=== PATIENT | male | born 1965 ===

== ENCOUNTER 2023-05-15 10:37 | Outpatient (AMB) | payer OTHER, SELFPAY ==
--- NOTE | 2023-05-15 10:49 | MHC.OFFVIS ---
Intake Visit Reasons: Elevated PSA R97.20 Intake Note: New Patient presents today to establish treatment for elevated PSA Meds- None Allergies to Antibiotic- Penicillins Blood Thinner- None Cal[employer] Equipment Operator Required: No Accompanied by: Self / Same As Patient Allergies Penicillins Allergy (Unknown, Verified 05/15/23 11:13) Unknown HPI Comments Details: Rich is a 58 y/o male referred for evaluation elevated PSA - 4.87. He denies FH of prostate cancer. He complains of some hesitency, nocturia x 2, denies dysuria, gross hematuria. I have discussed that elevated PSA may indicate changes in the prostate including benign enlargement, cancer and an inflammatory condition. I have discussed doing a biopsy has risks and that management in early detection of prostate cancer may include active surveillance. Plan--repeat PSA, tamsulosin 0.4mg daily, renal/bladder US. [facility] Medical History (Updated 06/18/23 @ 22:44 by Vicki Gonzales MD) Family history of malignant neoplasm of other organs or systems Hyperlipidemia, unspecified Gastro-esophageal reflux disease without esophagitis Elevated prostate specific antigen [PSA] Calculus of kidney Unspecified malignant neoplasm of skin, unspecified Surgical History No pertinent past surgical history Family History Father No family history of cancer Mother No family history of cancer Social History Alcohol intake: current Alcohol intake frequency: does not drink Patient Tobacco Use Status: Never used Tobacco Review of Systems Const All systems reviewed & are unremarkable except as noted in HPI and below Reports no additional complaints Eyes Reports no additional complaints ENT Reports no additional complaints Card Reports no additional complaints Resp Reports no additional complaints GI Reports no additional complaints Reports as per HPI Musc Reports no additional complaints Skin/Breast Reports system reviewed and no additional complaints, except as documented Neuro Reports no additional complaints Psych Reports no additional complaints Endo Reports no additional complaints Filippo/Lymph Reports no additional complaints Aller/Immun Reports no additional complaints Physical Exam Const General: healthy appearing, no acute distress and well developed Orientation/consciousness: patient oriented x3 HEENT Head: Yes normocephalic and Yes atraumatic Eyes Conjunctivae: conjunctivae normal Neck Neck: Yes normal visual inspection Chest Chest palpation & inspection: normal inspection of the chest Resp Effort & Inspection: normal respiratory effort Cardio Rate: regular rate GI Inspection: Yes normal to inspection Palpation (GI): Soft to palpation Skin General skin exam: no rashes or lesions noted Neuro General: patient oriented x3 Extrem General: No pedal edema Psych Appearance: grossly normal Affect: normal affect Results AMB Urinalysis, Automated UA Leukoctes 0 Rodney/uL Last Edit by Ariadne Vences [facility] on 05/15/23 11:18 UA Nitrite Negative Last Edit by Ariadne Vences [facility] on 05/15/23 11:18 UA Urobilinogen 3.5 mg/dL Last Edit by Ariadne Vences [facility] on 05/15/23 11:18 UA Protein mg/dL Last Edit by Ariadne Vences [facility] on 05/15/23 11:18 0.15 g/L Ariadne Vencesjovanna Alamoa 05/15/23 11:18 UA pH 5.5 Last Edit by Ariadne Vences [facility] on 05/15/23 11:18 UA Blood 0 Saul/uL Last Edit by Ariadne Vences [facility] on 05/15/23 11:18 UA Specific [place] 1.025 Last Edit by Ariadne Vences [facility] on 05/15/23 11:18 UA Ketone Negative Last Edit by Ariadne Vences [facility] on 05/15/23 11:18 UA Bilirubin 0 mg/dL Last Edit by Ariadne Vencesjovanna Vences [facility] on 05/15/23 11:18 UA Glucose 0 mg/dL Last Edit by Ariadne Vencesjovanna Vences [facility] on 05/15/23 11:18 Results Reviewed Results Reviewed: Laboratory Last Values Urine pH (Auto) 5.5 05/15/23 11:17 Specific [place] (Auto) 1.025 05/15/23 11:17 Urine Protein (Auto) mg/dL 05/15/23 11:17 Glucose (UA)(Auto) 0 mg/dL 05/15/23 11:17 Urine Ketones (Auto) Negative 05/15/23 11:17 Urine Blood (Auto) 0 Saul/uL 05/15/23 11:17 Urine Nitrite (Auto) Negative 05/15/23 11:17 Urine Bilirubin (Auto) 0 mg/dL 05/15/23 11:17 Urine Urobilinogen (Auto) 3.5 mg/dL 05/15/23 11:17 Leukocyte Esterase (Auto) 0 Rodney/uL 05/15/23 11:17 Assessment & Plan Assessment & Plan (1) BPH loc w urin obs/LUTS: Code(s): N40.1 - Benign prostatic hyperplasia with lower urinary tract symptoms Category: Medical (2) Elevated prostate specific antigen [PSA]: Code(s): R97.20 - Elevated prostate specific antigen [PSA] Category: Medical Plan repeat PSA, tamsulosin 0.4mg daily, renal/bladder US. Orders: Orders AMB Urinalysis Automated 05/15/23 R33.9 - Retention of urine, unspecified PSA,Total (Free>4and<10) 1 Month R97.20 - Elevated prostate specific antigen [PSA] US retroperitoneal comp 1 Month R97.20 - Elevated prostate specific antigen [PSA] Medications: New tamsulosin 0.4 mg PO BEDTIME 90 caps 0RF BPH 90 days Patient Instructions: The patient had an opportunity to ask questions regarding treatment plan. The patient expressed understanding and agreement with the above treatment plan. The patient is aware they should contact our office by phone for worsening of their current condition or the appearance of new symptoms. Compliance is encouraged with any medications and followup testing that is ordered. It is a privilege to be allowed the opportunity to participate in the urologic care of your patient. If you have any questions or concerns regarding treatment for the above conditions please do not hesitate to contact me. The office telephone contact is [phone]. This note is constructed in part using voice recognition software. While every effort has been made to ensure accuracy almond huller errors may have been included. Yours sincerely, Vciki Gonzales MD Coding Level of Care Code New Pt Level 4 (27419) Diagnoses BPH loc w urin obs/LUTS N40.1 Elevated prostate specific antigen [PSA] R97.20
== END 2023-05-15 11:49 | disposition home or self-care (01) ==
PROVIDERS: Visit Provider Urology
DX: N40.1 Benign prostatic hyperplasia with lower urinary tract symptoms (principal); R97.20 Elevated prostate specific antigen [PSA]
CPT/HCPCS: 99204

== ENCOUNTER → 2023-05-15 10:37 | Outpatient (BNVA) | payer OTHER, SELFPAY | PROVIDERS: Visit Provider Urology | DX: R97.20 Elevated prostate specific antigen [PSA] (principal); N40.1 Benign prostatic hyperplasia with lower urinary tract symptoms | CPT/HCPCS: 81003; 99202 ==

== ENCOUNTER 2023-06-19 09:43 | Outpatient (REF) | payer OTHER, SELFPAY ==
--- NOTE | ~2023-06-19 | US_ITS ---
EXAMINATION: US RETROPERITONEAL COMPLETE (RENAL) CLINICAL INFORMATION: Elevated prostate-specific antigen (PSA). COMPARISON: None available. TECHNIQUE: Real-time imaging of the kidneys and bladder. FINDINGS: RIGHT KIDNEY: 12.8 x 6.3 x 6.4 cm (SAG x AP x TRV). The kidney is normal in size, contour, and echogenicity. Renal cortical thickness is normal. No focal parenchymal lesions or hydronephrosis. 8 mm nonobstructing calculus in the mid kidney. LEFT KIDNEY: 12.6 x 6.0 x 5.8 cm (SAG x AP x TRV). The kidney is normal in size, contour, and echogenicity. Renal cortical thickness is normal. No focal parenchymal lesions or hydronephrosis. 6 mm nonobstructing calculus in the mid kidney. BLADDER: Well distended and normal. Bilateral ureteral jets are demonstrated. Prevoid bladder volume is 690 mL. Postvoid bladder volume is 80 mL. The prostate volume is 32 mL. US/US retroperitoneal comp IMPRESSION: Enlarged prostate with distended urinary bladder measuring 690 mL prevoid and 80 mL postvoid. No hydronephrosis. Nonobstructing bilateral renal calculi.
== END 2023-06-19 09:44 | disposition home or self-care (01) ==
LOC: HO.US 09:43
PROVIDERS: PCP Physician Assistant; Visit Provider Urology
DX: R97.20 Elevated prostate specific antigen [PSA] (principal)
CPT/HCPCS: 76770

== ENCOUNTER 2023-06-27 13:14 | Outpatient (REF) | payer OTHER, SELFPAY ==
[2023-06-27 15:29] LABS: PSA,Total (Free>4and<10) 4.15 ng/mL (0.00-4.00)
[2023-06-29 13:33] LABS: Free Prostate Spec Ag 0.4 ng/mL; Percent Free Prostate Spec Ag 11 % (calc) (>25); Prostate Specific Ag Total 3.8 ng/mL (< OR = 4.0)
== END 2023-06-27 13:15 | disposition home or self-care (01) ==
LOC: HO.LAB 13:14
PROVIDERS: PCP Physician Assistant; Visit Provider Urology
DX: Z12.5 Encounter for screening for malignant neoplasm of prostate (principal); R97.20 Elevated prostate specific antigen [PSA]
CPT/HCPCS: 36415; 84153; 84154

== ENCOUNTER 2023-07-03 08:16 | Outpatient (AMB) | payer OTHER, SELFPAY ==
--- NOTE | 2023-07-03 08:24 | A.OFFVIS_ITS ---
Intake Visit Reasons: 2m/US/PSA Intake Note: Patient presents today for a follow-up on US & PSA Results: 4.15 ng/mL Meds- Tamsulosin Allergies to Antibiotic- Penicillins Blood Thinner- None Exercise Physiologist Certified Required: No Accompanied by: Self / Same As Patient Allergies Penicillins Allergy (Unknown, Verified 07/03/23 08:25) Unknown Medication List - Last Reconciled 07/03/23 by Vicki Gonzales MD cholecalciferol (vitamin D3) 50 mcg PO DAILY famotidine 20 mg PO DAILY multivitamin (Multiple Vitamins tablet) 1 tab PO DAILY omega 9-[id number]-fish oil 1,000 mg (120 mg-180 mg) (Fish Oil) 1 cap PO DAILY pyridoxine (vitamin B6) 90 mg (0.9 x 100 mg) PO DAILY tamsulosin 0.4 mg PO BEDTIME 90 days HPI Comments Details: 07/03/23--Rich is a 58-year-old male who was seen last on 05/15/2023 for elevated PSA. Denies family history of prostate cancer. He does admit to some obstructive bladder symptoms. He is on tamsulosin 0.4 mg daily. The patient states he is tolerating the tamsulosin and feels that he has a better flow and is getting up less at nighttime. He was sent for renal ultrasound and repeat PSA was discussed. PSA-06/27/2023 was 4.15. Renal ultrasound 06/19/2023-negative for lesions, viral kidney stones 8 mm in the right kidney 6 mm in the left kidney adequate emptying on postvoid check a bladder, estimated prostate volume 32 mL. The patient states that he does have a history of passing kidney stones he has not needed to have a procedure. The patient states that he eats a lot of nuts and berries in his diet. I have discussed diet modification to decrease risk of forming more kidney stones. I have discussed low oxalate diet and specific foods to avoid including certain green leafy vegetables, chocalate, nuts, tea, beets, rubarb; low sodium, decreased use of animal protein and the importance of hydration drinking up to 2-2.5 liters of fluids and use of adding lemon to water to increase citrate in the diet. A pamphlet is also provided today. Plan discussed 24 hour urine collection. Will monitor kidney stones. CT stone protocol in 6 months. Review of chart: 05/15/23--Rich is a 58 y/o male referred for evaluation elevated PSA - 4.87. He denies FH of prostate cancer. He complains of some hesitency, nocturia x 2, denies dysuria, gross hematuria. I have discussed that elevated PSA may indicate changes in the prostate i ncluding benign enlargement, cancer and an inflammatory condition. I have discussed doing a biopsy has risks and that management in early detection of prostate cancer may include active surveillance. Plan discussed repeat PSA, tamsulosin 0.4mg daily, renal/bladder US. 07/03/2023--Plan-continue tamsulosin. Monitor PSA. PSA in 6 months. diet modification discussed. [address] stone protocol in 6 months [facility] Medical History Family history of malignant neoplasm of other organs or systems Hyperlipidemia, unspecified Gastro-esophageal reflux disease without esophagitis Elevated prostate specific antigen [PSA] Calculus of kidney Unspecified malignant neoplasm of skin, unspecified Surgical History No pertinent past surgical history Family History Father No family history of cancer Mother No family history of cancer Social History Alcohol intake: current Alcohol intake frequency: does not drink Patient Tobacco Use Status: Never used Tobacco Review of Systems Const All systems reviewed & are unremarkable except as noted in HPI and below Reports no additional complaints Eyes Reports no additional complaints ENT Reports no additional complaints Card Reports no additional complaints Resp Reports no additional complaints GI Reports no additional complaints Reports as per HPI Musc Reports no additional complaints Skin/Breast Reports system reviewed and no additional complaints, except as documented Neuro Reports no additional complaints Psych Reports no additional complaints Endo Reports no additional complaints Filippo/Lymph Reports no additional complaints Aller/Immun Reports no additional complaints Results Reviewed Results Reviewed: Date of Service: 06/19/23 US RETROPERITONEAL COMPLETE (RENAL) CLINICAL INFORMATION: Elevated prostate-specific antigen (PSA). COMPARISON: None available. TECHNIQUE: Real-time imaging of the kidneys and bladder. FINDINGS: RIGHT KIDNEY: 12.8 x 6.3 x 6.4 cm (SAG x AP x TRV). The kidney is normal in size, contour, and echogenicity. Renal cortical thickness is normal. No focal parenchymal lesions or hydronephrosis. 8 mm nonobstructing calculus in the mid kidney. LEFT KIDNEY: 12.6 x 6.0 x 5.8 cm (SAG x AP x TRV). The kidney is normal in size, contour, and echogenicity. Renal cortical thickness is normal. No focal parenchymal lesions or hydronephrosis. 6 mm nonobstructing calculus in the mid kidney. BLADDER: Well distended and normal. Bilateral ureteral jets are demonstrated. Prevoid bladder volume is 690 mL. Postvoid bladder volume is 80 mL. The prostate volume is 32 mL. IMPRESSION: Enlarged prostate with distended urinary bladder measuring 690 mL prevoid and 80 mL postvoid. No hydronephrosis. Nonobstructing bilateral renal calculi. Assessment & Plan Assessment & Plan (1) BPH loc w urin obs/LUTS: Code(s): N40.1 - Benign prostatic hyperplasia with lower urinary tract symptoms Category: Medical (2) Elevated prostate specific antigen [PSA]: Code(s): R97.20 - Elevated prostate specific antigen [PSA] Category: Medical (3) Bilateral kidney stones: Code(s): N20.0 - Calculus of kidney Category: Medical Plan Elevated PSA. Stable 06/27/19 4-4.15 ng/mL. Repeat PSA in 6 months Bilateral kidney stones. Vitamin B6 100 mg daily. 24 hour urine. Follow-up in [address] stone protocol in 6 months. Orders: Orders CT abdomen pelvis wo IV con 6 Months N20.0 - Calculus of kidney PSA,Total (Free>4and<10) 6 Months R97.20 - Elevated prostate specific antigen [PSA] Medications: New pyridoxine (vitamin B6) 90 mg (0.9 x 100 mg) PO DAILY 90 tabs 3RF Patient Instructions: The patient had an opportunity to ask questions regarding treatment plan. The patient expressed understanding and agreement with the above treatment plan. The patient is aware they should contact our office by phone for worsening of their current condition or the appearance of new symptoms. Compliance is encouraged with any medications and followup testing that is ordered. It is a privilege to be allowed the opportunity to participate in the urologic care of your patient. If you have any questions or concerns regarding treatment for the above conditions please do not hesitate to contact me. The office telephone contact is [phone]. This note is constructed in part using voice recognition software. While every effort has been made to ensure accuracy pastry decorator errors may have been included. Yours sincerely, Vicki Gonzales MD Coding Level of Care Code Est Pt Level 4 (96584) Complex EM visit Add On G2211 Diagnoses BPH loc w urin obs/LUTS N40.1 Elevated prostate specific antigen [PSA] R97.20 Bilateral kidney stones N20.0
== END 2023-07-03 09:10 | disposition home or self-care (01) ==
PROVIDERS: Referring Provider Urology; Visit Provider Urology
DX: N40.1 Benign prostatic hyperplasia with lower urinary tract symptoms (principal); R97.20 Elevated prostate specific antigen [PSA]; N20.0 Calculus of kidney; Z13.9 Encounter for screening, unspecified
CPT/HCPCS: 99214; G2211

== ENCOUNTER → 2023-07-03 08:16 | Outpatient (BNVA) | payer OTHER, SELFPAY | PROVIDERS: Visit Provider Urology | DX: N40.1 Benign prostatic hyperplasia with lower urinary tract symptoms (principal); N20.0 Calculus of kidney; R97.20 Elevated prostate specific antigen [PSA]; Z79.899 Other long term (current) drug therapy | CPT/HCPCS: 81003; 99212 ==

== ENCOUNTER 2023-09-25 08:20 | Outpatient (AMB) | payer OTHER, SELFPAY ==
--- NOTE | 2023-09-25 08:31 | A.OFFVIS_ITS ---
Intake Visit Reasons: 12w/[employer] Intake Note: Patient presents today for a 12w follow-up/[employer] Meds- Tamsulosin,pyridoxine Allergies to Antibiotic- Penicillins Blood Thinner- None Gift Consultant Required: No Accompanied by: Self / Same As Patient Allergies Penicillins Allergy (Unknown, Verified 09/25/23 08:32) Unknown HPI Comments Details: 09/25/2023-Rich is here in follow-up for kidney stones and BPH. He states that he has been taking the tamsulosin which was working well he has been getting up 1 time at night. I have reviewed 24 hour urine collection. Good urine volume over 3 L, elevated urine calcium greater than 500 mg, oxalate 43 mg. Will refer to nephrology. Continue to monitor PSA, and kidney stone. Continue tamsulosin and vitamin B6 100 mg daily. Review of chart: 07/03/23--Rich is a 58-year-old male who was seen last on 05/15/2023 for elevated PSA. Denies family history of prostate cancer. He does admit to some obstructive bladder symptoms. He is on tamsulosin 0.4 mg daily. The patient states he is tolerating the tamsulosin and feels that he has a better flow and is getting up less at nighttime. He was sent for renal ultrasound and repeat PSA was discussed. PSA-06/27/2023 was 4.15. Renal ultrasound 06/19/2023-negative for lesions, viral kidney stones 8 mm in the right kidney 6 mm in the left kidney adequate emptying on postvoid check a bladder, estimated prostate volume 32 mL. The patient states that he does have a history of passing kidney stones he has not needed to have a procedure. The patient states that he eats a lot of nuts and berries in his diet. I have discussed diet modification to decrease risk of forming more kidney stones. I have discussed low oxalate diet and specific foods to avoid including certain green leafy vegetables, chocalate, nuts, tea, beets, rubarb; low sodium, decreased use of animal protein and the importance of hydration drinking up to 2-2.5 liters of fluids and use of adding lemon to water to increase citrate in the diet. A pamphlet is also provided today. Plan discussed 24 hour urine collection. Will monitor kidney stones. CT stone protocol in 6 months. 05/15/23--Rich is a 58 y/o male referred for evaluation elevated PSA - 4.87. He denies FH of prostate cancer. He complains of some hesitency, nocturia x 2, denies dysuria, gross hematuria. I have discussed that elevated PSA may indicate changes in the prostate including benign enlargement, cancer and an inflammatory condition. I have discussed doing a biopsy has risks and that management in early detection of prostate cancer may include active surveillance. Plan discussed repeat PSA, tamsulosin 0.4mg daily, renal/bladder US. [facility] Medical History (Updated 09/25/23 @ 10:03 by Vicki Gonzales MD) Family history of malignant neoplasm of other organs or systems Hyperlipidemia, unspecified Gastro-esophageal reflux disease without esophagitis Elevated prostate specific antigen [PSA] Calculus of kidney Unspecified malignant neoplasm of skin, unspecified Surgical History No pertinent past surgical history Family History Father No family history of cancer Mother No family history of cancer Social History Alcohol intake: current Alcohol intake frequency: does not drink Patient Tobacco Use Status: Never used Tobacco Results AMB Urinalysis, Automated UA Leukoctes 0 Rodney/uL Last Edit by CHRISTOPHER Bello on 09/25/23 08:55 UA Nitrite Negative Last Edit by CHRISTOPHER Bello on 09/25/23 08:55 UA Urobilinogen 0.2 mg/dL Last Edit by CHRISTOPHER Bello on 09/25/23 08:5 5 UA Protein 0 mg/dL Last Edit by CHRISTOPHER Bello on 09/25/23 08:55 UA pH 6.0 Last Edit by CHRISTOPHER Bello on 09/25/23 08:55 UA Blood 0 Saul/uL Last Edit by CHRISTOPHER Bello on 09/25/23 08:55 UA Specific [place] 1.015 Last Edit by CHRISTOPHER Bello on 09/25/23 08: 55 UA Ketone Positive Last Edit by CHRISTOPHER Bello on 09/25/23 08:55 UA Bilirubin 0 mg/dL Last Edit by CHRISTOPHER Bello on 09/25/23 08:55 UA Glucose 0 mg/dL Last Edit by CHRISTOPHER Bello on 09/25/23 08:55 Results Reviewed Results Reviewed: Laboratory Last Values Urine pH (Auto) 6.0 09/25/23 08:54 Specific [place] (Auto) 1.015 09/25/23 08:54 Urine Protein (Auto) 0 mg/dL 09/25/23 08:54 Glucose (UA)(Auto) 0 mg/dL 09/25/23 08:54 Urine Ketones (Auto) Positive 09/25/23 08:54 Urine Blood (Auto) 0 Saul/uL 09/25/23 08:54 Urine Nitrite (Auto) Negative 09/25/23 08:54 Urine Bilirubin (Auto) 0 mg/dL 09/25/23 08:54 Urine Urobilinogen (Auto) 0.2 mg/dL 09/25/23 08:54 Leukocyte Esterase (Auto) 0 Rodney/uL 09/25/23 08:54 Date of Service: 06/19/23 US RETROPERITONEAL COMPLETE (RENAL) CLINICAL INFORMATION: Elevated prostate-specific antigen (PSA). COMPARISON: None available. TECHNIQUE: Real-time imaging of the kidneys and bladder. FINDINGS: RIGHT KIDNEY: 12.8 x 6.3 x 6.4 cm (SAG x AP x TRV). The kidney is normal in size, contour, and echogenicity. Renal cortical thickness is normal. No focal parenchymal lesions or hydronephrosis. 8 mm nonobstructing calculus in the mid kidney. LEFT KIDNEY: 12.6 x 6.0 x 5.8 cm (SAG x AP x TRV). The kidney is normal in size, contour, and echogenicity. Renal cortical thickness is normal. No focal parenchymal lesions or hydronephrosis. 6 mm nonobstructing calculus in the mid kidney. BLADDER: Well distended and normal. Bilateral ureteral jets are demonstrated. Prevoid bladder volume is 690 mL. Postvoid bladder volume is 80 mL. The prostate volume is 32 mL. IMPRESSION: Enlarged prostate with distended urinary bladder measuring 690 mL prevoid and 80 mL postvoid. No hydronephrosis. Nonobstructing bilateral renal calculi. 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 Category: Medical (2) Elevated prostate specific antigen [PSA]: Code(s): R97.20 - Elevated prostate specific antigen [PSA] Category: Medical (3) BPH loc w urin obs/LUTS: Code(s): N40.1 - Benign prostatic hyperplasia with lower urinary tract symptoms Category: Medical (4) Calculus of kidney: Code(s): N20.0 - Calculus of kidney Category: Medical Plan Referred to nephrology for hypercalciuria, monitor PSA and kidney stone Renal ultrasound in 1 year, follow-up post Orders: Orders AMB Urinalysis Automated Today Z13.9 - Encounter for screening, unspecified Referrals Nephrology Referral R82.994 - Hypercalciuria Medications: New tamsulosin (Flomax) 0.4 mg PO BEDTIME 90 caps 3RF tamsulosin (Flomax) . 0.4 mg PO BEDTIME 90 caps 3RF Patient Instructions: The patient had an opportunity to ask questions regarding treatment plan. The patient expressed understanding and agreement with the above treatment plan. The patient is aware they should contact our office by phone for worsening of their current condition or the appearance of new symptoms. Compliance is encouraged with any medications and followup testing that is ordered. It is a privilege to be allowed the opportunity to participate in the urologic care of your patient. If you have any questions or concerns regarding treatment for the above conditions please do not hesitate to contact me. The office telephone contact is [phone]. This note is constructed in part using voice recognition software. While every effort has been made to ensure accuracy inside sales manager errors may have been included. Yours sincerely, Vicki Gonzales MD Coding Level of Care Code Est Pt Level 4 (72047) Diagnoses Hypercalciuria R82.994 Elevated prostate specific antigen [PSA] R97.20 BPH loc w urin obs/LUTS N40.1 Calculus of kidney N20.0
== END 2023-09-25 09:41 | disposition home or self-care (01) ==
PROVIDERS: PCP Physician Assistant; Visit Provider Urology
DX: R82.994 Hypercalciuria (principal); R97.20 Elevated prostate specific antigen [PSA]; N40.1 Benign prostatic hyperplasia with lower urinary tract symptoms; N20.0 Calculus of kidney; Z13.9 Encounter for screening, unspecified
CPT/HCPCS: 99214

== ENCOUNTER → 2023-09-25 08:20 | Outpatient (BNVA) | payer OTHER, SELFPAY | PROVIDERS: PCP Physician Assistant; Visit Provider Urology | DX: N20.0 Calculus of kidney (principal); N40.1 Benign prostatic hyperplasia with lower urinary tract symptoms; R82.994 Hypercalciuria; R97.20 Elevated prostate specific antigen [PSA]; Z79.899 Other long term (current) drug therapy | CPT/HCPCS: 81003; 99212 ==

== ENCOUNTER 2023-11-02 14:49 | Outpatient (AMB) | payer OTHER, SELFPAY ==
[2023-11-02 14:57] VITALS: BP 134/84; PULSE 63; O2SAT 96; BMI 27.9
--- NOTE | 2023-11-02 14:57 | HO.NEPHOV_ITS ---
Vital Signs 11/02/23 14:57 Height 6 ft 2 in Weight 217 lb BMI 27.9 BP 134/84 Blood Pressure Location Lt brachial Position Sitting Pulse 63 Pulse Source Pulse Oximeter Pulse Oximetry (%) 96 Oxygen Delivery Method Room Air Intake Visit Reasons: Hypercalciuria/ Conf Financial Services Manager Required: No Accompanied by: Self / Same As Patient Allergies Penicillins Allergy (Unknown, Verified 11/02/23 15:00) Unknown Medication List - Last Reconciled 11/02/23 by Dago Stein MD cholecalciferol (vitamin D3) 50 mcg PO DAILY famotidine 20 mg PO DAILY magnesium oxide 500 mg PO DAILY milk thistle 150 mg PO BEDTIME omega 1-yxq-nbq-fish oil 1,000 mg (120 mg-180 mg) (Fish Oil) 1 cap PO DAILY pyridoxine (vitamin B6) 90 mg (0.9 x 100 mg) PO DAILY tamsulosin (Flomax) 0.4 mg PO BEDTIME HPI Comments Details: Pleasant middle-aged man has 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 Rich has a history of renal stone which he passed in 2006. Recently he had renal ultrasonogram showed bilateral renal stones. Twenty-four urine collection done in August 2023 showed significant hypercalcemia along with hyperoxaluria hence this referral. He has no specific complaints today. About 2 weeks ago he has changed his diet and is eating mostly vegetables and fruits and trying to lose weight. [facility] Medical History (Updated 09/25/23 @ 10:03 by Vicki Gonzales MD) Family history of malignant neoplasm of other organs or systems Hyperlipidemia, unspecified Gastro-esophageal reflux disease without esophagitis Elevated prostate specific antigen [PSA] Calculus of kidney Unspecified malignant neoplasm of skin, unspecified Surgical History No pertinent past surgical history Family History Father No family history of cancer Mother No family history of cancer Social History Alcohol intake: current Alcohol intake frequency: does not drink Patient Tobacco Use Status: Never used Tobacco Review of Systems Const Denies fever(s) and Denies weight loss Card Denies chest pain Resp Denies cough and Denies hemoptysis GI Denies abdominal pain, Denies diarrhea and Denies nausea Musc Denies back pain Neuro Denies focal weakness Physical Exam Vital Signs: Last Vital Signs Pulse 63 11/02/23 14:57 BP 134/84 11/02/23 14:57 Pulse Ox 96 11/02/23 14:57 Oxygen Delivery Method Room Air 11/02/23 14:57 BMI result Body Mass Index 27.9 Const General: comfortable; No acute distress Orientation/consciousness: patient oriented x3 Eyes General: appearance normal, both eyes and all related structures Visual Knight: normal visual knight by confrontation Neck Neck: Yes supple and Yes no JVD Resp Effort & Inspection: normal respiratory effort and respiratory effort not decreased Auscultation: rhonchi Cardio Palpation: no palpable S3 and no palpable S4 Heart sounds: no rubs GI Inspection: Yes normal to inspection Palpation (GI): Soft to palpation Percussion: Yes normal to percussion Auscultation: normal bowel sounds General: Yes no CVA tenderness Back/Spine/Pelvis Back: no CVA tenderness Skin General skin exam: no petechiae and no purpura Neuro General: patient oriented x3 and no focal motor deficits Extrem General: No clubbing and No edema Results Reviewed Results Reviewed: Twenty-four urine collection results reviewed. Total volume 3.2 L Hypercalciuria hyperoxaluria. Hyperuricosuria. Hyperphosphatemia. Nephrology Results: No Data to Display Assessment & Plan Assessment & Plan (1) Calculus of kidney: Code(s): N20.0 - Calculus of kidney Category: Medical (2) Bilateral kidney stones: Code(s): N20.0 - Calculus of kidney Category: Medical Plan: Middle-aged man with bilateral renal stones and hypercalciuria. He also has hyperoxaluria hyperuricosuria and hyperphosphatemia. And elevated urine urea nitrogen. I suspect this is due to increased dietary intake especially red meat. Likely has changed his diet and for the past 2 weeks he has cut back on the mid intake and he is on more vegetables and fruit diet. He has lost few lb as well. I will recheck her 24 urine collection in the next 2 weeks to see if there is any impact. In the meantime encouraged him to continue with a low-sodium diet Avoid high oxalate diet including raspberries strawberries and spleen edge. Check intact PTH and serum calcium serum phosphorus. After basic workup was completed returned to office in next few weeks Plan . Orders: Orders Comprehensive Met. Panel 2 Weeks N20.0 - Calculus of kidney Magnesium 2 Weeks N20.0 - Calculus of kidney Lipid Panel 2 Weeks N20.0 - Calculus of kidney Uric Acid 2 Weeks N20.0 - Calculus of kidney Total Protein Urine Random 2 Weeks N20.0 - Calculus of kidney UA and rflx microscopic 2 Weeks N20.0 - Calculus of kidney Complete Blood Count Auto Diff 2 Weeks N20.0 - Calculus of kidney Sodium, 24Hr Urine Group Today N20.0 - Calculus of kidney Oxalate, 24 Hr Today N20.0 - Calculus of kidney Uric Acid, 24Hr Urine Group Today N20.0 - Calculus of kidney Parathyroid Hormone Intact 2 Weeks N20.0 - Calculus of kidney Sodium Urine Random 2 Weeks N20.0 - Calculus of kidney Creatinine Urine 2 Weeks N20.0 - Calculus of kidney Creatinine, 24 Hr Group Today N20.0 - Calculus of kidney Calcium, 24 Hr Ur Today N20.0 - Calculus of kidney Citric Acid 24hr Urine Today N20.0 - Calculus of kidney Coding Level of Care Code New Pt Level 4 (73491) Diagnoses Calculus of kidney N20.0 Bilateral kidney stones N20.0
== END 2023-11-02 15:20 | disposition home or self-care (01) ==
PROVIDERS: PCP Physician Assistant; Referring Provider Urology; Visit Provider Internal Medicine Hypertension Specialist
DX: N20.0 Calculus of kidney (principal)
CPT/HCPCS: 99204

== ENCOUNTER → 2023-11-02 14:49 | Outpatient (BNVA) | payer OTHER, SELFPAY | PROVIDERS: PCP Physician Assistant; Referring Provider Urology; Visit Provider Internal Medicine Hypertension Specialist | DX: N20.0 Calculus of kidney (principal) | CPT/HCPCS: 99202 ==

== ENCOUNTER 2023-11-17 06:27 | Outpatient (REF) | payer OTHER, SELFPAY ==
[2023-11-17 06:43] LABS: MANUAL DIFF FLAG NO
[2023-11-17 07:15] LABS: Basophils Absolute Auto 0.1 X10*3/uL (0.0-0.2); Basophils Percent Auto 1.3 % (0-2); Eosinophils Absolute Auto 0.1 X10*3/uL (0.0-0.4); Eosinophils Percent Auto 1.7 % (0-4); Hematocrit 45.3 % (42.0-52.0); Hemoglobin 15.6 g/dl (14.0-18.0); Imm Gran Abs Auto 0.01 X10*3/uL (0.00-0.03); Imm Gran Pct Auto 0.2 % (0.0-0.4); Lymphocytes Absolute Auto 1.8 X10*3/uL (1.2-4.9); Lymphocytes Percent Auto 38.9 % (20-40); Mean Corpuscular HGB Conc 34.4 g/dl (31.0-36.0); Mean Corpuscular Hemoglobin 31.8 pg (27.0-33.0); Mean Corpuscular Volume 92.3 fL (80.0-98.0); Mean Platelet Volume 11.8 fL (9.4-12.4); Monocytes Absolute Auto 0.5 X10*3/uL (0.1-1.2); Monocytes Percent Auto 9.7 % (2-11); Neutrophils Absolute Auto 2.2 x10*3/uL (2.0-8.3); Neutrophils Percent Auto 48.2 % (45-73); Platelet Count 235 X10*3/uL (160-400); Red Blood Count 4.91 X10*6/uL (4.60-5.80); Red Cell Distribution Width 12.7 % (11.0-16.0); White Blood Count 4.6 X10*3/uL (4.8-10.8)
[2023-11-17 07:22] LABS: Appearance Urine Clear; Color Urine Yellow; Glucose Urine UA Negative (Negative); Leukocyte Esterase Urine Negative (Negative); Nitrite Urine Negative (Negative); Urine Blood Negative (Negative); Urine Ketones Trace mg/dL (Negative); Urine Protein Negative (Neg-Trace)
[2023-11-17 08:04] LABS: Creatinine, mg/dL 75.22
[2023-11-17 08:04] LABS: Parathyroid Hormone Intact 51.2 pg/mL (8.7-77.1)
[2023-11-17 08:14] LABS: Alanine Aminotransferase 57 U/L (0-40); Albumin Level 4.4 g/dL (3.5-5.0); Alkaline Phosphatase 91 U/L (39-117); Anion Gap 13 (12-20); Aspartate Amino Transferase 32 U/L (5-37); Bilirubin Total 0.6 mg/dL (0.0-1.0); Blood Urea Nitrogen 16 mg/dL (9-16); Calcium 10.2 mg/dL (8.4-10.2); Carbon Dioxide 29 mmol/L (22-29); Chloride 104 mmol/L (96-108); Cholesterol 179 mg/dL (<200); Estimated Glomerular Filt Rate > 60; Glucose Random 107 mg/dL (60-115); HDL Cholesterol 39 mg/dL (>40); LDL Cholesterol Calculated 122 mg/dL (<100); Magnesium 2.4 mg/dL (1.6-2.6); Potassium 4.5 mmol/L (3.3-5.1); Sodium 141 mmol/L (135-145); Total Protein 7.4 g/dL (6.5-8.0); Triglycerides 92 mg/dL (<150); Uric Acid 8.6 mg/dL (3.4-7.0)
[2023-11-17 08:17] LABS: Sodium Urine Random < 20.0 mmol/L; Total Protein Urine Random 14 mg/dL (<12)
[2023-11-17 08:50] LABS: Creatinine, 24Hr Urine 1.9 G/Day (1.0-2.0); Sodium 24 Hr Urine 82.5 mmol/Day (40-220); Total Volume 24 Hour Urine 2500 mL
[2023-11-17 08:51] LABS: Creatinine, 24Hr Urine 1.9 G/Day (1.0-2.0); Total Volume 24 Hour Urine 2500 mL
[2023-11-18 17:23] LABS: Calcium, 24 Hr Urine 328 mg/24 h; Calcium/Creatinine Ratio 166 mg/g creat (30-210); Creatinine 24Hr Urine 1.98 g/24 h (0.50-2.15)
[2023-11-24 00:52] LABS: 24hr Urine Total Volume 2500 mL; Oxalic Acid 24 Urine 39.9 mg/24 h (3.6-38.0)
[2023-11-24 16:03] LABS: 24hr Urine Total Volume 2500 mL; Citric Acid, 24hr Urine 808 mg/24 h (100-1300); Citric Acid/Creat Ratio 24U 426 mg/g creat (60-660)
== END 2023-11-17 06:28 | disposition home or self-care (01) ==
LOC: HO.LAB 06:27
PROVIDERS: PCP Physician Assistant; Visit Provider Internal Medicine Hypertension Specialist
DX: N20.0 Calculus of kidney (principal)
CPT/HCPCS: 36415; 80053; 80061; 81003; 82340; 82507; 82570; 83735; 83945; 83970; 84156; 84300; 84550; 84560; 85025

== ENCOUNTER 2023-11-23 14:28 | Outpatient (AMB) | payer OTHER, SELFPAY ==
[2023-11-23 14:35] VITALS: BP 124/80; PULSE 64; O2SAT 96; BMI 27.1
--- NOTE | 2023-11-23 14:35 | HO.NEPHOV_ITS ---
Vital Signs 11/23/23 14:35 Height 6 ft 2 in Weight 211 lb BMI 27.1 BP 124/80 Blood Pressure Location Rt brachial Position Sitting Pulse 64 Pulse Source Pulse Oximeter Pulse Oximetry (%) 96 Oxygen Delivery Method Room Air Intake Visit Reasons: Bilateral kidney stones/ Conf Hospital Sales Representative Required: No Accompanied by: Self / Same As Patient Allergies Penicillins Allergy (Unknown, Verified 11/23/23 14:37) Unknown Medication List - Last Reconciled 11/23/23 by Dago Stein MD cholecalciferol (vitamin D3) 50 mcg PO DAILY famotidine 20 mg PO DAILY magnesium oxide 500 mg PO DAILY milk thistle 150 mg PO BEDTIME omega 2-fzb-eaa-fish oil 1,000 mg (120 mg-180 mg) (Fish Oil) 1 cap PO DAILY pyridoxine (vitamin B6) 90 mg (0.9 x 100 mg) PO DAILY tamsulosin (Flomax) 0.4 mg PO BEDTIME HPI Comments Details: Pleasant middle-aged man has 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 Rich has a history of renal stone which he passed in 2006. Recently he had renal ultrasonogram showed bilateral renal stones. Twenty-four urine collection done in August 2023 showed significant hypercalcemia along with hyperoxaluria hence this referral. He has no specific complaints today. About 2 weeks ago he has changed his diet and is eating mostly vegetables and fr uits and trying to lose weight. . [facility] Medical History (Updated 09/25/23 @ 10:03 by Vicki Gonzales MD) Family history of malignant neoplasm of other organs or systems Hyperlipidemia, unspecified Gastro-esophageal reflux disease without esophagitis Elevated prostate specific antigen [PSA] Calculus of kidney Unspecified malignant neoplasm of skin, unspecified Surgical History No pertinent past surgical history Family History Father No family history of cancer Mother No family history of cancer Social History Alcohol intake: current Alcohol intake frequency: does not drink Patient Tobacco Use Status: Never used Tobacco Physical Exam Vital Signs: Last Vital Signs Pulse 64 11/23/23 14:35 BP 124/80 11/23/23 14:35 Pulse Ox 96 11/23/23 14:35 Oxygen Delivery Method Room Air 11/23/23 14:35 BMI result Body Mass Index 27.1 Results Reviewed Nephrology Results: Hgb 15.6 g/dl (14.0-18.0) 11/17/23 WBC 4.6 X10*3/uL (4.8-10.8) L 11/17/23 Plt Count 235 X10*3/uL (160-400) 11/17/23 Sodium 141 mmol/L (135-145) 11/17/23 Potassium 4.5 mmol/L (3.3-5.1) 11/17/23 Chloride 104 mmol/L (96-108) 11/17/23 Carbon Dioxide 29 mmol/L (22-29) 11/17/23 BUN 16 mg/dL (9-16) 11/17/23 Creatinine 1.02 mg/dL (0.5-1.4) 11/17/23 Calcium 10.2 mg/dL (8.4-10.2) 11/17/23 PTH Intact 51.2 pg/mL (8.7-77.1) 11/17/23 Urine Protein Negative mg/dL (Neg-Trace) 11/17/23 Urine Creatinine 222.50 mg/dL 11/17/23 Assessment & Plan Assessment & Plan (1) Calculus of kidney: Code(s): N20.0 - Calculus of kidney Category: Medical (2) Bilateral kidney stones: Code(s): N20.0 - Calculus of kidney Category: Medical Plan: Middle-aged man with bilateral renal stones and hypercalciuria. He also has hyperoxaluria hyperuricosuria and hyperphosphatemia. And elevated urine urea nitrogen. I suspect this is due to increased dietary intake especially red meat. Likely has changed his diet and for the past 2 weeks he has cut back on the mid intake and he is on more vegetables and fruit diet. He has lost few lb as well. Twenty-four urine collection was reviewed with the patient. There has been a decrease in the oxalate and uric acid excretion after dietary changes. encouraged him to continue with a low-sodium diet Avoid high oxalate diet including raspberries strawberries and spinach Plan . Coding Level of Care Code Est Pt Level 4 (81444) Diagnoses Calculus of kidney N20.0 Bilateral kidney stones N20.0
== END 2023-11-23 14:49 | disposition home or self-care (01) ==
PROVIDERS: PCP Physician Assistant; Referring Provider Physician Assistant; Visit Provider Internal Medicine Hypertension Specialist
DX: N20.0 Calculus of kidney (principal)
CPT/HCPCS: 99213

== ENCOUNTER → 2023-11-23 14:28 | Outpatient (BNVA) | payer OTHER, SELFPAY | PROVIDERS: PCP Physician Assistant; Visit Provider Internal Medicine Hypertension Specialist | DX: N20.0 Calculus of kidney (principal); R82.994 Hypercalciuria | CPT/HCPCS: 99212 ==

== ENCOUNTER 2024-01-22 12:47 | Outpatient (REF) | payer OTHER, SELFPAY ==
[2024-01-22 14:58] LABS: PSA,Total (Free>4and<10) 2.99 ng/mL (0.00-4.00)
== END 2024-01-22 12:48 | disposition home or self-care (01) ==
LOC: HO.LAB 12:47
PROVIDERS: PCP Physician Assistant; Visit Provider Urology
DX: Z12.5 Encounter for screening for malignant neoplasm of prostate (principal); R97.20 Elevated prostate specific antigen [PSA]
CPT/HCPCS: 36415; 84153

== ENCOUNTER 2024-02-13 16:03 | Outpatient (REF) | payer OTHER, SELFPAY ==
--- OUTSIDE RECORDS SUMMARY | 2024-02-13 16:06 | XMS_ITS ---
Author Name [facility] [place] [facility] [place] [facility] [place] [facility] [place] Address [address] [place] [address] Care Team Providers Care Field Recruiter Name Role Phone ABDELRAHMAN SNYDER Primary Care Provider MIRIAM Machado Primary Care Provider Unavailabl e Insurance Providers: All historical and current Section Date Range: From patient's date of to the date document was created. This section includes the names of all active insurance providers for the patient. Insurance Provider Type of Coverage Plan Name Start of Policy Coverage End of Policy Coverage Group Number Member ID Insurance Provider's Telephone Number Policy Sapp's Name Patient's Relationship to Policy Sapp [facility] PREFERRED PROVIDER ORGANIZAT ION (PPO) MG WEEKL Y ACTIV E Feb 20, 2017 [id number] EFFIE FOOTE PATIENT [place] PRESCRIPT ION Feb 20, 2017 [id number] [phone] EFFIE FOOTE PATIENT [employer] [facility] RE DODA Mar 05, 2020 DODA [id number] [phone] EFFIE FOOTE PATIENT [facility] CE ORGANIZ HMO Jan 22, 2007 (WNR) [id number] EFFIE FOOTE PATIENT MEDIMPA[employer] RX PRESCRIPT ION [facility] July 11, 2008 [id number] [phone] EFFIE FOOTE PATIENT [facility] Oct 09, 2008 [id number] EFFIE FOOTE PATIENT [facility] SELEC T TAMP Mar 14, 2021 [id number] [phone] EFFIE FOOTE PATIENT [facility] PRIME -ACTI VE DUTY Mar 05, 2020 [id number] EFFIE FOOTE PATIENT [facility] Dec 18, 2018 SELECT [id number] [phone] EFFIE FOOTE PATIENT Selected Encounter This section includes the information on record at [place] for the Encounter. Date/Time Encounter Type Encounter Description Reason Provider Source Feb 28, 2023 09:30 AM OFFICE O/P EST LOW 20 MIN PRIMARY CARE/MEDICINE ICD-10-CM R97.20 Elevated prostate specific antigen [PSA] VANWAGNER,WILL CHOLO F E Encounter Template Text not used by [place] Assessments - Encounter Diagnoses This section includes the primary and secondary diagnoses documented for the Encounter. Date/Time Primary/Secondary Diagnosis Diagnosis Name Provider Source Feb 28, 2023 10:08 AM PRIMARY Elevated prostate specific antigen [PSA] VANWAGNER,WILL CHOLO F [facility] Feb 28, 2023 10:08 AM SECONDARY Basal cell carcinoma of skin, unspecified VANWAGNER,WILL [facility]OLO F [facility] Feb 28, 2023 10:08 AM SECONDARY Contact with and exposure to other hazardous substances VANWAGNER,WILL CHOLO F [facility] Feb 28, 2023 10:08 AM SECONDARY Family history of malignant neoplasm of organs or systems VANWAGNER,WILL CHOLO F [facility] Feb 28, 2023 10:08 AM SECONDARY Gastro-esophageal reflux disease without esophagitis VANWAGNER,WILL CHOLO F [facility] Plan of Treatment: Future Appointments (+ 6 months) and Future Tests (+/- 45 days) The Plan of Treatment section includes future care activities for the patient from all [place] treatmentfacilities. This section includes future appointments and future orders which are active, pending or scheduled. Future Appointments This section includes appointments that were scheduled to occur 6 months from the date of the Encounter, up to a maximum of 20 appointments. The data comes from all [facility]. Appointment Date/Time Appointment Type Appointme nt Facility Name May 15, 2023 11:00 AM [facility] May 16, 2023 02:00 PM [facility] NONE [facility] Aug 07, 2023 10:30 AM AMBULATORY - MEDICINE [facility] Aug 15, 2023 09:00 AM [facility] Aug 29, 2023 09:30 AM AMBULATORY - MEDICINE [facility] Active, Pending, and Scheduled Orders This section includes a listing of several types of active, pending, and scheduled orders, including clinic medications orders, diagnostic test orders, procedure orders and consult orders; where the start date of the order is 45 days before the date of the Encounter or 45 days after the date of theEncounter. The data comes from all [facility]. Test Date/Time Test Type Test Details Facility Name Feb 28, 2023 12:00 AM Laboratory - Chemi stry Order LIPID PANEL FASTING BLOOD (SST-SERUM) SP [facility] Lab Results: +/- 30 days of the encounter This section includes the Chemistry and Hematology Lab Results on record with [place] for the patient. Radiology Reports and Pathology Reports are provided separately, in subsequent sections. Lab Results This section contains the Chemistry/Hematology Results that were resulted 30 days before or 30 daysafter the date of the Encounter. Date/Time Source Result Type Result - Unit Interpretation Reference Range Comment Feb 21, 2023 07:48 AM [facility] PSA Specimen Type: SERUM No comment entered. Ordering Provider: SAM SNYDER Report Released Date/Time: Dec 27, 2021 11:44 AM Reporting Lab: [facility] [address] [facility] [address] Performing Lab: [address] [address] PSA 4.87 ng/mL H 0.00-4.00 Feb 21, 2023 07:48 AM [facility] LIPID PANEL FASTING Specimen Type: SERUM No comment entered. Ordering Provider: SAM SNYDER Report Released Date/Time: Dec 27, 2021 11:44 AM Reporting Lab: [facility] [address] [facility] [address] Performing Lab: [facility] [address] [facility] [address] CHOLESTEROL 246 mg/dL H TRIGLYCERIDE 186 mg/dL H 0-150 LDL calculated 163 mg/dL H 0-129 CHOL/HDL 5.3 HDL CHOLESTEROL 46 mg/dL 40-60 Feb 21, 2023 07:48 AM [facility] BASIC METABOLIC PANEL (fasting) Specimen Type: SERUM No comment entered. Ordering Provider: SAM SNYDER Report Released Date/Time: Dec 27, 2021 11:44 AM Reporting Lab: [address] [address] Performing Lab: [address] [address] UREA NITROGEN 17 mg/dL 7-25 GLUCOSE 95 mg/dL 65-100 SODIUM 142 mmol/L 135-145 POTASSIUM 4.3 mmol/L 3.5-5.0 CHLORIDE 103 mmol/L 100-110 CO2 28 meq/L 20-30 CREATININE, Serum 0.96 mg/dL 0.50-1.40 eGFR(CKD-EPI 2020) >90 mL/min >60 Feb 21, 2023 07:48 AM [facility] LIVER FUNCTION Specimen Type: SERUM No comment entered. Ordering Provider: SAM SNYDER Report Released Date/Time: Dec 27, 2021 11:44 AM Reporting Lab: [address] [address] Performing Lab: [address] [address] PROTEIN,TOTAL 7.1 g/dL 6.0-8.3 ALBUMIN 4.2 g/dL 3.5-5.0 ALKALINE PHOSPHATASE 91 U/L 40-150 AST 66 U/L H 5-34 ALT 173 U/L H BILIRUBIN, TOTAL 0.5 mg/dL 0.2-1.2 Feb 21, 2023 07:48 AM [facility] HEPATITIS C ANTIBODY (HCV)-ARC Specimen Type: SERUM Comment: Hep C Ab: No HCV antibody detected. If recent infection is suspected or other evidence suggests HCV infection, consider HCV nucleic acid testing Ordering Provider: SAM SNYDER Report Released Date/Time: Feb 21, 2023 12:57 PM Reporting Lab: [facility] [address] [facility] [address] Performing Lab: [address] [address] HEPATITIS C ANTIBODY NON-REACTIVE NON-REACTIV E Vital Signs: All taken on the encounter date This section contains inpatient and outpatient Vital Signs collected on the date of the Encounter. Date/Time Temperature Pulse Blood Pressure Respiratory Rate SP02 Pain Height Weight Body Mass Index Source Feb 28, 2023 09:19 AM 98.4 F 65 /min 140/86 mm[Hg] 16 /min 97 % 0 226 lb 29 [facility] Social History: Smoking Status (Most current) and Tobacco Use (All prior to encounter date) This section includes the most current, and the historical, smoking and tobacco- related health factors from the [place] facility where the Encounter took place. Current Smoking Status This section includes the most current smoking, or tobacco-related health factor, from the [place] facility where the Encounter took place. Date/Time Current Smoking Status Comment Facil ity Oct 13, 2022 11:45 AM VA-TOBACCO NEVER USED [facility] Tobacco Use History This section includes a history of the smoking, or tobacco-related health factors, that were collected on or before the date of the Encounter. The data comes from the [place] facility where the Encounter took place. Date/Time Smoking Status/Tobacco Use Comment F acsmith Sep 05, 2021 11:29 AM VA-TOBACCO NEVER USED [facility] May 28, 2007 09:10 AM LIFETIME NON-TOBACCO USER [facility] Advance Directives: All historical and current Section Date Range: From patient's date of to the date document was created. This section includes ALL of a patient's completed or amended [place] Advance and Rescinded Directives. The entries below indicate that a directive exists for the patient, but an actual copy is not included with this document. The data comes from all [place] facilities. Date Advance Directives Provider Source Aug 29, 2023 ADVANCE DIRECTIVE CLYDEKRUNAL Daniel [place] [facility] Encounter Notes: All associated encounter notes This section contains the clinical notes associated to the Encounter. Date/Time Encounter Note(s) Provider Source Feb 28, 2023 09:56 AM PHYSICIAN REGISTERED NURSE POST PARTUM NOTE: LOCAL TITLE: PA NOTE STANDARD TITLE: PHYSICIAN REGISTERED NURSE POST PARTUM NOTE DATE OF NOTE: FEB 28, 2023@09:56 ENTRY DATE: FEB 28, 2023@09:56:37 AUTHOR: ABDELRAHMAN SNYDER COSIGNER: URGENCY: STATUS: COMPLETED CC/HPI/A/P: 57 year old MALE here in follow-up for; 57 yo male with maternal history of melanoma and personal history of BCC and SCC would like routine f/u. He last saw Derm in [place], sent outside by the [facility], bx of scc, followed by excision. He reports clear. he will visit [facility] for help with records. 57 yo male with NO Fh of prostate cancer and NO surgical hx and some hx of psa elevation in the [employer] ( no biopsy) is found to have a psa of 4.87 on recent labs here. He is amenable to a consult for same. Review of systems: Patient reports no changes from [facility], in meds or any admissions. Active problems - Computerized Problem List is the source for the followin. Elevated PSA ([facility] [id number]) 2. Hyperlipidemia ([facility] [id number]) 3. Basal Cell Carcinoma of Skin ([facility] [id number]) 4. Family history of malignant melanoma Mom. 5. Gastroesophageal reflux disease 6. Kidney Stone SERVICE CONNECTED % - NONE [facility] and Non VA meds were reconciled with the patient who left with a corrected copy. See medication page for details. Active and Recently Outpatient Medications (excluding Supplies): Active Outpatient Medications Status 1) FAMOTIDINE 20MG TAB TAKE ONE TABLET BY MOUTH TWICE ACTIVE DAILY NEEDED FOR STOMACH ACID 98.4 F [36.9 C] (02/28/2023 09:19) 65 (02/28/2023 09:19) 16 (02/28/2023 09:19) 140/86 (02/28/2023 09:19) 0 (02/28/2023 09:19) 74 in [188.0 cm] (07/04/2008 11:24) 226 lb [102.51 kg] (02/28/2023:) BMI: 29.1 Neuro: Alert and oriented times three, grossly nonfocal, nasolabial folds intact. Thyroid nonpalpable. Cor: Regular rate and rhythm, normal s1 and 2 without Murmur, carotid bruits or pedal edema. Lungs; Clear to auscultation bilaterally. Recent labs reviewed with patient today:yes, lipids are a bit high. Lifestyle discussed, recheck six months. 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 /caregiver believes the [place] was exposed to the following while serving in the Armed Forces: Airborne Hazards and Open Burn Pit: /caregiver was made aware of educational resources that includes information on the Registry Program, presumptive conditions and how to file a claim. Printed information was offered and provided if desired. [place]/caregiver has no health or medical concerns related to their concern of environmental exposure. No questions at this time [place]/caregiver was informed of local points of contact. Contact information for local resources: Benefits/Claim for Disability Compensation Questions:National VBA [place] Healthcare Enrollment: [facility] Eligibility direct dialed at [phone] Registry: [facility] [place] Health Coordinator ext [phone] The following connections were provided to the /caregiver: No connections needed at this time Screen for Embedded Fragments: SCREEN FOR EMBEDDED FRAGMENTS The patient reports no embedded fragments. 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 The [place] has not already been diagnosed as having TBI during post 10/31 deployment. 1. The [place] experienced the following events during deployment: Patient denies experiencing any TBI related events during deployment. Negative Micah /kaleb/ Abdelrahman Snyder PA-C STAFF PHYSICIAN REGISTERED NURSE POST PARTUM Signed: 02/28/2023 10:08 ABDELRAHMAN SNYDER [facility] Feb 28, 2023 09:21 AM PREVENTIVE MEDICINE NURSING NOTE: LOCAL TITLE: CLINICAL REMINDERS/NURSING STANDARD TITLE: PREVENTIVE MEDICINE NURSING NOTE DATE OF NOTE: FEB 28, 2023@09:21 ENTRY DATE: FEB 28, 2023@09:21:54 AUTHOR: ZHANE SANCHEZIGNER: URGENCY: STATUS: COMPLETED MST Screening: Patient denies experiencing sexual trauma (MST). PTSD Screening: PC-PTSD-5 A PTSD screening test (PC-PTSD-5) was negative (score=3). IN THE PAST MONTH, have you ever had any experience that was so frightening, horrible or traumatic. For example: A serious accident or fire a physical or sexual assault or abuse An earthquake or flood A war Seeing someone be killed or seriously injured Having a loved one through homicide or suicide 1. Have you ever experienced this kind of event? YES 2. Had nightmares about the event(s) or thought about the event(s) when you did not want to? YES 3. Tried hard not to think about the event(s) or went out of your way to avoid situations that reminded you of the event(s)? YES 4. Been constantly on guard, watchful, or easily startled? YES 5. [place] numb or detached from people, activities, or your surroundings? NO 6. [place] guilty or unable to stop blaming yourself or others for the event(s) or any problems the event(s) may have caused? NO Licensed Independent Provider notified of positive screen and need for follow-up. Name of provider notified: rodríguez calvert/ ZHANE SANCHEZ LPN Signed: 02/28/2023 09:23 ZHANE SANCHEZ [facility]
--- OUTSIDE RECORDS SUMMARY | 2024-02-13 16:06 | XMS_ITS ---
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 Name Role Phone JANIE SNYDER Primary Care Provider MIRIAM Machado Primary [...] Patient's Relationship to Policy Sapp BCBS OF [facility] PREFERRED PROVIDER ORGANIZAT ION (PPO) MG WEEKL Y ACTIV E Feb 20, 2017 [id number] EFFIE FOOTE PATIENT [employer] PRESCRIPT ION Feb 20, 2017 [id number] EFFIE FOOTE PATIENT [facility] TRICA RE DODA Mar 05, 2020 DODA [id number] [phone] EFFIE FOOTE PATIENT [facility] CE ORGANIZ HMO Jan 22, 2007 (WNR) [id number] EFFIE FOOTE PATIENT MEDIMPA[employer] RX PRESCRIPT ION [address] PILGR IM July 11, 2008 [id number] EFFIE FOOTE PATIENT [facility] Oct 09, 2008 [id number] EFFIE FOOTE PATIENT [facility] SELEC T TAMP Mar 14, 2021 [facility] [place] [id number] EFFIE FOOTE PATIENT [facility] PRIME -ACTI VE DUTY Mar 05, 2020 [facility] [place] [id number] EFFIE FOOTE PATIENT [facility] Dec 18, 2018 [facility] [id number] [phone] EFFIE FOOTE PATIENT Selected Encounter This section includes the information on record at [place] for the Encounter. Date/Time Encounter Type Encounter Description Reason Provider Source Aug 07, 2023 10:30 AM Outpatient Encounter GENERAL INTERNAL MEDICINE ICD-10-CM Z77.118 Contact w and (suspected) exposure to oth environ pollution ODESSA PEREZ Andrew Encounter Template Text not used by [place] Assessments - Encounter Diagnoses This section includes the primary and secondary diagnoses documented for the Encounter. Date/Time Primary/Secondary Diagnosis Diagnosis Name Provider Source Aug 07, 2023 11:09 AM PRIMARY Contact w and (suspected) exposure to oth environ pollution ODESSA PEREZ [place] [facility] [place] [facility] Aug 07, 2023 11:09 AM SECONDARY Allergic rhinitis, unspecified ODESSA PEREZ [place] [facility] [place] [facility] Aug 07, 2023 11:09 AM SECONDARY Cntct w and expsr to environ tobacco smoke (acute) (chronic) ODESSA PEREZ [place] [facility] [place] [facility] Aug 07, 2023 11:09 AM SECONDARY Contact w and exposure to potentially hazardous body fluids ODSESA PEREZ [place] [facility] [place] [facility] Aug 07, 2023 11:09 AM SECONDARY Contact with and (suspected) exposure to air pollution ODESSA PEREZ [place] [facility] [place] [facility] Aug 07, 2023 11:09 AM SECONDARY Contact with and (suspected) exposure to noise ODESSA PEREZ [place] [facility] [place] [facility] Aug 07, 2023 11:09 AM SECONDARY Exposure to disaster, war and other hostilities ODESSA PEREZ [place] [facility] [place] [facility] Aug 07, 2023 11:09 AM SECONDARY Heartburn ODESSA PEREZ [place] [facility] [place] [facility] Aug 07, 2023 11:09 AM SECONDARY Postnasal drip [facility] Plan of Treatment: Future Appointments (+ 6 months) and Future Tests (+/- 45 days) The Plan of Treatment section includes future care activities for the patient from all [place] [facility]. This section includes future appointments and future orders which are active, pending or scheduled. Future Appointments This section includes appointments that were scheduled to occur 6 months from the date of the Encounter, up to a maximum of 20 appointments. The data comes from all [place] treatment [facility]. Appointment Date/Time Appointment Type Appointme nt Facility Name Aug 15, 2023 09:00 AM AM[place]ULATORY [place] [facility] [place] [facility] Aug 29, 2023 09:30 AM [place] [facility] [place] [facility] Sep 06, 2023 10:00 AM [facility] Sep 13, 2023 11:00 AM [place] [facility] [place] [facility] Sep 27, 2023 01:00 PM AM[place]UL[place]ORY [place] [facility] [place] [facility] Oct 09, 2023 09:30 AM [place] [facility] [place] [facility] Nov 02, 2023 03:15 PM [place] [facility] [place] [facility] Nov 21, 2023 01:30 PM [place] [facility] [place] [facility] Jan 03, 2024 09:30 AM [place] [facility] [place] [facility] Feb 01, 2024 08:30 AM [place] [facility] [place] [facility] Active, Pending, and Scheduled Orders This section includes a listing of several types of active, pending, and scheduled orders, including clinic medications orders, diagnostic test orders, procedure orders and consult orders; where the start date of the order is 45 days before the date of the Encounter or 45 days after the date of theEncounter. The data comes from all [facility]. Test Date/Time Test Type Test Details Facility Name Sep 13, 2023 12:00 AM Laboratory - Chemi stry Order SURGICAL PATH ORDER SURG PATH SPEC. UNKNOWN SP [facility] Lab Results: +/- 30 days of the encounter This section includes the Chemistry and Hematology Lab Results on record with [place] for the patient. Radiology Reports and Pathology Reports are provided separately, in subsequent sections. Lab Results This section contains the Chemistry/Hematology Results that were resulted 30 days before or 30 daysafter the date of the Encounter. Date/Time Source Result Type Result - Unit Interpretation Reference Range Comment Aug 22, 2023 09:38 AM [facility] BASIC METABOLIC PANEL (fasting) Specimen Type: SERUM No comment entered. Ordering Provider: SAM SNYDER Report Released Date/Time: Feb 28, 2023 10:07 AM Reporting Lab: [address] [id number] Performing Lab: [address] [id number] UREA NITROGEN 17 mg/dL 7-25 GLUCOSE 104 mg/dL H 65-100 SODIUM 140 mmol/L 135-145 POTASSIUM 4.1 mmol/L 3.5-5.0 CHLORIDE 105 mmol/L 100-110 CO2 27 meq/L 20-30 CREATININE, Serum 0.87 mg/dL 0.50-1.40 eGFR(CKD-EPI 2020) >90 mL/min >60 Aug 22, 2023 09:38 AM [facility] LIVER FUNCTION Specimen Type: SERUM No comment entered. Ordering Provider: SAM SNYDER Report Released Date/Time: Feb 28, 2023 10:07 AM Reporting Lab: [address] [address] Performing Lab: [address] [phone] PROTEIN,TOTAL 7.0 g/dL 6.0-8.3 ALBUMIN 4.1 g/dL 3.5-5.0 ALKALINE PHOSPHATASE 93 U/L 40-150 AST 36 U/L H 5-34 ALT 82 U/L H BILIRUBIN, TOTAL 0.6 mg/dL 0.2-1.2 Aug 22, 2023 09:38 AM [facility] LIPID PANEL FASTING Specimen Type: SERUM No comment entered. Ordering Provider: SAM SNYDER Report Released Date/Time: Feb 28, 2023 10:07 AM Reporting Lab: [facility] [address] [facility] [address] Performing Lab: [facility] [address] [facility] [facility] [address] CHOLESTEROL 247 mg/dL H TRIGLYCERIDE 161 mg/dL H 0-150 LDL calculated 168 mg/dL H 0-129 CHOL/HDL 5.3 HDL CHOLESTEROL 47 mg/dL 40-60 Social History: Smoking Status (Most current) and Tobacco Use (All prior to encounter date) This section includes the most current, and the historical, smoking and tobacco- related health factors from the [place] facility where the Encounter took place. Current Smoking Status This section includes the most current smoking, or tobacco-related health factor, from the [place] facility where the Encounter took place. Date/Time Current Smoking Status Comment Facil ity Oct 13, 2022 11:45 AM VA-TOBACCO NEVER USED [facility] Tobacco Use History This section includes a history of the smoking, or tobacco-related health factors, that were collected on or before the date of the Encounter. The data comes from the [place] facility where the Encounter took place. Date/Time Smoking Status/Tobacco Use Comment F acility Sep 05, 2021 11:29 AM VA-TOBACCO NEVER USED [facility] May 28, 2007 09:10 AM LIFETIME NON-TOBACCO USER [facility] Advance Directives: All historical and current Section Date Range: From patient's date of to the date document was created. This section includes ALL of a patient's completed or amended [place] Advance and Rescinded Directives. The entries below indicate that a directive exists for the patient, but an actual copy is not included with this document. The data comes from all [place] facilities. Date Advance Directives Provider Source Aug 29, 2023 ADVANCE DIRECTIVE KRUNAL TANG [facility] Encounter Notes: All associated encounter notes This section contains the clinical notes associated to the Encounter. Date/Time Encounter Note(s) Provider Source Aug 07, 2023 10:27 AM [facility] E [facility] M NOTE: LOCAL TITLE: [place] [facility]ZARD AND OPEN BURN PIT REGISTRY ASSESSME STANDARD TITLE: FRANCISCO THOMPSON REGISTRY E & M NOTE DATE OF NOTE: AUG 07, 2023@10:27 ENTRY DATE: AUG 07, 2023@10:27:08 AUTHOR: ODESSA PEREZ COSIGNER: URGENCY: STATUS: COMPLETED MODULE 1: INTRODUCTION AND TELEHEALTH Type of exam conducted today: Only the OBTX exam PRIVACY: Reviewed Privacy Act Statement and educated that no individual identifying information will be shared with any third parties outside the [facility] without the [place]'s consent. The was also advised that only non-identifiable data is used to assess conditions affecting deployed groups of Veterans. PURPOSE OF EXAM: The was advised that registry exams are limited to diagnostic and research purposes only. Treatment: Veterans with any treatment questions or concerns were encouraged to contact their primary care provider. Disability: Veterans with disability claims or questions were encouraged to contact the Veterans Benefits Administration at or online at www.va.gov/disability. PCP name and phone number: Hilario [facility] Appointment was a face to face visit. MODULE 2: DEPLOYMENT HISTORY AND EXPOSURES Deployment history reviewed and discussed with : 11/16/05-12/03/05 [facility] 12/04/05-12/13/05 [place] 05/02/06-10/31/06 [place] 11/01/06-11/12/06 [facility] environmental exposures Deployment-related exposures Airborne hazards and open burn pits Smoke and fumes from open burn pits. 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 This was in [facility]. It was if it was snowing at times. Sand, dust, and particulate matter. Details: [place] there were many sandstorms. Very wolfgang in [place], but [place] was worse. General air pollution. Details: Diesel fumes Fuel, aircraft exhaust, and other mechanical fumes. 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 Each tent had an hvac unit and it emitted fumes. Exposures associated with duties Per- and Polyfluoroalkyl Substances (PFAS). Details: Drank the bottled water that was stored in the sun. MODULE 3: COMBINED CHIEF COMPLAINT/HPI/ROS Chief complaint/[place] concern(s): Future health concerns. Many BCC, SCC removals. Reported Symptoms: Runny nose/postnasal drip for more than 3 weeks. Details: Takes Sudafed PRN. Happens in the spring. Hay fever or respiratory allergy. Details: Takes Sudafed PRN. Happens in the spring. Cough for more than 3 weeks. Details: From the post nasal drip. Decreased ability to exercise. Details: Heartburn or acid reflux. Details: Takes famotidine Urinary problem. Other Details: Kidney stones, enlarged prostate Skin problem. Details: SCC, BCC- sees dermatology q6 months Neurological problem. 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 Chronic sleep disturbances. Details: has trouble sleeping-insomnia MODULE 4: ALLERGIES/MEDICATIONS/PROBL EM LIST/PAST MEDICAL HISTORY Allergies reviewed in CPRS. Comment: PCN Medication list reviewed in CPRS. NOTE: This list does not reflect any updates made to the problem list during today's appointment. Please refer to the assessment section in module 7 for additional diagnoses. CPRS Problem List is the source for the following: Active Problem List: 7 Active Problems PROBLEM LAST MOD PROVIDER Exposure to potentially hazardous substance 04/17/2023 MICHAEL JIMENEZ Connect Snomed Code to ICD 10 Code refer to note dated 02/28/23 Elevated PSA 11/23/2021 ANSHUL SNYDER Hyperlipidemia 09/16/2021 ANSHUL SNYDER Basal cell carcinoma of skin 09/16/2021 ANSHUL SNYDER Family history of malignant melanoma 09/16/2021 ANSHUL SNYDER Mom. Gastroesophageal reflux disease, Onset 09/05/2021JuneTASIA Daniel Kidney Stone, Onset 05/28/2007 LIZY DYER MODULE 5: SOCIAL/EXERCISE/SUBSTANCES/ FAMILY HISTORY Social history: Details: Lives with parents and his brother, Taking care of his mother that had a stroke. 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 Functional assessment Can you run or jog one mile on a level surface without difficulty? No Can you walk on a level surface for one mile without difficulty? Yes Substances: Alcohol Details: 1 beer a week socially Family history Other: Details: Mother: Stroke@83, HTN, Father: 84 DM2, HTN Brother: HTN, Brother: DM2, HTN Sister: A+W MODULE 6: PHYSICAL EXAM A physical exam, including vital signs and examinations of the HEENT, neck, chest, abdomen, and neurologic systems, was performed today. PHYSICAL EXAM: 143/82, 61 95% on RA GENERAL well appearing; in NAD RESP clear to auscultation bilaterally CV RR S1 S2 No m/r/g () Pedal Edema MENTAL A&Ox3 Appropriate, Pleasant, Cooperative MODULE 7: ASSESSMENT AND PLAN EXPOSURE/S: Contact/Suspected Exposure to Air Pollution Z77.110 Contact/Suspected Exposure to Environ Tobacco Smoke Z77.22 Contact/Suspected Exposure to Noise Z77.122 Comment: Old tents Contact with and (suspected) Exposure to Other Environmental Pollution Z77.118 Contact with and (Suspected) Exposure to Potentially hazardous Body Fluids. 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 58 yo male [employer] here on [facility] today for AHOBPR Assessment. Reviewed deployment, exposures, and histroy. reported multiple exposures as listed above. No symptoms or conditions needing PCP follow up were identified at this time. The [place] was informed that a follow-up letter will be sent within 2 weeks of the registry evaluation with additional letters to follow if there are pending test results at that time. [place] was advised to contact Radha Marroquin if they have additional questions or do not receive a letter. /kaleb/ ODESSA PEREZ [facility]- NURSE PRACTITIONER Signed: 08/07/2023 11:18 Receipt Acknowledged By: 08/07/2023 12:37 /kaleb/ Janie Snyder PA-C STAFF PHYSICIAN IRRIGATION MANAGER ODESSA PEREZ [facility]
--- OUTSIDE RECORDS SUMMARY | 2024-02-13 16:06 | XMS_ITS | Encounter Summary ---
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 CE ORGANIZ HMO Jan 22, 2007 (WNR) [id number] EFFIE FOOTE PATIENT MEDIMPACT RX PRESCRIPT ION [address] PILGR IM July 11, 2008 [id number] [phone] EFFIE FOOTE PATIENT [facility] Oct 09, 2008 [id number] EFFIE FOOTE PATIENT [facility] SELEC T TAMP Mar 14, 2021 [id number] EFFIE FOOTE PATIENT [facility] PRIME -ACTI VE DUTY Mar 05, 2020 [id number] EFFIE FOOTE PATIENT [facility] Dec 18, 2018 SELECT [id number] [phone] EFFIE FOOTE PATIENT Selected Encounter This section includes the information on record at [place] for the Encounter. Date/Time Encounter Type Encounter Description Reason Provider Source Sep 27, 2023 01:00 PM WELLNESS ASSESSMENT BY [facility] ICD-10-CM Z73.3 Stress, not elsewhere classified SANDER FISHER Andrew Encounter Template Text not used by [place] Assessments - Encounter Diagnoses This section includes the primary and secondary diagnoses documented for the Encounter. Date/Time Primary/Secondary Diagnosis Diagnosis Name Provider Source Sep 27, 2023 07:07 PM PRIMARY Stress, not elsewhere classified SANDER FISHER [facility] ([id number]) Plan of Treatment: Future Appointments (+ 6 months) and Future Tests (+/- 45 days) The Plan of Treatment section includes future care activities for the patient from all [place] treatmentfacilities. This section includes future appointments and future orders which are active, pending or scheduled. Future Appointments This section includes appointments that were scheduled to occur 6 months from the date of the Encounter, up to a maximum of 20 appointments. The data comes from all [place] treatment facilities. Appointment Date/Time Appointment Type Appointme nt Facility Name Oct 09, 2023 09:30 AM AMBULATORY - MEDICINE [facility] [place] [facility] Nov 02, 2023 03:15 PM AMBULATORY - MEDICINE [facility] [place] [facility] Nov 21, 2023 01:30 PM AMBULATORY - MEDICINE [facility] [place] [facility] Jan 03, 2024 09:30 AM AMBULATORY - MEDICINE [facility] [place] [facility] Feb 01, 2024 08:30 AM AMBULATORY - MEDICINE [place] [facility] [place] [facility] Feb 19, 2024 08:30 AM AMBULATORY - MEDICINE [facility] Mar 06, 2024 11:00 AM AMBULATORY - MEDICINE [facility] Active, Pending, and Scheduled Orders This section includes a listing of several types of active, pending, and scheduled orders, including clinic medications orders, diagnostic test orders, procedure orders and consult orders; where the start date of the order is 45 days before the date of the Encounter or 45 days after the date of theEncounter. The data comes from all [facility]. Test Date/Time Test Type Test Details Facility Name Sep 13, 2023 12:00 AM Laboratory - Chemi stry Order SURGICAL PATH ORDER SURG PATH SPEC. UNKNOWN SP [facility] Advance Directives: All historical and current Section Date Range: From patient's date of to the date document was created. This section includes ALL of a patient's completed or amended [place] Advance and Rescinded Directives. The entries below indicate that a directive exists for the patient, but an actual copy is not included with this document. The data comes from all [facility]. Date Advance Directives Provider Source Aug 29, 2023 ADVANCE DIRECTIVE KRUNAL TANG [facility] Pathology Reports: +/- 30 days of the encounter Pathology Reports For cases when an order for pathology services may have been completed prior to the date of the Encounter, the report list includes the Pathology Reports that were completed up to 30 days before dateof the Encounter. For cases when an order for pathology services may have been completed after the date of the Encounter, the report list also includes the Pathology Reports that were completed up to30 days after date of the Encounter. The data comes from all [facility]. Date/Time Pathology Report Provider Source Sep 18, 2023 09:44 AM LR SURGICAL PATHOLOGY REPORT: LOCAL TITLE: LR SURGICAL PATHOLOGY REPORT STANDARD TITLE: PATHOLOGY REPORT DATE OF NOTE: SEP 18, 2023@09:44:02 ENTRY DATE: SEP 18, 2023@09:44:02 AUTHOR: DANNY HI MD EXP COSIGNER: URGENCY: STATUS: COMPLETED $APHDR Reporting Lab: [facility] [CLIA# [id number]] [address] [place] [phone] - - - - - - - - - - - - - - - - - - - - - - - - - - - - - - - - - - - - - - - - MEDICAL RECORD RSURGICAL PATHOLOGY - - - - - - - - - - - - - - - - - - - - - - - - - - - - - - - - - - - - - - - - PATHOLOGY REPORT Accession No. [id number] - - - - - - - - - - - - - - - - - - - - - - - - - - - - - - - - - - - - - - - - $TEXT Submitted by: THEODORE VALDEZ Date obtained: Sep 13, 2023 - - - - - - - - - - - - - - - - - - - - - - - - - - - - - - - - - - - - - - - - Specimen (Received Sep 14, 2023): A:SKIN OFM L LATERAL BACK([id number]) B:SKIN OF L MID DORSAL FOREARM([id number]) C:SKIN OF L LOW BACK([id number]) - - - - - - - - - - - - - - - - - - - - - - - - - - - - - - - - - - - - - - - - BRIEF CLINICAL HISTORY: A. 8 mm pink pearly papule with specks of pigment B. 1 mm hyperpigmented macule C. 5 mm pink pearly plaque with specks of pigment - - - - - - - - - - - - - - - - - - - - - - - - - - - - - - - - - - - - - - - - PREOPERATIVE DIAGNOSIS: A/B/C. BCC - - - - - - - - - - - - - - - - - - - - - - - - - - - - - - - - - - - - - - - - OPERATIVE FINDINGS: - - - - - - - - - - - - - - - - - - - - - - - - - - - - - - - - - - - - - - - - POSTOPERATIVE DIAGNOSIS: Surgeon/physician: =-=-=-=-=-=-=-=-=-=-=-=-=-=- =-=-=-=-=-=-=-=-=-=-=-=-=-=- =-=-=-=-=-=-=-=-=-=-=-= - - - - - - - - - - - - - - - - - - - - - - - - - - - - - - - - - - - - - - - - PATHOLOGY REPORT Accession No. [facility] [id number] - - - - - - - - - - - - - - - - - - - - - - - - - - - - - - - - - - - - - - - - GROSS DESCRIPTION: The specimen is recieved from [facility], [facility] [address] [facility] 24 [id number];A;1;Gian FOOTE. Received in formalin labeled with the patient's name, social security number, and left lateral neck is an unoriented, maria-garcia, hair-bearing skin shave measuring 0.7 x 0.6 x 0.1 cm. There is an ill-defined, granular lesion measuring 0.5 x 0.4 cm extending to the margins. The margins are inked orange. The specimen is entirely submitted as follows: A1, tips A2, body cross section B. Received in formalin labeled with the patient's name, social security number, and left mid dorsal forearm is an unoriented, maria-garcia, focally granular skin shave measuring 0.4 x 0.2 x 0.1 cm. The margins are inked orange. The specimen is bisected and entirely submitted in 1 cassette. C. Received in formalin labeled with the patient's name, social security number, and left lower back is an unoriented, maria-garcia skin shave measuring 0.7 x 0.7 x 0.2 cm. There is a well-circumscribed, garcia to focally brown, nodular lesion measuring 0.5 x 0.4 cm located 0.1 cm from the margin. The margins are inked orange. The specimen is entirely submitted as follows: C1, tips C2, body cross section ACE Rushing ([facility]) 09/14/2023 /kaleb/ Danny Hi MD, FRCPath Board Certified Dermatopathologist Signed Sep 18, 2023@09:44 Performing Laboratory: Surgical Pathology Report Performed By: [facility] [CLIA# [id number]] [address] [place] [address] $FTR - - - - - - - - - - - - - - - - - - - - - - - - - - - - - - - - - - - - - - - - (End of report) DANNY HI MD, MD Date Sep 18, 2023 - - - - - - - - - - - - - - - - - - - - - - - - - - - - - - - - - - - - - - - - CLAIRE FOOTE STANDARD FORM 515 ID:[id number] SEX:M :1965 AGE: 58 LOC:*[facility] PCP: /es/ Danny Hi MD, FRCPath Board Certified Dermatopathologist Signed: 09/18/2023 09:44 DANNY HI MD [facility] Sep 18, 2023 09:40 AM LR SURGICAL PATHOLOGY REPORT: LOCAL TITLE: LR SURGICAL PATHOLOGY REPORT STANDARD TITLE: PATHOLOGY DIAGNOSTIC STUDY REPORT DATE OF NOTE: SEP 18, 2023@09:40:52 ENTRY DATE: SEP 18, 2023@09:40:52 AUTHOR: DANNY HI MD EXP COSIGNER: URGENCY: STATUS: COMPLETED $APHDR Reporting Lab: [facility] [CLIA# [id number]] [address] [place] [phone] - - - - - - - - - - - - - - - - - - - - - - - - - - - - - - - - - - - - - - - - MEDICAL RECORD SURGICAL PATHOLOGY - - - - - - - - - - - - - - - - - - - - - - - - - - - - - - - - - - - - - - - - PATHOLOGY REPORT [facility] 24 [id number] - - - - - - - - - - - - - - - - - - - - - - - - - - - - - - - - - - - - - - - - $TEXT Submitted by: THEODORE VALDEZ Date obtained: Sep 13, 2023 11:00 - - - - - - - - - - - - - - - - - - - - - - - - - - - - - - - - - - - - - - - - Specimen (Received Sep 13, 2023 14:18): skin of l lateral neck skin of l mid dorsal forearm skin of l low back - - - - - - - - - - - - - - - - - - - - - - - - - - - - - - - - - - - - - - - - BRIEF CLINICAL HISTORY: SPECIMEN A: L LATERAL NECK 8MM PINK PEARLY PAPULE WITH SPECKS OF PIGMENT SPECIMEN B: L MID DORSAL FOREARM 1MM HYPERPIGMENTED MACULE SPECIMEN C: L LOW BACK 5MM PINK PEARLY PAPULE WITH SPECKS OF PIGMENT - - - - - - - - - - - - - - - - - - - - - - - - - - - - - - - - - - - - - - - - PREOPERATIVE DIAGNOSIS: A. BCC B. BCC C. BCC - - - - - - - - - - - - - - - - - - - - - - - - - - - - - - - - - - - - - - - - OPERATIVE FINDINGS: - - - - - - - - - - - - - - - - - - - - - - - - - - - - - - - - - - - - - - - - POSTOPERATIVE DIAGNOSIS: Surgeon/physician: THEODORE VALDEZ =-=-=-=-=-=-=-=-=-=-=-=-=-=- =-=-=-=-=-=-=-=-=-=-=-=-=-=- =-=-=-=-=-=-=-=-=-=-=-= - - - - - - - - - - - - - - - - - - - - - - - - - - - - - - - - - - - - - - - - PATHOLOGY REPORT Accession No. [id number] - - - - - - - - - - - - - - - - - - - - - - - - - - - - - - - - - - - - - - - Gross description: The specimen is recieved from [facility], [facility] 24 [id number];A;1;Gian FOOTE. Received in formalin labeled with the patient's name, social security number, and left lateral neck is an unoriented, maria-garcia, hair-bearing skin shave measuring 0.7 x 0.6 x 0.1 cm. There is an ill-defined, granular lesion measuring 0.5 x 0.4 cm extending to the margins. The margins are inked orange. The specimen is entirely submitted as follows: A1, tips A2, body cross section B. Received in formalin labeled with the patient's name, social security number, and left mid dorsal forearm is an unoriented, maria-garcia, focally granular skin shave measuring 0.4 x 0.2 x 0.1 cm. The margins are inked orange. The specimen is bisected and entirely submitted in 1 cassette. C. Received in formalin labeled with the patient's name, social security number, and left lower back is an unoriented, maria-garcia skin shave measuring 0.7 x 0.7 x 0.2 cm. There is a well-circumscribed, garcia to focally brown, nodular lesion measuring 0.5 x 0.4 cm located 0.1 cm from the margin. The margins are inked orange. The specimen is entirely submitted as follows: C1, tips C2, body cross section NavyaACE Coles ([facility]) 09/14/2023 A. Skin, left lateral neck: Basal cell carcinoma, superficial and nodular types, very closely approaching the deep tissue margins. B. Skin, left mid dorsal forearm: Basal cell carcinoma, nodular type. C. Skin, left low back: Basal cell carcinoma, nodular type, very closely approaching the deep tissue margins. 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 Date/Time Encounter Note(s) Provider Source Sep 27, 2023 07:03 PM CONSULT: LOCAL TITLE: CONSULT REPORT/WHOLE HEALTH COACHING STANDARD TITLE: CONSULT DATE OF NOTE: SEP 27, 2023@19:03 ENTRY DATE: SEP 27, 2023@19:04:06 AUTHOR: SANDER FISHER EXP COSIGNER: URGENCY: STATUS: COMPLETED CONSULT REPORT/WHOLE HEALTH COACHING Has ADDENDA Date: Sep Number of Veterans attended: 20 Inverter And Clipper/s: Sander Fisher, Health and Crib Clerk, Dr. Hernandez Group Met: By [place] video connect Individual Contact Details: Individual Location/Surroundings During Visit: Individual confirmed that he/she is in a private and safe location for visit. Individual location during visit: Home [address] [place] [address] Appointment Type: Routine WHOLE HEALTH GROUP/CLASS Peer-led Introduction to Whole Health class [place] attended Introduction to Whole Health session. Information was provided to introduce Veterans to the Whole Health approach to care. was supported in considering how to utilize his/her own strengths and abilities to help build a healing partnership with [facility] to optimize well-being with a focus on what matters most to the [place]. Content included an overview of the Pok[place] of Health/Personal Health Inventory and descriptions of 8 areas of self-care and well-being that address many areas of an individual's life. Facilitators discussed how Whole Health goes beyond illnesses, injuries, or disabilities and supports Veterans' focus on values and aspirations. was encouraged to consider the question What would you do if your health were the best it could be? to assist with setting goals to improve health and well-being. The facilitators provided a description of local service available including,though not limited to: - Enrollment office information - Complementary and Integrative Health approaches - Whole Health Groups - Mental Health services - Whole Health Coaching - Next steps for care referral services (as needed) HANDOUTS: - Whole Health Brochure - Whole Health PHI - Whole Health Pokagon of Health All Veterans were given opportunities to participate and ask questions, and all questions posed were addressed. Veterans were informed of availability of emergency services, including 911 and the local ED, as well as the Crisis Line, [phone]. MISSION, ASPIRATION, PURPOSE (MAP), AND VALUES MAP and values discussed Participation: expressed understanding of group discussion. No SI/HI plan or intent expressed. Follow up: Displayed interest in follow up with: Acupuncture Patient requesting Provider call to further discuss Acupuncture and Whole Health services. /kaleb/ SANDER FISHER [facility] Patching Machine Operator Signed: 09/27/2023 19:07 Receipt Acknowledged By: 09/29/2023 09:31 /es/ Mary Wood, PhD Clinical Psychologist 09/28/2023 ADDENDUM STATUS: COMPLETED Provider called patient, as requested, and answered patient WH questions. Patient requesting a referral for Acupuncture. Provider placing Acupuncture consults, as requested by patient. /es/ SANDER FISHER [facility] Patching Machine Operator Signed: 09/28/2023 14:56 SANDER FISHER [facility] ([id number])
--- OUTSIDE RECORDS SUMMARY | 2024-02-13 16:06 | XMS_ITS ---
Author Name [facility] Organization [facility] [place] Address [address] [place] [address] Care Team Providers Care Door Core Assembler Name Role Phone JANIE SNYDER Primary Care [...] Patient's Relationship to Policy Sapp BCBS OF [facility] PREFERRED PROVIDER ORGANIZAT ION (PPO) MG WEEKL Y ACTIV E Feb 20, 2017 [id number] EFFIE FOOTE PATIENT [facility] PRESCRIPT ION Feb 20, 2017 [id number] EFFIE FOOTE PATIENT [facility] RE DODA Mar 05, 2020 DODA [id number] EFFIE FOOTE PATIENT [facility] CE ORGANIZ HMO Jan 22, 2007 (WNR) [id number] EFFIE FOOTE PATIENT MEDIMPACT RX PRESCRIPT ION HARVA [facility] July 11, 2008 [id number] EFFIE FOOTE PATIENT [facility] Oct 09, 2008 [id number] EFFIE FOOTE PATIENT [facility] SELEC T TAMP Mar 14, 2021 [id number] EFFIE FOOTE PATIENT [facility] PRIME -ACTI VE DUTY Mar 05, 2020 [id number] EFFIE FOOTE PATIENT [facility] Dec 18, 2018 SELECT [id number] [phone] EFFIE FOOTE PATIENT Selected Encounter This section includes the information on record at NE for the Encounter. Date/Time Encounter Type Encounter Description Reason Provider Source Aug 29, 2023 09:30 AM OFFICE O/P EST LOW 20 MIN PRIMARY CARE/MEDICINE ICD-10-CM R97.20 Elevated prostate specific antigen [PSA] DIDI,WILL CHOLO F IHE Encounter Template Text not used by NE Assessments - Encounter Diagnoses This section includes the primary and secondary diagnoses documented for the Encounter. Date/Time Primary/Secondary Diagnosis Diagnosis Name Provider Source Aug 29, 2023 09:58 AM PRIMARY Elevated prostate specific antigen [PSA] JASONGNER,WILL CHOLO F [facility] Aug 29, 2023 09:58 AM SECONDARY Hyperlipidemia, unspecified VANLORY,WILL CHOLO F [facility] Plan of Treatment: Future Appointments (+ 6 months) and Future Tests (+/- 45 days) The Plan of Treatment section includes future care activities for the patient from all NE treatmentfacilities. This section includes future appointments and future orders which are active, pending or scheduled. Future Appointments This section includes appointments that were scheduled to occur 6 months from the date of the Encounter, up to a maximum of 20 appointments. The data comes from all NE treatment facilities. Appointment Date/Time Appointment Type Appointme nt Facility Name Sep 06, 2023 10:00 AM AMBULATORY - [facility] [place] [facility] Sep 13, 2023 11:00 AM AMBULATORY - MEDICINE [facility] Sep 27, 2023 01:00 PM AMBULATORY - MEDICINE [facility] Oct 09, 2023 09:30 AM AMBULATORY - MEDICINE [facility] Nov 02, 2023 03:15 PM AMBULATORY - MEDICINE NE [facility] Nov 21, 2023 01:30 PM AMBULATORY - MEDICINE [facility] Jan 03, 2024 09:30 AM AMBULATORY - MEDICINE [facility] Feb 01, 2024 08:30 AM AMBULATORY - MEDICINE [facility] Feb 19, 2024 08:30 AM [facility]BUL[facility] Active, Pending, and Scheduled Orders This section includes a listing of several types of active, pending, and scheduled orders, including clinic medications orders, diagnostic test orders, procedure orders and consult orders; where the start date of the order is 45 days before the date of the Encounter or 45 days after the date of theEncounter. The data comes from all NE treatment facilities. Test Date/Time Test Type Test Details Facility Name Sep 13, 2023 12:00 AM Laboratory - Chemi stry Order SURGICAL PATH ORDER SURG PATH SPEC. UNKNOWN SP [facility] Lab Results: +/- 30 days of the encounter This section includes the Chemistry and Hematology Lab Results on record with NE for the patient. Radiology Reports and Pathology Reports are provided separately, in subsequent sections. Lab Results This section contains the Chemistry/Hematology Results that were resulted 30 days before or 30 daysafter the date of the Encounter. Date/Time Source Result Type Result - Unit Interpretation Reference Range Comment Aug 22, 2023 09:38 AM [facility] BASIC METABOLIC PANEL (fasting) Specimen Type: SERUM No comment entered. Ordering Provider: SAM SNYDER Report Released Date/Time: Feb 28, 2023 10:07 AM Reporting Lab: [address] [address] Performing Lab: [address] [address] UREA NITROGEN 17 mg/dL 7-25 GLUCOSE 104 mg/dL H 65-100 SODIUM 140 mmol/L 135-145 POTASSIUM 4.1 mmol/L 3.5-5.0 CHLORIDE 105 mmol/L 100-110 CO2 27 meq/L 20-30 CREATININE, Serum 0.87 mg/dL 0.50-1.40 eGFR(CKD-EPI 2020) >90 mL/min >60 Aug 22, 2023 09:38 AM [facility] LIVER FUNCTION Specimen Type: SERUM No comment entered. Ordering Provider: SAM SNYDER Report Released Date/Time: Feb 28, 2023 10:07 AM Reporting Lab: [facility] [address] [address] Performing Lab: [address] [address] PROTEIN,TOTAL 7.0 g/dL 6.0-8.3 ALBUMIN 4.1 g/dL 3.5-5.0 ALKALINE PHOSPHATASE 93 U/L 40-150 AST 36 U/L H 5-34 ALT 82 U/L H BILIRUBIN, TOTAL 0.6 mg/dL 0.2-1.2 Aug 22, 2023 09:38 AM [facility] LIPID PANEL FASTING Specimen Type: SERUM No comment entered. Ordering Provider: SAM SNYDER Report Released Date/Time: Feb 28, 2023 10:07 AM Reporting Lab: [facility] [address] [address] Performing Lab: [address] [address] CHOLESTEROL 247 mg/dL H TRIGLYCERIDE 161 mg/dL H 0-150 LDL calculated 168 mg/dL H 0-129 CHOL/HDL 5.3 HDL CHOLESTEROL 47 mg/dL 40-60 Vital Signs: All taken on the encounter date This section contains inpatient and outpatient Vital Signs collected on the date of the Encounter. Date/Time Temperature Pulse Blood Pressure Respiratory Rate SP02 Pain Height Weight Body Mass Index Source Aug 29, 2023 09:02 AM 98.4 62 130/77 16 96 0 74 219.1 28 [facility] Social History: Smoking Status (Most current) and Tobacco Use (All prior to encounter date) This section includes the most current, and the historical, smoking and tobacco- related health factors from the NE facility where the Encounter took place. Current Smoking Status This section includes the most current smoking, or tobacco-related health factor, from the NE facility where the Encounter took place. Date/Time Current Smoking Status Comment Jannet ity Oct 13, 2022 11:45 AM VA-TOBACCO NEVER USED [facility] Tobacco Use History This section includes a history of the smoking, or tobacco-related health factors, that were collected on or before the date of the Encounter. The data comes from the NE facility where the Encounter took place. Date/Time Smoking Status/Tobacco Use Comment F acility Sep 05, 2021 11:29 AM NE-TOBACCO NEVER USED [facility] May 28, 2007 09:10 AM LIFETIME NON-TOBACCO USER [facility] Advance Directives: All historical and current Section Date Range: From patient's date of to the date document was created. This section includes ALL of a patient's completed or amended NE Advance and Rescinded Directives. The entries below indicate that a directive exists for the patient, but an actual copy is not included with this document. The data comes from all NE facilities. Date Advance Directives Provider Source Aug 29, 2023 ADVANCE DIRECTIVE LUNA DOWELL [facility] Pathology Reports: +/- 30 days of [...] the Encounter. The data comes from all NE treatment facilities. Date/Time Pathology Report Provider Source Sep 18, 2023 09:44 AM LR SURGICAL PATHOLOGY REPORT: LOCAL TITLE: LR SURGICAL PATHOLOGY REPORT STANDARD TITLE: PATHOLOGY REPORT DATE OF NOTE: SEP 18, 2023@09:44:02 ENTRY DATE: SEP 18, 2023@09:44:02 AUTHOR: DANNY HI MD EXP COSIGNER: URGENCY: STATUS: COMPLETED $APHDR Reporting Lab: [facility] [CLIA# [id number]] [address] [place] [address] - - - - - - - [...] Sep 14, 2023): A:SKIN OFM L LATERAL BACK([id number]) B:SKIN OF L MID DORSAL FOREARM([id number]) C:SKIN OF L LOW BACK([id number]) - - - - - - - [...] - - - PATHOLOGY REPORT Accession No. [facility] [id number] - - - - - - - - - - - - - - - - - - - - - - - - - - - - - - - - - - - - - - - - GROSS DESCRIPTION: The specimen is recieved from [facility], [facility] 24 [id number];A;1;Gian FOOTE. Received in [...] follows: C1, tips C2, body cross section [facility] Rushing (ASCP) 09/14/2023 /kaleb/ Danny Hi MD, FRCPath Board Certified Dermatopathologist Signed Sep 18, 2023@09:44 Performing Laboratory: Surgical Pathology Report Performed By: [facility] [CLIA# [id number]] [address] [place] [address] $FTR - - - - - - [...] - - - - - - - RICH FOOTE STANDARD FORM 515 ID:[id number] SEX:M :1965 AGE: 58 LOC:*[facility] PCP: /kaleb/ Danny Hi MD, Alicia Board Certified Dermatopathologist Signed: 09/18/2023 09:44 DANNY HI MD [facility] Sep 18, 2023 09:40 AM LR SURGICAL PATHOLOGY REPORT: LOCAL TITLE: LR SURGICAL PATHOLOGY REPORT STANDARD TITLE: PATHOLOGY DIAGNOSTIC STUDY REPORT DATE OF NOTE: SEP 18, 2023@09:40:52 ENTRY DATE: SEP 18, 2023@09:40:52 AUTHOR: DANNY HI MD EXP COSIGNER: URGENCY: STATUS: COMPLETED $APHDR Reporting Lab: [facility] [CLIA# [id number]] [address] [place] [id number] - - - - - - - [...] - - PATHOLOGY REPORT Accession No. YISEL [id number] - - - - - - - [...] - - - - BRIEF CLINICAL HISTORY: OLIVERIO SPECIMEN A: L LATERAL NECK 8MM PINK [...] - - - - - PREOPERATIVE DIAGNOSIS: 364 A. BCC B. BCC C. BCC - [...] - - - - PATHOLOGY REPORT Accession NoRosalind MORILLO - - - - - - - - - - - - - - - - - - - - - - - - - - - - - - - - - - - - - - - - Gross description: The [id number] 24 [id number];A;1;Gian FOOTE. Received in [...] tips C2, body cross section [facility] Rushing ([facility]) 09/14/2023 A. Skin, left lateral neck: Basal cell carcinoma, superficial and nodular types, very closely approaching the deep tissue margins. B. Skin, left mid dorsal forearm: Basal cell carcinoma, nodular type. C. Skin, left low back: Basal cell carcinoma, nodular type, very closely approaching the deep tissue margins. CPT codes 32847w9 /es/ DANNY HI MD Board Certified Dermatopathologist Signed Sep 18, 2023@09:40 Performing Laboratory: Surgical Pathology Report Performed By: [facility] [CLIA# [id number]] [address] [place] [phone] $FTR - - - - - - [...] - - - - - - - RICH FOOTE STANDARD FORM 515 ID:[id number] SEX:M :1965 AGE: 58 LOC:CWM/NO/DERMATOLOGY [facility] PCP: ACE Petersen /kaleb/ DANNY HI MD Board Certified Dermatopathologist Signed: 09/18/2023 09:40 DANNY HI MD [facility] [place] [facility] Encounter Notes: All associated encounter notes This section contains the clinical notes associated to the Encounter. Date/Time Encounter Note(s) Provider Source Aug 29, 2023 09:48 AM PHYSICIAN ELECTRIC APPLIANCE INSTALLER NOTE: LOCAL TITLE: ACE NOTE STANDARD TITLE: PHYSICIAN ELECTRIC APPLIANCE INSTALLER NOTE DATE OF NOTE: AUG 29, 2023@09:48 ENTRY DATE: AUG 29, 2023@09:48:57 AUTHOR: JANIE SNYDER EXP COSIGNER: URGENCY: STATUS: COMPLETED CC/HPI/A/P: 58 year old MALE here in follow-up for; Dyslipidemia, transaminases a bit elevated February and this draw, prior was fine. He denies history of liver issues nor imaging. We plan to follow lipids, consider a statin later. REpeat hep C at next draw. ptsd, 'started seeing an outside counselor for PTSD, I pay hobbs Would like to access care thru [place], I describe our options and he elects [facility]. Denies SI, attempts nor plans, but I have always had passive thoughts, like if I had a teerminal illness, that would be ok . I feel he is safe. He lives with his parents and bathes/toilets his Mother who had a stroke She can feed herself and is getting better Review of systems: Patient reports no changes from [facility]ual [facility] Health/[facility], in meds or any admissions. Active problems - Computerized Problem List is the source for the followin. 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 Elevated PSA (SCT [id number]) 3. Hyperlipidemia ([facility] [id number]) 4. Basal Cell Carcinoma of Skin ([facility] [id number]) 5. Family history of malignant melanoma Mom. 6. Gastroesophageal reflux disease 7. Kidney Stone SERVICE CONNECTED % - 30 VA and Non VA meds were reconciled with the patient who left with a corrected copy. See medication page for details. Active and Recently Outpatient Medications (excluding Supplies): Active Outpatient Medications Status 1) CLOTRIMAZOLE 1% TOP SOLN APPLY THIN LAYER TOPICALLY ACTIVE TWICE DAILY FOR FUNGAL INFECTION 2) FAMOTIDINE 20MG TAB TAKE ONE TABLET BY MOUTH TWICE ACTIVE DAILY NEEDED FOR STOMACH ACID 3) PYRIDOXINE HCL 100MG TAB TAKE ONE TABLET BY MOUTH ACTIVE ONCE DAILY FOR VITAMIN B6 SUPPLEMENTATION 4) TERBINAFINE HCL 1% CREAM APPLY A THIN LAYER TOPICALLY ACTIVE TWICE DAILY FOR RINGWORM OF GROIN AREA APPLY UP TO 1-4 WEEKS UNTIL RASH RESOLVES Inactive Outpatient Medications Status 1) TAMSULOSIN HCL 0.4MG CAP TAKE ONE CAPSULE BY MOUTH AT BEDTIME Active Non-VA Medications Status 1) Non-VA FISH OIL 1000MG (500MG DHA/EPA) CAP 1000MG BY ACTIVE MOUTH ONCE DAILY 2) Non-VA MULTIVITAMIN W/MINERAL TAB BY MOUTH ACTIVE 3) Non-VA VITAMIN D3 (CHOLECALCIFEROL) TAB BY MOUTH ACTIVE 8 Total Medications 98.4 F [36.9 C] (08/29/2023 09:02) 62 (08/29/2023 09:02) 16 (08/29/2023 09:02) 130/77 (08/29/2023 09:02) 0 (08/29/2023 09:02) 74 in [188.0 cm] (08/29/2023 09:02) 219.1 lb [99.38 kg] (08/29/2023 09:02) BMI: 28.2 Neuro: Alert and oriented times three, grossly nonfocal, nasolabial folds intact. Recent labs reviewed with patient today:yes BMI>30/>24.99 High Risk: At this visit, the health risks of obesity were reviewed and discussed with the , and the benefits of a weight management treatment program, such as [facility]! was discussed and offered to the [place]. After discussing the health risks of being overweight or obese and providing information about available weight management treatment, and offering a referral to [facility] or another weight management treatment program outside the [facility], the patient DECLINES REFERRAL to [facility] or any other weight management treatment program at this time. RHS Screen: RHS Screen Environmental Check Upon inquiry, the individual reports that the environment is safe to proceed. Informed Consent to Screen and Document The individual consents to proceed with screening. The individual consents to documentation of responses. PRIMARY SCREEN: In the past 12 months, how often did a current or former intimate partner (e.g., boyfriend, girlfriend, , , sexual partner): 1. Scream or curse at you Never 2. Insult or talk down to you Never 3. Threaten you with harm Never 4. Physically hurt you Never 5. Force or pressure you to have sexual contact against your will, or when you were unable to say no Never ?? The HITS tool (items 1-4 above) is US copyright protected by Rich Fraga MD, and the user has full rights to use it throughout the [place] system. PRIMARY SCREEN RESULT: The Primary Screen is NEGATIVE. The individual answered never to all forms of IPV above (i.e., answered never to all 5 items) The individual accepts education and/or resources: Other: EDUCATION: Other: /kaleb/ Janie Snyder PA-C STAFF PHYSICIAN ELECTRIC APPLIANCE INSTALLER Signed: 08/29/2023 09:58 JANIE SNYDER [facility] Aug 29, 2023 09:32 AM ADVANCE DIRECTIVE: LOCAL TITLE: ADVANCE DIRECTIVE STANDARD TITLE: ADVANCE DIRECTIVE DATE OF NOTE: AUG 29, 2023@09:32 ENTRY DATE: AUG 29, 2023@09:32:17 AUTHOR: LUNA DOWELL EXP COSIGNER: URGENCY: STATUS: COMPLETED * [X]Advance Directive executed with . [ ]Patient brought in his/her own Advance Directive. Scanned Advance Directive or Advance Directive/AOD Flowsheet is located in [employer]. /kaleb/ Luna Dowell RN, BSN Primary Care Nurse Purchasing Agent Signed: 08/30/2023 14:33 LUNA DOWELL [facility] Aug 29, 2023 09:07 AM PREVENTIVE MEDICINE NURSING NOTE: LOCAL TITLE: CLINICAL REMINDERS/NURSING STANDARD TITLE: PREVENTIVE MEDICINE NURSING NOTE DATE OF NOTE: AUG 29, 2023@09:07 ENTRY DATE: AUG 29, 2023@09:07:34 AUTHOR: ABELARDO RAMIREZ EXP COSIGNER: URGENCY: STATUS: COMPLETED CLINICAL REMINDERS/NURSING Has ADDENDA Advance Directive Screen MH AD: Patient has an up-to-date Advance Directive at an outside, non-va facility and was asked to forward a copy to his/her clinician. Comment: was given the paperwork to return upon completion /kaleb/ ABELARDO RAMIREZ LPN LPN Signed: 08/29/2023 09:11 08/29/2023 ADDENDUM STATUS: COMPLETED completed NE Advance directive and it was witnessed by 2 staff members Original given back to [place] and copy sent to [facility] /helen Dowell RN, BSN Primary Care Nurse Purchasing Agent Signed: 08/29/2023 09:32 ABELARDO RAMIREZ [facility]
--- OUTSIDE RECORDS SUMMARY | 2024-02-13 16:06 | XMS_ITS | Encounter Summary ---
Author Name [facility] [place] [facility] [place] [facility] [facility] [place] Address [address] [place] [address] Care Team Providers Care Discount Clerk Name Role Phone JANIE TOLBERT Primary Care [...] Patient's Relationship to Policy Sapp [facility] PREFERRED PROVIDER ORGANIZAT ION (PPO) MG WEEKL Y ACTIV E Feb 20, 2017 [id number] EFFIE FOOTE PATIENT [employer] PRESCRIPT ION Feb 20, 2017 [id number] [phone] EFFIE FOOTE PATIENT [facility] RE DODA Mar 05, 2020 DODA [id number] [phone] EFFIE FOOTE PATIENT [facility] CE ORGANIZ HMO Jan 22, 2007 (WNR) [id number] [phone] EFFIE FOOTE PATIENT MED[employer]PA[employer] RX PRESCRIPT ION [address] PILGR IM July 11, 2008 [id number] EFFIE FOOTE PATIENT [facility] Oct 09, 2008 [id number] EFFIE FOOTE PATIENT [facility] SELEC T TAMP Mar 14, 2021 [id number] [phone] EFFIE FOOTE PATIENT [facility] PRIME -ACTI VE DUTY Mar 05, 2020 [id number] [phone] EFFIE FOOTE PATIENT [facility] Dec 18, 2018 SELECT [id number] EFFIE FOOTE PATIENT Selected Encounter This section includes the information on record at [place] for the Encounter. Date/Time Encounter Type Encounter Description Reason Pro vider Source Mar 01, 2023 10:02 AM Outpatient Encounter DERMATOLOGY IHE Encounter Template Text not used by [place] Plan of Treatment: Future Appointments (+ 6 months) and Future Tests (+/- 45 days) The Plan of Treatment section includes future care activities for the patient from all [place] treatmentfacilities. This section includes future appointments and future orders which are active, pending or scheduled. Future Appointments This section includes appointments that were scheduled to occur 6 months from the date of the Encounter, up to a maximum of 20 appointments. The data comes from all [place] treatment facilities. Appointment Date/Time Appointment Type Appointme nt Facility Name May 15, 2023 11:00 AM AMBULATORY [place]ICINE [place] [facility] [place] [facility] May 16, 2023 02:00 PM AMBULATORY - NONE [facility] [place] [facility] Aug 07, 2023 10:30 AM AMBULATORY - MEDICINE [place] [facility] [place] [facility] Aug 15, 2023 09:00 AM AMBULATORY [place]ICINE [place] [facility] [place] [facility] Aug 29, 2023 09:30 AM [facility]UL[facility]ORY [facility] Active, Pending, and Scheduled Orders This section includes a listing of several types of active, pending, and scheduled orders, including clinic medications orders, diagnostic test orders, procedure orders and consult orders; where the start date of the order is 45 days before the date of the Encounter or 45 days after the date of theEncounter. The data comes from all [facility]. Test Date/Time Test Type Test Details Facility Name Feb 28, 2023 12:00 AM Laboratory - Chemi stry Order LIPID PANEL FASTING BLOOD (SST-SERUM) SP [facility] Lab Results: +/- 30 days of the encounter This section includes the Chemistry and Hematology Lab Results on record with [place] for the patient. Radiology Reports and Pathology Reports are provided separately, in subsequent sections. Lab Results This section contains the Chemistry/Hematology Results that were resulted 30 days before or 30 daysafter the date of the Encounter. Date/Time Source Result Type Result - Unit Interpretation Reference Range Comment Feb 21, 2023 07:48 AM [facility] PSA Specimen Type: SERUM No comment entered. Ordering Provider: SAM TOLBERT Report Released Date/Time: Dec 27, 2021 11:44 AM Reporting Lab: [address] [address] Performing Lab: [address] [address] PSA 4.87 ng/mL H 0.00-4.00 Feb 21, 2023 07:48 AM [facility] LIPID PANEL FASTING Specimen Type: SERUM No comment entered. Ordering Provider: SAM TOLBERT Report Released Date/Time: Dec 27, 2021 11:44 AM Reporting Lab: [address] [address] Performing Lab: [address] [address] CHOLESTEROL 246 mg/dL H TRIGLYCERIDE 186 mg/dL H 0-150 LDL calculated 163 mg/dL H 0-129 CHOL/HDL 5.3 HDL CHOLESTEROL 46 mg/dL 40-60 Feb 21, 2023 07:48 AM [facility] BASIC METABOLIC PANEL (fasting) Specimen Type: SERUM No comment entered. Ordering Provider: SAM TOLBERT Report Released Date/Time: Dec 27, 2021 11:44 AM Reporting Lab: [address] [address] Performing Lab: [address] [place] [address] UREA NITROGEN 17 mg/dL 7-25 GLUCOSE 95 mg/dL 65-100 SODIUM 142 mmol/L 135-145 POTASSIUM 4.3 mmol/L 3.5-5.0 CHLORIDE 103 mmol/L 100-110 CO2 28 meq/L 20-30 CREATININE, Serum 0.96 mg/dL 0.50-1.40 eGFR(CKD-EPI 2020) >90 mL/min >60 Feb 21, 2023 07:48 AM [facility] LIVER FUNCTION Specimen Type: SERUM No comment entered. Ordering Provider: SAM TOLBERT Report Released Date/Time: Dec 27, 2021 11:44 AM Reporting Lab: [address] [address] Performing Lab: [address] [address] PROTEIN,TOTAL 7.1 g/dL 6.0-8.3 ALBUMIN 4.2 g/dL 3.5-5.0 ALKALINE PHOSPHATASE 91 U/L 40-150 AST 66 U/L H 5-34 ALT 173 U/L H BILIRUBIN, TOTAL 0.5 mg/dL 0.2-1.2 Feb 21, 2023 07:48 AM [facility] HEPATITIS C ANTIBODY (HCV)-ARC Specimen Type: SERUM Comment: Hep C Ab: No HCV antibody detected. If recent infection is suspected or other evidence suggests HCV infection, consider HCV nucleic acid testing Ordering Provider: SAM TOLBERT Report Released Date/Time: Feb 21, 2023 12:57 PM Reporting Lab: [address] [address] Performing Lab: [address] [address] HEPATITIS C ANTIBODY NON-REACTIVE NON-REACTIV E Social History: Smoking Status (Most current) and Tobacco Use (All prior to encounter date) This section includes the most current, and the historical, smoking and tobacco- related health factors from the [place] facility where the Encounter took place. Current Smoking Status This section includes the most current smoking, or tobacco-related health factor, from the [place] facility where the Encounter took place. Date/Time Current Smoking Status Comment Jannet ity Oct 13, 2022 11:45 AM VA-TOBACCO NEVER USED [facility] Tobacco Use History This section includes a history of the smoking, or tobacco-related health factors, that were collected on or before the date of the Encounter. The data comes from the [place] facility where the Encounter took place. Date/Time Smoking Status/Tobacco Use Comment F acility Sep 05, 2021 11:29 AM VA-TOBACCO NEVER USED [facility] May 28, 2007 09:10 AM LIFETIME NON-TOBACCO USER [facility] Advance Directives: All historical and current Section Date Range: From patient's date of to the date document was created. This section includes ALL of a patient's completed or amended [place] Advance and Rescinded Directives. The entries below indicate that a directive exists for the patient, but an actual copy is not included with this document. The data comes from all [place] facilities. Date Advance Directives Provider Source Aug 29, 2023 ADVANCE DIRECTIVE [facility] Encounter Notes: All associated encounter notes This section contains the clinical notes associated to the Encounter. Date/Time Encounter Note(s) Provider Source Mar 01, 2023 10:02 AM LETTERS: LOCAL TITLE: PATIENT LETTER (B) STANDARD TITLE: LETTERS DATE OF NOTE: MAR 01, 2023@10:02 ENTRY DATE: MAR 01, 2023@10:03 AUTHOR: DANG CERNA EXP COSIGNER: URGENCY: STATUS: COMPLETED MAR 01, 2023 CLAIRE FOOTE [address] [place] [id number] Dear CLAIRE FOOTE We would like to assist you in scheduling a DERMATOLOGY appointment at the [place]. We have been unable to reach you by phone. To schedule this appointment please call toll free ext [phone]. Our booking appointment hours are Monday through Monday from 8:00 am to 4:00 pm. Please leave a message if you receive voicemail and let us know a good time and telephone number where we can reach you. If we dont hear back from you within 14 days from the date of this letter we will discontinue the request. If you have already scheduled this appointment, please disregard this letter. Your health is important to us. Sincerely, [facility] [address] [facility] [address] [place] [address] [place] [address] ext. [phone] [facility] [address] [facility] [address] [place] [address] [place] [address] [phone] [facility] [address] [address] [place] [address] ext. [phone] [facility] [address] [place] [address] ext. [phone] DANG CERNA [place] [facility] [place] [facility]
--- OUTSIDE RECORDS SUMMARY | 2024-02-13 16:06 | XMS_ITS | Encounter Summary ---
Author Name [place] Address [address] [place] [address] Care Team Providers Care Building Maintenance Repairer Name Role Phone JANIE TOLBERT Primary Care [...] Patient's Relationship to Policy Sapp BCBS OF [facility] PREFERRED PROVIDER ORGANIZAT ION (PPO) MG WEEKL Y ACTIV E Feb 20, 2017 [id number] EFFIE FOOTE PATIENT [employer]ARK PRESCRIPT ION Feb 20, 2017 [id number] EFFIE FOOTE PATIENT EXPRESS SCRIPTS TRICA RE DODA Mar 05, 2020 DODA [id number] [phone] EFFIE FOOTE PATIENT [facility] CE ORGANIZ HMO Jan 22, 2007 (WNR) [id number] EFFIE FOOTE PATIENT MEDIMPACT RX PRESCRIPT ION [facility] July 11, 2008 [id number] [phone] EFFIE FOOTE PATIENT [facility] Oct 09, 2008 [id number] EFFIE FOOTE PATIENT [facility] SELEC T TAMP Mar 14, 2021 [id number] EFFIE FOOTE PATIENT [facility] PRIME -ACTI VE DUTY Mar 05, 2020 [id number] EFFIE FOOTE PATIENT [facility] Dec 18, 2018 SELECT [id number] EFFIE FOOTE PATIENT Selected Encounter This section includes the information on record at [place] for the Encounter. Date/Time Encounter Type Encounter Description Reason Provider Source Aug 15, 2023 09:00 AM OFFICE O/P [place] 60 MIN DERMATOLOGY ICD-10-CM Z85.828 Personal history of other malignant neoplasm of skin ANANYA VALDEZ Andrew Encounter Template Text not used by [facility] Assessments - Encounter Diagnoses This section includes the primary and secondary diagnoses documented for the Encounter. Date/Time Primary/Secondary Diagnosis Diagnosis Name Provider Source Aug 16, 2023 09:21 AM PRIMARY Personal history of other malignant neoplasm of skin LIZETTE VALDEZ [facility] [place] [facility] Aug 16, 2023 09:21 AM SECONDARY Family history of malignant neoplasm of organs or systems LIZETTE VALDEZ [facility] [place] [facility] Aug 16, 2023 09:21 AM SECONDARY Nevus, non-neoplastic LIZETTE VALDEZ [facility] [place] [facility] Aug 16, 2023 09:21 AM SECONDARY Other melanin hyperpigmentation LIZETTE VALDEZ [facility] [place] [facility] Aug 16, 2023 09:21 AM SECONDARY Other seborrheic keratosis LIZETTE VALDEZ [facility] [place] [facility] Aug 16, 2023 09:21 AM SECONDARY Tinea cruris LIZETTE VALDEZ [facility] [place] [facility] Aug 16, 2023 09:21 AM SECONDARY Tinea unguium LIZETTE VALDEZ [facility] [place] [facility] Plan of Treatment: Future Appointments (+ 6 months) and Future Tests (+/- 45 days) The Plan of Treatment section includes future care activities for the patient from [facility] [place] [facility] This section includes future appointments and future orders which are active, pending or scheduled. Future Appointments This section includes appointments that were scheduled to occur 6 months from the date of the Encounter, up to a maximum of 20 appointments. The data comes from all [facility] [address]. Appointment Date/Time Appointment Type Appointme nt Facility Name Aug 29, 2023 09:30 AM AMBULATORY - MEDICINE [facility] [place] [place] [facility] Sep 06, 2023 10:00 AM AMBULATORY - [facility] Sep 13, 2023 11:00 AM AMBULATORY MEDICINE [facility] [place] [place] [facility] Sep 27, 2023 01:00 PM AMBULATORY MEDICINE [facility] [place] [place] [facility] Oct 09, 2023 09:30 AM [facility]UL[facility]ORY [facility] Nov 02, 2023 03:15 PM AMBULATORY - MEDICINE [facility] [place] [place] [facility] Nov 21, 2023 01:30 PM AMBULATORY - MEDICINE [facility] [place] [facility] Jan 03, 2024 09:30 AM AMBULATORY - MEDICINE [facility] [place] [facility] Feb 01, 2024 08:30 AM [facility] Active, Pending, and Scheduled Orders This section includes a listing of several types of active, pending, and scheduled orders, including clinic medications orders, diagnostic test orders, procedure orders and consult orders; where the start date of the order is 45 days before the date of the Encounter or 45 days after the date of theEncounter. The data comes from all [facility] [address]. Test Date/Time Test Type Test Details Facility Name Sep 13, 2023 12:00 AM Laboratory - Chemi stry Order SURGICAL PATH ORDER SURG PATH SPEC. UNKNOWN SP [facility] Lab Results: +/- 30 days of [...] Range Comment Aug 22, 2023 09:38 AM [facility] BASIC METABOLIC PANEL (fasting) Specimen Type: SERUM No comment entered. Ordering Provider: SAM TOLBERT Report Released Date/Time: Feb 28, 2023 10:07 AM Reporting Lab: [address] [address] Performing Lab: [address] [address] UREA NITROGEN 17 mg/dL 7-25 GLUCOSE 104 mg/dL H 65-100 SODIUM 140 mmol/L 135-145 POTASSIUM 4.1 mmol/L 3.5-5.0 CHLORIDE 105 mmol/L 100-110 CO2 27 meq/L 20-30 CREATININE, Serum 0.87 mg/dL 0.50-1.40 eGFR(CKD-EPI 2020) >90 mL/min >60 Aug 22, 2023 09:38 AM [facility] LIVER FUNCTION Specimen Type: SERUM No comment entered. Ordering Provider: SAM TOLBERT Report Released Date/Time: Feb 28, 2023 10:07 AM Reporting Lab: [address] [address] Performing Lab: [address] [address] PROTEIN,TOTAL 7.0 g/dL 6.0-8.3 ALBUMIN 4.1 g/dL 3.5-5.0 ALKALINE PHOSPHATASE 93 U/L 40-150 AST 36 U/L H 5-34 ALT 82 U/L H BILIRUBIN, TOTAL 0.6 mg/dL 0.2-1.2 Aug 22, 2023 09:38 AM [facility] LIPID PANEL FASTING Specimen Type: SERUM No comment entered. Ordering Provider: SAM TOLBERT Report Released Date/Time: Feb 28, 2023 10:07 AM Reporting Lab: [address] [address] Performing Lab: [facility] [address] [facility] [address] CHOLESTEROL 247 mg/dL H TRIGLYCERIDE 161 mg/dL [...] Facil ity Oct 13, 2022 11:45 AM [place]-TOBAC[place] NEVER USED [facility] Tobacco Use History This section includes a history of the smoking, or tobacco-related health factors, that were collected on or before the date of the Encounter. The data comes from the [place] facility where the Encounter took place. Date/Time Smoking Status/Tobacco Use Comment F acility Sep 05, 2021 11:29 AM [place]-TOBACCO NEVER USED [facility] May 28, 2007 09:10 AM LIFETIME NON-TOBACCO USER [facility] Advance Directives: All historical and current Section [...] Aug 29, 2023 ADVANCE DIRECTIVE KRUNAL TANG [facility] Encounter Notes: All associated encounter notes This section contains the clinical notes associated to the Encounter. Date/Time Encounter Note(s) Provider Source Aug 15, 2023 09:11 AM DERMATOLOGY CONSULT: LOCAL TITLE: CONSULT REPORT/DERMATOLOGY STANDARD TITLE: DERMATOLOGY CONSULT DATE OF NOTE: AUG 15, 2023@09:11 ENTRY DATE: AUG 15, 2023@09:12:03 AUTHOR: THEODORE VALDEZ EXP COSIGNER: URGENCY: STATUS: COMPLETED AUG 15, 2023 CLAIRE FOOTE May 58 PATIENT PHONE - Patient here for: NEW CONSULT CHIEF COMPLAINT: h/o multiple NMSCs, FamHx MM HPI: presents to establish care. denies any new/changing/bleeding/non- healing lesions. Reviewed records in [facility] Remote Data (all available): 05/25/2021, 09/14/2021, 11/22/21 at [facility] DERM. 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 PastMedHx: Reviewed History of Sun Exposure/Sunburns: +h/o blistering montilla in youth (back), Denies h/o tanning bed use. 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 Active Outpatient Medications (including Supplies): Active Outpatient Medications Status 1) FAMOTIDINE 20MG TAB TAKE ONE TABLET BY MOUTH TWICE ACTIVE DAILY NEEDED FOR STOMACH ACID 2) PYRIDOXINE HCL 100MG TAB TAKE ONE TABLET BY MOUTH ACTIVE ONCE DAILY FOR VITAMIN B6 SUPPLEMENTATION Active Non-VA Medications Status 1) Non-VA FISH OIL 1000MG (500MG DHA/EPA) CAP 1000MG BY ACTIVE MOUTH ONCE DAILY 2) Non-VA MULTIVITAMIN W/MINERAL TAB BY MOUTH ACTIVE 3) Non-VA VITAMIN D3 (CHOLECALCIFEROL) TAB BY MOUTH ACTIVE 5 Total Medications PHYSICAL EXAM: Reyes Skintype I-II General-AxOx3, NAD, pleasant, breathing unlabored, speech clear Cutaneous examination, as permitted by the patient, including scalp, face, eyes, ears, neck, chest, back, abdomen, arms, hands, fingers, legs, feet, toes and buttocks. Pertinent findings per below: -multiple scattered well healed surgical scar, no evidence of abnormal pigmentation or lesion -R dorsal foot 3mm hyperpigmente homogenous brown irregular smooth ppule -L low back 5mm pigmented basal -L lateral neck 3mm brown macule -L mid dorsal forearm 1mm brown macule -Multiple toenails thickened with yellowish discoloration and onycholysis -bilateral inguinal areas with noted well demarcated erythematous scaly plaques with central clearing -Multiple scattered stuck-on appearing waxy maria and brown papules and plaques with noted milia-like cysts, comedo-like openings and fissures/ridges on dermoscopy. -Scattered uniformly pigmented light maria and brown jagged macules in sun distributed areas. -Multiple scattered symmetrical evenly pigmented brown macules and papules, most under 6mm. Diagnosis/Plan: #Personal History of Non-Melanotic Skin Cancer: -No evidence of recurrence at surgical site(s) -Full Body Skin Exam advised at least yearly -Photoprotection discussed -Patient instructed to follow up in clinic for any concerning lesions or changes -Given their prior history of multiple non-melanoma skin cancers discussed starting chemoprevention with at length. -Nicotinamide has been shown to significantly reduce the occurence of basal cell and cutaneous squamous cell carcinomas in recipients with history of skin cancer (Shay et. al., J Cutan Med Surg, 2021) -Advised to AVOID nicotinic acid aka niacin as this is associated with vasodilatory effects including flushing. -Reviewed risks, benefits, and side effects (GI). -CONTINUE nicotinamide 500mg PO BID #NUBS x4 -RTC placed for Bx r/t time constraint today. Kingsley agreeable to plan. #Family History of Melanoma: -No concerning lesions noted on FBSE today -ABCDEs of melanoma were discussed -Patient was instructed on self skin exams, the importance of sun screen usage and sun protective clothing -If any changes are detected, the patient was instructed to contact dermatology for evaluation -FBSE advised at least yearly #Tinea Cruris -Counseling provided regarding expectations that cure rates are excellent, can be managed with OTC topical antifungal creams, but the recurrence rate is high. Risk factors include pets, humid or warm climates and continual mositure in the affected areas. -Rx ordered: terbinafine HCl 1% topical cream, apply to affected areas BID for 3-4 weeks. #Onychomycosis -Counseling provided regarding expectations that cure rates are excellent, can be managed with OTC topical antifungal creams, but the recurrence rate is high. -Rx ordered: clotrimazole 1% solution, apply daily to affected nail. #Seborrheic Keratoses: -The Kingsley was educated regarding the benign nature, but to return with any growth, change or symptoms in area. #Nevi: -ABCDEs of melanotic lesions discussed, self examinations encouraged -No concerning lesions today on examination -A full body skin check is recommended yearly -Photoprotection discussed. #Solar Lentigines -The was educated regarding the benign nature and relation to chronic sun exposure, but to return with any growth, change or symptoms in area. -Photoprotection discussed. RTC 1-2m for 60 min Procedure x4, sooner PRN * educated to RTC dusty if any new, changing, non-healing, or symptomatic lesions. * Education on sun protection and avoidance strategies was provided. * Encouraged monthly skin self exams for lesions changing in size, shape, or color, or non-healing lesions * Differential diagnosis, prescription options and risks/benefits were discussed with the patient, who consented to treatment plan. * consented to photography for documentation if indicated. * A dermatoscope was used during the exam. * NUB = Neoplasm of Uncertain Behavior of Skin ------TIME ESTIMATION To include but not limied to: -Review of medical records -Time spent with patient including obtaining history, physical exam, shared decision making, procedures and counseling -Post visit documentation; HPI and physical exam findings, clinical researching, medical decision making, medication and lab ordering Total estimated time = 60 min ------- Medication Reconciliation: Outpatient: Has the patient been taking medications as documented in the EMLR? YES: The patient has been taking medications as documented in the EMLR. Essential Medication List for Review used to complete this medication reconciliation. INCLUDED IN THIS LIST: Alphabetical list of active outpatient prescriptions dispensed from this [place] (local) and dispensed from another [place] or [facility] facility (remote) as well as inpatient orders (local, pending and active), local clinic medications, locally documented non-VA medications, and local prescriptions that have or been discontinued in the past 90 days. - All changes in medications, including all non-VA/Herbal/OTC medications were entered into CPRS. - If there were any medications the patient should no longer take, they were discontinued. - The patient/caregiver was instructed to update this list, discard old lists, and take this list to the next appointment, whether with a VA or non-VA provider. JLV Link Data on this list may not be complete. Please check JLMemeo. Allergies/ADRs (Tool #5) FACILITY ALLERGY/ADR -------- [facility] PENICILLIN [facility] PENICILLIN [facility] (Tool #1) INCLUDED IN THIS LIST: Alphabetical list of active outpatient prescriptions dispensed from this [place] (local) and dispensed from another [place] or [facility] facility (remote) as well as inpatient orders (local pending and active), local clinic medications, locally documented non-VA medications, and local prescriptions that have or been discontinued in the past 90 days. Non-VA Meds Last Documented On: Feb 28, 2023 NOTE The display of VA prescriptions dispensed from another [place] or [facility] facility (remote) is limited to active outpatient prescription entries matched to National Drug File at the originating site and may not include some items such as investigational drugs, compounds, etc. NOT INCLUDED IN THIS LIST: Medications self-entered by the patient into personal health records (i.e. Zazzy) are NOT included in this list. Non-VA medications documented outside this [place], remote inpatient orders (regardless of status) and remote clinic medications are NOT included in this list. The patient and provider must always discuss medications the patient is taking, regardless of where the medication was dispensed or obtained. OUTPT FAMOTIDINE 20MG TAB (Status = Active) TAKE ONE TABLET BY MOUTH TWICE DAILY NEEDED FOR STOMACH ACID Rx# [id number] Last Released: 05/17/23 Qty/Days Supply: 180 Rx Expiration Date: 01/05/24 Refills Remainin Non-VA FISH OIL 1000MG (500MG DHA/EPA) CAP TAKE 1 CAPSULE BY MOUTH ONCE DAILY Non-VA MULTIVITAMIN W/MINERAL TAB TAKE BY MOUTH OUTPT PYRIDOXINE HCL 100MG TAB (Status = Active) TAKE ONE TABLET BY MOUTH ONCE DAILY FOR VITAMIN B6 SUPPLEMENTATION Rx# [id number] Last Released: 07/05/23 Qty/Days Supply: 100/90 Rx Expiration Date: 07/03/24 Refills Remainin OUTPT TAMSULOSIN HCL 0.4MG CAP (Status = ) TAKE ONE CAPSULE BY MOUTH AT BEDTIME Rx# [id number] Last Released: 05/16/23 Qty/Days Supply: 90 Rx Expiration Date: 08/13/23 Refills Remainin Non-VA VITAMIN D3 (CHOLECALCIFEROL) TAB TAKE BY MOUTH ONCE DAILY SUPPLIES /kaleb/ THEODORE VALDEZ DNP, HEALTH AND FITNESS PROFESSOR-C NURSE PRACTITIONER Signed: 08/16/2023 09:20 THEODORE VALDEZ [facility]
--- OUTSIDE RECORDS SUMMARY | 2024-02-13 16:06 | XMS_ITS | Encounter Summary ---
Author Name [place] Address [address] [place] [address] Care Team Providers Care Recyclable Materials Distributor Name Role Phone JANIE TOLBERT Primary Care [...] Patient's Relationship to Policy Sapp BCBS OF [facility] PREFERRED PROVIDER ORGANIZAT ION (PPO) MG WEEKL Y ACTIV E Feb 20, 2017 [id number] EFFIE FOOTE PATIENT CAR[employer] PRESCRIPT ION Feb 20, 2017 [id number] EFFIE FOOTE PATIENT EXPRESS SCRIPTS TRICA RE DODA Mar 05, 2020 DODA [id number] EFFIE FOOTE PATIENT [facility] CE ORGANIZ HMO Jan 22, 2007 (WNR) [id number] [phone] EFFIE FOOTE PATIENT MEDIMPACT RX PRESCRIPT ION [address] PILGR IM July 11, 2008 [id number] EFFIE FOOTE PATIENT [facility] Oct 09, 2008 [id number] EFFIE FOOTE PATIENT [facility] SELEC T TAMP Mar 14, 2021 [id number] [phone] EFFIE FOOTE PATIENT [facility] PRIME -ACTI VE DUTY Mar 05, 2020 [id number] [phone] EFFIE FOOTE PATIENT [facility] Dec 18, 2018 SELECT [id number] EFFIE FOOTE PATIENT Selected Encounter This section includes the information on record at [place] for the Encounter. Date/Time Encounter Type Encounter Description Reason Pro vider Source May 15, 2023 08:43 AM Outpatient Encounter DENTAL IHE Encounter Template Text not used by [place] Plan of Treatment: Future Appointments (+ 6 months) and Future Tests (+/- 45 days) The Plan of Treatment section includes future care activities for the patient from all [place] treatmentfacilities. This section includes future appointments and future orders which are active, pending or scheduled. Future Appointments This section includes appointments that were scheduled to occur 6 months from the date of the Encounter, up to a maximum of 20 appointments. The data comes from all [place] treatment facilities. Appointment Date/Time Appointment Type Appointme nt Facility Name May 16, 2023 02:00 PM AMBULATORY - NONE [place] [facility] [place] [facility] Aug 07, 2023 10:30 AM AMBULATORY - MEDICINE [facility] [place] [place] [facility] Aug 15, 2023 09:00 AM AMBULATORY - MEDICINE [place] [facility] [place] [facility] Aug 29, 2023 09:30 AM AMBULATORY - MEDICINE [place] [facility] [place] [facility] Sep 06, 2023 10:00 AM AMBULATORY - PSYCHIATRY [facility] [place] [facility] Sep 13, 2023 11:00 AM AMBULATORY - MEDICINE [facility] [place] [facility] Sep 27, 2023 01:00 PM AMBULATORY - MEDICINE [place] [facility] [place] [facility] Oct 09, 2023 09:30 AM AMBULATORY - MEDICINE [place] [facility] [place] [facility] Nov 02, 2023 03:15 PM AMBULATORY - MEDICINE [facility] Social History: Smoking Status (Most current) and Tobacco Use (All prior to encounter date) This section includes the most current, and the historical, smoking and tobacco- related health factors from the [place] facility where the Encounter took place. Current Smoking Status This section includes the most current smoking, or tobacco-related health factor, from the [place] facility where the Encounter took place. Date/Time Current Smoking Status Comment Facil ity Oct 13, 2022 11:45 AM [place]-TOBACCO NEVER USED [facility] Tobacco Use History This section includes a history of the smoking, or tobacco-related health factors, that were collected on or before the date of the Encounter. The data comes from the [place] facility where the Encounter took place. Date/Time Smoking Status/Tobacco Use Comment F acility Sep 05, 2021 11:29 AM [place]-TOBACCO NEVER USED [facility] May 28, 2007 09:10 AM LIFETIME NON-TOBACCO USER [facility] Advance Directives: All historical and current Section Date Range: From patient's date of to the date document was created. This section includes ALL of a patient's completed or amended [place] Advance and Rescinded Directives. The entries below indicate that a directive exists for the patient, but an actual copy is not included with this document. The data comes from all [place] facilities. Date Advance Directives Provider Source Aug 29, 2023 ADVANCE DIRECTIVE KRUNAL TANG [facility] Encounter Notes: All associated encounter notes This section contains the clinical notes associated to the Encounter. Date/Time Encounter Note(s) Provider Source May 15, 2023 08:43 AM DENTISTRY TELEPHON E ENCOUNTER NOTE: LOCAL TITLE: TELEPHONE NOTE/DENTAL STANDARD TITLE: DENTISTRY TELEPHONE ENCOUNTER NOTE DATE OF NOTE: MAY 15, 2023@08:43 ENTRY DATE: MAY 15, 2023@08:43:08 AUTHOR: RODOLFO CORRAL EXP COSIGNER: URGENCY: STATUS: COMPLETED Spoke with pt to confirm dental appointment on 05/16/2023 at 2:00 pm. 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
--- OUTSIDE RECORDS SUMMARY | 2024-02-13 16:06 | XMS_ITS | Encounter Summary ---
Author Name [facility] [place] [facility] [place] Address [address] [place] [address] Care Team Providers Care Packing Supervisor Name Role Phone JANIE TOLBERT Primary Care [...] Patient's Relationship to Policy Sapp BCBS OF [facility] PREFERRED PROVIDER ORGANIZAT ION (PPO) MG WEEKL Y ACTIV E Feb 20, 2017 [id number] EFFIE MILLER PATIENT [place] PRESCRIPT ION Feb 20, 2017 [id number] [phone] EFFIE MILLER PATIENT [facility] RE DODA Mar 05, 2020 DODA [id number] EFFIE MILLER PATIENT [facility] CE ORGANIZ HMO Jan 22, 2007 (WNR) [id number] [phone] EFFIE MILLER PATIENT MEDIMPA[employer] RX PRESCRIPT ION [facility] July 11, 2008 [id number] [phone] EFFIE MILLER PATIENT [facility] MENTAL HEALTH [facility] Oct 09, 2008 [id number] [phone] EFFIE MILLER PATIENT [facility] SELEC T TAMP Mar 14, 2021 [id number] EFFIE MILLER PATIENT [facility] PRIME -ACTI VE DUTY Mar 05, 2020 [id number] EFFIE MILLER PATIENT [facility] Dec 18, 2018 SELECT [id number] EFFIE MILLER PATIENT Selected Encounter This section includes the information on record at [place] for the Encounter. Date/Time Encounter Type Encounter Description Reason Provider Source Sep 06, 2023 10:00 AM PSYTX W PT 45 MINUTES PCMHI INDIV ICD-10-CM F43.9 Reaction to severe stress, unspecified CATHERINE STARR IHAndrew Encounter Template Text not used by [place] Assessments - Encounter Diagnoses This section includes the primary and secondary diagnoses documented for the Encounter. Date/Time Primary/Secondary Diagnosis Diagnosis Name Provider Source Sep 08, 2023 10:22 AM PRIMARY Reaction to severe stress, unspecified C[facility] STARR [facility] Sep 08, 2023 10:22 AM SECONDARY Depression, unspecified CATHERINE STARR [facility] Plan of Treatment: Future Appointments (+ 6 months) and Future Tests (+/- 45 days) The Plan of Treatment section includes future care activities for the patient from all [place] treatmentfacilities. This section includes future appointments and future orders which are active, pending or scheduled. Future Appointments This section includes appointments that were scheduled to occur 6 months from the date of the Encounter, up to a maximum of 20 appointments. The data comes from all [place] treatment facilities. Appointment Date/Time Appointment Type Appointme nt Facility Name Sep 13, 2023 11:00 AM AMBULATORY - MEDICINE [facility] [place] [facility] Sep 27, 2023 01:00 PM AMBULATORY - MEDIC[facility] Oct 09, 2023 09:30 AM [facility] Nov 02, 2023 03:15 PM AMBULATORY - MEDICINE [facility] Nov 21, 2023 01:30 PM AMBULATORY - MEDICINE [facility] Jan 03, 2024 09:30 AM AMBULATORY - MEDICINE [facility] Feb 01, 2024 08:30 AM [facility] Feb 19, 2024 08:30 AM AMBULATORY MEDICINE [facility] Mar 06, 2024 11:00 AM AMBULATORY MEDICINE [facility] Active, Pending, and Scheduled Orders This section includes a listing of several types of active, pending, and scheduled orders, including clinic medications orders, diagnostic test orders, procedure orders and consult orders; where the start date of the order is 45 days before the date of the Encounter or 45 days after the date of theEncounter. The data comes from all [facility] facilities. Test Date/Time Test Type Test Details Facility Name Sep 13, 2023 12:00 AM Laboratory - Chemi stry Order SURGICAL PATH ORDER SURG PATH SPEC. UNKNOWN SP [facility] Lab Results: +/- 30 days of the encounter This section includes the Chemistry and Hematology Lab Results on record with [place] for the patient. Radiology Reports and Pathology Reports are provided separately, in subsequent sections. Lab Results This section contains the Chemistry/Hematology Results that were resulted 30 days before or 30 daysafter the date of the Encounter. Date/Time Source Result Type Result - Unit Interpretation Reference Range Comment Aug 22, 2023 09:38 AM [facility] BASIC METABOLIC PANEL (fasting) Specimen Type: SERUM No comment entered. Ordering Provider: SAM TOLBERT Report Released Date/Time: Feb 28, 2023 10:07 AM Reporting Lab: [address] [address] Performing Lab: [address] [address] UREA NITROGEN 17 mg/dL 7-25 GLUCOSE 104 mg/dL H 65-100 SODIUM 140 mmol/L 135-145 POTASSIUM 4.1 mmol/L 3.5-5.0 CHLORIDE 105 mmol/L 100-110 CO2 27 meq/L 20-30 CREATININE, Serum 0.87 mg/dL 0.50-1.40 eGFR(CKD-EPI 2020) >90 mL/min >60 Aug 22, 2023 09:38 AM [facility] LIVER FUNCTION Specimen Type: SERUM No comment entered. Ordering Provider: SAM TOLBERT Report Released Date/Time: Feb 28, 2023 10:07 AM Reporting Lab: [address] [address] Performing Lab: [address] [address] PROTEIN,TOTAL 7.0 g/dL 6.0-8.3 ALBUMIN 4.1 g/dL 3.5-5.0 ALKALINE PHOSPHATASE 93 U/L 40-150 AST 36 U/L H 5-34 ALT 82 U/L H BILIRUBIN, TOTAL 0.6 mg/dL 0.2-1.2 Aug 22, 2023 09:38 AM [facility] LIPID PANEL FASTING Specimen Type: SERUM No comment entered. Ordering Provider: SAM TOLBERT Report Released Date/Time: Feb 28, 2023 10:07 AM Reporting Lab: [facility] [address] [facility] [address] Performing Lab: [address] [address] CHOLESTEROL 247 mg/dL H TRIGLYCERIDE 161 mg/dL H 0-150 LDL calculated 168 mg/dL H 0-129 CHOL/HDL 5.3 HDL CHOLESTEROL 47 mg/dL 40-60 Social History: Smoking Status (Most current) and Tobacco Use (All prior to encounter date) This section includes the most current, and the historical, smoking and tobacco- related health factors from the [place] facility where the Encounter took place. Current Smoking Status This section includes the most current smoking, or tobacco-related health factor, from the [place] facility where the Encounter took place. Date/Time Current Smoking Status Comment Facil charly Oct 13, 2022 11:45 AM VA-TOBACCO NEVER USED [facility] Tobacco Use History This section includes a history of the smoking, or tobacco-related health factors, that were collected on or before the date of the Encounter. The data comes from the [place] facility where the Encounter took place. Date/Time Smoking Status/Tobacco Use Comment F acility Sep 05, 2021 11:29 AM VA-TOBACCO NEVER USED [facility] May 28, 2007 09:10 AM LIFETIME NON-TOBACCO USER [facility] Advance Directives: All historical and current Section Date Range: From patient's date of to the date document was created. This section includes ALL of a patient's completed or amended [place] Advance and Rescinded Directives. The entries below indicate that a directive exists for the patient, but an actual copy is not included with this document. The data comes from all [place] facilities. Date Advance Directives Provider Source Aug 29, 2023 ADVANCE DIRECTIVE KRUNAL TANG [facility] Pathology Reports: +/- 30 days of [...] the Encounter. The data comes from all [place] treatment facilities. Date/Time Pathology Report Provider Source Sep 18, 2023 09:44 AM LR SURGICAL PATHOLOGY REPORT: LOCAL TITLE: LR SURGICAL PATHOLOGY REPORT STANDARD TITLE: PATHOLOGY REPORT DATE OF NOTE: SEP 18, 2023@09:44:02 ENTRY DATE: SEP 18, 2023@09:44:02 AUTHOR: DANNY HI MD EXP COSIGNER: URGENCY: STATUS: COMPLETED $APHDR Reporting Lab: [facility] [CLIA# [id number]] [address] [place] [phone] - - - - - - - [...] Sep 14, 2023): A:SKIN OFM L LATERAL BACK([id number]) B:SKIN OF L MID DORSAL FOREARM([id number]) C:SKIN OF L LOW BACK([id number]) - - - - - - - [...] GROSS DESCRIPTION: The specimen is recieved from [facility]/ [place], [place]ATH [address] [facility] 24 [id number];A;1;Gian MILLER. Received in formalin labeled with the patient's [...] Rushing (ASCP) 09/14/2023 /kaleb/ Danny Hi MD, CPath Board Certified Dermatopathologist Signed Sep 18, 2023@09:44 Performing Laboratory: Surgical Pathology Report Performed By: [facility] [CLIA# [id number]] [address] [place] [phone] $FTR - - - - - - - - - - - - - - - - - - - - - - - - - - - - - - - - - - - - - - - - (End of report) DANNY HI MD, MD mm Date Sep 18, 2023 - - - - - - - - - - - - - - - - - - - - - - - - - - - - - - - - - - - - - - - - QAMARCLAIRE KARYNA STANDARD FORM 515 ID:[id number] SEX:M :1965 AGE: 58 LOC:*[facility] PCP: /kaleb/ Danny Hi MD, FRCPath Board Certified Dermatopathologist Signed: 09/18/2023 09:44 DANNY HI MD [facility] Sep 18, 2023 09:40 AM LR SURGICAL PATHOLOGY REPORT: LOCAL TITLE: LR SURGICAL PATHOLOGY REPORT STANDARD TITLE: PATHOLOGY DIAGNOSTIC STUDY REPORT DATE OF NOTE: SEP 18, 2023@09:40:52 ENTRY DATE: SEP 18, 2023@09:40:52 AUTHOR: DANNY HI MD EXP COSIGNER: URGENCY: STATUS: COMPLETED $APHDR Reporting Lab: [facility] [CLIA# [id number]] [address] [place] [phone] - - - - - - - [...] - - - PATHOLOGY REPORT Accession No. [facility] 364 - - - - - [...] - - - PATHOLOGY REPORT Accession No. [facility] - - - - - - - - - - - - - - - - - - - - - - - - - - - - - - - - - - - - - - - - Gross description: The specimen is recieved from [facility]/Lucio laws, [facility] 42 1905;A;1;Gian MILLER. Received in formalin labeled with the patient's [...] tips C2, body cross section ACE Rushing ([facility]) 09/14/2023 A. Skin, left lateral neck: Basal cell carcinoma, superficial and nodular types, very closely approaching the deep tissue margins. B. Skin, left mid dorsal forearm: Basal cell carcinoma, nodular type. C. Skin, left low back: Basal cell carcinoma, nodular type, very closely approaching the deep tissue margins. CPT codes 67939r6 /es/ DANNY HI MD Board Certified Dermatopathologist Signed Sep 18, 2023@09:40 Performing Laboratory: Surgical Pathology Report Performed By: [facility] [CLIA# [id number]] [address] [place] [phone] $FTR - - - - - - [...] - - - - - - CLAIRE MILLER STANDARD FORM 515 ID:[id number] SEX:M :1965 AGE: 58 LOC:CWM/NO/DERMATOLOGY PHARMACY CLINICAL SPECIALIST PCP: ACE Petersen /kaleb/ DANNY HI MD Board Certified Dermatopathologist Signed: 09/18/2023 09:40 DANNY HI MD [facility] Encounter Notes: All associated encounter notes This section contains the clinical notes associated to the Encounter. Date/Time Encounter Note(s) Provider Source Sep 06, 2023 05:58 AM M[facility]AL [facility] T[facility]: PC-MH INTEGRATION/CONSULT REPORT STANDARD TITLE: MENTAL HEALTH CONSULT DATE OF NOTE: SEP 06, 2023@05:58 ENTRY DATE: SEP 06, 2023@05:58:28 AUTHOR: MIN STARRIGNER: URGENCY: STATUS: COMPLETED [facility] Video Connect (VVC) Standard Documentation VVC Clinician Resources Only: E911 (Emergency Call Relay Center): [phone] [facility] Crisis Line - 988 then press #1. [facility] Suicide Coordinator [phone], Ext. [phone]; Back-up Ext. [phone] [place] Police, BRIAN Jeremy [phone] Introduction: Visit is being conducted by [place] [employer] [facility]. identified with 2 identifiers: [X] Full Name [X] Date of [ ] VA ID Card Emergency Plan: confirmed and/or provided the following information in case of emergency or technology failure. PATIENT PHONE - PHONE NUMBER [CELLULAR] - Is patient phone number correct, if not, enter below: [place]'s phone number: CLAIRE MILLER [address] [place] [address], [id number] 's present location and address for appointment: home address listed above Richland's emergency contact name and phone number: Mariela Ospina Rich[place] reported that location is private and safe: Yes Informed Consent: [place]land informed of the risks and benefits of Telehealth video care. [place] has the right to refuse video services. If refuses video visit, a [id number] visit will be scheduled. [place] verbalized consent for this video visit: Yes provided consent for any other persons present for visit: No If yes, who and relationship to patient: Secure visit: Visit was locked for security and privacy:Yes __ PC-MHI HEALTH ASSESSMENT NOTE DURATION: 45 mins REFERRING PROVIDER: PCPKaryna REASON FOR REFERRAL: learn of MH treatment options at [place] Informed consent and limits of confidentiality were provided. Mr. Miller is a single, white male with a PMH of GI reflux, gastritis, anxiety and depression. CHIEF COMPLAINT: Steph Miller shared that he is happy with current individual therapist in the community for MH but is interested in learning about options for MH treatment at [place] and having initial appointment so that he is in the system and establishes care in case he decides to transfer care or add adjunctive treatment. He said that he has attended a few sessions in community with new MH provider located in [place]. He explored how he has experienced trauma-related anxiety and depression since deployment, [phone] in [place]. 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 He said that he attended [place] in [place] years ago and was told that he was just a nurse and did not return to care. 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 He explored how he does not let people close emotionally and endorsed traumatic memories, sleep disturbances, emotional distance from others, challenges with trust, and no significant, long-term romantic relationships. He endorsed trauma-related anxiety symptoms and depressive symptoms that have waxed and waned for years. He shared that he did not experience depression or anxiety prior to deployment/trauma [id number]. Steph Miller expressed interest in offerings as adjunctive treatment but denied interest in other MH treatment at this time. 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, 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 o COPING: read, walk, hike, exercise- swim- [employer] o PAIN/CHRONIC HEALTH CONDITIONS: 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 - gastritis o CULTURE: nothing to mention INTERVENTION: Gathered psychosocial history and functioning Provided psychoeducation on effects of trauma and impact of avoidance- handouts were provided Provided psychoeducation on impact of grief, and downward spiral of depression Conducted SI/HI risk assessment Provided information on PC-MHI LETHALITY: Suicidal or homicidal ideation: No Suicidal or homicidal plans: No Suicidal or homicidal intention: No Previous suicide attempts: No RISK LEVEL IMPRESSION: Richland presents at low chronic and acute risk of harm to self and others at this time SCREENERS: PHQ-9: 12, moderate depression, somewhat difficult RODOLFO-7: 10, moderate anxiety, somewhat difficult DIAGNOSES: Trauma and Stressor Related Disorder, unspecified; Depressive Disorder, Unspecified; R/O PTSD IMPRESSIONS/PLAN: Steph Miller endorsed symptoms of depression and trauma- related anxiety that 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 In collaboration with [place] considering evidence-based treatment, clinical judgment and patient preference, options of treatment were offered. is engaged in current, individual psychotherapy with the community and declined PCMHI treatment at this time and was happy to learn of offerings at [place]. He was interested in referral to for introduction to offerings. This consult was placed. Richland was provide with television writer's contact information if he were to want to engage in PCMIL and can at any time and informed of [facility] crisis hotline and [facility] information if ever needed. PCMHI treatment was consolidated. INTERDICIPLINARY TREATMENT PLANNING INVOLVING: Referring provider will be alerted of this plan ACTIVE PROBLEMS LIST Active problems - Computerized Problem List is the source for the followin. Exposure to potentially hazardous substance 2. Elevated PSA ([facility] [id number]) 3. Hyperlipidemia ([facility] [id number]) 4. Basal Cell Carcinoma of Skin ([facility] [id number]) 5. Family history of malignant melanoma 6. Gastroesophageal reflux disease 7. Kidney Stone ALL ACTIVE MEDICATIONS Active Outpatient Medications (including Supplies): Active Outpatient Medications Status 1) CLOTRIMAZOLE [...] UP TO 1-4 WEEKS UNTIL RASH RESOLVES Active Non-VA Medications Status 1) Non-VA FISH OIL 1000MG (500MG DHA/EPA) CAP 1000MG BY ACTIVE MOUTH ONCE DAILY 2) Non-VA MULTIVITAMIN W/MINERAL TAB BY MOUTH ACTIVE 3) Non-VA VITAMIN D3 (CHOLECALCIFEROL) TAB BY MOUTH ACTIVE 7 Total Medications Suicide Screen: C-SSRS Screening [place]-Suicide Severity Rating Scale (C-SSRS Screener) 1. Over the past month, have you wished you were or wished you could go to sleep and not wake up? No 2. Over the past month, have you had any actual thoughts of killing yourself? No 3. Over the past month, have you been thinking about how you might do this? Response not required due to responses to other questions. 4. Over the past month, have you had these thoughts and had some intention of acting on them? Response not required due to responses to other questions. 5. Over the past month, have you started to work out or worked out the details of how to kill yourself? Response not required due to responses to other questions. 6. If yes, at any time in the past month did you intend to carry out this plan? Response not required due to responses to other questions. 7. In your lifetime, have you ever done anything, started to do anything, or prepared to do anything to end your life (for example, collected pills, obtained a gun, gave away valuables, went to the roof but didn't jump)? No 8. If YES, was this within the past 3 months? Response not required due to responses to other questions. /kaleb/ MIN STARR, PhD STAFF PSYCHOLOGIST Signed: 09/08/2023 10:26 MIN STARR [place] [facility]
--- OUTSIDE RECORDS SUMMARY | 2024-02-13 16:06 | XMS_ITS | Encounter Summary ---
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 Name Role Phone JANIE TOLBERT Primary Care Provider MIRAIM Machado Primary Care Provider Unavailabl e Insurance [...] NURSING HOME PREFERRED PROVIDER ORGANIZAT ION (PPO) [facility] Feb 20, 2017 [id number] [phone] EFFIE FOOTE PATIENT [facility] PRESCRIPT ION Feb 20, 2017 [id number] EFFIE FOOTE PATIENT [facility]ICA RE DODA Mar 05, 2020 DODA [id number] [phone] EFFIE FOOTE PATIENT [facility] ORGANIZ HMO Jan 22, 2007 (WNR) [id number] [phone] EFFIE FOOTE PATIENT MED[employer] RX PRESCRIPT ION [address] PILGR IM July 11, 2008 [id number] EFFIE FOOTE PATIENT [facility] Oct 09, 2008 [id number] EFFIE FOOTE PATIENT [facility] SELEC T TAMP Mar 14, 2021 [id number] EFFIE FOOTE PATIENT [facility] PRIME -ACTI VE DUTY Mar 05, 2020 [id number] EFFIE FOOTE PATIENT [facility] Dec 18, 2018 SELECT [id number] EFFIE FOOTE PATIENT Selected Encounter This section includes the information on record at MD for the Encounter. Date/Time Encounter Type Encounter Description Reason Provider Source Sep 18, 2023 09:40 AM Outpatient Encounter EVENT (HISTORICAL) DANNY HI MD [facility] Encounter Template Text not used by MD Plan of Treatment: Future Appointments (+ 6 months) and Future Tests (+/- 45 days) The Plan of Treatment section includes future care activities for the patient from all MD treatmentfacilities. This section includes future appointments and future orders which are active, pending or scheduled. Future Appointments This section includes appointments that were scheduled to occur 6 months from the date of the Encounter, up to a maximum of 20 appointments. The data comes from all MD treatment facilities. Appointment Date/Time Appointment Type Appointme nt Facility Name Sep 27, 2023 01:00 PM AMBULATORY - MEDICINE MD [facility] [place] [facility] Oct 09, 2023 09:30 AM AMBULATORY - MEDICINE MD [facility] [place] [facility] Nov 02, 2023 03:15 PM AMBULATORY - MEDICINE MD [facility] [place] [facility] Nov 21, 2023 01:30 PM AMBULATORY - MEDICINE MD [facility] [place] [facility] Jan 03, 2024 09:30 AM AMBULATORY - MEDICINE MD [facility] [place] [facility] Feb 01, 2024 08:30 AM AMBULATORY - MEDICINE MD [facility] [place] [facility] Feb 19, 2024 08:30 AM AMBULATORY - MEDICINE MD [facility] [place] [facility] Mar 06, 2024 11:00 AM AMBULATORY - MEDICINE MD [facility] [place] [facility] [...] of theEncounter. The data comes from all MD treatment facilities. Test Date/Time Test Type Test Details Facility Name Sep 13, 2023 12:00 AM Laboratory - Chemi stry Order SURGICAL PATH ORDER SURG PATH SPEC. UNKNOWN SP [facility] Lab Results: +/- 30 days of the encounter This section includes the Chemistry and Hematology Lab Results on record with MD for the patient. Radiology Reports and Pathology Reports are provided separately, in subsequent sections. Lab Results This section contains the Chemistry/Hematology Results that were resulted 30 days before or 30 daysafter the date of the Encounter. Date/Time Source Result Type Result - Unit Interpretation Reference Range Comment Aug 22, 2023 09:38 AM [facility] BASIC METABOLIC PANEL (fasting) Specimen Type: SERUM No comment entered. Ordering Provider: SAM TOLBERT Report Released Date/Time: Feb 28, 2023 10:07 AM Reporting Lab: [address] [address] Performing Lab: [address] [address] UREA NITROGEN 17 mg/dL 7-25 GLUCOSE 104 mg/dL H 65-100 SODIUM 140 mmol/L 135-145 POTASSIUM 4.1 mmol/L 3.5-5.0 CHLORIDE 105 mmol/L 100-110 CO2 27 meq/L 20-30 CREATININE, Serum 0.87 mg/dL 0.50-1.40 eGFR(CKD-EPI 2020) >90 mL/min >60 Aug 22, 2023 09:38 AM [facility] LIVER FUNCTION Specimen Type: SERUM No comment entered. Ordering Provider: SAM TOLBERT Report Released Date/Time: Feb 28, 2023 10:07 AM Reporting Lab: [address] [address] Performing Lab: [address] [place] [address] PROTEIN,TOTAL 7.0 g/dL 6.0-8.3 ALBUMIN 4.1 g/dL 3.5-5.0 ALKALINE PHOSPHATASE 93 U/L 40-150 AST 36 U/L H 5-34 ALT 82 U/L H BILIRUBIN, TOTAL 0.6 mg/dL 0.2-1.2 Aug 22, 2023 09:38 AM [facility] LIPID PANEL FASTING Specimen Type: SERUM No comment entered. Ordering Provider: SAM TOLBERT Report Released Date/Time: Feb 28, 2023 10:07 AM Reporting Lab: [address] [address] Performing Lab: [address] [address] CHOLESTEROL 247 mg/dL H TRIGLYCERIDE 161 mg/dL H 0-150 LDL calculated 168 mg/dL H 0-129 CHOL/HDL 5.3 HDL CHOLESTEROL 47 mg/dL 40-60 Social History: Smoking Status (Most current) and Tobacco Use (All prior to encounter date) This section includes the most current, and the historical, smoking and tobacco- related health factors from the MD facility where the Encounter took place. Current Smoking Status This section includes the most current smoking, or tobacco-related health factor, from the MD facility where the Encounter took place. Date/Time Current Smoking Status Comment Jannet parks Oct 13, 2022 11:45 AM VA-TOBACCO NEVER USED [facility] Tobacco Use History This section includes a history of the smoking, or tobacco-related health factors, that were collected on or before the date of the Encounter. The data comes from the MD facility where the Encounter took place. Date/Time Smoking Status/Tobacco Use Comment F acsmith Sep 05, 2021 11:29 AM VA-TOBACCO NEVER USED [facility] May 28, 2007 09:10 AM LIFETIME NON-TOBACCO USER [facility] Advance Directives: All historical and current Section Date Range: From patient's date of to the date document was created. This section includes ALL of a patient's completed or amended VA Advance and Rescinded Directives. The entries below indicate that a directive exists for the patient, but an actual copy is not included with this document. The data comes from all MD facilities. Date Advance Directives Provider Source Aug 29, 2023 ADVANCE DIRECTIVE TANGKRUNAL Daniel MD [facility] [place] [facility] Pathology Reports: +/- 30 days of [...] the Encounter. The data comes from all MD treatment facilities. Date/Time Pathology Report Provider Source Sep 18, 2023 09:44 AM LR SURGICAL PATHOLOGY REPORT: LOCAL TITLE: LR SURGICAL PATHOLOGY REPORT STANDARD TITLE: PATHOLOGY REPORT DATE OF NOTE: SEP 18, 2023@09:44:02 ENTRY DATE: SEP 18, 2023@09:44:02 AUTHOR: DANNY HI MD EXP COSIGNER: URGENCY: STATUS: COMPLETED $APHDR Reporting Lab: [facility] [CLIA# [id number]] [address] [place] [address] - - - - - - - [...] Sep 14, 2023): A:SKIN OFM L LATERAL BACK([id number]) B:SKIN OF L MID DORSAL FOREARM([id number]) C:SKIN OF L LOW BACK([id number]) - - - - - - - [...] - PATHOLOGY REPORT Accession No. [id number] [id number] - - - - - - - - - - - - - - - - - - - - - - - - - - - - - - - - - - - - - - - - GROSS DESCRIPTION: The specimen is recieved from [facility]/Lucio diane, [facility] 24 2003;A;1;Gian FOOTE. Received in formalin labeled with the [...] body cross section ACE Rushing (ASCP) 09/14/2023 /Alicia Jose MD Board Certified Dermatopathologist Signed Sep 18, 2023@09:44 Performing Laboratory: Surgical Pathology Report Performed By: [facility] [CLIA# [id number]] [address] [place] [phone] $FTR - - - - - - [...] - - CLAIRE FOOTE STANDARD FORM 515 ID:[id number] SEX:M :1965 AGE: 58 LOC:*[facility] PCP: /Alicia Jose MD Board Certified Dermatopathologist Signed: 09/18/2023 09:44 DANNY HI MD [facility] Sep 18, 2023 09:40 AM LR SURGICAL PATHOLOGY REPORT: LOCAL TITLE: LR SURGICAL PATHOLOGY REPORT STANDARD TITLE: PATHOLOGY DIAGNOSTIC STUDY REPORT DATE OF NOTE: SEP 18, 2023@09:40:52 ENTRY DATE: SEP 18, 2023@09:40:52 AUTHOR: DANNY HI MD EXP COSIGNER: URGENCY: STATUS: COMPLETED $APHDR Reporting Lab: [facility] [CLIA# [id number]] [address] [place] [phone] - - - - - - - [...] - - - PATHOLOGY REPORT Accession No. [facility] 364 - - - - - - [...] - - - PATHOLOGY REPORT Accession No. [facility] 364 - - - - - - - - - - - - - - - - - - - - - - - - - - - - - - - - - - - - - - - - Gross description: The specimen is recieved from [facility], [facility] [id number] [facility] 24 [id number];A;1;Gian FOOTE. Received in [...] body cross section ACE Rushing (ASCP) 09/14/2023 A. Skin, left lateral neck: Basal cell carcinoma, superficial and nodular types, very closely approaching the deep tissue margins. B. Skin, left mid dorsal forearm: Basal cell carcinoma, nodular type. C. Skin, left low back: Basal cell carcinoma, nodular type, very closely approaching the deep tissue margins. CPT codes [id number] /kaleb/ DANNY HI MD Board Certified Dermatopathologist Signed Sep 18, 2023@09:40 Performing Laboratory: Surgical Pathology Report Performed By: [facility] [CLIA# [id number]] [address] [place] [phone] $FTR - - - - - - [...] - - CLAIRE FOOTE STANDARD FORM 515 ID:[id number] SEX:M :1965 AGE: 58 LOC:CWM/NO/DERMATOLOGY QUALITY OFFICER PCP: ACE Petersen /kaleb/ DANNY HI MD Board Certified Dermatopathologist Signed: 09/18/2023 09:40 DANNY HI MD [facility] Encounter Notes: All associated encounter notes This section contains the clinical notes associated to the Encounter. Date/Time Encounter Note(s) Provider Source Sep 18, 2023 09:40 AM PATHOLOGY DIAGNOSTIC STUDY REPORT: LOCAL TITLE: SURGICAL PATHOLOGY REPORT STANDARD TITLE: PATHOLOGY DIAGNOSTIC STUDY REPORT DATE OF NOTE: SEP 18, 2023@09:40:52 ENTRY DATE: SEP 18, 2023@09:40:52 AUTHOR: DANNY HI MD EXP COSIGNER: URGENCY: STATUS: COMPLETED $APHDR Reporting Lab: [facility] [place] [facility] [CLIA# [id number]] [address] [place] [address] - - - - - - - [...] - - - PATHOLOGY REPORT Accession No. [facility] - - - - - - - [...] - - - PATHOLOGY REPORT Accession No. [place] [id number] - - - - - - - - - - - - - - - - - - - - - - - - - - - - - - - - - - - - - - - - Gross description: The specimen is recieved from [facility], [facility] [id number] [facility] 24 [id number];A;1;Gian FOOTE. Received in [...] tips C2, body cross section ACE Rushing (ASC) 09/14/2023 A. Skin, left lateral neck: Basal cell carcinoma, superficial and nodular types, very closely approaching the deep tissue margins. B. Skin, left mid dorsal forearm: Basal cell carcinoma, nodular type. C. Skin, left low back: Basal cell carcinoma, nodular type, very closely approaching the deep tissue margins. CPT codes [id number] /kaleb/ DANNY HI MD Board Certified Dermatopathologist Signed Sep 18, 2023@09:40 Performing Laboratory: Surgical Pathology Report Performed By: [facility] [CLIA# [id number]] [address] [place] [address] $FTR - - - - - - [...] - - CLAIRE FOOTE STANDARD FORM 515 ID:[id number] SEX:M :1965 AGE: 58 LOC:CWM/NO/DERMATOLOGY QUALITY OFFICER PCP: ACE Petersen /kaleb/ DANNY HI MD Board Certified Dermatopathologist Signed: 09/18/2023 09:40 DANNY HI MD [facility]
--- OUTSIDE RECORDS SUMMARY | 2024-02-13 16:06 | XMS_ITS | Encounter Summary ---
Author Name [facility] [place] [facility] [place] Address [address] [place] [address] Care Team Providers Care Space And Storage Clerk Name Role Phone JANIE TOLBERT Primary [...] Patient's Relationship to Policy Sapp BCBS OF [facility] PREFERRED PROVIDER ORGANIZAT ION (PPO) MG WEEKL Y ACTIV E Feb 20, 2017 [id number] EFFIE FOOTE PATIENT [facility] PRESCRIPT ION Feb 20, 2017 [id number] [phone] EFFIE FOOTE PATIENT [employer] TRICA RE DODA Mar 05, 2020 DODA [id number] [phone] EFFIE FOOTE PATIENT [facility] CE ORGANIZ HMO Jan 22, 2007 (WNR) [id number] EFFIE FOOTE PATIENT MEDIMPACT RX PRESCRIPT ION [facility] July 11, 2008 [id number] EFFIE FOOTE PATIENT [facility] Oct 09, 2008 [id number] EFFIE FOOTE PATIENT [facility] SELEC T TAMP Mar 14, 2021 [id number] [phone] EFFIE FOOTE PATIENT [facility] PRIME -ACTI VE DUTY Mar 05, 2020 [id number] [phone] EFFIE FOOTE PATIENT [facility] Dec 18, 2018 SELECT [id number] EFFIE FOOTE PATIENT Selected Encounter This section includes the information on record at [place] for the Encounter. Date/Time Encounter Type Encounter Description Reason Provider Source Sep 13, 2023 11:00 AM OFFICE O/P EST HI 40 MIN DERMATOLOGY ICD-10-CM Z85.828 Personal history of other malignant neoplasm of skin ANANYA VALDEZ [facility] Encounter Template Text not used by [place] Assessments - Encounter Diagnoses This section includes the primary and secondary diagnoses documented for the Encounter. Date/Time Primary/Secondary Diagnosis Diagnosis Name Provider Source Sep 13, 2023 12:22 PM PRIMARY Personal history of other malignant neoplasm of skin ANANYA VALDEZ [place] [facility] [place] [facility] Sep 13, 2023 12:22 PM SECONDARY Family history of malignant neoplasm of organs or systems ANANYA VALDEZ [place] [facility] [place] [facility] Sep 13, 2023 12:22 PM SECONDARY Neoplasm of uncertain behavior of skin ANANYA VALDEZ [place] [facility] [place] [facility] Sep 13, 2023 12:22 PM SECONDARY Tinea unguium [facility] [place] [facility] Plan of Treatment: Future Appointments (+ 6 months) and Future Tests (+/- 45 days) The Plan of Treatment section includes future care activities for the patient from all [place] treatmentfacilities. This section includes future appointments and future orders which are active, pending or scheduled. Future Appointments This section includes appointments that were scheduled to occur 6 months from the date of the Encounter, up to a maximum of 20 appointments. The data comes from all [place] treatment facilities. Appointment Date/Time Appointment Type Appointme nt Facility Name Sep 27, 2023 01:00 PM AMBULATORY - MEDICINE [place] [facility] [place] [facility] Oct 09, 2023 09:30 AM AMBULATORY - MEDICINE [place] [facility] [place] [facility] Nov 02, 2023 03:15 PM AMBULATORY - MEDICINE [place] [facility] [place] [facility] Nov 21, 2023 01:30 PM AMBULATORY - MEDICINE [place] [facility] [place] [facility] Jan 03, 2024 09:30 AM AMBULATORY - MEDICINE [place] [facility] [place] [facility] Feb 01, 2024 08:30 AM AMBULATORY - MEDICINE [place] [facility] [place] [facility] Feb 19, 2024 08:30 AM AMBULATORY - MEDICINE [place] [facility] [place] [facility] Mar 06, 2024 11:00 AM [facility] [place] [facility] Active, Pending, and Scheduled Orders This section includes a listing of several types of active, pending, and scheduled orders, including clinic medications orders, diagnostic test orders, procedure orders and consult orders; where the start date of the order is 45 days before the date of the Encounter or 45 days after the date of theEncounter. The data comes from all [place] treatment facilities. Test Date/Time Test Type Test Details Facility Name Sep 13, 2023 12:00 AM Laboratory - Chemi stry Order SURGICAL PATH ORDER SURG PATH SPEC. UNKNOWN SP [facility] Lab Results: +/- 30 days of the encounter This section includes the Chemistry and Hematology Lab Results on record with [place] for the patient. Radiology Reports and Pathology Reports are provided separately, in subsequent sections. Lab Results This section contains the Chemistry/Hematology Results that were resulted 30 days before or 30 daysafter the date of the Encounter. Date/Time Source Result Type Result - Unit Interpretation Reference Range Comment Aug 22, 2023 09:38 AM [facility] BASIC METABOLIC PANEL (fasting) Specimen Type: SERUM No comment entered. Ordering Provider: SAM TOLBERT Report Released Date/Time: Feb 28, 2023 10:07 AM Reporting Lab: [address] [address] Performing Lab: [address] [place] [address] UREA NITROGEN 17 mg/dL 7-25 GLUCOSE 104 mg/dL H 65-100 SODIUM 140 mmol/L 135-145 POTASSIUM 4.1 mmol/L 3.5-5.0 CHLORIDE 105 mmol/L 100-110 CO2 27 meq/L 20-30 CREATININE, Serum 0.87 mg/dL 0.50-1.40 eGFR(CKD-EPI 2020) >90 mL/min >60 Aug 22, 2023 09:38 AM [facility] LIVER FUNCTION Specimen Type: SERUM No comment entered. Ordering Provider: SAM TOLBERT Report Released Date/Time: Feb 28, 2023 10:07 AM Reporting Lab: [address] [address] Performing Lab: [address] [address] PROTEIN,TOTAL 7.0 g/dL 6.0-8.3 ALBUMIN 4.1 g/dL 3.5-5.0 ALKALINE PHOSPHATASE 93 U/L 40-150 AST 36 U/L H 5-34 ALT 82 U/L H BILIRUBIN, TOTAL 0.6 mg/dL 0.2-1.2 Aug 22, 2023 09:38 AM [facility] LIPID PANEL FASTING Specimen Type: SERUM No comment entered. Ordering Provider: SAM TOLBERT Report Released Date/Time: Feb 28, 2023 10:07 AM Reporting Lab: [address] [address] Performing Lab: [address] [address] CHOLESTEROL 247 mg/dL H TRIGLYCERIDE 161 mg/dL H 0-150 LDL calculated 168 mg/dL H 0-129 CHOL/HDL 5.3 HDL CHOLESTEROL 47 mg/dL 40-60 Social History: Smoking Status (Most current) and Tobacco Use (All prior to encounter date) This section includes the most current, and the historical, smoking and tobacco- related health factors from the [place] facility where the Encounter took place. Current Smoking Status This section includes the most current smoking, or tobacco-related health factor, from the [place] facility where the Encounter took place. Date/Time Current Smoking Status Comment Jannet ity Oct 13, 2022 11:45 AM [place]-TOBACCO NEVER USED [facility] Tobacco Use History This section includes a history of the smoking, or tobacco-related health factors, that were collected on or before the date of the Encounter. The data comes from the [place] facility where the Encounter took place. Date/Time Smoking Status/Tobacco Use Comment F acility Sep 05, 2021 11:29 AM [place]-TOBACCO [facility] USED [facility] May 28, 2007 09:10 AM LIFETIME NON-TOBACCO USER [facility] Advance Directives: All historical and current Section Date Range: From patient's date of to the date document was created. This section includes ALL of a patient's completed or amended [place] Advance and Rescinded Directives. The entries below indicate that a directive exists for the patient, but an actual copy is not included with this document. The data comes from all [place] facilities. Date Advance Directives Provider Source Aug 29, 2023 ADVANCE DIRECTIVE [facility] Pathology Reports: +/- 30 days of [...] the Encounter. The data comes from all [place] treatment facilities. Date/Time Pathology Report Provider Source Sep 18, 2023 09:44 AM LR SURGICAL PATHOLOGY REPORT: LOCAL TITLE: LR SURGICAL PATHOLOGY REPORT STANDARD TITLE: PATHOLOGY REPORT DATE OF NOTE: SEP 18, 2023@09:44:02 ENTRY DATE: SEP 18, 2023@09:44:02 AUTHOR: DANNY HI MD EXP COSIGNER: URGENCY: STATUS: COMPLETED $APHDR Reporting Lab: [facility] [CLIA# [id number]] [address] [place] [address] - - - - - - - [...] Sep 14, 2023): A:SKIN OFM L LATERAL BACK([id number]) B:SKIN OF L MID DORSAL FOREARM([id number]) C:SKIN OF L LOW BACK([id number]) - - - - - - - [...] - - - PATHOLOGY REPORT Accession No. [facility] 24 [id number] - - - - - - - - - - - - - - - - - - - - - - - - - - - - - - - - - - - - - - - - GROSS DESCRIPTION: The specimen is recieved from [facility], [facility] [id number];A;1;Gian FOOTE. Received in formalin labeled with [...] Performing Laboratory: Surgical Pathology Report Performed By: [facility] [CLIA# [id number]] [address] [place] [address] $FTR - - - - - - [...] - - CLAIRE FOOTE STANDARD FORM 515 ID:[id number] SEX:M :1965 AGE: 58 LOC:*[facility] PCP: /kaleb/ Danny Hi MD, FRCPath Board Certified Dermatopathologist Signed: 09/18/2023 09:44 DANNY HI MD [facility] Sep 18, 2023 09:40 AM LR SURGICAL PATHOLOGY REPORT: LOCAL TITLE: LR SURGICAL PATHOLOGY REPORT STANDARD TITLE: PATHOLOGY DIAGNOSTIC STUDY REPORT DATE OF NOTE: SEP 18, 2023@09:40:52 ENTRY DATE: SEP 18, 2023@09:40:52 AUTHOR: DANNY HI MD EXP COSIGNER: URGENCY: STATUS: COMPLETED $APHDR Reporting Lab: [facility] [CLIA# [id number]] [address] [place] [address] - - - - - - - [...] - PATHOLOGY REPORT Accession No. YISEL [id number] - - - - - [...] - - - - - - Specimen ([facility] 24, 2024 14:18): skin of l lateral neck skin [...] - - - PATHOLOGY REPORT Accession No. [facility] - - - - - - - - - - - - - - - - - - - - - - - - - - - - - - - - - - - - - - - - Gross description: The [facility] RSP 23 [id number];A;1;Gian FOOTE A. Received in formalin labeled with the patient's [...] tips C2, body cross section ACE Rushing ([facility]) 09/14/2023 A. Skin, left lateral neck: Basal cell carcinoma, superficial and nodular types, very closely approaching the deep tissue margins. B. Skin, left mid dorsal forearm: Basal cell carcinoma, nodular type. C. Skin, left low back: Basal cell carcinoma, nodular type, very closely approaching the deep tissue margins. 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 LAB SURGICAL PATHOLOGY Collected: 09/13/2023 11:00Acc:[facility] 364 Surgeon/Physician: THEODORE VALDEZ Specimen: skin of l lateral neck skin of l mid dorsal forearm skin of l low back Brief Clinical Hx: SP 364 SPECIMEN A: L LATERAL NECK 8MM PINK PEARLY PAPULE WITH SPECKS OF PIGMENT SPECIMEN B: L MID DORSAL FOREARM 1MM HYPERPIGMENTED MACULE SPECIMEN C: L LOW BACK 5MM PINK PEARLY PAPULE WITH SPECKS OF PIGMENT Gross Description: The specimen is recieved from [facility] /[place], [facility] [id number] [facility] 24 [id number];A;1;FOOTE,K A. Received in formalin labeled with the patient's [...] tips C2, body cross section ACE Rushing ([facility]) 09/14/2023 Microscopic Exam: A. Skin, left lateral neck: Basal cell carcinoma, superficial and nodular types, very closely approaching the deep tissue margins. B. Skin, left mid dorsal forearm: Basal cell carcinoma, nodular type. C. Skin, left low back: Basal cell carcinoma, nodular type, very closely approaching the deep tissue margins. CPT codes 62471i7 /kaleb/ THEODORE VALDEZ DNP, PRODUCTION MANUFACTURING WORKER-C NURSE PRACTITIONER Signed: 09/26/2023 07:29 Receipt Acknowledged By: 09/28/2023 15:56 /kaleb/ RALPH CARY LPN LPN --- Original Document --- 09/13/23 DERMATOLOGY CLINIC NOTE: SEP 13, 2023 CLAIRE FOOTE May 58 PATIENT PHONE - Patient here for FOLLOW UP and BIOPSIES CHIEF COMPLAINT: h/o multiple NMSCs, FamHx MM HPI: Reviewed records from last Dermatology visit: 08/15/23. Plan is to perform a few biopsies of suspicious lesions from prior visit. denies any other new/changing/bleeding/non- healing lesions. REVIEW OF SYSTEMS: Constitutional-neg Skin/Hair/Nails-see HPI DermHx: -BCC, L cheek s/p Mohs 11/2021 at [facility] -BCC, L nasal ala s/p Mohs 06/2019 at [facility] -pnBCC, central chest s/p excision 2019 -BCC, R confucianist s/p ED&C 2018 -snBCC, Mid lower back [...] TAB BY MOUTH ACTIVE 7 Total Medications PHYSICAL EXAM: Reyes Skintype I-II General-AxOx3, NAD, pleasant, breathing unlabored, speech clear Cutaneous examination, as permitted by the patient, including scalp, face, eyes, ears, neck, back, arms, hands, fingers, legs, feet, toes Pertinent findings per below: -multiple scattered well healed surgical scar, no evidence of abnormal pigmentation or lesion -L low back 5mm pigmented basal -L lateral neck 8mm brown macule -L mid dorsal forearm 1mm brown macule -Multiple toenails thickened with yellowish discoloration and onycholysis Diagnosis/Plan: #Personal History of Non-Melanotic Skin Cancer: -No evidence of recurrence at surgical site(s) -Full Body Skin Exam advised at least yearly -Photoprotection discussed -Patient instructed to follow up in clinic for any concerning lesions or changes -Given their prior history of multiple non-melanoma skin cancers discussed chemoprevention with at length. -Nicotinamide has been shown to significantly reduce the occurence of basal cell and cutaneous squamous cell carcinomas in recipients with history of skin cancer (Shay et. al., J Cutan Med Surg, 2021) -CONTINUE nicotinamide 500mg PO BID -Reviewed risks, benefits, and side effects (GI). -Advised to AVOID nicotinic acid aka niacin as this is associated with vasodilatory effects including flushing. #Neoplasm of Uncertain Behavior -Sites: A-L lateral neck B-L mid dorsal forearm C-L low back -Biopsy advised; DDx: A. BCC, B. BCC, C. BCC ##Shave Biopsy Procedure: -The purpose, benefits, risks (infection, bleeding and scar) and alternatives of the procedures were discussed. -Verbal informed consent was obtained. Patient consents to pictures to be taken for documentation. -The surgical sites were confirmed with the patient. Time out was implemented to confirm patient's name, date of , location of the lesion and indication for the biopsy with HANS [place]. -Biopsy sites were swabbed with alcohol. -Anesthesia achieved by local infiltration of lesion with 1% lidocaine with epinephrine 1:100,000. -A tangential shave specimen was taken from each site to the depth of the dermis using a flexible dermablade. -Hemostasis was achieved with aluminum chloride (Drysol). -Routine wound care was performed and a dressing was applied using Vaseline and a Bandage. -The patient tolerated the procedures well without complications. -Wound care was reviewed and a printed copy was given to the patient. -Plan of care to be discussed once biopsy results return. -Discussed with that if results are benign (non-cancerous), a letter will be mailed indicating this and that no further treatment is required. -Advised that if they do not receive a letter or a phone call within 2-3 weeks, to reach out to clinic and inquire on biopsy results. #Family History of Melanoma: -No concerning lesions noted on FBSE today -ABCDEs of melanoma were discussed -Patient was instructed on self skin exams, the importance of sun screen usage and sun protective clothing -If any changes are detected, the patient was instructed to contact dermatology for evaluation -FBSE advised at least yearly #Onychomycosis -Counseling provided regarding expectations that cure rates are excellent, can be managed with OTC topical antifungal creams, but the recurrence rate is high. -CONTINUE clotrimazole 1% solution, apply daily to affected nails. RTC 6m, sooner PRN * educated to RTC dusty if any new, changing, symptomatic lesions. * Education on sun protection and avoidance strategies was provided. * Differential diagnosis, prescription options and risks/benefits [...] and lab ordering Total estimated time = 50 min ------- Medication Reconciliation: Outpatient: Has the patient been taking medications as documented in the EMLR? YES: The patient has been taking medications as documented in the EMLR. Essential Medication List for Review used to complete this medication reconciliation. INCLUDED IN THIS LIST: Alphabetical list of active outpatient prescriptions dispensed from this [place] (local) and dispensed from another [place] or [facility] facility (remote) as well as inpatient orders [...] list may not be complete. Please check JLV. Allergies/ADRs (Tool #5) FACILITY ALLERGY/ADR -------- [facility] PENICILLIN [place] [facility] PENICILLIN Med Recon [place] (Tool #1) INCLUDED IN THIS LIST: Alphabetical list of active outpatient prescriptions dispensed from this [place] (local) and dispensed from another [place] or [facility] facility (remote) as well as inpatient orders (local pending and active), local clinic medications, locally documented non-VA medications, and local prescriptions that have or been discontinued in the past 90 days. Non-VA Meds Last Documented On: Feb 28, 2023 NOTE The display of VA prescriptions dispensed from another [place] or [facility] facility (remote) is limited to active outpatient prescription entries matched to National Drug File at the originating site and may not include some items such as investigational drugs, compounds, etc. NOT INCLUDED IN THIS LIST: Medications self-entered by the patient into personal health records (i.e. Brand.net) are NOT included in this list. Non-VA medications documented outside this [place], remote inpatient orders (regardless of status) and remote clinic medications are NOT included in this list. The patient and provider must always discuss medications the patient is taking, regardless of where the medication was dispensed or obtained. OUTPT CLOTRIMAZOLE 1% TOP SOLN (Status = Active) APPLY THIN LAYER TOPICALLY TWICE DAILY FOR FUNGAL INFECTION Rx# [id number] Last Released: 08/19/23 Qty/Days Supply: Rx Expiration Date: 08/16/24 Refills Remainin Indication: FOR FUNGAL INFECTION OF NAIL OUTPT FAMOTIDINE 20MG TAB (Status = Active) TAKE ONE TABLET BY MOUTH TWICE DAILY NEEDED FOR STOMACH ACID Rx# [id number] Last Released: 08/28/23 Qty/Days Supply: 180/ Rx Expiration Date: 01/05/24 Refills Remainin Non-VA FISH OIL 1000MG (500MG DHA/EPA) CAP TAKE 1 CAPSULE BY MOUTH ONCE DAILY Non-VA MULTIVITAMIN W/MINERAL TAB TAKE BY MOUTH OUTPT PYRIDOXINE HCL 100MG TAB (Status = Active) TAKE ONE TABLET BY MOUTH ONCE DAILY FOR VITAMIN B6 SUPPLEMENTATION Rx# [id number] Last Released: 07/05/23 Qty/Days Supply: 100/ Rx Expiration Date: 07/03/24 Refills Remainin OUTPT TAMSULOSIN HCL 0.4MG CAP (Status = ) TAKE ONE CAPSULE BY MOUTH AT BEDTIME Rx# [id number] Last Released: 05/16/23 Qty/Days Supply: Rx Expiration Date: 08/13/23 Refills Remainin OUTPT TERBINAFINE HCL 1% CREAM (Status = Active) APPLY A THIN LAYER TOPICALLY TWICE DAILY FOR RINGWORM OF GROIN AREA APPLY UP TO 1-4 WEEKS UNTIL RASH RESOLVES Rx# [id number] Last Released: 08/19/23 Qty/Days Supply: Rx Expiration Date: 08/16/24 Refills Remainin Indication: FOR RINGWORM OF GROIN AREA Non-VA VITAMIN D3 (CHOLECALCIFEROL) TAB TAKE BY MOUTH ONCE DAILY SUPPLIES /helen VALDEZ DNP, PRODUCTION MANUFACTURING WORKER-C NURSE PRACTITIONER Signed: 09/13/2023 12:22 THEODORE VALDEZ [facility] [place] [facility] Sep 13, 2023 10:59 AM DERMATOLOGY OUTPATIENT NOTE: LOCAL TITLE: DERMATOLOGY CLINIC NOTE STANDARD TITLE: DERMATOLOGY OUTPATIENT NOTE DATE OF NOTE: SEP 13, 2023@10:59 ENTRY DATE: SEP 13, 2023@10:59:49 AUTHOR: THEODORE VALDEZ EXP COSIGNER: URGENCY: STATUS: COMPLETED DERMATOLOGY CLINIC NOTE Has ADDENDA SEP 13, 2023 CLAIRE FOOTE May 58 PATIENT PHONE - Patient here for FOLLOW UP and BIOPSIES CHIEF COMPLAINT: h/o multiple NMSCs, FamHx MM HPI: Reviewed records from last Dermatology visit: 08/15/23. Plan is to perform a few biopsies of suspicious lesions from prior visit. [place] denies any other new/changing/bleeding/non- healing lesions. REVIEW OF SYSTEMS: Constitutional-neg Skin/Hair/Nails-see HPI DermHx: -BCC, L cheek s/p Mohs 11/2021 at [facility] -BCC, L nasal ala s/p Mohs 06/2019 at [facility] -pnBCC, central chest s/p excision 2019 -BCC, R confucianist s/p ED&C 2018 -snBCC, Mid lower back [...] TAB BY MOUTH ACTIVE 7 Total Medications PHYSICAL EXAM: Reyes Skintype I-II General-AxOx3, NAD, pleasant, breathing unlabored, speech clear Cutaneous examination, as permitted by the patient, including scalp, face, eyes, ears, neck, back, arms, hands, fingers, legs, feet, toes Pertinent findings per below: -multiple scattered well healed surgical scar, no evidence of abnormal pigmentation or lesion -L low back 5mm pigmented basal -L lateral neck 8mm brown macule -L mid dorsal forearm 1mm brown macule -Multiple toenails thickened with yellowish discoloration and onycholysis Diagnosis/Plan: #Personal History of Non-Melanotic Skin Cancer: -No evidence of recurrence at surgical site(s) -Full Body Skin Exam advised at least yearly -Photoprotection discussed -Patient instructed to follow up in clinic for any concerning lesions or changes -Given their prior history of multiple non-melanoma skin cancers discussed chemoprevention with at length. -Nicotinamide has been shown to significantly reduce the occurence of basal cell and cutaneous squamous cell carcinomas in recipients with history of skin cancer (Shay et. al., J Cutan Med Surg, 2021) -CONTINUE nicotinamide 500mg PO BID -Reviewed risks, benefits, and side effects (GI). -Advised to AVOID nicotinic acid aka niacin as this is associated with vasodilatory effects including flushing. #Neoplasm of Uncertain Behavior -Sites: A-L lateral neck B-L mid dorsal forearm C-L low back -Biopsy advised; DDx: A. BCC, B. BCC, C. BCC ##Shave Biopsy Procedure: -The purpose, benefits, risks (infection, bleeding and scar) and alternatives of the procedures were discussed. -Verbal informed consent was obtained. Patient consents to pictures to be taken for documentation. -The surgical sites were confirmed with the patient. Time out was implemented to confirm patient's name, date of , location of the lesion and indication for the biopsy with HANS [place]. -Biopsy sites were swabbed with alcohol. -Anesthesia achieved by local infiltration of lesion with 1% lidocaine with epinephrine 1:100,000. -A tangential shave specimen was taken from each site to the depth of the dermis using a flexible dermablade. -Hemostasis was achieved with aluminum chloride (Drysol). -Routine wound care was performed and a dressing was applied using Vaseline and a Bandage. -The patient tolerated the procedures well without complications. -Wound care was reviewed and a printed copy was given to the patient. -Plan of care to be discussed once biopsy results return. -Discussed with that if results are benign (non-cancerous), a letter will be mailed indicating this and that no further treatment is required. -Advised that if they do not receive a letter or a phone call within 2-3 weeks, to reach out to clinic and inquire on biopsy results. #Family History of Melanoma: -No concerning lesions noted on FBSE today -ABCDEs of melanoma were discussed -Patient was instructed on self skin exams, the importance of sun screen usage and sun protective clothing -If any changes are detected, the patient was instructed to contact dermatology for evaluation -FBSE advised at least yearly #Onychomycosis -Counseling provided regarding expectations that cure rates are excellent, can be managed with OTC topical antifungal creams, but the recurrence rate is high. -CONTINUE clotrimazole 1% solution, apply daily to affected nails. RTC 6m, sooner PRN * [place] educated to RTC dusty if any new, changing, symptomatic lesions. * Education on sun protection and avoidance strategies was provided. * Differential diagnosis, prescription options and risks/benefits [...] and lab ordering Total estimated time = 50 min ------- Medication Reconciliation: Outpatient: Has the patient been taking medications as documented in the EMLR? YES: The patient has been taking medications as documented in the EMLR. Essential Medication List for Review used to complete this medication reconciliation. INCLUDED IN THIS LIST: Alphabetical list of active outpatient prescriptions dispensed from this [facility] (local) and dispensed from another [place] or [facility] facility (remote) as well as inpatient orders [...] list may not be complete. Please check JLV. Allergies/ADRs (Tool #5) FACILITY ALLERGY/ADR -------- [facility] D PENICILLIN [facility] [place] PENICILLIN Med Recon [facility] (Tool #1) INCLUDED IN THIS LIST: Alphabetical list of active outpatient prescriptions dispensed from this [facility] (local) and dispensed from another [place] or [facility] facility (remote) as well as inpatient orders (local pending and active), local clinic medications, locally documented non-VA medications, and local prescriptions that have or been discontinued in the past 90 days. Non-VA Meds Last Documented On: Feb 28, 2023 NOTE The display of VA prescriptions dispensed from another VA or DoD facility (remote) is limited to active outpatient prescription entries matched to National Drug File at the originating site and may not include some items such as investigational drugs, compounds, etc. NOT INCLUDED IN THIS LIST: Medications self-entered by the patient into personal health records (i.e. Brand.net) are NOT included in this list. Non-VA medications documented outside this [place], remote inpatient orders (regardless of status) and remote clinic medications are NOT included in this list. The patient and provider must always discuss medications the patient is taking, regardless of where the medication was dispensed or obtained. OUTPT CLOTRIMAZOLE 1% TOP SOLN (Status = Active) APPLY THIN LAYER TOPICALLY TWICE DAILY FOR FUNGAL INFECTION Rx# [id number] Last Released: 08/19/23 Qty/Days Supply: Rx Expiration Date: 08/16/24 Refills Remainin Indication: FOR FUNGAL INFECTION OF NAIL OUTPT FAMOTIDINE 20MG TAB (Status = Active) TAKE ONE TABLET BY MOUTH TWICE DAILY NEEDED FOR STOMACH ACID Rx# [id number] Last Released: 08/28/23 Qty/Days Supply: Rx Expiration Date: 01/05/24 Refills Remainin Non-VA FISH OIL 1000MG (500MG DHA/EPA) CAP TAKE 1 CAPSULE BY MOUTH ONCE DAILY Non-VA MULTIVITAMIN W/MINERAL TAB TAKE BY MOUTH OUTPT PYRIDOXINE HCL 100MG TAB (Status = Active) TAKE ONE TABLET BY MOUTH ONCE DAILY FOR VITAMIN B6 SUPPLEMENTATION Rx# [id number] Last Released: 07/05/23 Qty/Days Supply: 100 Rx Expiration Date: 07/03/24 Refills Remainin OUTPT TAMSULOSIN HCL 0.4MG CAP (Status = ) TAKE ONE CAPSULE BY MOUTH AT BEDTIME Rx# [id number] Last Released: 05/16/23 Qty/Days Supply: 90 Rx Expiration Date: 08/13/23 Refills Remainin OUTPT TERBINAFINE HCL 1% CREAM (Status = Active) APPLY A THIN LAYER TOPICALLY TWICE DAILY FOR RINGWORM OF GROIN AREA APPLY UP TO 1-4 WEEKS UNTIL RASH RESOLVES Rx# [id number] Last Released: 08/19/23 Qty/Days Supply: Rx Expiration Date: 08/16/24 Refills Remainin Indication: FOR RINGWORM OF GROIN AREA Non-VA VITAMIN D3 (CHOLECALCIFEROL) TAB TAKE BY MOUTH ONCE DAILY SUPPLIES /kaleb/ THEODORE VALDEZ DNP, PRODUCTION MANUFACTURING WORKER-C NURSE PRACTITIONER Signed: 09/13/2023 12:22 09/19/2023 ADDENDUM STATUS: 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 LAB SURGICAL PATHOLOGY Collected: 09/13/2023 11:00Acc:YISEL Surgeon/Physician: THEODORE VALDEZ Specimen: skin of l lateral neck skin of l mid dorsal forearm skin of l low back Brief Clinical Hx: SP 576 SPECIMEN A: L LATERAL NECK 8MM PINK PEARLY PAPULE WITH SPECKS OF PIGMENT SPECIMEN B: L MID DORSAL FOREARM 1MM HYPERPIGMENTED MACULE SPECIMEN C: L LOW BACK 5MM PINK PEARLY PAPULE WITH SPECKS OF PIGMENT Gross Description: The specimen is recieved from [facility] /[place], [facility] [id number] [facility] [id number];A;1;Gian FOOTE Received in formalin labeled with the patient's [...] tips C2, body cross section ACE Rushing ([facility]) 09/14/2023 Microscopic Exam: A. Skin, left lateral neck: Basal cell carcinoma, superficial and nodular types, very closely approaching the deep tissue margins. B. Skin, left mid dorsal forearm: Basal cell carcinoma, nodular type. C. Skin, left low back: Basal cell carcinoma, nodular type, very closely approaching the deep tissue margins. CPT codes 72479j8 /kaleb/ THEODORE VALDEZ DNP, PRODUCTION MANUFACTURING WORKER-C NURSE PRACTITIONER Signed: 09/26/2023 07:29 Receipt Acknowledged By: 09/28/2023 15:56 /helen CARY LPN LPN 09/28/2023 ADDENDUM STATUS: COMPLETED VM left to return call for biospy results. /es/ RALPH CARY LPN LPN Signed: 09/28/2023 15:57 THEODORE VALDEZRL [facility]
--- OUTSIDE RECORDS SUMMARY | 2024-02-13 16:06 | XMS_ITS ---
Author Name [facility] [place] [facility] [facility] [place] Address [address] [place] [address] Care Team Providers Care Electronics Technology Department Chair Name Role Phone JANIE TOLBERT Primary Care [...] Patient's Relationship to Policy Sapp [employer] PREFERRED PROVIDER ORGANIZAT ION (PPO) [facility] Feb 20, 2017 [id number] EFFIE FOOTE PATIENT [place] PRESCRIPT ION Feb 20, 2017 [id number] [phone] EFFIE FOOTE PATIENT [facility] TRICA RE DODA Mar 05, 2020 DODA [id number] [phone] EFFIE FOOTE PATIENT FORMERLY [facility] CE ORGANIZ HMO Jan 22, 2007 (WNR) [id number] EFFIE FOOTE PATIENT MEDIMPACT RX PRESCRIPT ION [address] PILGR IM July 11, 2008 [id number] EFFIE FOOTE PATIENT [facility] Oct 09, 2008 [id number] EFFIE FOOTE PATIENT [facility] SELEC T TAMP Mar 14, 2021 [id number] [phone] EFFIE FOOTE PATIENT [facility] PRIME -ACTI VE DUTY Mar 05, 2020 [id number] [phone] EFFIE FOOTE PATIENT [facility] Dec 18, 2018 SELECT [id number] [phone] EFFIE FOOTE PATIENT Selected Encounter This section includes the information on record at [place] for the Encounter. Date/Time Encounter Type Encounter Description Reason Pro vider Source Sep 25, 2023 12:00 AM Outpatient Encounter COMMUNITY CARE CONSULT IHE Encounter Template Text not used by [place] Plan of Treatment: Future Appointments (+ 6 months) and Future Tests (+/- 45 days) The Plan of Treatment section includes future care activities for the patient from all [place] treatmentfacilities. This section includes future appointments and future orders which are active, pending or scheduled. Future Appointments This section includes appointments that were scheduled to occur 6 months from the date of the Encounter, up to a maximum of 20 appointments. The data comes from all [place] treatment facilities. Appointment Date/Time Appointment Type Appointme nt Facility Name Sep 27, 2023 01:00 PM AMBULATORY - MEDICINE [facility] [place] [facility] Oct 09, 2023 09:30 AM AMBULATORY - MEDICINE [facility] [place] [facility] Nov 02, 2023 03:15 PM AMBULATORY - MEDICINE [facility] [place] [facility] Nov 21, 2023 01:30 PM AMBULATORY - MEDICINE [facility] [place] [facility] Jan 03, 2024 09:30 AM AMBULATORY - MEDICINE [facility] [place] [facility] Feb 01, 2024 08:30 AM AMBULATORY - MEDICINE [facility] [place] [facility] Feb 19, 2024 08:30 AM AMBULATORY - MEDICINE [facility] [place] [facility] Mar 06, 2024 11:00 AM AMBULATORY - MEDICINE [facility] [place] [facility] Active, Pending, and Scheduled Orders This section includes a listing of several types of active, pending, and scheduled orders, including clinic medications orders, diagnostic test orders, procedure orders and consult orders; where the start date of the order is 45 days before the date of the Encounter or 45 days after the date of theEncounter. The data comes from all [place] treatment facilities. Test Date/Time Test Type Test Details Facility Name Sep 13, 2023 12:00 AM Laboratory - Chemi stry Order SURGICAL PATH ORDER SURG PATH SPEC. UNKNOWN SP [facility] Social History: Smoking Status (Most current) and Tobacco Use (All prior to encounter date) This section includes the most current, and the historical, smoking and tobacco- related health factors from the [place] facility where the Encounter took place. Current Smoking Status This section includes the most current smoking, or tobacco-related health factor, from the [place] facility where the Encounter took place. Date/Time Current Smoking Status Comment Facil ity Oct 13, 2022 11:45 AM CO-TOBACCO NEVER USED [facility] Tobacco Use History This section includes a history of the smoking, or tobacco-related health factors, that were collected on or before the date of the Encounter. The data comes from the [place] facility where the Encounter took place. Date/Time Smoking Status/Tobacco Use Comment F acility Sep 05, 2021 11:29 AM CO-TOBACCO NEVER USED [facility] May 28, 2007 09:10 AM LIFETIME NON-TOBACCO USER [facility] Advance Directives: All historical and current Section Date Range: From patient's date of to the date document was created. This section includes ALL of a patient's completed or amended [place] Advance and Rescinded Directives. The entries below indicate that a directive exists for the patient, but an actual copy is not included with this document. The data comes from all [place] facilities. Date Advance Directives Provider Source Aug 29, 2023 ADVANCE DIRECTIVE KRUNAL TANG [facility] Pathology Reports: +/- 30 days of [...] the Encounter. The data comes from all [place] treatment facilities. Date/Time Pathology Report Provider Source Sep 18, 2023 09:44 AM LR SURGICAL PATHOLOGY REPORT: LOCAL TITLE: LR SURGICAL PATHOLOGY REPORT STANDARD TITLE: PATHOLOGY REPORT DATE OF NOTE: SEP 18, 2023@09:44:02 ENTRY DATE: SEP 18, 2023@09:44:02 AUTHOR: DANNY HI MD EXP COSIGNER: URGENCY: STATUS: COMPLETED $APHDR Reporting Lab: [facility] [CLIA# [id number]] [address] [place] [id number] - - - - - - - [...] Sep 14, 2023): A:SKIN OFM L LATERAL BACK([id number]) B:SKIN OF L MID DORSAL FOREARM([id number]) C:SKIN OF L LOW BACK([id number]) - - - - - - - [...] - - - PATHOLOGY REPORT Accession No. [facility] 24 [id number] - - - - - - - - - - - - - - - - - - - - - - - - - - - - - - - - - - - - - - - - GROSS DESCRIPTION: The specimen is recieved from [facility], [facility] [id number] [facility] [id number];A;1;Gian FOOTE. Received in formalin labeled [...] body cross section ACE Rushing ([facility]) 09/14/2023 /helen iH MD, Alicia Board Certified Dermatopathologist Signed Sep 18, 2023@09:44 Performing Laboratory: Surgical Pathology Report Performed By: [facility] [CLIA# [id number]] [address] [place] [address] $FTR - - - - - - [...] - - CLAIRE FOOTE STANDARD FORM 515 ID:[id number] SEX:M :1965 AGE: 58 LOC:*[facility] PCP: /helen Hi MD, Alicia Board Certified Dermatopathologist Signed: 09/18/2023 09:44 DANNY HI MD [facility] Sep 18, 2023 09:40 AM LR SURGICAL PATHOLOGY REPORT: LOCAL TITLE: LR SURGICAL PATHOLOGY REPORT STANDARD TITLE: PATHOLOGY DIAGNOSTIC STUDY REPORT DATE OF NOTE: SEP 18, 2023@09:40:52 ENTRY DATE: SEP 18, 2023@09:40:52 AUTHOR: DANNY HI MD EXP COSIGNER: URGENCY: STATUS: COMPLETED $APHDR Reporting Lab: [facility] [CLIA# [id number]] [address] [place] [address] - - - - - - - [...] - - - PATHOLOGY REPORT Accession No. [place] [id number] - - - - - - - [...] - - - PATHOLOGY REPORT Accession No. [place] [id number] - - - - - - - - - - - - - - - - - - - - - - - - - - - - - - - - - - - - - - - - Gross description: The specimen is recieved from [facility], [facility] [id number] [facility] 24 [id number];A;1;Gian FOOTE. Received in formalin labeled [...] tips C2, body cross section ACE Rushing ([facility]) 09/14/2023 A. Skin, left lateral neck: Basal cell carcinoma, superficial and nodular types, very closely approaching the deep tissue margins. B. Skin, left mid dorsal forearm: Basal cell carcinoma, nodular type. C. Skin, left low back: Basal cell carcinoma, nodular type, very closely approaching the deep tissue margins. CPT codes [id number] /kaleb/ DANNY HI MD Board Certified Dermatopathologist Signed Sep 18, 2023@09:40 Performing Laboratory: Surgical Pathology Report Performed By: [facility] [CLIA# [id number]] [address] [place] [address] $FTR - - - - - - [...] - - CLAIRE FOOTE STANDARD FORM 515 ID:[id number] SEX:M :1965 AGE: 58 LOC:CWM/NO/DERMATOLOGY UNIT MANAGER PCP: ACE Petersen /kaleb/ DANNY HI MD Board Certified Dermatopathologist Signed: 09/18/2023 09:40 DANNY HI MD [facility] Encounter Notes: All associated encounter notes This section contains the clinical notes associated to the Encounter. Date/Time Encounter Note(s) Provider Source Sep 25, 2023 12:00 AM NONVA CONSULT: LOCAL TITLE: COMMUNITY CARE-CONSULT RESULT NOTE STANDARD TITLE: NONVA CONSULT DATE OF NOTE: SEP 25, 2023 ENTRY DATE: OCT 17, 2023@06:25:07 AUTHOR: NATALY HUSAIN EXP COSIGNER: URGENCY: STATUS: COMPLETED VistA Imaging - Scanned Document SCANNED DOCUMENT SIGNATURE NOT REQUIRED Electronically Filed: 10/17/2023 by: NATALY OTT [facility]
--- OUTSIDE RECORDS SUMMARY | 2024-02-13 16:06 | XMS_ITS | Encounter Summary ---
Author Name [facility] [place] Address [address] [place] [address] Care Team Providers Care Sweatband Flanger Name Role Phone JANIE TOLBERT Primary Care [...] Patient's Relationship to Policy Sapp BCBS OF [facility] PREFERRED PROVIDER ORGANIZAT ION (PPO) MG WEEKL Y ACTIV E Feb 20, 2017 [id number] EFFIE FOOTE PATIENT [facility] PRESCRIPT ION Feb 20, 2017 [id number] [phone] EFFIE FOOTE PATIENT [facility] TRICA RE DODA Mar 05, 2020 DODA [id number] EFFIE FOOTE PATIENT [facility] CE ORGANIZ HMO Jan 22, 2007 (WNR) [id number] [phone] EFFIE FOOTE PATIENT MEDIMPA[facility] RX PRESCRIPT ION [address] PILGR IM July 11, 2008 [id number] EFFIE FOOTE PATIENT [facility] Oct 09, 2008 [id number] FOOTEEFFIE PATIENT [facility] SELEC T TAMP Mar 14, 2021 [id number] [phone] EFFIE FOOTE PATIENT [facility] PRIME -ACTI VE DUTY Mar 05, 2020 [id number] EFFIE FOOTE PATIENT [facility] Dec 18, 2018 SELECT [id number] [phone] EFFIE FOOTE PATIENT Selected Encounter This section includes the information on record at [place] for the Encounter. Date/Time Encounter Type Encounter Description Reason Provider Source Sep 18, 2023 09:44 AM Outpatient Encounter EVENT (HISTORICAL) DANNY IH MD [facility] Encounter Template Text not used by [place] Plan of Treatment: Future Appointments (+ 6 months) and Future Tests (+/- 45 days) The Plan of Treatment section includes future care activities for the patient from all [place] treatmentfacilities. This section includes future appointments and future orders which are active, pending or scheduled. Future Appointments This section includes appointments that were scheduled to occur 6 months from the date of the Encounter, up to a maximum of 20 appointments. The data comes from all [place] treatment facilities. Appointment Date/Time Appointment Type Appointme nt Facility Name Sep 27, 2023 01:00 PM AM[place]ULATORY [place]INE [place] [facility] [place] [facility] Oct 09, 2023 09:30 AM AM[place]ULATORY [place] [facility] [place] [facility] Nov 02, 2023 03:15 PM AM[place]UL[place]ORY [place]ICINE [place] [facility] [place] [facility] Nov 21, 2023 01:30 PM AM[place]ULATORY [place]IC[place] [facility] [place] [facility] Jan 03, 2024 09:30 AM AMBULATORY [place]ICINE [place] [facility] [place] [facility] Feb 01, 2024 08:30 AM AM[place]ULATORY [place]IC[place] [facility] [place] [facility] Feb 19, 2024 08:30 AM AM[place]ULATORY [place] [facility] [place] [facility] Mar 06, 2024 11:00 AM AMBULATORY [place]IC[place] [facility] [place] [facility] Active, Pending, and Scheduled Orders This section includes a listing of several types of active, pending, and scheduled orders, including clinic medications orders, diagnostic test orders, procedure orders and consult orders; where the start date of the order is 45 days before the date of the Encounter or 45 days after the date of theEncounter. The data comes from all [place] treatment facilities. Test Date/Time Test Type Test Details Facility Name Sep 13, 2023 12:00 AM Laboratory - Chemi stry Order SURGICAL PATH ORDER SURG PATH SPEC. UNKNOWN SP [facility] Lab Results: +/- 30 days of the encounter This section includes the Chemistry and Hematology Lab Results on record with [place] for the patient. Radiology Reports and Pathology Reports are provided separately, in subsequent sections. Lab Results This section contains the Chemistry/Hematology Results that were resulted 30 days before or 30 daysafter the date of the Encounter. Date/Time Source Result Type Result - Unit Interpretation Reference Range Comment Aug 22, 2023 09:38 AM [facility] BASIC METABOLIC PANEL (fasting) Specimen Type: SERUM No comment entered. Ordering Provider: SAM TOLBERT Report Released Date/Time: Feb 28, 2023 10:07 AM Reporting Lab: [facility] [address] [facility] [address] Performing Lab: [facility] [address] [facility] [address] UREA NITROGEN 17 mg/dL 7-25 GLUCOSE 104 mg/dL H 65-100 SODIUM 140 mmol/L 135-145 POTASSIUM 4.1 mmol/L 3.5-5.0 CHLORIDE 105 mmol/L 100-110 CO2 27 meq/L 20-30 CREATININE, Serum 0.87 mg/dL 0.50-1.40 eGFR(CKD-EPI 2020) >90 mL/min >60 Aug 22, 2023 09:38 AM [facility] LIVER FUNCTION Specimen Type: SERUM No comment entered. Ordering Provider: SAM TOLBERT Report Released Date/Time: Feb 28, 2023 10:07 AM Reporting Lab: [facility] [address] [facility] [address] Performing Lab: [facility] [address] [facility] [address] PROTEIN,TOTAL 7.0 g/dL 6.0-8.3 ALBUMIN 4.1 g/dL 3.5-5.0 ALKALINE PHOSPHATASE 93 U/L 40-150 AST 36 U/L H 5-34 ALT 82 U/L H BILIRUBIN, TOTAL 0.6 mg/dL 0.2-1.2 Aug 22, 2023 09:38 AM [facility] LIPID PANEL FASTING Specimen Type: SERUM No comment entered. Ordering Provider: SAM TOLBERT Report Released Date/Time: Feb 28, 2023 10:07 AM Reporting Lab: [facility] [address] [facility] [address] Performing Lab: [address] [address] CHOLESTEROL 247 mg/dL H TRIGLYCERIDE 161 mg/dL H 0-150 LDL calculated 168 mg/dL H 0-129 CHOL/HDL 5.3 HDL CHOLESTEROL 47 mg/dL 40-60 Social History: Smoking Status (Most current) and Tobacco Use (All prior to encounter date) This section includes the most current, and the historical, smoking and tobacco- related health factors from the [place] facility where the Encounter took place. Current Smoking Status This section includes the most current smoking, or tobacco-related health factor, from the [place] facility where the Encounter took place. Date/Time Current Smoking Status Comment [facility] Apr 06, 2021 02:00 PM [place]-TOBACCO NEVER USED [facility] Tobacco Use History This section includes a history of the smoking, or tobacco-related health factors, that were collected on or before the date of the Encounter. The data comes from the [place] facility where the Encounter took place. Date/Time Smoking Status/Tobacco Use Comment F acility Aug 15, 2018 08:59 AM VA-TOBACCO NEVER USED [facility] Feb 09, 2016 01:11 PM LIFETIME NON-TOBACCO USER [facility] Nov 30, 2010 03:09 PM LIFETIME NON-TOBACCO USER [facility] Advance Directives: All historical and current Section Date Range: From patient's date of to the date document was created. This section includes ALL of a patient's completed or amended [place] Advance and Rescinded Directives. The entries below indicate that a directive exists for the patient, but an actual copy is not included with this document. The data comes from all [place] facilities. Date Advance Directives Provider Source Aug 29, 2023 ADVANCE DIRECTIVE CLYDEKRUNAL Daniel [place] [facility] Pathology Reports: +/- 30 days of the [...] the Encounter. The data comes from all [place] treatment facilities. Date/Time Pathology Report Provider Source Sep 18, 2023 09:44 AM LR SURGICAL PATHOLOGY REPORT: LOCAL TITLE: LR SURGICAL PATHOLOGY REPORT STANDARD TITLE: PATHOLOGY REPORT DATE OF NOTE: SEP 18, 2023@09:44:02 ENTRY DATE: SEP 18, 2023@09:44:02 AUTHOR: DANNY HI MD EXP COSIGNER: URGENCY: STATUS: COMPLETED $APHDR Reporting Lab: [facility] [CLIA# [id number]] [address] [place] [phone] - - - - - - - [...] Sep 14, 2023): A:SKIN OFM L LATERAL BACK([id number]) B:SKIN OF L MID DORSAL FOREARM() C:SKIN OF L LOW BACK([id number]) - - - - - - - [...] - - - PATHOLOGY REPORT Accession No. [facility] 24 [id number] - - - - - - - - - - - - - - - - - - - - - - - - - - - - - - - - - - - - - - - - GROSS DESCRIPTION: The specimen is recieved from [facility], [facility] 24 [id number];A;1;Gian FOOTE. Received in formalin labeled with the [...] left mid dorsal forearm is an unoriented, maria-garica, focally granular skin shave measuring 0.4 x [...] Performing Laboratory: Surgical Pathology Report Performed By: [facility] [CLIA# [id number]] [address] [place] [phone] $FTR - - - - - - [...] - - CLAIRE FOOTE STANDARD FORM 515 ID:[id number] SEX:M :1965 AGE: 58 LOC:*[facility] PCP: /Alicia Jose MD Board Certified Dermatopathologist Signed: 09/18/2023 09:44 DANNY HI MD [facility] Sep 18, 2023 09:40 AM LR SURGICAL PATHOLOGY REPORT: LOCAL TITLE: LR SURGICAL PATHOLOGY REPORT STANDARD TITLE: PATHOLOGY DIAGNOSTIC STUDY REPORT DATE OF NOTE: SEP 18, 2023@09:40:52 ENTRY DATE: SEP 18, 2023@09:40:52 AUTHOR: DANNY HI MD EXP COSIGNER: URGENCY: STATUS: COMPLETED $APHDR Reporting Lab: [facility] [CLIA# [id number]] [address] [place] [phone] - - - - - - - [...] REPORT Accession No. [facility] - - - - - - - [...] - - - PATHOLOGY REPORT Accession No. [place] [id number] - - - - - - - - - - - - - - - - - - - - - - - - - - - - - - - - - - - - - - - - Gross description: The specimen is recieved from [facility], [facility] 24-509 [facility] 24 [id number];A;1;Gian FOOTE. Received in formalin [...] approaching the deep tissue margins. CPT codes 23699d1 /kaleb/ DANNY HI MD Board Certified Dermatopathologist Signed Sep 18, 2023@09:40 Performing Laboratory: Surgical Pathology Report Performed By: [facility] [CLIA# [id number]] [address] [place] [phone] $FTR - - - - - - [...] - - CLAIRE FOOTE STANDARD FORM 515 ID:[id number] SEX:M :1965 AGE: 58 LOC:[facility]/NO/DERMATOLOGY [employer] PCP: ACE Petersen /kaleb/ DANNY HI MD Board Certified Dermatopathologist Signed: 09/18/2023 09:40 DANNY HI MD [facility] Encounter Notes: All associated encounter notes This section contains the clinical notes associated to the Encounter. Date/Time Encounter Note(s) Provider Source Sep 18, 2023 09:44 AM PATHOLOGY REPORT: LOCAL TITLE: LR SURGICAL PATHOLOGY REPORT STANDARD TITLE: PATHOLOGY REPORT DATE OF NOTE: SEP 18, 2023@09:44:02 ENTRY DATE: SEP 18, 2023@09:44:02 AUTHOR: DANNY HI MD EXP COSIGNER: URGENCY: STATUS: COMPLETED $APHDR Reporting Lab: [facility] [CLIA# [id number]] [address] [place] [address] - - - - - - - [...] Sep 14, 2023): A:SKIN OFM L LATERAL BACK([id number]) B:SKIN OF L MID DORSAL FOREARM([id number]) C:SKIN OF L LOW BACK([id number]) - - - - - - - [...] - - - - POSTOPERATIVE DIAGNOSIS: Surgeon/physician: =-=-=-=-=-=-=-=-=-=-=-=-=-=-= -=-=-=-=-=-=-=-=-=-=-=-=-=-=- =-=-=-=-=-=-=-=-=-=-= - - - - - - - - - - - - - - - - - - - - - - - - - - - - - - - - - - - - - - - - PATHOLOGY REPORT Accession No. [facility] 24 [id number] - - - - - - - - - - - - - - - - - - - - - - - - - - - - - - - - - - - - - - - - GROSS DESCRIPTION: The specimen is recieved from [facility], [facility] 31-127 [facility] 24 [id number];A;1;Gian FOOTE. Received in formalin [...] cross section ACE Rushing (ASCP) 09/14/2023 /helen Hi MD, Alicia Board Certified Dermatopathologist Signed Sep 18, 2023@09:44 Performing Laboratory: Surgical Pathology Report Performed By: [facility] [CLIA# [id number]] [address] [place] [phone] $FTR - - - - - - [...] - - CLAIRE FOOTE STANDARD FORM 515 ID:[id number] SEX:M :1965 AGE: 58 LOC:*[facility] PCP: /helen Hi MD, Alicia Board Certified Dermatopathologist Signed: 09/18/2023 09:44 DANNY HI MD [facility]
--- OUTSIDE RECORDS SUMMARY | 2024-02-13 16:06 | XMS_ITS | Encounter Summary ---
Author Name [facility] [place] Address [address] [place] [address] Care Team Providers Care Chassis Driver Name Role Phone JANIE TOLBERT Primary Care [...] Patient's Relationship to Policy Sapp BCBS OF [facility] PREFERRED PROVIDER ORGANIZAT ION (PPO) [facility] WEEKL Y ACTIV E Feb 20, 2017 [id number] EFFIE FOOTE PATIENT [facility] PRESCRIPT ION Feb 20, 2017 [id number] [phone] EFFIE FOOTE PATIENT [facility] TRICA RE [facility] Mar 05, 2020 DODA [id number] [phone] EFFIE FOOTE PATIENT [facility] CE ORGANIZ HMO Jan 22, 2007 (WNR) [id number] EFFIE FOOTE PATIENT MED[facility] RX PRESCRIPT ION [address] PILGR IM July 11, 2008 [id number] EFFIE FOOTE PATIENT [facility] Oct 09, 2008 [id number] EFFIE FOOTE PATIENT [facility] SELEC T TAMP Mar 14, 2021 [id number] [phone] EFFIE FOOTE PATIENT [facility] PRIME -ACTI VE DUTY Mar 05, 2020 [id number] EFFIE FOOTE PATIENT [facility] Dec 18, 2018 [facility] [id number] [phone] EFFIE FOOTE PATIENT Selected Encounter This section includes the information on record at [place] for the Encounter. Date/Time Encounter Type Encounter Description Reason Pro vider Source Jun 19, 2023 12:00 AM Outpatient Encounter COMMUNITY CARE CONSULT IHE Encounter Template Text not used by [place] Plan of Treatment: Future Appointments (+ 6 months) and Future Tests (+/- 45 days) The Plan of Treatment section includes future care activities for the patient from all [place] treatmentfacilities. This section includes future appointments and future orders which are active, pending or scheduled. Future Appointments This section includes appointments that were scheduled to occur 6 months from the date of the Encounter, up to a maximum of 20 appointments. The data comes from all [place] treatment facilities. Appointment Date/Time Appointment Type Appointme nt Facility Name Aug 07, 2023 10:30 AM AMBULATORY - MEDICINE [place] [facility] [place] [facility] Aug 15, 2023 09:00 AM AMBULATORY - MEDICINE [place] [facility] [place] [facility] Aug 29, 2023 09:30 AM AMBULATORY - MEDICINE [place] [facility] [place] [facility] Sep 06, 2023 10:00 AM AMBULATORY - PSYCHIATRY [place] [facility] [place] [facility] Sep 13, 2023 11:00 AM AMBULATORY - MEDICINE [place] [facility] [place] [facility] Sep 27, 2023 01:00 PM AMBULATORY - MEDICINE [place] [facility] [place] [facility] Oct 09, 2023 09:30 AM AMBULATORY - MEDICINE [place] [facility] [place] [facility] Nov 02, 2023 03:15 PM AMBULATORY - MEDICINE [place] [facility] [place] [facility] Nov 21, 2023 01:30 PM AM[facility]ULATORY - MEDICINE [place] [facility] [place] [facility] Social History: Smoking Status (Most current) and Tobacco Use (All prior to encounter date) This section includes the most current, and the historical, smoking and tobacco- related health factors from the [place] facility where the Encounter took place. Current Smoking Status This section includes the most current smoking, or tobacco-related health factor, from the [place] facility where the Encounter took place. Date/Time Current Smoking Status Comment Facil ity Oct 13, 2022 11:45 AM [place]-TOBACCO NEVER USED [facility] Tobacco Use History This section includes a history of the smoking, or tobacco-related health factors, that were collected on or before the date of the Encounter. The data comes from the [place] facility where the Encounter took place. Date/Time Smoking Status/Tobacco Use Comment F acility Sep 05, 2021 11:29 AM [place]-TOBACCO NEVER USED [facility] May 28, 2007 09:10 AM LIFETIME NON-TOBACCO USER [facility] Advance Directives: All historical and current Section Date Range: From patient's date of to the date document was created. This section includes ALL of a patient's completed or amended [place] Advance and Rescinded Directives. The entries below indicate that a directive exists for the patient, but an actual copy is not included with this document. The data comes from all [place] facilities. Date Advance Directives Provider Source Aug 29, 2023 ADVANCE DIRECTIVE KRUNAL TANG [facility] Encounter Notes: All associated encounter notes This section contains the clinical notes associated to the Encounter. Date/Time Encounter Note(s) Provider Source Jun 19, 2023 12:00 AM NONVA CONSULT: LOCAL TITLE: COMMUNITY CARE-CONSULT RESULT NOTE STANDARD TITLE: NONVA CONSULT DATE OF NOTE: JUN 19, 2023 ENTRY DATE: JULY 05, 2023@11:35:58 AUTHOR: SALVADOR THAO COSIGNER: URGENCY: STATUS: COMPLETED VistA Imaging - Scanned Document SCANNED DOCUMENT SIGNATURE NOT REQUIRED Electronically Filed: 07/05/2023 by: ДМИТРИЙ THAO Coroner Technician ДМИТРИЙ THAO [facility]
--- OUTSIDE RECORDS SUMMARY | 2024-02-13 16:06 | XMS_ITS | Encounter Summary ---
Author Name [place] Address [address] [place] [address] Care Team Providers Care Blade Groover Name Role Phone JANIE TOLBERT Primary Care [...] Patient's Relationship to Policy Sapp BCBS OF [facility] PREFERRED PROVIDER ORGANIZAT ION (PPO) MG WEEKL Y ACTIV E Feb 20, 2017 [id number] EFFIE FOOTE PATIENT [facility] PRESCRIPT ION Feb 20, 2017 [id number] EFFIE FOOTE PATIENT [facility] S[facility] TRICA RE DODA Mar 05, 2020 DODA [id number] [phone] EFFIE FOOTE PATIENT [facility] CE ORGANIZ HMO Jan 22, 2007 (WNR) [id number] EFFIE FOOTE PATIENT MEDIMPACT RX PRESCRIPT ION [facility] July 11, 2008 [id number] EFFIE FOOTE PATIENT [facility] Oct 09, 2008 [id number] [phone] EFFIE FOOTE PATIENT [facility] SELEC T TAMP Mar 14, 2021 [id number] EFFIE FOOTE PATIENT [facility] PRIME -ACTI VE DUTY Mar 05, 2020 [id number] EFFIE FOOTE PATIENT [facility] Dec 18, 2018 SELECT [id number] EFFIE FOOTE PATIENT Selected Encounter This section includes the information on record at [place] for the Encounter. Date/Time Encounter Type Encounter Description Reason Provider Source May 16, 2023 02:00 PM EXTENSV ORAL EVAL PROB FOCUS DENTAL ICD-10-CM K08.9 Disorder of teeth and supporting structures, unspecified ELA MARTINEZ [facility] Encounter Template Text not used by [place] Assessments - Encounter Diagnoses This section includes the primary and secondary diagnoses documented for the Encounter. Date/Time Primary/Secondary Diagnosis Diagnosis Name Provider Source May 16, 2023 03:15 PM PRIMARY Disorder of teeth and supporting structures, unspecified ELA MARTINEZ [place] [facility] [place] [facility] Plan of Treatment: Future Appointments (+ [...] 07, 2023 10:30 AM AMBULATORY - MEDICINE [place] C [facility] [place] [facility] Aug 15, 2023 09:00 AM AMBULATORY - MEDICINE [place] C [place] [place] [facility] Aug 29, 2023 09:30 AM AMBULATORY - MEDICINE NE C [place] [place] [facility] Sep 06, 2023 10:00 AM AMBULATORY - PSYCHIATRY [place] [facility] [place] [facility] Sep 13, 2023 11:00 AM AMBULATORY - MEDICINE [facility]L [place] [facility] Sep 27, 2023 01:00 PM [facility]BULATORY - [facility]IC[facility] Oct 09, 2023 09:30 AM [facility] - [facility] Nov 02, 2023 03:15 PM [facility]BULATORY - MEDICINE [facility] Vital Signs: All taken on the encounter date This section contains inpatient and outpatient Vital Signs collected on the date of the Encounter. Date/Time Temperature Pulse Blood Pressure Respiratory Rate SP02 Pain Height Weight Body Mass Index Source May 16, 2023 02:38 PM 59 125/83 95 [facility] Social History: Smoking Status (Most current) [...] Jannet ity Oct 13, 2022 11:45 AM NE-TOBACCO NEVER USED [facility] Tobacco Use History This section includes a history of the smoking, or tobacco-related health factors, that were collected on or before the date of the Encounter. The data comes from the [place] facility where the Encounter took place. Date/Time Smoking Status/Tobacco Use Comment F acility Sep 05, 2021 11:29 AM VA-TOBACCO NEVER USED [facility] May 28, 2007 09:10 AM LIFETIME [facility] Advance Directives: All historical and current [...] Aug 29, 2023 ADVANCE DIRECTIVE KRUNAL TANG [facility] Encounter Notes: All associated encounter notes This section contains the clinical notes associated to the Encounter. Date/Time Encounter Note(s) Provider Source May 16, 2023 03:13 PM DENTISTRY NOTE: LOCAL TITLE: DENTAL NOTE STANDARD TITLE: DENTISTRY NOTE DATE OF NOTE: MAY 16, 2023@15:13 ENTRY DATE: MAY 16, 2023@15:15:13 AUTHOR: ELA MARTINEZ COSIGNER: URGENCY: STATUS: COMPLETED Patient Name: CLAIRE FOOTE, : 1965, Age: 57 Visit: V: May 16, 2023@14:00 CWM/NO/DENTAL/DMD3 PM. Primary PCE Diagnosis: K08.9 (DISORDER OF TEETH AND SUPPORTING STRUCTURES, UNSPECIFIED). Dental Category: 10-OPC, Class II. Treatment Status: Active. Completed Care: (D0330) DENTAL PANORAMIC IMAGE. DX: K08.9 Disorder of Teeth and Supporting Structures, unspecified (D0210) INTRAORAL FULL IMAGE SERIES. DX: K08.9 Disorder of Teeth and Supporting Structures, unspecified (D0160) EXTENSV ORAL EVAL PROB FOCUS. DX: K08.9 Disorder of Teeth and Supporting Structures, unspecified The patient was identified by full name and social security number Reviewed the patient's medical/dental history, medications and allergies. I performed medication reconciliation within the scope of my practice. All medications related to dentistry are up to date. Discussed above proposed treatment plan. Patient understands and agrees with the treatment plan. Presentation/Chief Complaint: Patient presents for detailed focused oral evaluation I need my exit form signed Vital Signs: Dental Pain (0-10): 0 Blood Pressure (mmHg): 125/83 05/16/2023 14:38 Pulse (BPM): 59 05/16/2023 14:38 Past Medical History and Medications: Patient is new to clinic Oral Examination: Dentition exhibits no apparent evidence of dental pathology at this visit No Significant Tooth Mobility Noted Assessment/Plan: No urgent dental needs or acute dental infections noted on examination. No treatment required at this time Disposition: No follow up appointment indicated Patient has no eligibility for [place] dental benefits and was recommended to the private sector for routine dental care. - - - - - - - - - - - - - - - - - - - - - - - - - - - - - - /kaleb/ ELA MARTINEZ DMD Staff Dentist Signed: 05/16/2023 15:15 ELA MARTINEZ [facility] May 16, 2023 03:11 PM DENTISTRY CONSULT: LOCAL TITLE: CONSULT REPORT/DENTAL STANDARD TITLE: DENTISTRY CONSULT DATE OF NOTE: MAY 16, 2023@15:11 ENTRY DATE: MAY 16, 2023@15:11:38 AUTHOR: ELA MARTINEZ EXP COSIGNER: URGENCY: STATUS: COMPLETED Current PC Provider: JANIE TOLBERT Current PC Team: NO PACT 3 Current Pat. Status: Outpatient UCID: [id number] Primary Eligibility: NSC(VERIFIED) Patient Type: NSC CV Eligible: YES OEF/OIF: YES Order Information To Service: DENTAL IMAGING From Service: CWM/NO/DENTAL/DMD3 PM Requesting Provider: ELA MARTINEZ Service is to be rendered on an OUTPATIENT basis Place: Oil Deliverer's choice Urgency: Routine Clinically Ind. Date: May 16, 2023 DST ID: Orderable Item: DENTAL IMAGING Consult: Consult Request Provisional Diagnosis: Disorder of Teeth and Supporting Structures, unspecified(ICD-10-CM K08.9) Reason For Request: Orthopan Inter-facility Information This is not an inter-facility consult request. Status: PENDING Last Action: CPRS RELEASED ORDER Facility Activity Date/Time/Zone Responsible Person Entered By CPRS RELEASED ORDER 05/16/23 07:42 ELA MARTINEZ LEI Note: TIME ZONE is local if not indicated No local KATHERINE results or Medicine results available for this consult ======= END ======== /kaleb/ ELA MARTINEZ DMD Staff Dentist Signed: 05/16/2023 15:11 ELA MARTINEZ NE [facility]TRL [facility]
--- OUTSIDE RECORDS SUMMARY | 2024-02-13 16:07 | XMS_ITS | Encounter Summary ---
Author Name [place] Address [address] [place] [address] Care Team Providers Care Imaging Manager Name Role Phone JANIE TOLBERT Primary Care [...] Patient's Relationship to Policy Sapp BCBS OF [facility] PREFERRED PROVIDER ORGANIZAT ION (PPO) [facility] ACTIV E Feb 20, 2017 [id number] EFFIE FOOTE PATIENT [facility] PRESCRIPT ION Feb 20, 2017 [id number] [phone] EFFIE FOOTE PATIENT [employer] [facility] TRICA RE DODA Mar 05, 2020 DODA [id number] [phone] EFFIE FOOTE PATIENT [facility] CE ORGANIZ HMO Jan 22, 2007 (WNR) [id number] EFFIE FOOTE PATIENT MEDIMPACT RX PRESCRIPT ION [facility] July 11, 2008 [id number] EFFIE FOOTE PATIENT [facility] Oct 09, 2008 [id number] EFFIE FOOTE PATIENT [facility] SELEC T TAMP Mar 14, 2021 [id number] [phone] EFFIE FOOTE PATIENT [facility] PRIME -ACTI VE DUTY Mar 05, 2020 [id number] EFFIE FOOTE PATIENT [facility] Dec 18, 2018 SELECT [id number] [phone] EFFIE FOOTE PATIENT Selected Encounter This section includes the information on record at [place] for the Encounter. Date/Time Encounter Type Encounter Description Reason Provider Source Nov 21, 2023 01:30 PM OFF/OP EST JUNE X REQ PHY/QHP PRIMARY CARE/MEDICINE ICD-10-CM Z23 Encounter for immunization LUNA DOWELL I[facility] Encounter Template Text not used by [place] Assessments - Encounter Diagnoses This section includes the primary and secondary diagnoses documented for the Encounter. Date/Time Primary/Secondary Diagnosis Diagnosis Name Provider Source Nov 21, 2023 01:37 PM PRIMARY Encounter for immunization LUNA DOWELL [place] [facility] Plan of Treatment: Future Appointments (+ 6 months) and Future Tests (+/- 45 days) The Plan of Treatment section includes future care activities for the patient from all [place] treatmentfacilities. This section includes future appointments and future orders which are active, pending or scheduled. Future Appointments This section includes appointments that were scheduled to occur 6 months from the date of the Encounter, up to a maximum of 20 appointments. The data comes from all [place] treatment facilities. Appointment Date/Time Appointment Type Appointme nt Facility Name Jan 03, 2024 09:30 AM AMBULATORY - MEDICINE [facility] [place] [facility] Feb 01, 2024 08:30 AM AMBULATORY - MEDICINE IN C [place] [facility] Feb 19, 2024 08:30 AM AMBULATORY - MEDICINE IN C [place] [facility] Mar 06, 2024 11:00 AM AMBULATORY - MEDICINE [facility] [place] [facility] Active, Pending, and Scheduled Orders This section includes a listing of several types of active, pending, and scheduled orders, including clinic medications orders, diagnostic test orders, procedure orders and consult orders; where the start date of the order is 45 days before the date of the Encounter or 45 days after the date of theEncounter. The data comes from all [place] treatment facilities. Test Date/Time Test Type Test Details Facility Name Jan 04, 2024 04:41 PM Consult Order COMMUNITY CARE-UROLOGY Cons [employer] Consultant's Choice [facility] Immunizations: All administered on the encounter date This section contains immunizations associated to the Encounter. Immunization Series Date Issued Reaction Comments INFLUENZA, SPLIT VIRUS, TRIVALENT, PF Nov 20 024 Social History: Smoking Status (Most current) and Tobacco Use (All prior to encounter date) This section includes the most current, and the historical, smoking and tobacco- related health factors from the [place] facility where the Encounter took place. Current Smoking Status This section includes the most current smoking, or tobacco-related health factor, from the [place] facility where the Encounter took place. Date/Time Current Smoking Status Comment Facil ity Oct 13, 2022 11:45 AM [place]-TOBACCO NEVER USED [facility] Tobacco Use History This section includes a history of the smoking, or tobacco-related health factors, that were collected on or before the date of the Encounter. The data comes from the [place] facility where the Encounter took place. Date/Time Smoking Status/Tobacco Use Comment F acility Sep 05, 2021 11:29 AM [place]-TOBACCO NEVER USED [facility] May 28, 2007 09:10 AM LIFETIME NON-TOBACCO USER [facility] Advance Directives: All historical and current Section Date Range: From patient's date of to the date document was created. This section includes ALL of a patient's completed or amended [place] Advance and Rescinded Directives. The entries below indicate that a directive exists for the patient, but an actual copy is not included with this document. The data comes from all [place] facilities. Date Advance Directives Provider Source Aug 29, 2023 ADVANCE DIRECTIVE LUNA DOWELL [facility] Encounter Notes: All associated encounter notes This section contains the clinical notes associated to the Encounter. Date/Time Encounter Note(s) Provider Source Nov 21, 2023 01:36 PM PREVENTIVE MEDICIN E NURSING NOTE: LOCAL TITLE: CLINICAL REMINDERS/NURSING STANDARD TITLE: PREVENTIVE MEDICINE NURSING NOTE DATE OF NOTE: NOV 21, 2023@13:36 ENTRY DATE: NOV 21, 2023@13:36:33 AUTHOR: LUNA DOWELL EXP COSIGNER: URGENCY: STATUS: COMPLETED Influenza Immunization: Influenza, Trivalent, Preservative Free (Fluarix-Syringe) Administered: INFLUENZA, SPLIT VIRUS, TRIVALENT, PF Date Administered: Nov 21, 2023 13:30 Addressing Machine Operator: [employer] Lot: [id number] Date: Aug 19, 2024 ND: [id number] Admin Route/Site: INTRAMUSCULAR/LEFT DELTOID Dosage: 0.5mL Vaccine Information Statement(s): INFLUENZA(FLU) VACC(INACTIVATED OR RECOMBINANT)VIS Sep 25, 2020 (SPANISH) Order By: Policy Administered By: Luna Dowell The Influenza Vaccine Information Statement (VIS) was reviewed with the patient/caregiver which lists the benefits and risks of the vaccine and the risks of not receiving the Influenza vaccine. The patient/caregiver denied any prior severe reaction to this vaccine or its components or a severe allergic reaction, such as anaphylaxis, to any vaccine or any injectable therapy. The patient/caregiver gave verbal consent to receive the vaccine. /kaleb/ Luna Dowell RN, BSN Primary Care Nurse Hospitality House Supervisor Signed: 11/21/2023 13:37 LUNA DOWELL IN CNTRL [facility]
--- OUTSIDE RECORDS SUMMARY | 2024-02-13 16:07 | XMS_ITS ---
Author Name [place] Address [address] [place] [address] Care Team Providers Care Methane Gas Collection System Operator Name Role Phone JANIE TOLBERT Primary Care [...] Patient's Relationship to Policy Sapp BCBS OF [facility] PREFERRED PROVIDER ORGANIZAT ION (PPO) [facility] ACTIV E Feb 20, 2017 [id number] EFFIE FOOTE PATIENT [facility] PRESCRIPT ION Feb 20, 2017 [id number] EFFIE FOOTE PATIENT [employer] [facility] TRICA RE DODA Mar 05, 2020 DODA [id number] EFFIE FOOTE PATIENT [facility] CE ORGANIZ HMO Jan 22, 2007 (WNR) [id number] EFFIE FOOTE PATIENT MEDIMPACT RX PRESCRIPT ION [address] PILGR IM July 11, 2008 [id number] EFFIE FOOTE PATIENT [facility] Oct 09, 2008 [id number] EFFIE FOOTE PATIENT [facility] SELEC T TAMP Mar 14, 2021 [id number] [phone] [id number] EFFIE FOOTE PATIENT [facility] PRIME -ACTI VE DUTY Mar 05, 2020 [id number] [phone] EFFIE FOOTE PATIENT [facility] Dec 18, 2018 SELECT [id number] EFFIE FOOTE PATIENT Selected Encounter This section includes the information on record at [place] for the Encounter. Date/Time Encounter Type Encounter Description Reason Pro vider Source Nov 16, 2023 12:00 AM Outpatient Encounter COMMUNITY CARE CONSULT IHE Encounter Template Text not used by [place] Plan of Treatment: Future Appointments (+ 6 months) and Future Tests (+/- 45 days) The Plan of Treatment section includes future care activities for the patient from all [place] treatmentfacilities. This section includes future appointments and future orders which are active, pending or scheduled. Future Appointments This section includes appointments that were scheduled to occur 6 months from the date of the Encounter, up to a maximum of 20 appointments. The data comes from all [place] treatment facilities. Appointment Date/Time Appointment Type Appointme nt Facility Name Nov 21, 2023 01:30 PM AMBULATORY - MEDICINE [facility] [place] [place] [facility] Jan 03, 2024 09:30 AM AMBULATORY - MEDICINE [facility] [place] [facility] Feb 01, 2024 08:30 AM AMBULATORY MEDICINE [facility] N[facility]L [place] [facility] Feb 19, 2024 08:30 AM AMBULATORY MEDICINE [facility] N[facility]L [place] [facility] Mar 06, 2024 11:00 AM AMBULATORY - MEDICINE [facility] Social History: Smoking Status (Most current) and Tobacco Use (All prior to encounter date) This section includes the most current, and the historical, smoking and tobacco- related health factors from the [place] facility where the Encounter took place. Current Smoking Status This section includes the most current smoking, or tobacco-related health factor, from the [place] facility where the Encounter took place. Date/Time Current Smoking Status Comment Facil ity Oct 13, 2022 11:45 AM [place]-TOBACCO NEVER USED [facility] Tobacco Use History This section includes a history of the smoking, or tobacco-related health factors, that were collected on or before the date of the Encounter. The data comes from the [place] facility where the Encounter took place. Date/Time Smoking Status/Tobacco Use Comment F acility Sep 05, 2021 11:29 AM VA-TOBACCO NEVER USED [facility] May 28, 2007 09:10 AM LIFETIME NON-TOBACCO USER [facility] Advance Directives: All historical and current Section Date Range: From patient's date of to the date document was created. This section includes ALL of a patient's completed or amended [place] Advance and Rescinded Directives. The entries below indicate that a directive exists for the patient, but an actual copy is not included with this document. The data comes from all [place] facilities. Date Advance Directives Provider Source Aug 29, 2023 ADVANCE DIRECTIVE KRUNAL TANG [facility] Encounter Notes: All associated encounter notes This section contains the clinical notes associated to the Encounter. Date/Time Encounter Note(s) Provider Source Nov 16, 2023 12:00 AM NONVA CONSULT: LOCAL TITLE: COMMUNITY CARE-CONSULT RESULT NOTE STANDARD TITLE: NONVA CONSULT DATE OF NOTE: NOV 16, 2023 ENTRY DATE: DEC 27, 2023@11:53:20 AUTHOR: PATRICA BAJWA EXP COSIGNER: URGENCY: STATUS: COMPLETED VistA Imaging - Scanned Document SCANNED DOCUMENT SIGNATURE NOT REQUIRED Electronically Filed: 12/27/2023 by: PATRICA BAJWA PROSTHETIC LAB TECHNICIAN PATRICA BAJWA [facility]
--- OUTSIDE RECORDS SUMMARY | 2024-02-13 16:07 | XMS_ITS ---
Author Name [place] Address [address] [place] [address] Care Team Providers Care Heading Saw Operator Name Role Phone ABDELRAHMAN SNYDER Primary Care [...] Patient's Relationship to Policy Sapp BCBS OF [facility] PREFERRED PROVIDER ORGANIZAT ION (PPO) [facility] ACTIV E Feb 20, 2017 [id number] EFFIE MILLER PATIENT [facility] PRESCRIPT ION Feb 20, 2017 [id number] [phone] EFFIE MILLER PATIENT [employer] SCRIP[facility] TRICA RE DODA Mar 05, 2020 DODA [id number] EFFIE MILLER PATIENT [facility] CE ORGANIZ HMO Jan 22, 2007 (WNR) [id number] EFFIE MILLER PATIENT MEDIMPACT RX PRESCRIPT ION [address] PILGR IM July 11, 2008 [id number] EFFIE MILLER PATIENT [facility] M[facility] Oct 09, 2008 [id number] EFFIE MILLER PATIENT [facility] SELEC T TAMP Mar 14, 2021 [id number] [phone] EFFIE MILLER PATIENT [facility] PRIME -ACTI VE DUTY Mar 05, 2020 [id number] [phone] EFFIE MILLER PATIENT [facility] Dec 18, 2018 SELECT [id number] EFFIE MILLER PATIENT Selected Encounter This section includes the information on record at [place] for the Encounter. Date/Time Encounter Type Encounter Description Reason Provider Source Dec 06, 2023 08:19 AM Outpatient Encounter PRIMARY CARE/MEDICINE JANETT SMITH [facility] Encounter Template Text not used by [place] Plan of Treatment: Future Appointments (+ 6 months) and Future Tests (+/- 45 days) The Plan of Treatment section includes future care activities for the [facility] [place] [facility] This section includes future appointments and future orders which are active, pending or scheduled. Future Appointments This section includes appointments that were scheduled to occur 6 months from the date of the Encounter, up to a maximum of 20 appointments. The data comes from all [facility] facilities. Appointment Date/Time Appointment Type Appointme nt Facility Name Jan 03, 2024 09:30 AM AMBULATORY - MEDICINE [facility] Feb 01, 2024 08:30 AM AMBULATORY MEDICINE [facility] Feb 19, 2024 08:30 AM AMBULATORY MEDICINE [facility] Mar 06, 2024 11:00 AM AMBULATORY MEDICINE [facility] Active, Pending, and Scheduled Orders This section includes a listing of several types of active, pending, and scheduled orders, including clinic medications orders, diagnostic test orders, procedure orders and consult orders; where the start date of the order is 45 days before the date of the Encounter or 45 days after the date of theEncounter. The data comes from all [facility]. Test Date/Time Test Type Test Details Facility Name Jan 04, 2024 04:41 PM Consult Order COMMUNITY CARE-UROLOGY Cons Golf Ball Inspector's Choice [facility] Social History: Smoking Status (Most current) and Tobacco Use (All prior to encounter date) This section includes the most current, and the historical, smoking and tobacco- related health factors from the [place] facility where the Encounter took place. Current Smoking Status This section includes the most current smoking, or tobacco-related health factor, from the [place] facility where the Encounter took place. Date/Time Current Smoking Status Comment Facil ity Oct 13, 2022 11:45 AM [place]-TOBACCO NEVER USED [facility] Tobacco Use History This section includes a history of the smoking, or tobacco-related health factors, that were collected on or before the date of the Encounter. The data comes from the [place] facility where the Encounter took place. Date/Time Smoking Status/Tobacco Use Comment F acility Sep 05, 2021 11:29 AM [place]TO[place] NEVER USED [facility] May 28, 2007 09:10 AM LIFETIME NON-TOBACCO USER [facility] Advance Directives: All historical and current Section Date Range: From patient's date of to the date document was created. This section includes ALL of a patient's completed or amended [place] Advance and Rescinded Directives. The entries below indicate that a directive exists for the patient, but an actual copy is not included with this document. The data comes from all [place] facilities. Date Advance Directives Provider Source Aug 29, 2023 ADVANCE DIRECTIVE KRUNAL TANG [facility] Encounter Notes: All associated encounter notes This section contains the clinical notes associated to the Encounter. Date/Time Encounter Note(s) Provider Source Dec 06, 2023 08:19 AM PRIMARY CARE Survios E MESSAGING: LOCAL TITLE: PRIMARY CARE SECURE MESSAGING STANDARD TITLE: PRIMARY CARE SECURE MESSAGING DATE OF NOTE: DEC 06, 2023@08:19 ENTRY DATE: DEC 06, 2023@08:19:30 AUTHOR: JANETT SMITH EXP COSIGNER: URGENCY: STATUS: COMPLETED ------Original Message ------- Sent: 12/05/2023 04:10 PM ET From: CLAIRE MILLER To: Que SNYDER_PRIMARY CARE_[facility] Subject: General:Referral extension request I am emailing to request an extension of my [facility] acupuncture treatments. I am about to reach the limits of this treatment and feel that continued acupuncture treatments will be beneficial for my PTSD-related S&S. I currently receive acupuncture treatments at [facility], [address] [place] [address] [address], [place] [address] Please reach out to the [facility] office at Ext. [phone] Thank you, Claire Miller ------Original Message ------- Sent: 12/06/2023 08:19 AM ET From: JANETT SMITH To: CLAIRE MILLER Subject: General:Referral extension request Good Morning, We have received your request and will forward to the PCP for review. Thank you for your service, BEATRIZ Guillen - PACT Court Supervisor /kaleb/ JANETT SMITH RN REGISTERED NURSE Signed: 12/06/2023 08:19 Receipt Acknowledged By: 12/06/2023 09:43 /kaleb/ Abdelrahman Snyder PA-C STAFF PHYSICIAN INSTRUMENT REPAIRER HELPER JANETT SMITH [place] [facility]
--- OUTSIDE RECORDS SUMMARY | 2024-02-13 16:07 | XMS_ITS ---
Author Name [facility] [place] Address [address] [place] [address] Care Team Providers Care Nut Roaster Name Role Phone JANIE TOLBERT Primary Care [...] WEEKL Y ACTIV E Feb 20, 2017 [id number] EFFIE FOOTE PATIENT [facility] PRESCRIPT ION Feb 20, 2017 [id number] [phone] EFFIE FOOTE PATIENT [employer] [facility] TRICA RE DODA Mar 05, 2020 DODA [id number] EFFIE FOOTE PATIENT [facility] CE ORGANIZ HMO Jan 22, 2007 (WNR) [id number] EFFIE FOOTE PATIENT MEDIMPACT RX PRESCRIPT ION [address] PILGR IM July 11, 2008 [id number] EFFIE FOOTE PATIENT [facility] M[facility] Oct 09, 2008 [id number] EFFIE FOOTE PATIENT [facility] SELEC T TAMP Mar 14, 2021 [id number] [phone] EFFIE FOOTE PATIENT [facility] PRIME -ACTI VE DUTY Mar 05, 2020 [id number] EFFIE FOOTE PATIENT [facility] Dec 18, 2018 SELECT [id number] EFFIE FOOTE PATIENT Selected Encounter This section includes the information on record at [place] for the Encounter. Date/Time Encounter Type Encounter Description Reason Pro vider Source Oct 24, 2023 12:00 AM Outpatient Encounter EVENT (HISTORICAL) IHE Encounter Template Text not used by [...] Appointment Type Appointme nt Facility Name Nov 02, 2023 03:15 PM AMBULATORY - MEDICINE [facility] [place] [facility] Nov 21, 2023 01:30 PM AMBULATORY - MEDICINE [facility] [place] [facility] Jan 03, 2024 09:30 AM AMBULATORY - MEDICINE [facility] [place] [facility] Feb 01, 2024 08:30 AM AMBULATORY - MEDICINE [facility] [place] [facility] Feb 19, 2024 08:30 AM AMBULATORY - MEDICINE [facility] [place] [facility] Mar 06, 2024 11:00 AM AMBULATORY - MEDICINE [facility] [place] [facility] Active, Pending, and Scheduled Orders This section includes a listing of several types of active, pending, and scheduled orders, including clinic medications orders, diagnostic test orders, procedure orders and consult orders; where the start date of the order is 45 days before the date of the Encounter or 45 days after the date of theEncounter. The data comes from all [place] treatment facilities. Test Date/Time Test Type Test Details Facility Name Sep 13, 2023 12:00 AM Laboratory - Chemi stry Order SURGICAL PATH ORDER SURG PATH SPEC. UNKNOWN SP [facility] Social History: Smoking Status (Most current) [...] 13, 2022 11:45 AM [place]-TO[place]AC[place] NEVER USED [facility] Tobacco Use History This section includes a history of the smoking, or tobacco-related health factors, that were collected on or before the date of the Encounter. The data comes from the [place] facility where the Encounter took place. Date/Time Smoking Status/Tobacco Use Comment F acility Sep 05, 2021 11:29 AM [place]-TOBACCO NEVER USED [facility] May 28, 2007 09:10 AM LIFETIME NON-TOBACCO USER [facility] Advance Directives: All historical and current [...] Aug 29, 2023 [facility] Encounter Notes: All associated encounter notes This section contains the clinical notes associated to the Encounter. Date/Time Encounter Note(s) Provider Source Oct 24, 2023 12:00 AM NONVA CONSULT: LOCAL TITLE: COMMUNITY CARE-CONSULT RESULT NOTE STANDARD TITLE: NONVA CONSULT DATE OF NOTE: OCT 24, 2023 ENTRY DATE: NOV 09, 2023@05:49:01 AUTHOR: MOHSEN ANAND COSIGNER: URGENCY: STATUS: COMPLETED VistA Imaging - Scanned Document SCANNED DOCUMENT SIGNATURE NOT REQUIRED Electronically Filed: 11/09/2023 by: MOHSEN PRICE [facility]
--- OUTSIDE RECORDS SUMMARY | 2024-02-13 16:07 | XMS_ITS ---
Author Name [place] Address [address] [place] [address] Care Team Providers Care Pack Master Name Role Phone JANIE TOLBERT Primary Care [...] Patient's Relationship to Policy Sapp BCBS OF [facility] PREFERRED PROVIDER ORGANIZAT ION (PPO) [facility] ACTIV E Feb 20, 2017 [id number] EFFIE FOOTE PATIENT [facility] PRESCRIPT ION Feb 20, 2017 [id number] EFFIE FOOTE PATIENT [employer] [facility] TRICA RE DODA Mar 05, 2020 DODA [id number] EFFIE FOOTE PATIENT [facility] CE ORGANIZ HMO Jan 22, 2007 (WNR) [id number] EFFIE FOOTE PATIENT MEDIMPACT RX PRESCRIPT ION [address] PILGR IM July 11, 2008 [id number] EFFIE FOOTE PATIENT [facility] Oct 09, 2008 [id number] EFFIE FOOTE PATIENT [facility] SELEC T TAMP Mar 14, 2021 [id number] [phone] EFFIE FOOTE PATIENT [facility] PRIME -ACTI VE DUTY Mar 05, 2020 [id number] [phone] EFFIE FOOTE PATIENT [facility] Dec 18, 2018 SELECT [id number] EFFIE FOOTE PATIENT Selected Encounter This section includes the [place] for the Encounter. Date/Time Encounter Type Encounter Description Reason Pro vider Source Oct 31, 2023 12:00 AM Outpatient Encounter COMMUNITY CARE CONSULT IHE Encounter Template Text not used by [place] Plan of Treatment: Future Appointments (+ 6 months) and Future Tests (+/- 45 days) The Plan of Treatment section includes future care activities for the patient from all [place] treatmentfacilities. This section includes future appointments and future orders which are active, pending or scheduled. Future Appointments This section includes appointments that were scheduled to occur 6 months from the date of the Encounter, up to a maximum of 20 appointments. The data comes from all [place] treatment facilities. Appointment Date/Time Appointment Type Appointme nt Facility Name Nov 02, 2023 03:15 PM AMBULATORY - MEDICINE [facility] [place] [facility] Nov 21, 2023 01:30 PM AMBULATORY - MEDICINE [facility] [place] [facility] Jan 03, 2024 09:30 AM AMBULATORY - MEDICINE [facility] [place] [facility] Feb 01, 2024 08:30 AM AMBULATORY - MEDICINE [facility] [place] [place] [facility] Feb 19, 2024 08:30 AM AMBULATORY - MEDICINE [facility] [place] [facility] Mar 06, 2024 11:00 AM AMBULATORY - MEDICINE [facility] Social History: Smoking Status (Most current) and Tobacco Use (All prior to encounter date) This section includes the most current, and the historical, smoking and tobacco- related health factors from the [place] facility where the Encounter took place. Current Smoking Status This section includes the most current smoking, or tobacco-related health factor, from the [place] facility where the Encounter took place. Date/Time Current Smoking Status Comment Facil ity Oct 13, 2022 11:45 AM [place]-TOBACCO NEVER USED [facility] Tobacco Use History This section includes a history of the smoking, or tobacco-related health factors, that were collected on or before the date of the Encounter. The data comes from the [place] facility where the Encounter took place. Date/Time Smoking Status/Tobacco Use Comment F acility Sep 05, 2021 11:29 AM [place]-TOBACCO NEVER USED [facility] May 28, 2007 09:10 AM LIFETIME NON-TOBACCO USER [facility] Advance Directives: All historical and current Section Date Range: From patient's date of to the date document was created. This section includes ALL of a patient's completed or amended [place] Advance and Rescinded Directives. The entries below indicate that a directive exists for the patient, but an actual copy is not included with this document. The data comes from all [place] facilities. Date Advance Directives Provider Source Aug 29, 2023 [facility] DIRECTIVE [facility] Encounter Notes: All associated encounter notes This section contains the clinical notes associated to the Encounter. Date/Time Encounter Note(s) Provider Source Oct 31, 2023 12:00 AM NONVA CONSULT: LOCAL TITLE: COMMUNITY CARE-CONSULT RESULT NOTE STANDARD TITLE: NONVA CONSULT DATE OF NOTE: OCT 31, 2023 ENTRY DATE: NOV 17, 2023@13:12:32 AUTHOR: NATALY HUSAIN EXP COSIGNER: URGENCY: STATUS: COMPLETED VistA Imaging - Scanned Document SCANNED DOCUMENT SIGNATURE NOT REQUIRED Electronically Filed: 11/17/2023 by: NATALY OTT [facility]
--- OUTSIDE RECORDS SUMMARY | 2024-02-13 16:07 | XMS_ITS ---
Author Name [facility] Organization [facility] [place] Address [address] [place] [address] Care Team Providers Care Business Investor Name Role Phone JANIE TOLBERT Primary Care [...] Relationship to Policy Sapp [facility] PREFERRED PROVIDER ORGANIZAT ION (PPO) [facility] Feb 20, 2017 [id number] EFFIE FOOTE PATIENT CAREMARK PRESCRIPT ION Feb 20, 2017 [id number] EFFIE FOOTE PATIENT [facility] S[facility]IP[facility] TRICA RE DODA Mar 05, 2020 DODA [id number] [phone] EFFIE FOOTE PATIENT [facility] CE ORGANIZ HMO Jan 22, 2007 (WNR) [id number] [phone] EFFIE FOOTE PATIENT MEDIMPACT RX PRESCRIPT ION [address] PILGR IM July 11, 2008 [id number] [phone] EFFIE FOOTE PATIENT [facility] Oct 09, 2008 [id number] EFFIE FOOTE PATIENT [facility] SELEC T TAMP Mar 14, 2021 [id number] EFFIE FOOTE PATIENT [facility] PRIME -ACTI VE DUTY Mar 05, 2020 [id number] EFFIE FOOTE PATIENT [facility] Dec 18, 2018 SELECT [id number] EFFIE FOOTE PATIENT Selected Encounter This section includes the information on record at [place] for the Encounter. Date/Time Encounter Type Encounter Description Reason Pro vider Source Oct 09, 2023 12:00 PM Outpatient Encounter COMMUNITY CARE CONSULT IHE Encounter Template Text not used by DE Plan of Treatment: Future Appointments (+ 6 months) and Future Tests (+/- 45 days) The Plan of Treatment section includes future care activities for the patient from all [place] treatmentfacilities. This section includes future appointments and future orders which are active, pending or scheduled. Future Appointments This section includes appointments that were scheduled to occur 6 months from the date of the Encounter, up to a maximum of 20 appointments. The data comes from all [place] treatment facilities. Appointment Date/Time Appointment Type Appointme nt Facility Name Nov 02, 2023 03:15 PM AMBULATORY - MEDICINE [facility] [place] [facility] Nov 21, 2023 01:30 PM AMBULATORY - MEDICINE [facility] [place] [facility] Jan 03, 2024 09:30 AM AMBULATORY - MEDICINE DE C [facility] [place] [facility] Feb 01, 2024 08:30 AM AMBULATORY - MEDICINE DE [facility] [place] [facility] Feb 19, 2024 08:30 AM AMBULATORY - MEDICINE [facility] [place] [facility] Mar 06, 2024 11:00 AM AMBULATORY - MEDICINE [facility] [place] [facility] Active, Pending, and Scheduled Orders This section includes a listing of several types of active, pending, and scheduled orders, including clinic medications orders, diagnostic test orders, procedure orders and consult orders; where the start date of the order is 45 days before the date of the Encounter or 45 days after the date of theEncounter. The data comes from all [facility]. Test Date/Time Test Type Test Details Facility Name Sep 13, 2023 12:00 AM Laboratory - Chemi stry Order SURGICAL PATH ORDER SURG PATH SPEC. UNKNOWN SP [facility] Social History: Smoking Status (Most current) and Tobacco Use (All prior to encounter date) This section includes the most current, and the historical, smoking and tobacco- related health factors from the [place] facility where the Encounter took place. Current Smoking Status This section includes the most current smoking, or tobacco-related health factor, from the [place] facility where the Encounter took place. Date/Time Current Smoking Status Comment Facil ity Oct 13, 2022 11:45 AM DE-TOBACCO NEVER USED [facility] Tobacco Use History This section includes a history of the smoking, or tobacco-related health factors, that were collected on or before the date of the Encounter. The data comes from the DE facility where the Encounter took place. Date/Time Smoking Status/Tobacco Use Comment F acility Sep 05, 2021 11:29 AM VA-TOBACCO NEVER USED [facility] May 28, 2007 09:10 AM LIFETIME NON-TOBACCO USER [facility] Advance Directives: All historical and current Section Date Range: From patient's date of to the date document was created. This section includes ALL of a patient's completed or amended [place] Advance and Rescinded Directives. The entries below indicate that a directive exists for the patient, but an actual copy is not included with this document. The data comes from all [place] facilities. Date Advance Directives Provider Source Aug 29, 2023 ADVANCE DIRECTIVE [facility] Pathology Reports: +/- 30 days of the [...] the Encounter. The data comes from all [place] treatment facilities. Date/Time Pathology Report Provider Source Sep 18, 2023 09:44 AM LR SURGICAL PATHOLOGY REPORT: LOCAL TITLE: LR SURGICAL PATHOLOGY REPORT STANDARD TITLE: PATHOLOGY REPORT DATE OF NOTE: SEP 18, 2023@09:44:02 ENTRY DATE: SEP 18, 2023@09:44:02 AUTHOR: DANNY HI MD EXP COSIGNER: URGENCY: STATUS: COMPLETED $APHDR Reporting Lab: [facility] [CLIA# [id number]] [address] [place] [address] - - - - - - - [...] Sep 14, 2023): A:SKIN OFM L LATERAL BACK([id number]) B:SKIN OF L MID DORSAL FOREARM([id number]) C:SKIN OF L LOW BACK([id number]) - - - - - - - [...] - - - PATHOLOGY REPORT Accession No. [facility] 24 [id number] - - - - - - - - - - - - - - - - - - - - - - - - - - - - - - - - - - - - - - - - GROSS DESCRIPTION: The specimen is recieved from [facility], [facility] [id number] [facility] 5898;A;1;Gian FOOTE. Received in formalin labeled with [...] Performing Laboratory: Surgical Pathology Report Performed By: [facility] [CLIA# [id number]] [address] [place] [address] $FTR - - - - - - [...] - - CLAIRE FOOTE STANDARD FORM 515 ID:[id number] SEX:M :1965 AGE: 58 LOC:*[facility] PCP: /Alicia Jose MD Board Certified Dermatopathologist Signed: 09/18/2023 09:44 DANNY HI MD [facility] Sep 18, 2023 09:40 AM LR SURGICAL PATHOLOGY REPORT: LOCAL TITLE: LR SURGICAL PATHOLOGY REPORT STANDARD TITLE: PATHOLOGY DIAGNOSTIC STUDY REPORT DATE OF NOTE: SEP 18, 2023@09:40:52 ENTRY DATE: SEP 18, 2023@09:40:52 AUTHOR: DANNY HI MD EXP COSIGNER: URGENCY: STATUS: COMPLETED $APHDR Reporting Lab: [facility] [CLIA# [id number]] [address] [place] [address] - - - - - - - [...] REPORT Accession No. [facility] 24 [id number] - - - - - [...] REPORT Accession No. [facility] 24 364 - - - - - - - - - - - - - - - - - - - - - - - - - - - - - - - - - - - - - - - - Gross description: The specimen is recieved from [facility], [facility] [id number] [facility] 24 [id number];A;1;Gian FOOTE. Received in formalin [...] tips C2, body cross section ACE Rushing ([facility]) 09/14/2023 A. Skin, left lateral neck: Basal cell carcinoma, superficial and nodular types, very closely approaching the deep tissue margins. B. Skin, left mid dorsal forearm: Basal cell carcinoma, nodular type. C. Skin, left low back: Basal cell carcinoma, nodular type, very closely approaching the deep tissue margins. CPT codes 21428d4 /kaleb/ DANNY HI MD Board Certified Dermatopathologist Signed Sep 18, 2023@09:40 Performing Laboratory: Surgical Pathology Report Performed By: [facility] [CLIA# [id number]] [address] [place] [address] $FTR - - - - - - [...] - - CLAIRE FOOTE STANDARD FORM 515 ID:[id number] SEX:M :1965 AGE: 58 LOC:CWM/NO/DERMATOLOGY LICENSED MASSAGE THERAPIST PCP: ACE Petersen /kaleb/ DANNY HI MD Board Certified Dermatopathologist Signed: 09/18/2023 09:40 DANNY HI MD [facility] Encounter Notes: All associated encounter notes This section contains the clinical notes associated to the Encounter. Date/Time Encounter Note(s) Provider Source Oct 09, 2023 12:00 PM ACUPUNCTURE CONSUL T: LOCAL TITLE: CONSULT REPORT/ACUPUNCTURE STANDARD TITLE: ACUPUNCTURE CONSULT DATE OF NOTE: OCT 09, 2023@12:00 ENTRY DATE: NOV 01, 2023@07:57:29 AUTHOR: PATRICA BAJWA EXP COSIGNER: URGENCY: STATUS: COMPLETED VistA Imaging - Scanned Document ACU+ORIENTAL MED OF NE-TREATMENT NOTES 10/08+10/11 SCANNED DOCUMENT SIGNATURE NOT REQUIRED Electronically Filed: 11/01/2023 by: PATRICA BAJWA STOREPERSON PATRICA BAJWA [facility]
--- OUTSIDE RECORDS SUMMARY | 2024-02-13 16:07 | XMS_ITS | Encounter Summary ---
Author Name Department [place] Organization [facility] [place] Address [address] [place] [address] Care Team Providers Care Shop Service Technician Name Role Phone JANIE TOLBERT Primary [...] Patient's Relationship to Policy Sapp BCBS OF [facility] PREFERRED PROVIDER ORGANIZAT ION (PPO) [facility] E Feb 20, 2017 [id number] EFFIE FOOTE PATIENT CAREMARK PRESCRIPT ION Feb 20, 2017 [id number] EFFIE FOOTE PATIENT [facility] TRICA RE DODA Mar 05, 2020 DODA [id number] [phone] EFFIE FOOTE PATIENT [facility] CE ORGANIZ HMO Jan 22, 2007 (WNR) [id number] [phone] EFFIE FOOTE PATIENT MEDIMPACT RX PRESCRIPT ION [address] PILGR IM July 11, 2008 [id number] [phone] EFFIE FOOTE PATIENT [facility] Oct 09, 2008 [id number] EFFIE FOOTE PATIENT [facility] SELEC T TAMP Mar 14, 2021 [id number] EFFIE FOOTE PATIENT [facility] PRIME -ACTI VE DUTY Mar 05, 2020 [id number] EFFIE FOOTE PATIENT [facility] Dec 18, 2018 SELECT [id number] EFFIE FOOTE PATIENT Selected Encounter This section includes the information on record at [place] for the Encounter. Date/Time Encounter Type Encounter Description Reason Pro vider Source Sep 29, 2023 12:00 AM Outpatient Encounter COMMUNITY CARE CONSULT IHE Encounter Template Text not used by AL Plan of Treatment: Future Appointments (+ 6 [...] - MEDICINE [place] [facility] [place] [facility] Nov 02, 2023 03:15 PM AMBULATORY - MEDICINE [place] [facility] Nov 21, 2023 01:30 PM AMBULATORY - MEDICINE [place] C [place] [facility] Jan 03, 2024 09:30 AM AMBULATORY - MEDICINE [place] [facility] [place] [place] [facility] Feb 01, 2024 08:30 AM AMBULATORY - MEDICINE [place] C [place] [place] [facility] Feb 19, 2024 08:30 AM AMBULATORY - MEDICINE [place] C [place] [place] [facility] Mar 06, 2024 11:00 AM AMBULATORY - MEDICINE [facility] [place] [facility] [...] of theEncounter. The data comes from all [place] treatment facilities. Test Date/Time Test Type Test Details Facility Name Sep 13, 2023 12:00 AM Laboratory - Chemi stry Order SURGICAL PATH ORDER SURG PATH SPEC. UNKNOWN SP [facility] Social History: Smoking Status (Most current) and Tobacco Use (All prior to encounter date) This section includes the most current, and the historical, smoking and tobacco- related health factors from the [place] facility where the Encounter took place. Current Smoking Status This section includes the most current smoking, or tobacco-related health factor, from the [place] facility where the Encounter took place. Date/Time Current Smoking Status Comment Facil ity Oct 13, 2022 11:45 AM AL-TOBACCO NEVER USED [facility] Tobacco Use History This section includes a history of the smoking, or tobacco-related health factors, that were collected on or before the date of the Encounter. The data comes from the [place] facility where the Encounter took place. Date/Time Smoking Status/Tobacco Use Comment F acility Sep 05, 2021 11:29 AM AL-TOBACCO NEVER USED [facility] May 28, 2007 09:10 AM LIFETIME NON-TOBACCO USER [facility] Advance Directives: All historical and current Section Date Range: From patient's date of to the date document was created. This section includes ALL of a patient's completed or amended [place] Advance and Rescinded Directives. The entries below indicate that a directive exists for the patient, but an actual copy is not included with this document. The data comes from all [place] facilities. Date Advance Directives Provider Source Aug 29, 2023 ADVANCE DIRECTIVE KRUNAL TANG [facility] Pathology Reports: +/- 30 days of [...] the Encounter. The data comes from all [place] treatment facilities. Date/Time Pathology Report Provider Source Sep 18, 2023 09:44 AM LR SURGICAL PATHOLOGY REPORT: LOCAL TITLE: LR SURGICAL PATHOLOGY REPORT STANDARD TITLE: PATHOLOGY REPORT DATE OF NOTE: SEP 18, 2023@09:44:02 ENTRY DATE: SEP 18, 2023@09:44:02 AUTHOR: DANNY HI MD EXP COSIGNER: URGENCY: STATUS: COMPLETED $APHDR Reporting Lab: [facility] [CLIA# [id number]] [address] [place] [address] - - - - - - - [...] Sep 14, 2023): A:SKIN OFM L LATERAL BACK([id number]) B:SKIN OF L MID DORSAL FOREARM([id number]) C:SKIN OF L LOW BACK([id number]) - - - - - - - [...] - - - PATHOLOGY REPORT [facility] [id number] - - - - - - - - - - - - - - - - - - - - - - - - - - - - - - - - - - - - - - - - GROSS DESCRIPTION: The specimen is recieved from [facility] [id number] [facility] 5898;A;1;Gian FOOTE. Received in formalin labeled [...] Performing Laboratory: Surgical Pathology Report Performed By: [facility] [CLIA# [id number]] [address] [place] [address] $FTR - - - - - - [...] - - CLAIRE FOOTE STANDARD FORM 515 ID:[id number] SEX:M :1965 AGE: 58 LOC:*[facility] PCP: /Alicia Jose MD Board Certified Dermatopathologist Signed: 09/18/2023 09:44 DANNY HI MD [facility] Sep 18, 2023 09:40 AM LR SURGICAL PATHOLOGY REPORT: LOCAL TITLE: LR SURGICAL PATHOLOGY REPORT STANDARD TITLE: PATHOLOGY DIAGNOSTIC STUDY REPORT DATE OF NOTE: SEP 18, 2023@09:40:52 ENTRY DATE: SEP 18, 2023@09:40:52 AUTHOR: DANNY HI MD EXP COSIGNER: URGENCY: STATUS: COMPLETED $APHDR Reporting Lab: [facility] [CLIA# [id number]] [address] [place] [phone] - - - - - - - [...] - - - PATHOLOGY REPORT Accession No. [facility] - - - - - - - [...] - - - PATHOLOGY REPORT Accession No. [place] [id number] - - - - - - - - - - - - - - - - - - - - - - - - - - - - - - - - - - - - - - - - Gross description: The specimen is recieved from [facility], [facility] [address] RSP 24 5898;A;1;Gian FOOTE. Received in formalin labeled [...] tips C2, body cross section ACE Rushing ([facility]) 09/14/2023 A. Skin, left lateral neck: Basal cell carcinoma, superficial and nodular types, very closely approaching the deep tissue margins. B. Skin, left mid dorsal forearm: Basal cell carcinoma, nodular type. C. Skin, left low back: Basal cell carcinoma, nodular type, very closely approaching the deep tissue margins. CPT codes [id number] /kaleb/ DANNY HI MD Board Certified Dermatopathologist Signed Sep 18, 2023@09:40 Performing Laboratory: Surgical Pathology Report Performed By: [facility] [CLIA# [id number]] [address] [place] [address] $FTR - - - - - - [...] - - CLAIRE FOOTE STANDARD FORM 515 ID:[id number] SEX:M :1965 AGE: 58 LOC:CWM/NO/DERMATOLOGY BAR ROLLER PCP: ACE Petersen /kaleb/ DANNY HI MD Board Certified Dermatopathologist Signed: 09/18/2023 09:40 DANNY HI MD [facility]
--- OUTSIDE RECORDS SUMMARY | 2024-02-13 16:07 | XMS_ITS ---
Author Name Department [place] Address [address] [place] [address] Care Team Providers Care Property Supervisor Name Role Phone JANIE TOLBERT Primary [...] Patient's Relationship to Policy Sapp [facility] PREFERRED PROVIDER ORGANIZAT ION (PPO) [facility] E Feb 20, 2017 [id number] EFFIE FOOTE PATIENT [facility] PRESCRIPT ION Feb 20, 2017 [id number] EFFIE FOOTE PATIENT [facility] TRICA RE DODA Mar 05, 2020 DODA [id number] EFFIE FOOTE PATIENT [facility] CE ORGANIZ HMO Jan 22, 2007 (WNR) [id number] EFFIE FOOTE PATIENT MEDIMPACT RX PRESCRIPT ION [address] PILGR IM July 11, 2008 [id number] EFFIE FOOTE PATIENT [facility] Oct 09, 2008 [id number] EFFIE FOOTE PATIENT [facility] SELEC T TAMP Mar 14, 2021 [id number] EFFIE FOOTE PATIENT [facility] PRIME -ACTI VE DUTY Mar 05, 2020 [id number] EFFIE FOOTE PATIENT [facility] Dec 18, 2018 SELECT [id number] EFFIE FOOTE PATIENT Selected Encounter This section includes the information on record at [place] for the Encounter. Date/Time Encounter Type Encounter Description Reason Pro vider Source Nov 07, 2023 12:00 AM Outpatient Encounter COMMUNITY CARE [...] 20 appointments. The data comes from all [place] treatment facilities. Appointment Date/Time Appointment Type Appointme nt Facility Name Nov 21, 2023 01:30 PM AMBULATORY - MEDICINE [facility] [place] [facility] Jan 03, 2024 09:30 AM AMBULATORY - MEDICINE [facility] [place] [facility] Feb 01, 2024 08:30 AM AMBULATORY MEDICINE [facility] [place] [facility] Feb 19, 2024 08:30 AM AMBULATORY MEDICINE [facility] [place] [facility] Mar 06, 2024 11:00 AM AMBULATORY - MEDICINE [facility] Social History: Smoking Status (Most current) and [...] Facil ity Oct 13, 2022 11:45 AM [place]-TOBACCO NEVER USED [facility] Tobacco Use History This section includes a history of the smoking, or tobacco-related health factors, that were collected on or before the date of the Encounter. The data comes from the [place] facility where the Encounter took place. Date/Time Smoking Status/Tobacco Use Comment F acility Sep 05, 2021 11:29 AM VA-TOBACCO NEVER USED [facility] May 28, 2007 09:10 AM LIFETIME NON-TOBACCO USER [facility] Advance Directives: All historical and current [...] Aug 29, 2023 ADVANCE DIRECTIVE KRUNAL TANG [facility] Encounter Notes: All associated encounter notes This section contains the clinical notes associated to the Encounter. Date/Time Encounter Note(s) Provider Source Nov 07, 2023 12:00 AM NONVA CONSULT: LOCAL TITLE: COMMUNITY CARE-CONSULT RESULT NOTE STANDARD TITLE: NONVA CONSULT DATE OF NOTE: NOV 07, 2023 ENTRY DATE: NOV 23, 2023@19:54:52 AUTHOR: BLAS SIN MA EXP COSIGNER: URGENCY: STATUS: COMPLETED VistA Imaging - Scanned Document SCANNED DOCUMENT SIGNATURE NOT REQUIRED Electronically Filed: 11/23/2023 by: BLAS SIN ICT CUSTOMER SUPPORT OFFICER BLAS SIN [facility]
--- OUTSIDE RECORDS SUMMARY | 2024-02-13 16:07 | XMS_ITS | Encounter Summary ---
Author Name [place] Address [address] [place] [address] Care Team Providers Care Stamp Mounter Name Role Phone JANIE TOLBERT Primary Care [...] Patient's Relationship to Policy Sapp BCBS OF [facility] PREFERRED PROVIDER ORGANIZAT ION (PPO) [facility] E Feb 20, 2017 [id number] EFFIE FOOTE PATIENT [facility] PRESCRIPT ION Feb 20, 2017 [id number] [phone] EFFIE FOOTE PATIENT EXPRESS SCRIPTS TRICA RE DODA Mar 05, 2020 DODA [id number] EFFIE FOOTE PATIENT [facility] CE ORGANIZ HMO Jan 22, 2007 (WNR) [id number] [phone] EFFIE FOOTE PATIENT MEDIMPACT RX PRESCRIPT ION [address] PILGR IM July 11, 2008 [id number] EFFIE FOOTE PATIENT [facility] Oct 09, 2008 [id number] EFFIE FOOTE PATIENT [facility] SELEC T TAMP Mar 14, 2021 [id number] [phone] [id number] EFFIE FOOTE PATIENT [facility] PRIME -ACTI VE DUTY Mar 05, 2020 [id number] [phone] EFFIE FOOTE PATIENT [facility] Dec 18, 2018 [facility] [id number] EFFIE FOOTE PATIENT Selected Encounter This section includes the information on record at [place] for the Encounter. Date/Time Encounter Type Encounter Description Reason Pro vider Source Nov 14, 2023 12:00 AM Outpatient Encounter COMMUNITY CARE CONSULT IHE Encounter Template Text not used by VA Plan of Treatment: Future Appointments (+ 6 months) and Future Tests (+/- 45 days) The Plan of Treatment section includes future care activities for the patient from all [place] treatmentfacilities. This section includes future appointments and future orders which are active, pending or scheduled. Future Appointments This section includes appointments that were scheduled to occur 6 months from the date of the Encounter, up to a maximum of 20 appointments. The data comes from all [place] treatment facilities. Appointment Date/Time Appointment Type Appointme nt Facility Name Nov 21, 2023 01:30 PM AMBULATORY - MEDICINE [facility] [place] [facility] Jan 03, 2024 09:30 AM AMBULATORY - MEDICINE [facility] [place] [facility] Feb 01, 2024 08:30 AM AMBULATORY MEDICINE [facility] [place] [facility] Feb 19, 2024 08:30 AM AMBULATORY MEDICINE [facility] [place] [facility] Mar 06, 2024 11:00 AM AMBULATORY - MEDICINE [facility] Social History: Smoking Status (Most current) and Tobacco Use (All prior to encounter date) This section includes the most current, and the historical, smoking and tobacco- related health factors from the [place] facility where the Encounter took place. Current Smoking Status This section includes the most current smoking, or tobacco-related health factor, from the [place] facility where the Encounter took place. Date/Time Current Smoking Status Comment Facil ity Oct 13, 2022 11:45 AM [place]-TOBACCO NEVER USED [facility] Tobacco Use History This section includes a history of the smoking, or tobacco-related health factors, that were collected on or before the date of the Encounter. The data comes from the [place] facility where the Encounter took place. Date/Time Smoking Status/Tobacco Use Comment F acility Sep 05, 2021 11:29 AM VA-TOBACCO NEVER USED [facility] May 28, 2007 09:10 AM LIFETIME NON-TOBACCO USER [facility] Advance Directives: All historical and current Section Date Range: From patient's date of to the date document was created. This section includes ALL of a patient's completed or amended [place] Advance and Rescinded Directives. The entries below indicate that a directive exists for the patient, but an actual copy is not included with this document. The data comes from all [place] facilities. Date Advance Directives Provider Source Aug 29, 2023 ADVANCE DIRECTIVE KRUNAL TANG [facility] Encounter Notes: All associated encounter notes This section contains the clinical notes associated to the Encounter. Date/Time Encounter Note(s) Provider Source Nov 14, 2023 12:00 AM NONVA CONSULT: LOCAL TITLE: COMMUNITY CARE-CONSULT RESULT NOTE STANDARD TITLE: NONVA CONSULT DATE OF NOTE: NOV 14, 2023 ENTRY DATE: DEC 06, 2023@07:31:05 AUTHOR: MOHSEN ANAND EXP COSIGNER: URGENCY: STATUS: COMPLETED VistA Imaging - Scanned Document SCANNED DOCUMENT SIGNATURE NOT REQUIRED Electronically Filed: 12/06/2023 by: MOHSEN PRICE [facility]
--- OUTSIDE RECORDS SUMMARY | 2024-02-13 16:07 | XMS_ITS | Encounter Summary ---
Author Name [place] Address [address] [place] [address] Care Team Providers Care Java [id number] Lead Name Role Phone JANIE TOLBERT Primary Care [...] Patient's Relationship to Policy Sapp BCBS OF [facility] PREFERRED PROVIDER ORGANIZAT ION (PPO) [facility] Feb 20, 2017 [id number] [phone] EFFIE FOOTE PATIENT [facility] PRESCRIPT ION Feb 20, 2017 [id number] [phone] EFFIE FOOTE PATIENT EXPRESS SCRIPTS TRICA RE DOD[place] Mar 05, 2020 DODA [id number] [facility]FFIE FOOTE [facility] Jan 22, 2007 (WNR) [id number] EFFIE FOOTE PATIENT MEDIMPACT RX PRESCRIPT ION [address] PILGR IM July 11, 2008 [id number] [phone] EFFIE FOOTE PATIENT [facility] Oct 09, 2008 [id number] EFFIE FOOTE PATIENT [facility] SELEC T TAMP Mar 14, 2021 [id number] EFFIE FOOTE PATIENT [facility] PRIME -ACTI VE DUTY Mar 05, 2020 [id number] EFFIE FOOTE PATIENT [facility] Dec 18, 2018 SELECT [id number] EFFIE FOOTE PATIENT Selected Encounter This section includes the information on record at [place] for the Encounter. Date/Time Encounter Type Encounter Description Reason Pro vider Source Dec 05, 2023 12:00 AM Outpatient Encounter COMMUNITY CARE CONSULT IHE Encounter Template Text not used by [place] Plan of Treatment: Future Appointments (+ 6 [...] 03, 2024 09:30 AM [facility] [place] [place] [facility] Feb 01, 2024 08:30 AM [facility]UL[facility] Feb 19, 2024 08:30 AM AMBULATORY [facility]IC[facility] Mar 06, 2024 11:00 AM AMBULATORY [facility]IC[facility] Active, Pending, and Scheduled Orders This section [...] from all [facility]. Test Date/Time Test Type Test Details Facility Name Jan 04, 2024 04:41 PM Consult Order COMMUNITY CARE-UROLOGY Cons Communications Engineer's Choice [facility] Social History: Smoking Status (Most current) and Tobacco Use (All prior to encounter date) This section includes the most current, and the historical, smoking and tobacco- related health factors from the [place] facility where the Encounter took place. Current Smoking Status This section includes the most current smoking, or tobacco-related health factor, from the [place] facility where the Encounter took place. Date/Time Current Smoking Status Comment Facil ity Oct 13, 2022 11:45 AM [place]-TOBACCO NEVER USED [facility] Tobacco Use History This section includes a history of the smoking, or tobacco-related health factors, that were collected on or before the date of the Encounter. The data comes from the [place] facility where the Encounter took place. Date/Time Smoking Status/Tobacco Use Comment F acility Sep 05, 2021 11:29 AM VA-TOBACCO NEVER USED [facility] May 28, 2007 09:10 AM LIFETIME NON-TOBACCO USER [facility] Advance Directives: All historical and [...] Encounter. Date/Time Encounter Note(s) Provider Source Dec 05, 2023 12:00 AM NONVA CONSULT: LOCAL TITLE: COMMUNITY CARE-CONSULT RESULT NOTE STANDARD TITLE: NONVA CONSULT DATE OF NOTE: DEC 05, 2023 ENTRY DATE: JAN 02, 2024@07:04:11 AUTHOR: MOHSEN ANAND EXP COSIGNER: URGENCY: STATUS: COMPLETED VistA Imaging - Scanned Document SCANNED DOCUMENT SIGNATURE NOT REQUIRED Electronically Filed: 01/02/2024 by: MOHSEN PRICE [facility]
--- OUTSIDE RECORDS SUMMARY | 2024-02-13 16:07 | XMS_ITS ---
Author Name [facility] [place] Address [address] [place] [address] Care Team Providers Care Computer Analyst Supervisor Name Role Phone JANIE TOBLERT Primary Care Provider MIRIAM Machado Primary Care [...] [facility] PREFERRED PROVIDER ORGANIZAT ION (PPO) [facility] Feb 20, 2017 [id number] EFFIE FOOTE PATIENT [facility] PRESCRIPT ION Feb 20, 2017 [id number] [phone] EFFIE FOOTE PATIENT EXPRESS SCRIPTS TRICA RE DODA Mar 05, 2020 DODA [id number] EFFIE FOOTE PATIENT [facility] CE ORGANIZ HMO Jan 22, 2007 (WNR) [id number] EFFIE FOOTE PATIENT MEDIMPACT RX PRESCRIPT ION [address] PILGR IM July 11, 2008 [id number] EFFIE FOOTE PATIENT [facility] Oct 09, 2008 [id number] EFFIE FOOTE PATIENT [facility] SELEC T TAMP Mar 14, 2021 [id number] [phone] EFFIE FOOTE PATIENT [facility] PRIME -ACTI VE DUTY Mar 05, 2020 [id number] EFFIE FOOTE PATIENT [facility] Dec 18, 2018 SELECT [id number] [phone] EFFIE FOOTE PATIENT Selected Encounter This section includes the information on record at [place] for the Encounter. Date/Time Encounter Type Encounter Description Reason Pro vider Source Nov 17, 2023 12:00 AM Outpatient Encounter EVENT (HISTORICAL) IHE Encounter Template Text not used by [place] Plan of Treatment: Future Appointments (+ 6 months) and Future Tests (+/- 45 days) The Plan of Treatment section includes future care activities for the patient from all [place] treatmentfacilities. This section includes future appointments and future orders which are active, pending or scheduled. Future Appointments This section includes appointments that were scheduled to occur 6 months from the date of the Encounter, up to a maximum of 20 appointments. The data comes from all [place] treatment facilities. Appointment Date/Time Appointment Type Appointme nt Facility Name Nov 21, 2023 01:30 PM AMBULATORY - MEDICINE [facility] [place] [facility] Jan 03, 2024 09:30 AM AMBULATORY - MEDICINE [facility] [place] [facility] Feb 01, 2024 08:30 AM AMBULATORY - MEDICINE [facility] [place] [facility] Feb 19, 2024 08:30 AM AMBULATORY MEDICINE [facility] [place] [facility] Mar 06, 2024 11:00 AM AMBULATORY - MEDICINE [facility] Social History: Smoking Status (Most current) and Tobacco Use (All prior to encounter date) This section includes the most current, and the historical, smoking and tobacco- related health factors from the [place] facility where the Encounter took place. Current Smoking Status This section includes the most current smoking, or tobacco-related health factor, from the [place] facility where the Encounter took place. Date/Time Current Smoking Status Comment Facil ity Oct 13, 2022 11:45 AM VA-TOBACCO NEVER USED [facility] Tobacco Use History This section includes a history of the smoking, or tobacco-related health factors, that were collected on or before the date of the Encounter. The data comes from the [place] facility where the Encounter took place. Date/Time Smoking Status/Tobacco Use Comment F acility Sep 05, 2021 11:29 AM VA-TOBACCO NEVER USED [facility] May 28, 2007 09:10 AM LIFETIME NON-TOBACCO USER [facility] Advance Directives: All historical and current Section Date Range: From patient's date of to the date document was created. This section includes ALL of a patient's completed or amended [place] Advance and Rescinded Directives. The entries below indicate that a directive exists for the patient, but an actual copy is not included with this document. The data comes from all [place] facilities. Date Advance Directives Provider Source Aug 29, 2023 ADVANCE DIRECTIVE KRUNAL TANG [facility] Encounter Notes: All associated encounter notes This section contains the clinical notes associated to the Encounter. Date/Time Encounter Note(s) Provider Source Nov 17, 2023 12:00 AM NONVA DIAGNOSTIC S TUDY REPORT: LOCAL TITLE: NON-VA DIAGNOSTICS STANDARD TITLE: NONVA DIAGNOSTIC STUDY REPORT DATE OF NOTE: NOV 17, 2023 ENTRY DATE: DEC 25, 2023@14:10:14 AUTHOR: MIKE THOMAS EXP COSIGNER: URGENCY: STATUS: COMPLETED VistA Imaging - Scanned Document SCANNED DOCUMENT SIGNATURE NOT REQUIRED Electronically Filed: 12/25/2023 by: MIKE NARVAEZ [facility] Nov 17, 2023 12:00 AM NONVA DIAGNOSTIC S TUDY REPORT: LOCAL TITLE: NON-VA DIAGNOSTICS STANDARD TITLE: NONVA DIAGNOSTIC STUDY REPORT DATE OF NOTE: NOV 17, 2023 ENTRY DATE: DEC 25, 2023@14:11:22 AUTHOR: MIKE THOMAS EXP COSIGNER: URGENCY: STATUS: COMPLETED VistA Imaging - Scanned Document SCANNED DOCUMENT SIGNATURE NOT REQUIRED Electronically Filed: 12/25/2023 by: MIKE NARVAEZ [facility]
--- OUTSIDE RECORDS SUMMARY | 2024-02-13 16:07 | XMS_ITS | Encounter Summary ---
Author Name [place] Address [address] [place] [address] Care Team Providers Care Fabrication And Layout Craftsman Name Role Phone JANIE TOLBERT Primary Care [...] Patient's Relationship to Policy Sapp BCBS OF [facility] PREFERRED PROVIDER ORGANIZAT ION (PPO) [facility] ACTIV E Feb 20, 2017 [id number] EFFIE FOOTE PATIENT CAR[facility] PRESCRIPT ION Feb 20, 2017 [id number] EFFIE FOOTE PATIENT EXPRESS SCRIPTS TRICA RE DODA Mar 05, 2020 DODA [id number] EFFIE FOOTE PATIENT [facility] CE ORGANIZ HMO Jan 22, 2007 (WNR) [id number] EFFIE FOOTE PATIENT MEDIMPACT RX PRESCRIPT ION [address] PILGR IM July 11, 2008 [id number] EFFIE FOOTE PATIENT [facility] Oct 09, 2008 [id number] EFFIE FOOTE PATIENT [facility] SELEC T TAMP Mar 14, 2021 [id number] [phone] [id number] EFFIE FOOTE PATIENT [facility] PRIME -ACTI VE DUTY Mar 05, 2020 [id number] EFFIE FOOTE PATIENT [facility] Dec 18, 2018 [facility] [id number] EFFIE FOOTE PATIENT Selected Encounter This section includes the information on record at [place] for the Encounter. Date/Time Encounter Type Encounter Description Reason Pro vider Source Nov 10, 2023 12:00 AM Outpatient Encounter COMMUNITY CARE CONSULT IHE Encounter Template Text not used by VA Plan of Treatment: Future Appointments (+ 6 months) and Future Tests (+/- 45 days) The Plan of Treatment section includes future care activities for the patient from all [place] treatmentfacilities. This section includes future appointments and future orders which are active, pending or scheduled. Future Appointments This section includes appointments that were scheduled to occur 6 months from the date of the Encounter, up to a maximum of 20 appointments. The data comes from all [place] treatment facilities. Appointment Date/Time Appointment Type Appointme nt Facility Name Nov 21, 2023 01:30 PM AMBULATORY - MEDICINE [facility] [place] [facility] Jan 03, 2024 09:30 AM AMBULATORY - MEDICINE [facility] [place] [facility] Feb 01, 2024 08:30 AM AMBULATORY MEDICINE [facility] [place] [facility] Feb 19, 2024 08:30 AM AMBULATORY MEDICINE [facility] [place] [facility] Mar 06, 2024 11:00 AM AMBULATORY - MEDICINE [facility] Social History: Smoking Status (Most current) and Tobacco Use (All prior to encounter date) This section includes the most current, and the historical, smoking and tobacco- related health factors from the [place] facility where the Encounter took place. Current Smoking Status This section includes the most current smoking, or tobacco-related health factor, from the [place] facility where the Encounter took place. Date/Time Current Smoking Status Comment Facil ity Oct 13, 2022 11:45 AM VA-TOBACCO NEVER USED [facility] Tobacco Use History This section includes a history of the smoking, or tobacco-related health factors, that were collected on or before the date of the Encounter. The data comes from the [place] facility where the Encounter took place. Date/Time Smoking Status/Tobacco Use Comment F acility Sep 05, 2021 11:29 AM VA-TOBACCO NEVER USED [facility] May 28, 2007 09:10 AM LIFETIME NON-TOBACCO USER [facility] Advance Directives: All historical and current Section Date Range: From patient's date of to the date document was created. This section includes ALL of a patient's completed or amended [place] Advance and Rescinded Directives. The entries below indicate that a directive exists for the patient, but an actual copy is not included with this document. The data comes from all [place] facilities. Date Advance Directives Provider Source Aug 29, 2023 ADVANCE DIRECTIVE KRUNAL TANG [facility] Encounter Notes: All associated encounter notes This section contains the clinical notes associated to the Encounter. Date/Time Encounter Note(s) Provider Source Nov 10, 2023 12:00 AM NONVA CONSULT: LOCAL TITLE: COMMUNITY CARE-CONSULT RESULT NOTE STANDARD TITLE: NONVA CONSULT DATE OF NOTE: NOV 10, 2023 ENTRY DATE: NOV 27, 2023@15:55 AUTHOR: TU ANDREW EXP COSIGNER: URGENCY: STATUS: COMPLETED VistA Imaging - Scanned Document SCANNED DOCUMENT SIGNATURE NOT REQUIRED Electronically Filed: 11/27/2023 by: TU ANDREW LICENSED PRACTICAL NURSE TU ANDREW [facility]
--- OUTSIDE RECORDS SUMMARY | 2024-02-13 16:07 | XMS_ITS ---
Author Name Department of [place] Organization [place] Address [address] [place] [address] Care Team Providers Care Associate Professor Of Theatre Name Role Phone ABDELRAHMAN SNYDER Primary Care [...] Patient's Relationship to Policy Sapp BCBS OF [facility] PREFERRED PROVIDER ORGANIZAT ION (PPO) [facility] E Feb 20, 2017 [id number] [phone] EFFIE MILLER PATIENT [facility] PRESCRIPT ION Feb 20, 2017 [id number] [phone] EFFIE MILLER PATIENT [facility] TRICA RE DODA Mar 05, 2020 DODA [id number] EFFIE MILLER PATIENT [facility] CE ORGANIZ HMO Jan 22, 2007 (WNR) [id number] EFFIE MILLER PATIENT MEDIMPACT RX PRESCRIPT ION [address] PILGR IM July 11, 2008 [id number] [phone] EFFIE MILLER PATIENT [facility] Oct 09, 2008 [id number] EFFIE MILLER PATIENT [facility] SELEC T TAMP Mar 14, 2021 [id number] [phone] EFFIE MILLER PATIENT [facility] PRIME -ACTI VE DUTY Mar 05, 2020 [id number] EFFIE MILLER PATIENT [facility] Dec 18, 2018 SELECT [id number] EFFIE MILLER PATIENT Selected Encounter This section includes the information on record at [place] for the Encounter. Date/Time Encounter Type Encounter Description Reason Provider Source Oct 19, 2023 10:32 AM Outpatient Encounter PRIMARY CARE/MEDICINE JANETT SMITH [facility] Encounter Template Text not used by [place] [...] 02, 2023 03:15 PM AMBULATORY - MEDICINE [facility] [place] [facility] Nov 21, 2023 01:30 PM AMBULATORY - MEDICINE [facility] [place] [facility] Jan 03, 2024 09:30 AM AMBULATORY - MEDICINE [facility] [place] [facility] Feb 01, 2024 08:30 AM AMBULATORY - MEDICINE [facility] [place] [facility] Feb 19, 2024 08:30 AM AMBULATORY - MEDICINE [facility] [place] [facility] Mar 06, 2024 11:00 AM AMBULATORY - MEDICINE [facility] Active, Pending, and Scheduled Orders This section includes a listing of several types of active, pending, and scheduled orders, including clinic medications orders, diagnostic test orders, procedure orders and consult orders; where the start date of the order is 45 days before the date of the Encounter or 45 days after the date of theEncounter. The data comes from all [place] treatment facilities. Test Date/Time Test Type Test Details Facility Name Sep 13, 2023 12:00 AM Laboratory - Chemi stry Order SURGICAL PATH ORDER SURG PATH SPEC. UNKNOWN SP [facility] Social History: Smoking Status (Most current) [...] 13, 2022 11:45 AM [place]-TOBACCO NEVER USED [facility] Tobacco Use History This section includes a history of the smoking, or tobacco-related health factors, that were collected on or before the date of the Encounter. The data comes from the [place] facility where the Encounter took place. Date/Time Smoking Status/Tobacco Use Comment F acility Sep 05, 2021 11:29 AM [facility] May 28, 2007 09:10 AM LIFETIME NON-TOBACCO USER [facility] Advance Directives: All historical and [...] Aug 29, 2023 ADVANCE DIRECTIVE KRUNAL TANG [facility] Encounter Notes: All associated encounter notes This section contains the clinical notes associated to the Encounter. Date/Time Encounter Note(s) Provider Source Oct 19, 2023 10:33 AM ADDENDUM: LOCAL TITLE: Addendum STANDARD TITLE: ADDENDUM DATE OF NOTE: OCT 19, 2023@10:33 ENTRY DATE: OCT 19, 2023@10:33:01 AUTHOR: JANETT SMITH EXP COSIGNER: URGENCY: STATUS: COMPLETED Consult entered, pending provider signature. /kaleb/ JANETT SMITH RN REGISTERED NURSE Signed: 10/19/2023 10:33 Receipt Acknowledged By: 10/19/2023 14:48 /kaleb/ Abdelrahman Snyder PA-C STAFF PHYSICIAN WELFARE VISITOR ====== --- Original Document --- 10/19/23 PRIMARY CARE SECURE MESSAGING: ------Original Message ------- Sent: 10/17/2023 06:18 PM ET From: CLAIRE MILLER To: Que SNYDER_PRIMARY CARE_[facility] Subject: Appointment:Referral Request Attachments: Nephrology appt.pdf (121.39 KB), Urology Note [facility].pdf (261.53 KB) During a recent Urology appointment at the 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 I have attached the urologist's note as well as the appointment with Nephrology. I am requesting a referral to the attached Nephrology practice at [facility]. Thank you, Claire Miller /kaleb/ JANETT SMITH RN REGISTERED NURSE Signed: 10/19/2023 10:32 10/19/2023 ADDENDUM STATUS: COMPLETED APPT 11/01 @ 3:15 /kaleb/ ROBERTH MCCARTHY AMSA Signed: 10/19/2023 10:39 JANETT SMITH [facility] [place] [facility] Oct 19, 2023 10:32 AM PRIMARY CARE SECUR E MESSAGING: LOCAL TITLE: PRIMARY CARE SECURE MESSAGING STANDARD TITLE: PRIMARY CARE SECURE MESSAGING DATE OF NOTE: OCT 19, 2023@10:32 ENTRY DATE: OCT 19, 2023@10:32:55 AUTHOR: JANETT SMITH EXP COSIGNER: URGENCY: STATUS: COMPLETED PRIMARY CARE SECURE MESSAGING Has ADDENDA ------Original Message ------- Sent: 10/17/2023 06:18 PM ET From: CLAIRE MILLER To: Que SNYDER_PRIMARY CARE_[facility] Subject: Appointment:Referral Request Attachments: Nephrology appt.pdf (121.39 KB), Urology Note [facility].pdf (261.53 KB) During a recent Urology appointment at the 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 I have attached the urologist's note as well as the appointment with Nephrology. I am requesting a referral to the attached Nephrology practice at [facility]. Thank you, Claire Miller /kaleb/ JANETT SMITH RN REGISTERED NURSE Signed: 10/19/2023 10:32 10/19/2023 ADDENDUM STATUS: COMPLETED Consult entered, pending provider signature. /kaleb/ JANETT SMITH RN REGISTERED NURSE Signed: 10/19/2023 10:33 Receipt Acknowledged By: * AWAITING SIGNATURE * ABDELRAHMAN SNYDER 10/19/2023 ADDENDUM STATUS: COMPLETED APPT 11/01 @ 3:15 /kaleb/ ROBERTH TAFOYA Signed: 10/19/2023 10:39 JANETT SMITH DE [facility]
--- OUTSIDE RECORDS SUMMARY | 2024-02-13 16:07 | XMS_ITS | Encounter Summary ---
Author Name [place] Organization [place] Address [address] [place] [address] Care Team Providers Care Certified Ophthalmic Surgical Assistant Name Role Phone JANIE SNYDER Primary Care [...] Patient's Relationship to Policy Sapp BCBS [facility] PREFERRED PROVIDER ORGANIZAT ION (PPO) [facility] E Feb 20, 2017 [id number] [phone] EFFIE MILLER PATIENT [facility] PRESCRIPT ION Feb 20, 2017 [id number] [phone] EFFIE MILLER PATIENT [facility] TRICA RE DODA Mar 05, 2020 DODA [id number] [phone] EFFIE MILLER PATIENT [facility] CE ORGANIZ HMO Jan 22, 2007 (WNR) [id number] [phone] EFFIE MILLER PATIENT MEDIMPACT RX PRESCRIPT ION [address] PILGR IM July 11, 2008 [id number] EFFIE MILLER PATIENT [facility] Oct 09, 2008 [id number] EFFIE MILLER PATIENT [facility] SELEC T TAMP Mar 14, 2021 [id number] EFFIE MILLER PATIENT [facility] PRIME -ACTI VE DUTY Mar 05, 2020 [id number] EFFIE MILLER PATIENT [facility] Dec 18, 2018 SELECT [id number] EFFIE MILLRE PATIENT Selected Encounter This section includes the information on record at [place] for the Encounter. Date/Time Encounter Type Encounter Description Reason Provider Source Oct 26, 2023 03:05 PM Outpatient Encounter PRIMARY CARE/MEDICINE JANETT SMITH [facility] Encounter Template Text not used by CT Plan of Treatment: Future Appointments (+ 6 months) and Future Tests (+/- 45 days) The Plan of Treatment section includes future care activities for the patient from all CT treatmentfacilities. This section includes future appointments and future orders which are active, pending or scheduled. Future Appointments This section includes appointments that were scheduled to occur 6 months from the date of the Encounter, up to a maximum of 20 appointments. The data comes from all CT treatment facilities. Appointment Date/Time Appointment Type Appointme nt Facility Name Nov 02, 2023 03:15 PM AMBULATORY - MEDICINE [facility] [place] [facility] Nov 21, 2023 01:30 PM AMBULATORY - MEDICINE [facility] [place] [facility] Jan 03, 2024 09:30 AM AMBULATORY - MEDICINE [facility] [place] [facility] Feb 01, 2024 08:30 AM AMBULATORY - MEDICINE [facility] [place] [facility] Feb 19, 2024 08:30 AM AMBULATORY - MEDICINE [facility] [place] [facility] Mar 06, 2024 11:00 AM AMBULATORY - MEDICINE [facility] Active, Pending, and Scheduled Orders This section includes a listing of several types of active, pending, and scheduled orders, including clinic medications orders, diagnostic test orders, procedure orders and consult orders; where the start date of the order is 45 days before the date of the Encounter or 45 days after the date of theEncounter. The data comes from all CT treatment facilities. Test Date/Time Test Type Test Details Facility Name Sep 13, 2023 12:00 AM Laboratory - Chemi stry Order SURGICAL PATH ORDER SURG PATH SPEC. UNKNOWN SP [facility] Social History: Smoking Status (Most current) and Tobacco Use (All prior to encounter date) This section includes the most current, and the historical, smoking and tobacco- related health factors from the CT facility where the Encounter took place. Current Smoking Status This section includes the most current smoking, or tobacco-related health factor, from the CT facility where the Encounter took place. Date/Time Current Smoking Status Comment Facil ity Oct 13, 2022 11:[address]-TOBACCO NEVER USED [facility] Tobacco Use History This section includes a history of the smoking, or tobacco-related health factors, that were collected on or before the date of the Encounter. The data comes from the CT facility where the Encounter took place. Date/Time Smoking Status/Tobacco Use Comment F acility Sep 05, 2021 11:29 AM [facility]CO [facility] May 28, 2007 09:10 AM LIFETIME NON-TOBACCO USER [facility] Advance Directives: All historical and current Section Date Range: From patient's date of to the date document was created. This section includes ALL of a patient's completed or amended CT Advance and Rescinded Directives. The entries below indicate that a directive exists for the patient, but an actual copy is not included with this document. The data comes from all CT facilities. Date Advance Directives Provider Source Aug 29, 2023 ADVANCE DIRECTIVE KRUNAL TANG [facility] Encounter Notes: All associated encounter notes This section contains the clinical notes associated to the Encounter. Date/Time Encounter Note(s) Provider Source Oct 27, 2023 12:57 PM ADDENDUM: LOCAL TITLE: Addendum STANDARD TITLE: ADDENDUM DATE OF NOTE: OCT 27, 2023@12:57:41 ENTRY DATE: OCT 27, 2023@12:57:42 AUTHOR: MIN BELL COSIGNER: URGENCY: STATUS: COMPLETED Senior Sustainability Consultant placed community care MH consult for this clinic. Thank you. /kaleb/ MIN BELL, PhD STAFF PSYCHOLOGIST Signed: 10/27/2023 12:58 Receipt Acknowledged By: 10/28/2023 15:38 /kaleb/ Janie Snyder PA-C STAFF PHYSICIAN LYE BATH OPERATOR ========= --- Original Document --- 10/26/23 PRIMARY CARE SECURE MESSAGING: ------Original Message -------- Sent: 10/26/2023 12:00 PM ET From: RICH MILLER To: Que SNYDER_PRIMARY CARE_[facility] Subject: Appointment:Request for Mental Health Referral Attachments: Gmail - Referral.pdf (78.09 KB) Good morning, The Mental Health Therapist I have been seeing has recently been approved for [facility]. I am requesting a referral to her as I have been paying out of pocket for these visits. I have attached her email stating this status. Her contact information is below: DARIAN Monteiro, [facility] Clinician [address] [place] [address] Tele: [phone] Fax: Thank you, Rich Miller [phone] /kaleb/ JANETT SMITH RN REGISTERED NURSE Signed: 10/26/2023 15:05 Receipt Acknowledged By: 10/27/2023 08:20 /kaleb/ Janie Snyder PA-C STAFF PHYSICIAN LYE BATH OPERATOR 10/27/2023 ADDENDUM STATUS: COMPLETED As above, I will ask DR Bell to review and offer me guidance on his request. /kaleb/ Janie Snyder PA-C STAFF PHYSICIAN LYE BATH OPERATOR Signed: 10/27/2023 08:20 Receipt Acknowledged By: 10/27/2023 12:58 /kaleb/ MIN BELL, PhD STAFF PSYCHOLOGIST MIN BELL CT [facility] [facility] Oct 27, 2023 08:20 AM ADDENDUM: LOCAL TITLE: Addendum STANDARD TITLE: ADDENDUM DATE OF NOTE: OCT 27, 2023@08:20 ENTRY DATE: OCT 27, 2023@08:20:01 AUTHOR: JANIE SNYDER COSIGNER: URGENCY: STATUS: COMPLETED As above, I will ask DR Bell to review and offer me guidance on his request. /kaleb/ Janie Snyder PA-C STAFF PHYSICIAN LYE BATH OPERATOR Signed: 10/27/2023 08:20 Receipt Acknowledged By: 10/27/2023 12:58 /es/ MIN BELL, PhD STAFF PSYCHOLOGIST ========= --- Original Document --- 10/26/23 PRIMARY CARE SECURE MESSAGING: ------Original Message -------- Sent: 10/26/2023 12:00 PM ET From: RICH MILLER To: Que SNYDER_PRIMARY CARE_[facility] Subject: Appointment:Request for Mental Health Referral Attachments: Gmail - Referral.pdf (78.09 KB) Good morning, The Mental Health Therapist I have been seeing has recently been approved for [facility]. I am requesting a referral to her as I have been paying out of pocket for these visits. I have attached her email stating this status. Her contact information is below: DARIAN Monteiro, [facility] Clinician [address] [place] [address] Tele: [phone] Fax: Thank you, Rich Miller [phone] /kaleb/ JANETT SMITH, BEATRIZ REGISTERED NURSE Signed: 10/26/2023 15:05 Receipt Acknowledged By: 10/27/2023 08:20 /kaleb/ Janie Snyder PA-C STAFF PHYSICIAN LYE BATH OPERATOR 10/27/2023 ADDENDUM STATUS: COMPLETED Senior Sustainability Consultant placed [facility] MH consult for this clinic. Thank you. /kaleb/ MIN BELL, PhD STAFF PSYCHOLOGIST Signed: 10/27/2023 12:58 Receipt Acknowledged By: * AWAITING SIGNATURE * JANIE SNYDER WILLIAM F [facility] [place] [facility] Oct 26, 2023 03:05 PM PRIMARY CARE SECUR E MESSAGING: LOCAL TITLE: PRIMARY CARE SECURE MESSAGING STANDARD TITLE: PRIMARY CARE SECURE MESSAGING DATE OF NOTE: OCT 26, 2023@15:05 ENTRY DATE: OCT 26, 2023@15:05:44 AUTHOR: JANETT SMITH EXP COSIGNER: URGENCY: STATUS: COMPLETED PRIMARY CARE SECURE MESSAGING Has ADDENDA ------Original Message -------- Sent: 10/26/2023 12:00 PM ET From: RICH MILLER To: Que SNYDER_PRIMARY CARE_[facility] Subject: Appointment:Request for Mental Health Referral Attachments: Gmail - Referral.pdf (78.09 KB) Good morning, The Mental Health Therapist I have been seeing has recently been approved for [facility]. I am requesting a referral to her as I have been paying out of pocket for these visits. I have attached her email stating this status. Her contact information is below: DARIAN Monteiro, [facility] Clinician [address] [place] [address] Tele: [phone] Fax: Thank you, Rich Miller [phone] /kaleb/ JANETT SMITH, BEATRIZ REGISTERED NURSE Signed: 10/26/2023 15:05 Receipt Acknowledged By: 10/27/2023 08:20 /kaleb/ Janie Snyder PA-C STAFF PHYSICIAN LYE BATH OPERATOR 10/27/2023 ADDENDUM STATUS: COMPLETED As above, I will ask DR Bell to review and offer me guidance on his request. /kaleb/ Janie Snyder PA-C STAFF PHYSICIAN LYE BATH OPERATOR Signed: 10/27/2023 08:20 Receipt Acknowledged By: 10/27/2023 12:58 /kaleb/ MIN BELL, PhD STAFF PSYCHOLOGIST 10/27/2023 ADDENDUM STATUS: COMPLETED Senior Sustainability Consultant placed community care MH consult for this clinic. Thank you. /kaleb/ MIN BELL, PhD STAFF PSYCHOLOGIST Signed: 10/27/2023 12:58 Receipt Acknowledged By: * AWAITING SIGNATURE * JANIE SNYDER LAUREN M [facility]
--- OUTSIDE RECORDS SUMMARY | 2024-02-13 16:07 | XMS_ITS ---
Author Name [place] Organization [place] Address [address] [place] [address] Care Team Providers Care It Systems Administrator Name Role Phone JANIE TOLBERT Primary Care [...] [facility] PREFERRED PROVIDER ORGANIZAT ION (PPO) [facility] ACTIV E Feb 20, 2017 [id number] EFFIE FOOTE PATIENT [facility] PRESCRIPT ION Feb 20, 2017 [id number] [phone] EFFIE FOOTE PATIENT [facility] TRICA RE DODA Mar 05, 2020 DODA [id number] EFFIE FOOTE PATIENT [facility] CE ORGANIZ HMO Jan 22, 2007 (WNR) [id number] [phone] EFFIE FOOTE PATIENT MEDIMPACT RX PRESCRIPT ION [address] PILGR IM July 11, 2008 [id number] [phone] EFFIE FOOTE PATIENT [facility] M[facility] Oct 09, 2008 [id number] EFFIE FOOTE PATIENT [facility] SELEC T TAMP Mar 14, 2021 [id number] [phone] EFFIE FOOTE PATIENT [facility] PRIME -ACTI VE DUTY Mar 05, 2020 [id number] EFFIE FOOTE PATIENT [facility] Dec 18, 2018 SELECT [id number] EFFIE FOOTE PATIENT Selected Encounter This section includes the information on record at [place] for the Encounter. Date/Time Encounter Type Encounter Description Reason Pro vider Source Nov 02, 2023 12:00 AM Outpatient Encounter COMMUNITY CARE [...] 21, 2023 01:30 PM AMBULATORY - MEDICINE [facility] [place] [facility] Jan 03, 2024 09:30 AM AMBULATORY - MEDICINE [facility] [place] [facility] Feb 01, 2024 08:30 AM AMBULATORY MEDICINE [facility] [place] [facility] Feb 19, 2024 08:30 AM AMBULATORY MEDICINE [facility] [place] [facility] Mar 06, 2024 11:00 AM AMBULAT[facility] - [facility] Social History: Smoking Status (Most current) [...] 13, 2022 11:45 AM [place]-TOBACCO NEVER USED [facility] Tobacco Use History This section includes a history of the smoking, or tobacco-related health factors, that were collected on or before the date of the Encounter. The data comes from the [place] facility where the Encounter took place. Date/Time Smoking Status/Tobacco Use Comment F acility Sep 05, 2021 11:29 AM VA-TOBACCO NEVER USED [facility] May 28, 2007 09:10 AM LIFETIME NON-TOBACCO USER [facility] Advance Directives: All historical and [...] Aug 29, 2023 ADVANCE DIRECTIVE KRUNAL TANG [facility] Encounter Notes: All associated encounter notes This section contains the clinical notes associated to the Encounter. Date/Time Encounter Note(s) Provider Source Nov 02, 2023 12:00 AM NONVA CONSULT: LOCAL TITLE: COMMUNITY CARE-CONSULT RESULT NOTE STANDARD TITLE: NONVA CONSULT DATE OF NOTE: NOV 02, 2023 ENTRY DATE: NOV 28, 2023@12:51:37 AUTHOR: TRICE ROJO EXP COSIGNER: URGENCY: STATUS: COMPLETED VistA Imaging - Scanned Document SCANNED DOCUMENT SIGNATURE NOT REQUIRED Electronically Filed: 11/28/2023 by: TRICE ROJO ORNAMENTAL IRON ERECTOR TRICE ROJO [facility]
--- OUTSIDE RECORDS SUMMARY | 2024-02-13 16:08 | XMS_ITS | Encounter Summary ---
Author Name [place] Address [address] [place] [address] Care Team Providers Care Market Research Intern Name Role Phone JANIE TOLBERT Primary Care [...] Patient's Relationship to Policy Sapp BCBS OF [facility] PREFERRED PROVIDER ORGANIZAT ION (PPO) [facility] E Feb 20, 2017 [id number] EFFIE FOOTE PATIENT [facility] PRESCRIPT ION Feb 20, 2017 [id number] [phone] EFFIE FOOTE PATIENT [facility] TRICA RE DODA Mar 05, 2020 DODA [id number] [phone] EFFIE FOOTE PATIENT [facility] [place] CE ORGANIZ HMO Jan 22, 2007 (WNR) [id number] EFFIE FOOTE PATIENT MEDIMPACT RX PRESCRIPT ION [address] PILGR IM July 11, 2008 [id number] [phone] EFFIE FOOTE PATIENT [facility] Oct 09, 2008 [id number] EFFIE FOOTE PATIENT [facility] SELEC T TAMP Mar 14, 2021 [id number] [phone] EFFIE FOOTE PATIENT [facility] PRIME -ACTI VE DUTY Mar 05, 2020 [id number] [phone] EFFIE FOOTE PATIENT [facility] Dec 18, 2018 SELECT [id number] EFFIE FOOTE PATIENT Selected Encounter This section includes the information on record at [place] for the Encounter. Date/Time Encounter Type Encounter Description Reason Pro vider Source Jan 11, 2024 12:00 AM Outpatient Encounter COMMUNITY CARE CONSULT IHE Encounter Template Text not used by [place] Plan of Treatment: Future Appointments (+ 6 months) and Future Tests (+/- 45 days) The Plan of Treatment section includes future care activities for the patient from all [place] [facility]. This section includes future appointments and future orders which are active, pending or scheduled. Future Appointments This section includes appointments that were scheduled to occur 6 months from the date of the Encounter, up to a maximum of 20 appointments. The data comes from all [facility] facilities. Appointment Date/Time Appointment Type Appointme nt Facility Name Feb 01, 2024 08:30 AM AMBULATORY - MEDICINE [facility] Feb 19, 2024 08:30 AM AMBULATORY - MEDICINE [facility] Mar 06, 2024 11:00 AM AMBULATORY MEDICINE [facility] Active, Pending, and Scheduled Orders This section includes a listing of several types of active, pending, and scheduled orders, including clinic medications orders, diagnostic test orders, procedure orders and consult orders; where the start date of the order is 45 days before the date of the Encounter or 45 days after the date of theEncounter. The data comes from all [facility]. Test Date/Time Test Type Test Details Facility Name Jan 04, 2024 04:41 PM Consult Order COMMUNITY CARE-UROLOGY Cons Biodiesel Processing Technician's Choice [facility] Feb 12, 2024 09:22 AM Laboratory - Chemi stry Order HEPATITIS A ANTIBODY (IGG) BLOOD (SST-SERUM) SP [facility] Feb 12, 2024 09:22 AM Laboratory - Chemi stry Order HEPATITIS B SURFACE ANTIBODY (HBsAb)-WH BLOOD (SST-SERUM) SP [facility] Social History: Smoking Status (Most current) and Tobacco Use (All prior to encounter date) This section includes the most current, and the historical, smoking and tobacco- related health factors from the [place] facility where the Encounter took place. Current Smoking Status This section includes the most current smoking, or tobacco-related health factor, from the [place] facility where the Encounter took place. Date/Time Current Smoking Status Comment Facil ity Oct 13, 2022 11:45 AM [place]-TOBACCO NEVER USED [facility] Tobacco Use History This section includes a history of the smoking, or tobacco-related health factors, that were collected on or before the date of the Encounter. The data comes from the [place] facility where the Encounter took place. Date/Time Smoking Status/Tobacco Use Comment F acility Sep 05, 2021 11:29 AM [place]-TOBACCO NEVER USED [facility] May 28, 2007 09:10 AM LIFETIME NON-TOBACCO USER [facility] Advance Directives: All historical and current Section Date Range: From patient's date of to the date document was created. This section includes ALL of a patient's completed or amended [place] Advance and Rescinded Directives. The entries below indicate that a directive exists for the patient, but an actual copy is not included with this document. The data comes from all [place] facilities. Date Advance Directives Provider Source Aug 29, 2023 ADVANCE DIRECTIVE KRUNAL TANG [facility] Encounter Notes: All associated encounter notes This section contains the clinical notes associated to the Encounter. Date/Time Encounter Note(s) Provider Source Jan 11, 2024 12:00 AM NONVA CONSULT: LOCAL TITLE: COMMUNITY CARE-CONSULT RESULT NOTE STANDARD TITLE: NONVA CONSULT DATE OF NOTE: JAN 11, 2024 ENTRY DATE: FEB 06, 2024@13:48:40 AUTHOR: PATRICA BAJWA COSIGNER: URGENCY: STATUS: COMPLETED VistA Imaging - Scanned Document SCANNED DOCUMENT SIGNATURE NOT REQUIRED Electronically Filed: 02/06/2024 by: PATRICA BAJWA RETAIL SEASONAL SPECIALIST PATRICA BAJWA [facility]
--- OUTSIDE RECORDS SUMMARY | 2024-02-13 16:08 | XMS_ITS | Encounter Summary ---
Author Name [place] Address [address] [place] [address] Care Team Providers Care Pepper Picker Name Role Phone ABDELRAHMAN SNYDER Primary Care [...] Patient's Relationship to Policy Sapp BCBS OF [facility] PREFERRED PROVIDER ORGANIZAT ION (PPO) [facility] E Feb 20, 2017 [id number] [phone] EFFIE MILLER PATIENT [facility] PRESCRIPT ION Feb 20, 2017 [id number] EFFIE MILLER PATIENT [facility] TRICA RE DODA Mar 05, 2020 DODA [id number] [phone] EFFIE MILLER PATIENT [facility] CE ORGANIZ HMO Jan 22, 2007 (WNR) [id number] EFFIE MILLER PATIENT MEDIMPACT RX PRESCRIPT ION [address] PILGR IM July 11, 2008 [id number] [phone] EFFIE MILLER PATIENT [facility] Oct 09, 2008 [id number] EFFIE MILLER PATIENT [facility] SELEC T TAMP Mar 14, 2021 [id number] [phone] EFFIE MILLER PATIENT [facility] PRIME -ACTI VE DUTY Mar 05, 2020 [id number] EFFIE MILLER PATIENT [facility] Dec 18, 2018 SELECT [id number] [phone] EFFIE MILLER PATIENT Selected Encounter This section includes the information on record at [place] for the Encounter. Date/Time Encounter Type Encounter Description Reason Provider Source Jan 09, 2024 09:31 AM Outpatient Encounter PRIMARY CARE/MEDICINE JANETT SMITH [facility] Encounter Template Text not used by [place] Plan of Treatment: Future Appointments (+ 6 months) and Future Tests (+/- 45 days) The Plan of Treatment section includes future care activities for the patient from all [place] treatmentfacilselect specialty hospital. This section includes future appointments and [...] MEDICINE [facility] Feb 19, 2024 08:30 AM AMBULATORY - [facility] Mar 06, 2024 11:00 AM AMBULATORY - [facility] Active, Pending, and Scheduled Orders This section includes a listing of several types of active, pending, and scheduled orders, including clinic medications orders, diagnostic test orders, procedure orders and consult orders; where the start date of the order is 45 days before the date of the Encounter or 45 days after the date of theEncounter. The data comes from all [facility]. Test Date/Time Test Type Test Details Facility Name Jan 04, 2024 04:41 PM Consult Order COMMUNITY CARE-UROLOGY Cons Collar Stay Fuser Tender's Choice [facility] Feb 12, 2024 09:22 AM Laboratory - Chemi stry Order HEPATITIS A ANTIBODY (IGG) BLOOD (SST-SERUM) [facility] Feb 12, 2024 09:22 AM Laboratory - Chemi stry Order HEPATITIS B SURFACE ANTIBODY (HBsAb)-WH BLOOD (SST-SERUM) SP [facility] Social History: Smoking Status (Most current) [...] Facil ity Oct 13, 2022 11:45 AM [place]-TOBACCO NEVER USED [facility] Tobacco Use History This section includes a history of the smoking, or tobacco-related health factors, that were collected on or before the date of the Encounter. The data comes from the [place] facility where the Encounter took place. Date/Time Smoking Status/Tobacco Use Comment F acility Sep 05, 2021 11:29 AM [place]-TOBACCO NEVER USED [facility] May 28, 2007 09:10 AM LIFETIME NON-TOBACCO USER [facility] Advance Directives: All historical and current Section Date Range: From patient's date of to the date document was created. This section includes ALL of a patient's completed or amended [place] Advance and Rescinded Directives. The entries below indicate that a directive exists for the patient, but an actual copy is not included with this document. The data comes from all [facility]. Date Advance Directives Provider Source Aug 29, 2023 ADVANCE DIRECTIVE KRUNAL TANG [facility] Encounter Notes: All associated encounter notes This section contains the clinical notes associated to the Encounter. Date/Time Encounter Note(s) Provider Source Feb 01, 2024 11:03 AM ADDENDUM: LOCAL TITLE: Addendum STANDARD TITLE: ADDENDUM DATE OF NOTE: FEB 01, 2024@11:03:40 ENTRY DATE: FEB 01, 2024@11:03:41 AUTHOR: ZHANE SANCHEZ COSIGNER: URGENCY: STATUS: COMPLETED [facility] reports PSA W/reflex at 2.99 on 01/24/2024. report filed to [facility] /kaleb/ ZHANE SANCHEZ LPN Signed: 02/01/2024 11:05 Receipt Acknowledged By: 02/04/2024 10:18 /kaleb/ Abdelrahman Snyder PA-C STAFF PHYSICIAN RN CLINICAL REVIEW ========= --- Original Document --- 01/09/24 PRIMARY CARE SECURE MESSAGING: ------Original Message -------- Sent: 01/09/2024 09:28 AM ET From: CLAIRE MILLER To: Que SNYDER_PRIMARY CARE_[facility] Subject: General:Referral request from [facility] , I am emailing to request a new referral to Urology at the [facility]. The [facility] urology department called me this morning to inform me that their [facility] referral had this past October. I have an appointment with Dr Jonn Haq from urology on Jan 31 at 0830. Thank you for your attention in this matter. Claire Miller ------Original Message -------- Sent: 01/09/2024 09:31 AM ET From: JANETT SMITH To: CLAIRE MILLER Subject: General:Referral request from [facility] , This renewal was entered on Jan 03 and authorized by the [facility] team, they will be in touch with you for any follow-up questions. Thank you for your service, BEATRIZ Guillen - PACT Instructor Traffic Safety /kaleb/ JANETT SMITH RN REGISTERED NURSE Signed: 01/09/2024 09:31 ZHANE SANCHEZ [place] [facility] Jan 09, 2024 09:31 AM PRIMARY CARE SECUR E MESSAGING: LOCAL TITLE: PRIMARY CARE SECURE MESSAGING STANDARD TITLE: PRIMARY CARE SECURE MESSAGING DATE OF NOTE: JAN 09, 2024@09:31 ENTRY DATE: JAN 09, 2024@09:31:44 AUTHOR: JANETT SMITH EXP COSIGNER: URGENCY: STATUS: COMPLETED PRIMARY CARE SECURE MESSAGING Has ADDENDA ------Original Message -------- Sent: 01/09/2024 09:28 AM ET From: CLAIRE MILLER To: Que SNYDER_PRIMARY CARE_[facility] Subject: General:Referral request from [facility] , I am emailing to request a new referral to Urology at the [facility]. The [facility] urology department called me this morning to inform me that their [facility] referral had this past October. I have an appointment with Dr Jonn Haq from urology on Jan 31 at 0830. Thank you for your attention in this matter. Claire Miller ------Original Message -------- Sent: 01/09/2024 09:31 AM ET From: JANETT SMITH To: CLAIRE MILLER Subject: General:Referral request from [facility] , This renewal was entered on Jan 03 and authorized by the [facility] team, they will be in touch with you for any follow-up questions. Thank you for your service, BEATRIZ Guillen - PACT Instructor Traffic Safety /kaleb/ JANETT SMITH RN REGISTERED NURSE Signed: 01/09/2024 09:31 02/01/2024 ADDENDUM STATUS: COMPLETED [facility] reports PSA W/reflex at 2.99 on 01/24/2024. report filed to [facility] /kaleb/ ZHANE SANCHEZ LPN Signed: 02/01/2024 11:05 Receipt Acknowledged By: * AWAITING SIGNATURE * ABDELRAHMAN SNYDER LAUREN M [place] [facility]
--- OUTSIDE RECORDS SUMMARY | 2024-02-13 16:08 | XMS_ITS ---
Author Name Department [place] Organization [place] Address [address] [place] [address] Care Team Providers Care Microsoft Crm Developer Name Role Phone ABDELRAHMAN SNYDER Primary Care [...] Patient's Relationship to Policy Sapp BCBS OF [facility] PREFERRED PROVIDER ORGANIZAT ION (PPO) [facility] ACTIV E Feb 20, 2017 [id number] EFFIE MILLER PATIENT [facility] PRESCRIPT ION Feb 20, 2017 [id number] [phone] EFFIE MILLER PATIENT [facility] TRICA RE DODA Mar 05, 2020 DODA [id number] [phone] EFFIE MILLER PATIENT [facility] CE ORGANIZ HMO Jan 22, 2007 (WNR) [id number] EFFIE MILLER PATIENT MEDIMPACT RX PRESCRIPT ION [address] PILGR IM July 11, 2008 [id number] EFFIE MILLER PATIENT [facility] Oct 09, 2008 [id number] EFFIE MILLER PATIENT [facility] SELEC T TAMP Mar 14, 2021 [id number] [phone] EFFIE MILLER PATIENT [facility] PRIME -ACTI VE DUTY Mar 05, 2020 [id number] EFFIE MILLER PATIENT [facility] Dec 18, 2018 SELECT [id number] EFFIE MILLER PATIENT Selected Encounter This section includes the information on record at [place] for the Encounter. Date/Time Encounter Type Encounter Description Reason Provider Source Jan 04, 2024 04:08 PM Outpatient Encounter PRIMARY CARE/MEDICINE JANETT SMITH [facility] Encounter Template Text not used by [place] Plan of Treatment: Future Appointments (+ 6 months) and Future Tests (+/- 45 days) The Plan of Treatment section includes future care activities for the patient from all [place] treatmentfaciluab [facility]. This section includes future appointments and future orders which are active, pending or scheduled. Future Appointments This section includes appointments that were scheduled to occur 6 months from the date of the Encounter, up to a maximum of 20 appointments. The data comes from all [place] treatment facilities. Appointment Date/Time Appointment Type Appointme nt Facility Name Feb 01, 2024 08:30 AM AMBULATORY - MEDICINE [facility] [place] [facility] Feb 19, 2024 08:30 AM AMBULATORY - MEDICINE [facility] Mar 06, 2024 11:00 AM AMBULATORY - MEDICINE [facility] Active, Pending, and Scheduled Orders This section includes a listing of several types of active, pending, and scheduled orders, including clinic medications orders, diagnostic test orders, procedure orders and consult orders; where the start date of the order is 45 days before the date of the Encounter or 45 days after the date of theEncounter. The data comes from all [facility]. Test Date/Time Test Type Test Details Facility Name Jan 04, 2024 04:41 PM Consult Order COMMUNITY CARE-UROLOGY Cons Rn Care Manager's Choice [facility] Feb 12, 2024 09:22 AM Laboratory - Chemi stry Order HEPATITIS A ANTIBODY (IGG) BLOOD (SST-SERUM) [facility] Feb 12, 2024 09:22 AM Laboratory - Chemi stry Order HEPATITIS B SURFACE ANTIBODY (HBsAb)-WH BLOOD (SST-SERUM) SP [facility] Social History: Smoking Status (Most current) and Tobacco Use (All prior to encounter date) This section includes the most current, and the historical, smoking and tobacco- related health factors from the [place] facility where the Encounter took place. Current Smoking Status This section includes the most current smoking, or tobacco-related health factor, from the [place] facility where the Encounter took place. Date/Time Current Smoking Status Comment Facil ity Oct 13, 2022 11:45 AM [place]-TOBACCO NEVER USED [facility] Tobacco Use History This section includes a history of the smoking, or tobacco-related health factors, that were collected on or before the date of the Encounter. The data comes from the [place] facility where the Encounter took place. Date/Time Smoking Status/Tobacco Use Comment F acility Sep 05, 2021 11:29 AM ID-TOBACCO NEVER USED [facility] May 28, 2007 09:10 AM LIFETIME NON-TOBACCO USER [facility] Advance Directives: All historical and current Section Date Range: From patient's date of to the date document was created. This section includes ALL of a patient's completed or amended [place] Advance and Rescinded Directives. The entries below indicate that a directive exists for the patient, but an actual copy is not included with this document. The data comes from all [place] facilities. Date Advance Directives Provider Source Aug 29, 2023 ADVANCE DIRECTIVE KRUNAL TNAG [facility] Encounter Notes: All associated encounter notes This section contains the clinical notes associated to the Encounter. Date/Time Encounter Note(s) Provider Source Jan 04, 2024 04:08 PM ADDENDUM: LOCAL TITLE: Addendum STANDARD TITLE: ADDENDUM DATE OF NOTE: JAN 04, 2024@16:08:29 ENTRY DATE: JAN 04, 2024@16:08:30 AUTHOR: JANETT SMITH COSIGNER: URGENCY: STATUS: COMPLETED Consult entered, pending provider signature. /kaleb/ JANETT SMITH RN REGISTERED NURSE Signed: 01/04/2024 16:08 Receipt Acknowledged By: 01/07/2024 16:06 /kaleb/ Abdelrahman Snyder PA-C STAFF PHYSICIAN LINE SERVICE TECHNICIAN ====== --- Original Document --- 01/04/24 PRIMARY CARE SECURE MESSAGING: ------Original Message ------- Sent: 01/04/2024 04:03 PM ET From: CLAIRE MILLER To: Santhosh SN[facility]DERPRIMARY [facility] Subject: General:Request for CT Referral / Urology [facility] The Urology department at [facility] called to say they need a referral for a CT to finish my plan of care w/ them. They state that they have reached out to you but have not yet received a response. Thank you, Claire Miller /kaleb/ JANETT SMITH RN REGISTERED NURSE Signed: 01/04/2024 16:08 JANETT SMITH [facility] Jan 04, 2024 04:08 PM PRIMARY CARE SECUR E MESSAGING: LOCAL TITLE: PRIMARY CARE SECURE MESSAGING STANDARD TITLE: PRIMARY CARE SECURE MESSAGING DATE OF NOTE: JAN 04, 2024@16:08 ENTRY DATE: JAN 04, 2024@16:08:26 AUTHOR: JANETT SMITH EXP COSIGNER: URGENCY: STATUS: COMPLETED PRIMARY CARE SECURE MESSAGING Has ADDENDA ------Original Message ------- Sent: 01/04/2024 04:03 PM ET From: CLAIRE MILLER To: Santhosh SNYDERPRIMARY CARE_[facility] Subject: General:Request for CT Referral / Urology [facility] The Urology department at [facility] called to say they need a referral for a CT to finish my plan of care w/ them. They state that they have reached out to you but have not yet received a response. Thank you, Claire Miller /kaleb/ JANETT SMITH RN REGISTERED NURSE Signed: 01/04/2024 16:08 01/04/2024 ADDENDUM STATUS: COMPLETED Consult entered, pending provider signature. /kaleb/ JANETT SMITH RN REGISTERED NURSE Signed: 01/04/2024 16:08 Receipt Acknowledged By: * AWAITING SIGNATURE * ABDELRAHMAN SNYDER LAUREN M ID CNTRL [facility]
--- OUTSIDE RECORDS SUMMARY | 2024-02-13 16:08 | XMS_ITS | Encounter Summary ---
Author Name [facility] [place] Organization [facility] [place] Address [address] [place] [address] Care Team Providers Care Die Developer Name Role Phone JANIE TOLBERT Primary Care [...] WEEKL Y ACTIV E Feb 20, 2017 [id number] [phone] EFFIE FOOTE PATIENT [facility] PRESCRIPT ION Feb 20, 2017 [id number] EFFIE FOOTE PATIENT [facility] TRICA RE DODA Mar 05, 2020 DODA [id number] [phone] EFFIE FOOTE PATIENT [facility] CE ORGANIZ HMO Jan 22, 2007 (WNR) [id number] EFFIE FOOTE PATIENT MEDIMPACT RX PRESCRIPT ION [address] PILGR IM July 11, 2008 [id number] EFFIE FOOTE PATIENT [facility] Oct 09, 2008 [id number] EFFIE FOOTE PATIENT [facility] SELEC T TAMP Mar 14, 2021 [id number] EFFIE FOOTE PATIENT [facility] PRIME -ACTI VE DUTY Mar 05, 2020 [id number] EFFIE FOOTE PATIENT [facility] Dec 18, 2018 SELECT [id number] EFFIE FOOTE PATIENT Selected Encounter This section includes the information on record at ID for the Encounter. Date/Time Encounter Type Encounter Description Reason Pro vider Source Nov 23, 2023 12:00 AM Outpatient Encounter COMMUNITY CARE CONSULT IHE Encounter Template Text not used by ID Plan of Treatment: Future Appointments (+ 6 months) and Future Tests (+/- 45 days) The Plan of Treatment section includes future care activities for the patient from all ID treatmentfacilities. This section includes future appointments and [...] 03, 2024 09:30 AM AMBULATORY - MEDIC[facility] [place] [facility] Feb 01, 2024 08:30 AM AMBULATORY MEDIC[facility] Feb 19, 2024 08:30 AM [facility]ULATORY MEDIC[facility] Mar 06, 2024 11:00 AM AMBULATORY MEDICINE [facility] Active, Pending, and Scheduled Orders This section includes a listing of several types of active, pending, and scheduled orders, including clinic medications orders, diagnostic test orders, procedure orders and consult orders; where the start date of the order is 45 days before the date of the Encounter or 45 days after the date of theEncounter. The data comes from all [facility]. Test Date/Time Test Type Test Details Facility Name Jan 04, 2024 04:41 PM Consult Order COMMUNITY CARE-UROLOGY Cons Air Carrier Operations Inspector's Choice [facility] Social History: Smoking Status (Most current) [...] 13, 2022 11:45 AM VA-TOBACCO NEVER USED [facility] Tobacco Use History This section includes a history of the smoking, or tobacco-related health factors, that were collected on or before the date of the Encounter. The data comes from the ID facility where the Encounter took place. Date/Time Smoking Status/Tobacco Use Comment F acility Sep 05, 2021 11:29 AM VA-TOBACCO NEVER USED [facility] May 28, 2007 09:10 AM LIFETIME NON-TOBACCO USER [facility] Advance Directives: All historical and current [...] Aug 29, 2023 ADVANCE DIRECTIVE KRUNAL TANG [facility] Encounter Notes: All associated encounter notes This section contains the clinical notes associated to the Encounter. Date/Time Encounter Note(s) Provider Source Nov 23, 2023 12:00 AM NONVA CONSULT: LOCAL TITLE: COMMUNITY CARE-CONSULT RESULT NOTE STANDARD TITLE: NONVA CONSULT DATE OF NOTE: NOV 23, 2023 ENTRY DATE: JAN 05, 2024@11:23:24 AUTHOR: TRICE ROJO EXP COSIGNER: URGENCY: STATUS: COMPLETED VistA Imaging - Scanned Document SCANNED DOCUMENT SIGNATURE NOT REQUIRED Electronically Filed: 01/05/2024 by: TRICE ROJO SUPERVISOR BELT AND LINK ASSEMBLY TRICE ROJO [facility]
--- OUTSIDE RECORDS SUMMARY | 2024-02-13 16:08 | XMS_ITS ---
Author Name Department of [facility] [facility] [place] Organization [facility] [place] Address [address] [place] [address] Care Team Providers Care Digital Media Representative Name Role Phone JANIE TOLBERT Primary Care [...] Patient's Relationship to Policy Sapp BCBS OF [facility] PREFERRED PROVIDER ORGANIZAT ION (PPO) [facility] WEEKL Y ACTIV E Feb 20, 2017 [id number] [phone] EFFIE MILLER PATIENT [facility] PRESCRIPT ION Feb 20, 2017 [id number] EFFIE MILLER PATIENT [facility] TRICA RE DODA Mar 05, 2020 DODA [id number] EFFIE MILLER PATIENT [facility] CE ORGANIZ HMO Jan 22, 2007 (WNR) [id number] EFFIE MILLER PATIENT MED[facility]PA[facility] RX PRESCRIPT ION [address] PILGR IM July 11, 2008 [id number] EFFIE MILLER PATIENT [facility] M[facility] Oct 09, 2008 [id number] EFFIE MILLER PATIENT [facility] SELEC T TAMP Mar 14, 2021 [id number] [phone] EFFIE MILLER PATIENT [facility] PRIME -ACTI VE DUTY Mar 05, 2020 [id number] [phone] EFFIE MILLER PATIENT [facility] Dec 18, 2018 SELECT [id number] [phone] EFFIE MILLER PATIENT Selected Encounter This section includes the information on record at [place] for the Encounter. Date/Time Encounter Type Encounter Description Reason Provider Source Feb 07, 2024 02:22 PM Outpatient Encounter PRIMARY CARE/MEDICINE JANETT SMITH [facility] Encounter Template Text not used by DE Plan of Treatment: Future Appointments (+ 6 months) and Future Tests (+/- 45 days) The Plan of Treatment section includes future care activities for the patient [facility] [place] [facility]. This section includes future appointments and future orders which are active, pending or scheduled. Future Appointments This section includes appointments that were scheduled to occur 6 months from the date of the Encounter, up to a maximum of 20 appointments. The data comes from all [facility] facilities. Appointment Date/Time Appointment Type Appointme nt Facility Name Feb 19, 2024 08:30 AM AMBULATORY - MEDICINE [facility] Mar 06, 2024 11:00 AM AMBULATORY - MEDICINE [facility] Active, Pending, and Scheduled Orders This section includes a listing of several types of active, pending, and scheduled orders, including clinic medications orders, diagnostic test orders, procedure orders and consult orders; where the start date of the order is 45 days before the date of the Encounter or 45 days after the date of theEncounter. The data comes from all [facility] facilities. Test Date/Time Test Type Test Details Facility Name Jan 04, 2024 04:41 PM Consult Order COMMUNITY CARE-UROLOGY Cons Apprenticeship Training Representative's Choice [facility] Feb 12, 2024 09:22 AM Laboratory - Chemi stry Order HEPATITIS A ANTIBODY (IGG) BLOOD (SST-SERUM) SP [facility] Feb 12, 2024 09:22 AM Laboratory - Chemi stry Order HEPATITIS B SURFACE ANTIBODY (HBsAb)- BLOOD (SST-SERUM) SP [facility] Lab Results: +/- 30 days of the encounter This section includes the Chemistry and Hematology Lab Results on record with [place] for the patient. Radiology Reports and Pathology Reports are provided separately, in subsequent sections. Lab Results This section contains the Chemistry/Hematology Results that were resulted 30 days before or 30 daysafter the date of the Encounter. Date/Time Source Result Type Result - Unit Interpretation Reference Range Comment Feb 12, 2024 09:22 AM [facility] BASIC METABOLIC PANEL (fasting) Specimen Type: SERUM No comment entered. Ordering Provider: SAM TOLBERT Report Released Date/Time: Aug 29, 2023 09:57 AM Reporting Lab: [address] [phone] Performing Lab: [address] [address] UREA NITROGEN 13 mg/dL 7-25 GLUCOSE 102 mg/dL H 65-100 SODIUM 137 mmol/L 135-145 POTASSIUM 4.4 mmol/L 3.5-5.0 CHLORIDE 101 mmol/L 100-110 CO2 26 meq/L 20-30 CREATININE, Serum 0.88 mg/dL 0.50-1.40 eGFR(CKD-EPI 2020) >90 mL/min >60 Feb 12, 2024 09:22 AM [facility] LIVER FUNCTION Specimen Type: SERUM No comment entered. Ordering Provider: SAM TOLBERT Report Released Date/Time: Aug 29, 2023 09:57 AM Reporting Lab: [address] [phone] Performing Lab: [address] [address] PROTEIN,TOTAL 7.2 g/dL 6.0-8.3 ALBUMIN 4.3 g/dL 3.5-5.0 ALKALINE PHOSPHATASE 110 U/L 40-150 AST 36 U/L H 5-34 ALT 75 U/L H BILIRUBIN, TOTAL 0.9 mg/dL 0.2-1.2 Feb 12, 2024 09:22 AM [facility] LIPID PANEL FASTING Specimen Type: SERUM No comment entered. Ordering Provider: SAM TOLBERT Report Released Date/Time: Aug 29, 2023 09:57 AM Reporting Lab: [facility] [address] [facility] [phone] Performing Lab: [address] [address] CHOLESTEROL 225 mg/dL H TRIGLYCERIDE 91 mg/dL 0-150 LDL calculated 165 mg/dL H 0-129 CHOL/HDL 5.4 HDL CHOLESTEROL 42 mg/dL 40-60 Feb 12, 2024 09:22 AM [facility] HEPATITIS C ANTIBODY (HCV)-ARC Specimen Type: SERUM Comment: Hep C Ab: No HCV antibody detected. If recent infection is suspected or other evidence suggests HCV infection, consider HCV nucleic acid testing Ordering Provider: SAM TOLBERT Report Released Date/Time: Aug 29, 2023 09:57 AM Reporting Lab: [address] [phone] Performing Lab: [address] [address] HEPATITIS C ANTIBODY NON-REACTIVE NON-REACTIV E Social [...] 13, 2022 11:45 AM VA-TOBACCO NEVER USED [facility] Tobacco Use History This section includes a history of the smoking, or tobacco-related health factors, that were collected on or before the date of the Encounter. The data comes from the [place] facility where the Encounter took place. Date/Time Smoking Status/Tobacco Use Comment F acsmith Sep 05, 2021 11:29 AM VA-TOBACCO NEVER USED [place] [facility] [place] [facility] May 28, 2007 09:10 AM LIFETIME NON-TOBACCO USER [place] [facility] [place] [facility] Advance Directives: All historical and [...] Aug 29, 2023 ADVANCE DIRECTIVE KRUNAL TANG [facility] [place] [facility] Encounter Notes: All associated encounter notes This section contains the clinical notes associated to the Encounter. Date/Time Encounter Note(s) Provider Source Feb 07, 2024 02:22 PM PRIMARY CARE SECUR E MESSAGING: LOCAL TITLE: PRIMARY CARE SECURE MESSAGING STANDARD TITLE: PRIMARY CARE SECURE MESSAGING DATE OF NOTE: FEB 07, 2024@14:22 ENTRY DATE: FEB 07, 2024@14:22:03 AUTHOR: JANETT SMITH EXP COSIGNER: URGENCY: STATUS: COMPLETED ------Original Message -------- Sent: 02/07/2024 10:34 AM ET From: CLAIRE MILLER To: Que TOLBERT_PRIMARY CARE_[facility] Subject: General:Blood work I have an appointment with Lillian on Jan. May I come for my blood work this week? Is there an order in the lab? Thank you, Claire Miller ------Original Message -------- Sent: 02/07/2024 02:21 PM ET From: JANETT SMITH To: CLAIRE MILLER Subject: General:Blood work Good Afternoon, Yes there are fasting lab orders that you can come in for this week. Thank you for your service, BEATRIZ Guillen - PACT Osteology Teacher /es/ JANETT SMITH RN REGISTERED NURSE Signed: 02/07/2024 14:22 JANETT SMITH [facility]
--- OUTSIDE RECORDS SUMMARY | 2024-02-13 16:08 | XMS_ITS | Encounter Summary ---
Author Name Department of [place] Organization [place] Address [address] [place] [address] Care Team Providers Care Humane Officer Name Role Phone JANIE TOLBERT Primary Care [...] WEEKL Y ACTIV E Feb 20, 2017 [id number] EFFIE FOOTE PATIENT [facility] PRESCRIPT ION Feb 20, 2017 [id number] EFFIE FOOTE PATIENT [facility] TRICA RE DODA Mar 05, 2020 DODA [id number] [phone] EFFIE FOOTE PATIENT [facility] CE ORGANIZ HMO Jan 22, 2007 (WNR) [id number] EFFIE FOOET PATIENT MEDIMPACT RX PRESCRIPT ION [address] PILGR IM July 11, 2008 [id number] EFFIE FOOTE PATIENT [facility] M[facility] Oct 09, 2008 [id number] EFFIE FOOTE PATIENT [facility] SELEC T TAMP Mar 14, 2021 [id number] EFFIE FOOTE PATIENT [facility] PRIME -ACTI VE DUTY Mar 05, 2020 [id number] EFFIE FOOTE PATIENT [facility] Dec 18, 2018 SELECT [id number] EFFIE FOOTE PATIENT Selected Encounter This section includes the information on record at [place] for the Encounter. Date/Time Encounter Type Encounter Description Reason Pro vider Source Jan 05, 2024 12:00 AM Outpatient Encounter COMMUNITY CARE CONSULT IHE Encounter Template Text not used by [place] Plan of Treatment: Future Appointments (+ 6 months) and Future Tests (+/- 45 days) The Plan of Treatment section includes future care activities for the patient from all [place] [facility] This section includes future appointments and future orders which are active, pending or scheduled. Future Appointments This section includes appointments that were scheduled to occur 6 months from the date of the Encounter, up to a maximum of 20 appointments. The data comes from all [facility] facilities. Appointment Date/Time Appointment Type Appointme nt Facility Name Feb 01, 2024 08:30 AM AMBULATORY - MEDICINE [facility] Feb 19, 2024 08:30 AM AMBULATORY - MEDICINE [facility] Mar 06, 2024 11:00 AM AMBULATORY MEDICINE [facility] Active, Pending, and Scheduled Orders This section includes a listing of several types of active, pending, and scheduled orders, including clinic medications orders, diagnostic test orders, procedure orders and consult orders; where the start date of the order is 45 days before the date of the Encounter or 45 days after the date of theEncounter. The data comes from all [facility]. Test Date/Time Test Type Test Details Facility Name Jan 04, 2024 04:41 PM Consult Order COMMUNITY CARE-UROLOGY [facility] Feb 12, 2024 09:22 AM Laboratory - Chemi stry Order HEPATITIS A ANTIBODY (IGG) BLOOD (SST-SERUM) SP [facility] Feb 12, 2024 09:22 AM Laboratory - Chemi stry Order HEPATITIS B SURFACE ANTIBODY (HBsAb)-WH BLOOD (SST-SERUM) SP [facility] Social History: Smoking Status (Most current) and Tobacco Use (All prior to encounter date) This section includes the most current, and the historical, smoking and tobacco- related health factors from the [place] facility where the Encounter took place. Current Smoking Status This section includes the most current smoking, or tobacco-related health factor, from the [place] facility where the Encounter took place. Date/Time Current Smoking Status Comment Facil ity Oct 13, 2022 11:45 AM [place]-TOBACCO NEVER USED [facility] Tobacco Use History This section includes a history of the smoking, or tobacco-related health factors, that were collected on or before the date of the Encounter. The data comes from the [place] facility where the Encounter took place. Date/Time Smoking Status/Tobacco Use Comment F acility Sep 05, 2021 11:29 AM SD-TOBACCO NEVER USED [facility] May 28, 2007 09:10 AM LIFETIME NON-TOBACCO USER [facility] Advance Directives: All historical and current [...] Aug 29, 2023 ADVANCE DIRECTIVE KRUNAL TANG [facility] Encounter Notes: All associated encounter notes This section contains the clinical notes associated to the Encounter. Date/Time Encounter Note(s) Provider Source Jan 05, 2024 12:00 AM NONVA CONSULT: LOCAL TITLE: COMMUNITY CARE-CONSULT RESULT NOTE STANDARD TITLE: NONVA CONSULT DATE OF NOTE: JAN 05, 2024 ENTRY DATE: JAN 30, 2024@16:22:58 AUTHOR: DARREL TALAMANTES EXP COSIGNER: URGENCY: STATUS: COMPLETED VistA Imaging - Scanned Document SCANNED DOCUMENT SIGNATURE NOT REQUIRED Electronically Filed: 01/30/2024 by: DARREL PADILLA [facility]L [facility]
== END 2024-02-13 16:04 | disposition home or self-care (01) ==
LOC: HO.CT 16:03
PROVIDERS: PCP Physician Assistant; Visit Provider Urology
DX: N20.0 Calculus of kidney (principal)
CPT/HCPCS: 74176

== ENCOUNTER → 2024-02-13 16:05 | Outpatient (BNV) | payer OTHER, SELFPAY | PROVIDERS: PCP Physician Assistant; Visit Provider Radiology Diagnostic Radiology | DX: K44.0 Diaphragmatic hernia with obstruction, without gangrene (principal) | CPT/HCPCS: 74176 ==

== ENCOUNTER 2024-05-20 12:09 | Outpatient (REF) | payer OTHER, SELFPAY ==
--- NOTE | ~2024-05-20 | US_ITS ---
CLINICAL HISTORY: N20.0 - Calculus of kidney US Renal Comparison: US/NY/SR - US RETROPERITONEAL COMP - 06/19/23 09:48 EDT Findings: Right kidney normal size and echotexture, 12.9 cm length. Left kidney normal size and echotexture, 11.9 cm length. No collecting system dilatation of either kidney. Normal color Doppler. IMPRESSION: 1. Normal kidneys. This document has been electronically signed by: Janny Dong MD on 05/20/2024 15:29:55
[2024-05-20 13:10] LABS: Prostate Specific Antigen 5.53 ng/mL (<0.05-4.0)
== END 2024-05-20 12:10 | disposition home or self-care (01) ==
LOC: HO.US 12:09
PROVIDERS: PCP Physician Assistant; Visit Provider Urology
DX: N20.0 Calculus of kidney (principal); Z12.5 Encounter for screening for malignant neoplasm of prostate
CPT/HCPCS: 36415; 76775; 84153

== ENCOUNTER → 2024-05-20 12:28 | Outpatient (BNV) | payer OTHER, SELFPAY | PROVIDERS: PCP Physician Assistant; Visit Provider Radiology Diagnostic Radiology | DX: N20.0 Calculus of kidney (principal) | CPT/HCPCS: 76775 ==

== ENCOUNTER 2024-07-01 13:17 | Outpatient (AMB) | payer OTHER, SELFPAY ==
--- OUTSIDE RECORDS SUMMARY | 2024-07-01 13:38 | XMS_ITS | Encounter Summary ---
Author Name [facility] [place] Organization [facility] [place] Address [address] [place] [address] Care Team Providers Care Battery Assembler Name Role Phone MIRIAM VASQUEZ Primary Care Provider JANIE Mayers Primary Care Provider Unavail able Insurance Providers: All historical and current Section [...] Patient's Relationship to Policy Sapp BCBS OF [facility] PREFERRED PROVIDER ORGANIZAT ION (PPO) MG WEEKL Y ACTIV E Feb 20, 2017 [id number] EFFIE FOOTE PATIENT [facility] PRESCRIPT ION Feb 20, 2017 [id number] [phone] EFFIE FOOTE PATIENT [facility] TRICA RE DODA* Mar 05, 2020 DODA [id number] [phone] EFFIE FOOTE [facility] CE ORGANIZ HMO Jan 22, 2007 (WNR) [id number] EFFIE FOOTE PATIENT MEDIMPACT RX PRESCRIPT ION [address] PILGR July 11, 2008 [id number] [phone] EFFIE FOOTE PATIENT [facility] Oct 09, 2008 [id number] [phone] EFFIE FOOTE PATIENT [facility] SELEC T TAMP Mar 14, 2021 [id number] EFFIE FOOTE PATIENT [facility] Dec 18, 2018 SELECT [id number] [phone] EFFIE FOOTE PATIENT Selected Encounter This section includes the information on record at DC for the Encounter. Date/Time Encounter Type Encounter Description Reason Provider Source Mar 06, 2024 11:00 AM OFFICE O/P EST HI 40 MIN DERMATOLOGY ICD-10-CM C44.91 Basal cell carcinoma of skin, unspecified ANANYA VALDEZ Andrew Encounter Template Text not used by [facility] Assessments - Encounter Diagnoses This section includes the primary and secondary diagnoses documented for the Encounter. Date/Time Primary/Secondary Diagnosis Diagnosis Name Provider Source Mar 06, 2024 12:28 PM PRIMARY Basal cell carcinoma of skin, unspecified LIZETTE VALDEZ [facility] [place] [facility] Mar 06, 2024 12:28 PM SECONDARY Family history of malignant neoplasm of organs or systems LIZETTE VALDEZ [facility] [place] [facility] Mar 06, 2024 12:28 PM SECONDARY Nevus, non-neoplastic LIZETTE VALDEZ [facility] [place] [facility] Mar 06, 2024 12:28 PM SECONDARY Other melanin hyperpigmentation LIZETTE VALDEZ [facility] [place] [facility] Mar 06, 2024 12:28 PM SECONDARY Other seborrheic keratosis LIZETTE VALDEZ [facility] [place] [facility] Mar 06, 2024 12:28 PM SECONDARY Personal history of other malignant neoplasm of skin LIZETTE VALDEZ [facility] [place] [facility] Mar 06, 2024 12:28 PM SECONDARY Tinea unguium LIZETTE VALDEZ [facility] [place] [facility] Mar 06, 2024 12:28 PM SECONDARY Xerosis cutis LIZETTE VALDEZ [facility] [place] [facility] Plan of Treatment: Future Appointments (+ 6 months) and Future Tests (+/- 45 days) The Plan of Treatment section includes future care activities for the patient from all [place] [facility] This section includes future appointments and future orders which are active, pending or scheduled. Future Appointments This section includes appointments that were scheduled to occur 6 months from the date of the Encounter, up to a maximum of 20 appointments. The data comes from all [facility] facilities. Appointment Date/Time Appointment Type Appointme nt Facility Name Apr 16, 2024 10:30 AM [facility] Apr 16, 2024 11:15 AM [facility] NONE [facility] Apr 23[facility] 2024 01:00 PM [facility] Apr 23, 2024 01:00 PM [facility] May 09, 2024 02:00 PM [facility] Aug 13, 2024 11:00 AM AMBULATORY - MEDICINE [facility] Active, Pending, and Scheduled Orders This section includes a listing of several types of active, pending, and scheduled orders, including clinic medications orders, diagnostic test orders, procedure orders and consult orders; where the start date of the order is 45 days before the date of the Encounter or 45 days after the date of theEncounter. The data comes from all [facility]. Test Date/Time Test Type Test Details Facility Name Feb 20, 2024 01:38 PM Consult Order [facility]- PSYCHOTHERAPY Cons [place] [place] [facility] Mar 06, 2024 12:00 AM Laboratory - Chemistry Order ALBUMIN BLOOD (SST-SERUM) [facility] Mar 06, 2024 06:10 PM Laboratory - Chemistry Order PT & INR (PROTIME) BLOOD (BLUE-PLASMA) [facility] Lab Results: +/- 30 days of the encounter This section includes the Chemistry and Hematology Lab Results on record with DC for the patient. Radiology Reports and Pathology Reports are provided separately, in subsequent sections. Lab Results This section contains the Chemistry/Hematology Results that were resulted 30 days before or 30 daysafter the date of the Encounter. Date/Time Source Result Type Result - Unit Interpretation Reference Range Specimen Type Comment Feb 12, 2024 09:22 AM [facility] HEPATITIS A ANTIBODY (IGG) SERUM Specimen Typ e: SERUM Comment: Hepatitis A IgG: A 'Reactive' result indicates previous exposure to Hepatitis A virus through infection or vaccination. Ordering Provider: ANSHUL TOLBERT AM Report Released Date/Time: Aug 29, 2023 09:57 AM Reporting Lab: [address] [address] Performing Lab: [address] [address] HEPATITIS A ANTIBODY (IGG) REACTIVE Non Reactive Feb 12, 2024 09:22 AM [facility] HEPATITIS B SURFACE ANTIBODY (HBsAb)-WH SERUM Specimen Type: SERUM Comment: Hep B Surface Ab: A 'Reactive' result indicates HBsAb results >/= 12.0 mIU/mL and immunity to HBV infection. Ordering Provider: JANIE TOLBERT Report Released Date/Time: Aug 29, 2023 09:57 AM Reporting Lab: [address] [address] Performing Lab: [address] [address] HBsAb REACTIVE Non Reactive Feb 12, 2024 09:22 AM [facility] BASIC METABOLIC PANEL (fasting) SERUM Specime n Type: SERUM No comment entered. Ordering Provider: JANIE TOLBERT Report Released Date/Time: Aug 29, 2023 09:57 AM Reporting Lab: [address] [address] Performing Lab: [address] [address] UREA NITROGEN 13 mg/dL 7-25 GLUCOSE 102 mg/dL H 65-100 SODIUM 137 mmol/L 135-145 POTASSIUM 4.4 mmol/L 3.5-5.0 CHLORIDE 101 mmol/L 100-110 CO2 26 meq/L 20-30 CREATININE, Serum 0.88 mg/dL 0.50-1.40 eGFR(CKD-EPI 2020) >90 mL/min >60 Feb 12, 2024 09:22 AM [facility] LIVER FUNCTION SERUM Specimen Type: SERUM No comment entered. Ordering Provider: AJNIE TOLBERT Report Released Date/Time: Aug 29, 2023 09:57 AM Reporting Lab: [facility] [address] [address] Performing Lab: [facility] [address] [address] PROTEIN,TOTAL 7.2 g/dL 6.0-8.3 ALBUMIN 4.3 g/dL 3.5-5.0 ALKALINE PHOSPHATASE 110 U/L 40-150 AST 36 U/L H 5-34 ALT 75 U/L H BILIRUBIN, TOTAL 0.9 mg/dL 0.2-1.2 Feb 12, 2024 09:22 AM [facility] HEPATITIS C ANTIBODY (HCV)-ARC SERUM Specimen Type: SERUM Comment: Hep C Ab: No HCV antibody detected. If recent infection is suspected or other evidence suggests HCV infection, consider HCV nucleic acid testing Ordering Provider: JANIE TOLBERT Report Released Date/Time: Aug 29, 2023 09:57 AM Reporting Lab: [facility] [address] [address] Performing Lab: [address] [address] HEPATITIS C ANTIBODY NON-REACTIVE NON-RE ACTIVE Feb 12, 2024 09:22 AM [facility] LIPID PANEL FASTING SERUM Specimen Type: SERU M No comment entered. Ordering Provider: JANIE TOLBERT Report Released Date/Time: Aug 29, 2023 09:57 AM Reporting Lab: [facility] [address] [address] Performing Lab: [address] [address] CHOLESTEROL 225 mg/dL H TRIGLYCERIDE 91 mg/dL 0-150 LDL calculated 165 mg/dL H 0-129 CHOL/HDL 5.4 HDL CHOLESTEROL 42 mg/dL 40-60 Social History: Smoking Status (Most current) and Tobacco Use (All prior to encounter date) This section includes the most current, and the historical, smoking and tobacco- related health factors from the DC facility where the Encounter took place. Current Smoking Status This section includes the most current smoking, or tobacco-related health factor, from the [place] facility where the Encounter took place. Date/Time Current Smoking Status Comment Facil ity Feb 19, 2024 08:30 AM VA-TOBACCO NEVER U SED CIGARETTES [facility] [place] [facility] Tobacco Use History This section includes a history of the smoking, or tobacco-related health factors, that were collected on or before the date of the Encounter. The data comes from the DC facility where the Encounter took place. Date/Time Smoking Status/Tobacco Use Comment F acility Feb 19, 2024 08:30 AM VA-TOBACCO NEVER U SED OTHER TYPE [facility] [place] [facility] Oct 13, 2022 11:45 AM VA-TOBACCO NEVER USED [facility] [place] [facility] Sep 05, 2021 11:29 AM VA-TOBACCO NEVER USED [facility] [place] [facility] May 28, 2007 09:10 AM LIFETIME NON-TOBACCO USER [facility] [place] [facility] Advance Directives: All historical and current Section Date Range: From patient's date of to the date document was created. This section includes ALL of a patient's completed or amended DC Advance and Rescinded Directives. The entries below indicate that a directive exists for the patient, but an actual copy is not included with this document. The data comes from all [place] facilities. Date Advance Directives Provider Source Aug 29, 2023 ADVANCE DIRECTIVE KRUNAL TANG [facility] [place] [facility] Radiology Reports: +/- 30 days of the encounter Radiology Reports For cases when an order for radiology services may have been completed prior to the date of the Encounter, the report list includes the Radiology Reports that were completed up to 30 days before dateof the Encounter. For cases when an order for radiology services may have been completed after the date of the Encounter, the report list also includes the Radiology Reports that were completed up to30 days after date of the Encounter. The data comes from all [place] treatment facilities. Date/Time Radiology Report Provider Source Mar 06, 2024 10:14 AM ABDOMINAL ULTRASOU ND: CLAIRE FOOTE [id number] [id number] M Exm Date: MAR 06, 2024@10:14 Req Phys: JANIE TOLBERT Loc: CWM/NO/PACT 3 (Req'g Loc) Img Loc: ULTRASOUND Service: Unknown [place] [address] (Case [id number] COMPLETE) ULTRASOUND ABDOMEN LIMITED (US Detailed) CPT:30688 Reason for Study: liver function test elevations. Clinical History: Report Status: Verified Date Reported: MAR 06, 2024 Date Verified: MAR 06, 2024 Fence Erector Supervisor E-Sig:/ES/ETTA ERIC JR Report: Study: Abdominal ultrasound. Comparison: None. Findings: Hepatomegaly is present measuring at least 16.0 cm in long length. (Normal is less than 15.0 cm.) The liver is diffusely increased in echogenicity consistent with hepatic steatosis/fibrosis. No intrahepatic bile duct dilatation is seen. Within the right lobe of the liver there is a focal poorly circumscribed region of increased echogenicity with normal color flow. No focal hepatic mass is seen. The portal vein is patent with normal hepatopedal flow. The common hepatic duct measures 0.34 cm, which is normal. The spleen is normal and measures 10.0 cm in length. The visualized pancreas is normal. The gallbladder is normal. No gallstones are identified. There is a negative sonographic Foote sign present. No ascites is identified. Impression: Hepatic steatotic/fibrotic changes with vague area of increased echogenicity within the right lobe of the liver. Further evaluation with CT or MRI of the abdomen using contrast is recommended. Primary Diagnostic Code: Significant Abnormality Attention Needed Primary Interpreting Staff: ETTA ERIC JR, Radiologist (Fence Erector Supervisor) /ETTA LARIOS JR [facility] Encounter Notes: All associated encounter notes This section contains the clinical notes associated to the Encounter. Date/Time Encounter Note(s) Provider Source Mar 06, 2024 11:04 AM DERMATOLOGY OUTPATIENT NOTE: LOCAL TITLE: DERMATOLOGY CLINIC NOTE STANDARD TITLE: DERMATOLOGY OUTPATIENT NOTE DATE OF NOTE: MAR 06, 2024@11:04 ENTRY DATE: MAR 06, 2024@11:04:24 AUTHOR: BUDREWICZ,THEODORE EXP COSIGNER: URGENCY: STATUS: COMPLETED MAR 06, 2024 CLAIRE FOOTE May 58 PATIENT PHONE - [phone] Patient here for FOLLOW UP CHIEF COMPLAINT: h/o multiple NMSCs, FamHx MM HPI: Reviewed records from last Dermatology visit: 09/13/23; s/p Bx x3, L lateral neck, L mid dorsal forearm, L low back - all returning as BCCs with two closely approaching margins. [place] denies any new/changing/bleeding/non- healing lesions. Leaving tomorrow for a month jayashree to [place]! REVIEW OF SYSTEMS: Constitutional-neg Skin/Hair/Nails-see HPI DermHx: -snBCC, L lateral neck, Bx 08/2023 approaching deep margins -nBCC, L mid dorsal forearm, completely excised with Bx 08/2023 -nBCC, L low back, Bx 08/2023, approaching deep margins -BCC, L cheek s/p Mohs 11/2021 at [facility] -BCC, L nasal ala s/p Mohs 06/2019 at [facility] -pnBCC, central chest s/p excision 2019 -BCC, R jewish s/p ED&C 2018 -snBCC, Mid lower back [...] 1% TOP SOLN APPLY THIN LAYER TOPICALLY TWICE ACTIVE DAILY FOR FUNGAL INFECTION Indication: FOR FUNGAL INFECTION OF NAIL 2) TAMSULOSIN HCL 0.4MG CAP TAKE ONE CAPSULE BY MOUTH AT ACTIVE BEDTIME 3) TERBINAFINE HCL 1% CREAM APPLY A THIN LAYER TOPICALLY TWICE ACTIVE DAILY APPLY UP TO 1-4 WEEKS UNTIL RASH RESOLVES Indication: FOR RINGWORM OF GROIN AREA Active Non-VA Medications Status 1) Non-VA FISH OIL 1000MG (500MG DHA/EPA) CAP 1000MG BY MOUTH ACTIVE ONCE DAILY 2) Non-VA MULTIVITAMIN W/MINERAL TAB BY MOUTH ACTIVE 3) Non-VA VITAMIN D3 (CHOLECALCIFEROL) TAB BY MOUTH ACTIVE 6 Total Medications PHYSICAL EXAM: Reyes Skintype I-II General-AxOx3, NAD, pleasant, breathing unlabored, speech clear Cutaneous examination, as permitted by the patient, including scalp, face, eyes, ears, neck, back, arms, hands, fingers, legs, feet, toes Pertinent findings per below: -multiple scattered well healed surgical scars, no evidence of abnormal pigmentation or lesion -L low back, well healed surgical scar, no evidence of abnormal pigmentation or lesion -L lateral neck, well healed surgical scar, no evidence of abnormal pigmentation or lesion -L mid dorsal forearm, well healed surgical scar, no evidence of abnormal pigmentation or lesion -Multiple toenails thickened with yellowish discoloration and onycholysis -Multiple scattered stuck-on appearing waxy maria and brown papules and plaques with noted milia-like cysts, comedo-like openings and fissures/ridges on dermoscopy. -Scattered uniformly pigmented light maria and brown jagged macules in sun distributed areas. -Multiple scattered symmetrical evenly pigmented brown macules and papules, most under 6mm. -L mid back, 1cm thin erythematous papule with prominent vasculature on dermoscopy -R mid back with a 5mm thin erythematous papule with prominent vasculature on dermoscopy -R upper arm 6mm thin erythematous papule with prominent vasculature on dermoscopy -L nasal side wall with a 4mm erythematous smooth pearly papule with prominent arborizing vessels on dermoscopy -R vertex scalp with a 5mm thin erythematous papule with prominent vasculature on dermoscopy -generalized xerosis Diagnosis/Plan: #Basal Cell Carcinoma x5 -Clinical Diagnosis -Locations & Size: L mid back 1cm, R mid back 5mm, R upper arm 6mm, L nasal sidewall 4mm, R vertex scalp 5mm -Discussed Treatment options: Biopsy, Surgical Excision, ED&C, Cryosurgery, Imiquimod (5% 5x/week x6week), Topical Fluorouracil (5FU) 5% (BID x3-6weeks), Photodynamic Therapy (PDT) or Radiation Therapy. -Biopsy deferred - agreeable to destructive cryotherapy. -Liquid nitrogen cryotherapy performed as a destructive method. -Discussed with that cryotherapy is not the first-line choice of treatment due to risk of recurrence. They verablized understanding. -Side effects including but not limited to pain, redness, crusting, swelling, blistering, hypopigmentation and scarring discussed. - verbally consents to procedure. -Liquid nitrogen (3 cycles x freeze times of 20-30 sec) x #5 lesions performed with a lateral spread of 3 to 5 mm peripheral border of the visible lesion. - tolerated procedure well. -Expected results and wound care instructions discussed. -Will follow clinically -Return precautions discussed #Personal History of Non-Melanotic Skin Cancer: -No [...] is associated with vasodilatory effects including flushing. #Family History of Melanoma: -No concerning lesions [...] 1% solution, apply daily to affected nails. #Seborrheic Keratoses: -The was educated regarding the benign nature, but [...] change or symptoms in area. -Photoprotection discussed. #Xerosis -Advised liberal emollients RTC 6-12m, sooner PRN * [place] educated to RTC dusty if any new, changing, symptomatic lesions. * Education on sun protection and avoidance strategies was provided. * Differential diagnosis, prescription options and risks/benefits were discussed with the patient, who consented to treatment plan. * [place] consented to photography for documentation if indicated. * A dermatoscope was used during the exam. * NUB = Neoplasm of Uncertain Behavior of Skin * NMSC = Nonmelanoma Skin Cancer * AK = Actinic Keratosis ------TIME ESTIMATION To include but not limied [...] of active outpatient prescriptions dispensed from this DC (local) and dispensed from another DC or DoD facility (remote) as well as [...] JLV. Allergies/ADRs (Tool #5) FACILITY ALLERGY/ADR -------- [facility] [place] [facility] [place] [facility] Med Recon NoGlossary (Tool #1) INCLUDED IN THIS LIST: Alphabetical list of active outpatient prescriptions dispensed from this DC (local) and dispensed from another DC or DoD facility (remote) as well as inpatient orders (local pending and active), local clinic medications, locally documented non-VA medications, and local prescriptions that have or been discontinued in the past 90 days. Non-VA Meds Last Documented On: Feb 28, 2023 NOTE The display of VA prescriptions dispensed from another DC or [facility] facility (remote) is limited to active outpatient prescription entries matched to National Drug File at the originating site and may not include some items such as investigational drugs, compounds, etc. NOT INCLUDED IN THIS LIST: Medications self-entered by the patient into personal health records (i.e. [employer]) are NOT included in this list. Non-VA medications documented outside this DC, remote inpatient orders (regardless of status) and remote clinic medications are NOT included in this list. The patient and provider must always discuss medications the patient is taking, regardless of where the medication was dispensed or obtained. OUTPT CLOTRIMAZOLE 1% TOP SOLN (Status = Active/Suspended) APPLY THIN LAYER TOPICALLY TWICE DAILY FOR FUNGAL INFECTION Rx# [id number] Last Released: 08/19/23 Qty/Days Supply: Rx Expiration Date: 08/16/24 Refills Remainin Indication: FOR FUNGAL INFECTION OF NAIL OUTPT FAMOTIDINE 20MG TAB (Status = ) TAKE ONE TABLET BY MOUTH TWICE DAILY NEEDED FOR STOMACH ACID Rx# [id number] Last Released: 08/28/23 Qty/Days Supply: Rx Expiration Date: 01/05/24 Refills Remainin Non-VA FISH OIL 1000MG (500MG DHA/EPA) CAP TAKE 1 CAPSULE BY MOUTH ONCE DAILY Non-VA MULTIVITAMIN W/MINERAL TAB TAKE BY MOUTH OUTPT PYRIDOXINE HCL 100MG TAB (Status = Discontinued) TAKE ONE TABLET BY MOUTH ONCE DAILY FOR VITAMIN B6 SUPPLEMENTATION Rx# [id number] Last Released: 07/05/23 Qty/Days Supply: Rx Expiration Date: 07/03/24 Refills Remainin OUTPT TAMSULOSIN HCL 0.4MG CAP (Status = Active) TAKE ONE CAPSULE BY MOUTH AT BEDTIME Rx# [id number] Last Released: 01/08/24 Qty/Days Supply: Rx Expiration Date: 09/25/24 Refills Remainin OUTPT TERBINAFINE HCL 1% CREAM (Status = Active/Suspended) APPLY A THIN LAYER TOPICALLY TWICE DAILY FOR RINGWORM OF GROIN AREA APPLY UP TO 1-4 WEEKS UNTIL RASH RESOLVES Rx# [id number] Last Released: 08/19/23 Qty/Days Supply: Rx Expiration Date: 08/16/24 Refills Remainin Indication: FOR RINGWORM OF GROIN AREA Non-VA VITAMIN D3 (CHOLECALCIFEROL) TAB TAKE BY MOUTH ONCE DAILY SUPPLIES /kaleb/ THEODORE VALDEZ DNP, ELECTRONIC TRAIN CONTROL TECHNICIAN-C NURSE PRACTITIONER Signed: 03/06/2024 12:28 THEODORE VALDEZ [facility]
--- OUTSIDE RECORDS SUMMARY | 2024-07-01 13:39 | XMS_ITS | Encounter Summary ---
Author Name [facility] [place] Address [address] [place] [address] Care Team Providers Care In Store Banker Name Role Phone MIRIAM VASQUEZ Primary Care Provider ABDELRAHMAN Mayers Primary Care Provider Unavail able Insurance [...] Patient's Relationship to Policy Sapp BCBS OF [facility] PREFERRED PROVIDER ORGANIZAT ION (PPO) MG WEEKL Y ACTIV E Feb 20, 2017 [id number] [phone] EFFIE FOOTE PATIENT CAREMARK PRESCRIPT ION Feb 20, 2017 [id number] [phone] EFFIE FOOTE PATIENT [employer] [facility] TRICA RE DODA* Mar 05, 2020 DODA [id number] [phone] EFFIE FOOTE PATIENT FORMERLY NAMED [facility] CE ORGANIZ HMO Jan 22, 2007 (WNR) [id number] EFFIE FOOTE PATIENT MEDIMPACT RX PRESCRIPT ION [address] PILGR July 11, 2008 [id number] EFFIE FOOTE PATIENT [facility] Oct 09, 2008 [id number] EFFIE FOOTE PATIENT [facility] SELEC T TAMP Mar 14, 2021 [id number] [phone] EFFIE FOOTE PATIENT [facility] Dec 18, 2018 SELECT [id number] [phone] EFFIE FOOTE PATIENT Selected Encounter This section includes the information on record at [place] for the Encounter. Date/Time Encounter Type Encounter Description Reason Provider Source Feb 19, 2024 08:30 AM OFFICE O/P EST LOW 20 MIN PRIMARY CARE/MEDICINE ICD-10-CM K21.9 Gastro-esophageal reflux disease without esophagitis VANWAGNER,WILL CHOLO F [facility] Encounter Template Text not used by [place] Assessments - Encounter Diagnoses This section includes the primary and secondary diagnoses documented for the Encounter. Date/Time Primary/Secondary Diagnosis Diagnosis Name Provider Source Feb 19, 2024 05:02 PM PRIMARY Gastro-esophageal reflux disease without esophagitis VANWAGNER,WILL CHOLO F [place] [facility] [place] [facility] Feb 19, 2024 05:02 PM SECONDARY Basal cell carcinoma of skin, unspecified VANWAGNER,WILL CHOLO F [place] [facility] [place] [facility] Feb 19, 2024 05:02 PM SECONDARY Contact with and exposure to other hazardous substances VANWAGNER[facility]WILL [facility]OLO F [place] [facility] Feb 19, 2024 05:02 PM SECONDARY Elevated prostate specific antigen [PSA] VANWAGNER,WILL CHOLO F [place] [facility] [place] [facility] Feb 19, 2024 05:02 PM SECONDARY Family history of malignant neoplasm of organs or systems VANWAGNER,WILL CHOLO F [place] [facility] Feb 19, 2024 05:02 PM SECONDARY Hyperlipidemia, unspecified VANWAGNER,WILL CHOLO F [facility] Plan of Treatment: Future Appointments (+ [...] Appointment Type Appointme nt Facility Name Feb 23, 2024 01:00 PM AMBULATORY - PS[place]IATRY [place] [facility] [place] [facility] Mar 06, 2024 10:30 AM AMBULATORY - NONE [place] [facility] [place] [facility] Mar 06, 2024 11:00 AM AMBULATORY - MEDICINE [facility] [place] [facility] Apr 16, 2024 10:30 AM AMBULATORY - NONE [facility] [place] [facility] Apr 16, 2024 11:15 AM AMBULATORY - NONE [place] [facility] [place] [facility] Apr 23, 2024 01:00 PM AMBULATORY - MEDICINE [facility] [place] Apr 23, 2024 01:00 PM AMBULATORY - NONE [place] [facility] [place] [facility] May 09, 2024 02:00 PM AMBULATORY - MEDICINE [place] [facility] [place] [facility] Aug 13, 2024 11:00 AM AMBULATORY - MEDICINE [place] [facility] [place] [facility] Active, Pending, and Scheduled Orders This section includes a listing of several types of active, pending, and scheduled orders, including clinic medications orders, diagnostic test orders, procedure orders and consult orders; where the start date of the order is 45 days before the date of the Encounter or 45 days after the date of theEncounter. The data comes from all [facility]. Test Date/Time Test Type Test Details Facility Name Feb 20, 2024 01:38 PM Consult Order [facility]- PSYCHOTHERAPY Cons Medical Aides Teacher's Choice [place] [facility] [facility] Mar 06, 2024 12:00 AM Laboratory - Chemistry Order ALBUMIN BLOOD (SST-SERUM) [facility] [place] [facility] Mar 06, 2024 06:10 PM Laboratory - Chemistry Order PT & INR (PROTIME) BLOOD (BLUE-PLASMA) [facility] [place] [facility] Lab Results: +/- 30 days of the encounter This section includes the Chemistry and Hematology Lab Results on record with [facility] for the patient. Radiology Reports and Pathology Reports are provided separately, in subsequent sections. Lab Results This section contains the Chemistry/Hematology Results that were resulted 30 days before or 30 daysafter the date of the Encounter. Date/Time Source Result Type Result - Unit Interpretation Reference Range Specimen Type Comment Feb 12, 2024 09:22 AM [facility] HEPATITIS A ANTIBODY (IGG) SERUM Specimen Typ e: SERUM Comment: Hepatitis A IgG: A 'Reactive' result indicates previous exposure to Hepatitis A virus through infection or vaccination. Ordering Provider: ANSHUL SNYDER AM Report Released Date/Time: Aug 29, 2023 09:57 AM Reporting Lab: [address] [address] Performing Lab: [address] [address] HEPATITIS A ANTIBODY (IGG) REACTIVE Non Reactive Feb 12, 2024 09:22 AM [facility] HEPATITIS B SURFACE ANTIBODY (HBsAb)-WH SERUM Specimen Type: SERUM Comment: Hep B Surface Ab: A 'Reactive' result indicates HBsAb results >/= 12.0 mIU/mL and immunity to HBV infection. Ordering Provider: ABDELRAHMAN SNYDER Report Released Date/Time: Aug 29, 2023 09:57 AM Reporting Lab: [address] [address] Performing Lab: [address] [address] HBsAb REACTIVE Non Reactive Feb 12, 2024 09:22 AM [facility] BASIC METABOLIC PANEL (fasting) SERUM Specime n Type: SERUM No comment entered. Ordering Provider: ABDELRAHMAN SNYDER Report Released Date/Time: Aug 29, 2023 09:57 AM Reporting Lab: [address] [address] Performing Lab: [address] [address] UREA NITROGEN 13 mg/dL 7-25 GLUCOSE 102 mg/dL H 65-100 SODIUM 137 mmol/L 135-145 POTASSIUM 4.4 mmol/L 3.5-5.0 CHLORIDE 101 mmol/L 100-110 CO2 26 meq/L 20-30 CREATININE, Serum 0.88 mg/dL 0.50-1.40 eGFR(CKD-EPI 2020) >90 mL/min >60 Feb 12, 2024 09:22 AM [facility] LIVER FUNCTION SERUM Specimen Type: SERUM No comment entered. Ordering Provider: ABDELRAHMAN SNYDER Report Released Date/Time: Aug 29, 2023 09:57 AM Reporting Lab: [facility] [address] [facility] [address] Performing Lab: [address] [address] PROTEIN,TOTAL 7.2 g/dL 6.0-8.3 ALBUMIN 4.3 g/dL 3.5-5.0 ALKALINE PHOSPHATASE 110 U/L 40-150 AST 36 U/L H 5-34 ALT 75 U/L H BILIRUBIN, TOTAL 0.9 mg/dL 0.2-1.2 Feb 12, 2024 09:22 AM [facility] HEPATITIS C ANTIBODY (HCV)-ARC SERUM Specimen Type: SERUM Comment: Hep C Ab: No HCV antibody detected. If recent infection is suspected or other evidence suggests HCV infection, consider HCV nucleic acid testing Ordering Provider: ABDELRAHMAN SNYDER Report Released Date/Time: Aug 29, 2023 09:57 AM Reporting Lab: [facility] [address] [facility] [address] Performing Lab: [address] [address] HEPATITIS C ANTIBODY NON-REACTIVE NON-RE ACTIVE Feb 12, 2024 09:22 AM [facility] LIPID PANEL FASTING SERUM Specimen Type: SERU M No comment entered. Ordering Provider: ABDELRAHMAN SNYDER Report Released Date/Time: Aug 29, 2023 09:57 AM Reporting Lab: [facility] [address] [facility] [address] Performing Lab: [address] [address] CHOLESTEROL 225 mg/dL H TRIGLYCERIDE 91 mg/dL 0-150 LDL calculated 165 mg/dL H 0-129 CHOL/HDL 5.4 HDL CHOLESTEROL 42 mg/dL 40-60 Vital Signs: All taken on the encounter date This section contains inpatient and outpatient Vital Signs collected on the date of the Encounter. Date/Time Temperature Pulse Blood Pressure Respiratory Rate SP02 Pain Height Weight Body Mass Index Source Feb 19, 2024 08:07 AM 98 55 128/64 16 95 0 74 197.6 25 [place] [facility] Social History: Smoking Status (Most current) [...] Facil ity Feb 19, 2024 08:30 AM [place]-TOBACCO NEVER U SED [facility]IG[facility]TES [facility] Tobacco Use History This section includes a history of the smoking, or tobacco-related health factors, that were collected on or before the date of the Encounter. The data comes from the [place] facility where the Encounter took place. Date/Time Smoking Status/Tobacco Use Comment F acility Feb 19, 2024 08:30 AM [place]-TOBACCO NEVER U SED OTHER TYPE [place] [facility] Oct 13, 2022 11:45 AM VA-TOBACCO NEVER USED [place] [facility] Sep 05, 2021 11:29 AM VA-TOBACCO NEVER USED [facility] May 28, 2007 09:10 AM LIFETIME NON-TOBACCO USER [facility] Advance Directives: All historical and [...] Aug 29, 2023 ADVANCE DIRECTIVE KRUNAL TANG [facility] Radiology Reports: +/- 30 days of [...] comes from all [place] treatment facilities. Date/Time Radiology Report Provider Source Mar 06, 2024 10:14 AM ABDOMINAL ULTRASOU ND: CLAIRE FOOTE [id number] -[id number] M Exm Date: MAR 06, 2024@10:14 Req Phys: ABDELRAHMAN SNYDER Loc: CWM/NO/PACT 3 (Req'g Loc) Img Loc: ULTRASOUND Service: [facility] [place] [address] (Case [id number] COMPLETE) ULTRASOUND ABDOMEN LIMITED (US Detailed) CPT:20042 Reason for Study: liver function test elevations. Clinical History: Report Status: Verified Date Reported: MAR 06, 2024 Date Verified: MAR 06, 2024 Box Press Operator E-Sig:/ES/ETTA ERIC JR Report: Study: Abdominal ultrasound. [...] Primary Interpreting Staff: ETTA ERIC JR, Radiologist (Box Press Operator) /ETTA LARIOS JR [facility] [facility] Encounter Notes: All associated encounter notes This section contains the clinical notes associated to the Encounter. Date/Time Encounter Note(s) Provider Source Feb 19, 2024 08:32 AM PHYSICIAN SIEVE GRADER TENDER NOTE: LOCAL TITLE: ACE NOTE STANDARD TITLE: PHYSICIAN SIEVE GRADER TENDER NOTE DATE OF NOTE: FEB 19, 2024@08:32 ENTRY DATE: FEB 19, 2024@08:33:05 AUTHOR: ABDELRAHMAN SNYDER COSIGNER: URGENCY: STATUS: COMPLETED ACE NOTE Has ADDENDA CC/HPI/A/P: 58 year old MALE here in follow-up for; GERD, I quit drinking coffee and don't need the antacid anymore (Famotidine, which we cancel! He has NO hx of ulcer, vomiting blood, GIB, EGD nor FH of same. Hyperlipidemia, declines statin, continue healthy living. LFT elevations, transaminases, mild. Denies ever having hepatitis, jaundice or any abdominal procedures. 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 US iiver discussed and ordered. six month repeat labs, consider hepatology consult. ptsd, seeing [facility] in [facility] not att vet's [place]. Hx of BCCs as well as materanal history of melenoma, seeing derm in two weeks. psa elevation and hx of kidney stones recent psa just over 2 at [place] and US of kidneys recently done, no word yet. Review of systems: Patient reports no changes from [place]ual [place] Health[place], in meds or any admissions. Active problems - Computerized Problem List is the source for the followin. 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 Elevated PSA (SCT 891293320) 3. Hyperlipidemia (SCT 03742896) 4. Basal Cell Carcinoma of Skin (SCT 061894949) 5. Family history of malignant melanoma Mom. [...] Indication: FOR FUNGAL INFECTION OF NAIL 2) PYRIDOXINE HCL 100MG TAB TAKE ONE TABLET BY MOUTH ONCE DAILY ACTIVE FOR VITAMIN B6 SUPPLEMENTATION 3) TAMSULOSIN HCL 0.4MG CAP TAKE ONE CAPSULE BY MOUTH AT ACTIVE BEDTIME 4) TERBINAFINE HCL 1% CREAM APPLY A THIN LAYER TOPICALLY TWICE ACTIVE DAILY APPLY UP TO 1-4 WEEKS UNTIL RASH RESOLVES Indication: FOR RINGWORM OF GROIN AREA Active Non-VA Medications Status 1) Non-VA FISH OIL 1000MG (500MG DHA/EPA) CAP 1000MG BY MOUTH ACTIVE ONCE DAILY 5 Total Medications 98 F [36.7 C] (02/19/2024 08:07) 55 (02/19/2024 08:07) 16 (02/19/2024 08:07) 128/64 (02/19/2024 08:07) 0 (02/19/2024 08:07) 74 in [188.0 cm] (02/19/2024 08:07) 197.6 lb [89.63 kg] (02/19/2024 08:07) BMI: 25.4 Neuro: Alert and oriented times three, grossly nonfocal, nasolabial folds intact. Recent labs reviewed with patient today:yes. PTSD Screening: PC-PTSD-5 A PTSD screening test (PC-PTSD-5) was positive (score=4). IN THE PAST MONTH, have you ever [...] guard, watchful, or easily startled? YES 5. [place] numb or detached from people, activities, or your surroundings? YES 6. [place] guilty or unable to stop blaming yourself or others for the event(s) or any problems the event(s) may have caused? NO Follow-Up Pos PTSD/Depression: I have reviewed the results of the Mental Health screens and have evaluated the patient. Based on the evaluation, the following disposition plan will be implemented: Already receiving needed treatment. Contact information and instructions for accessing emergency services provided. /kaleb/ Abdelrahman Snyder PA-C STAFF PHYSICIAN SIEVE GRADER TENDER Signed: 02/19/2024 17:02 03/06/2024 ADDENDUM STATUS: COMPLETED I called [place] startting tomorrow. Please BOOK this apt for after April 11, mail to him and leave VM on his Phone: [phone]. He is available M-F. I instruct schedulers: Go ahead and book CT, US and hepatology consult for him. He will visit lab when he has imaging. /kaleb/ Abdelrahman Snyder PA-C STAFF PHYSICIAN SIEVE GRADER TENDER Signed: 03/06/2024 18:10 ABDELRAHMAN SNYDER [place] [facility] [facility] Feb 19, 2024 08:12 AM PREVENTIVE MEDICINE NURSING NOTE: LOCAL TITLE: CLINICAL REMINDERS/NURSING STANDARD TITLE: PREVENTIVE MEDICINE NURSING NOTE DATE OF NOTE: FEB 19, 2024@08:12 ENTRY DATE: FEB 19, 2024@08:12:28 AUTHOR: ABELARDO RAMIREZ COSIGNER: URGENCY: STATUS: COMPLETED Tobacco Use Screening: The patient has never smoked cigarettes. The patient has never used other types of tobacco. Alcohol Use Screen (AUDIT-C): Alcohol Screen: SCREEN FOR ALCOHOL (AUDIT-C) An alcohol screening test (AUDIT-C) was negative (score=1). 1. How often did you have a drink containing alcohol in the past year? Consider a drink to be a 12 ounce can or bottle of regular beer, 8 ounces of malt liquor, a 5 ounce glass of table wine, or a 1.5 ounce shot of liquor (like scotch, gin, or vodka). Monthly or less 2. How many drinks containing alcohol did you have on a typical day when you were drinking in the past year? One or two drinks 3. How often did you have six or more drinks on one occasion in the past year? Never Depression Screening: Perform PHQ-2 A PHQ-2 screen was performed. The score was 2 which is a negative screen for depression. Over the past two weeks, how often have you been bothered by the following problems? 1. Little interest or pleasure in doing things Several days 2. Feeling down, depressed, or hopeless Several days Homelessness/Food Insecurity Screen: In the past 2 months, have you been living in stable housing that you own, rent, or stay in as part of a household? Yes - Living in stable housing. Are you worried or concerned that in the next 2 months you may NOT have stable housing that you own, rent, or stay in as part of a household? No - Not worried about housing near future The reports the following: Within the past 12 months, you worried whether your food would run out before you got money to buy more. Never true Within the past 12 months, the food you bought just didn't last and you didn't have money to get more. Never true COVID-19 Immunization: Refused Moderna Monovalent COVID-19 vaccine Immunization: COVID-19 (MODERNA), MRNA, LNP-S, PF, 50 MCG/0.5 ML (AGES 12+ YEARS) Refusal Reason: PATIENT DECISION Patient refuses all immunization(s) in the COVID-19 group Date Documented: 02/19/24 08:14 /kaleb/ ABELARDO RAMIREZ LPN LPN Signed: 02/19/2024 08:16 ABELARDO RAMIREZ [facility]
--- OUTSIDE RECORDS SUMMARY | 2024-07-01 13:39 | XMS_ITS | Continuity of Care Document ---
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 It does not include entries that were removed or entered in error. Problem Status Onset Date Problem Type Date of Resolution Comments Source Gastroesophageal reflux disease Active 019 Condition [facility] [place] [facility] RENAL COLIC Inactive 007 Condition DoD Kidney Stone Active 007 Condition [facility] [place] [facility] PEDICULOSIS PUBIS Inactive 006 Condition PEDICULOSIS PUBIS DoD DERMATOPHYTOSIS Inactive 006 Condition DERMATOPHYTOSIS DoD Basal cell carcinoma of skin of other part of trunk Active 899 Condition DoD Elevated prostate specific antigen [PSA] Active 899 Condition [facility] Encounter for screening for malignant neoplasm of skin Active 899 Condition DoD Actinic keratosis Active Condition 8987 A-Stuttg art-Patch Basal cell carcinoma of skin Active Condition 8987A-S tuttg art-Patch Elevated PSA Active Condition 8987A-Jim ttg art-Patch Heartburn Active Condition 8987A-Stuttg art-Patch Hyperlipidemia Active Condition 8987A-S tuttg art-Patch Presbyopia Active Condition 8987A-Stutt g art-Patch Basal Cell Carcinoma of Skin (SCT [id number]) Active Condition [facility] Chest pain Active Condition [facility] Elevated PSA (SCT [id number]) Active Condition [facility] Exposure to potentially hazardous substance Active Condition Apr 17, 2023 Entered By: ERNESTINE JIMENEZ Comment: connect Snomed Code to ICD 10 Code refer to note dated 02/28/23Jul 2023 Entered By: JIMI JOLLEY Comment: [employer]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 [facility] [place] [place] [facility] GERD - Gastro-Esophageal Reflux Disease ([facility] [id number]) Active Condition [facility] Hyperlipidemia ([facility] [id number]) [facility] Routine General Medical Examination at a Health Care Facility * (ICD-9-CM V70.0) Active Condition [facility] Screening status Active Condition Apr 06, 2021 Entered By: IMRIAM VASQUEZ MD Comment: colonoscopy 2016, normal mgh, for repeat in [facility] Diagnosis: ICD-10-CM E83.110 Hereditary hemochromatosis Active Diagnosis [facility] Diagnosis: ICD-10-CM R94.5 Abnormal results of liver function studies Active Diagnosis [facility] Diagnosis: ICD-10-CM C44.91 Basal cell carcinoma of skin, unspecified Active [facility] [place] [facility] Diagnosis: ICD-10-CM K21.9 Gastro-esophageal reflux disease without esophagitis Active Diagnosis [facility] [place] [facility] Diagnosis: ICD-10-CM Z23 Encounter for immunization Active Diagnosis [facility] [place] [facility] Diagnosis: ICD-10-CM Z73.3 Stress, not elsewhere classified Active Diagnosis [facility] ([id number]) Diagnosis: ICD-10-CM Z85.828 Personal history of other malignant neoplasm of skin Active Diagnosis [facility] [place] [facility] Diagnosis: ICD-10-CM F43.9 Reaction to severe stress, unspecified Active Diagnosis [facility] [place] [facility] Diagnosis: ICD-10-CM R97.20 Elevated prostate specific antigen [PSA] Active Diagnosis [facility] [place] [facility] Diagnosis: ICD-10-CM Z77.118 Contact w and (suspected) exposure to oth environ pollution Active Diagnosis [facility] [place] [facility] Diagnosis: ICD-10-CM K08.9 Disorder of teeth and supporting structures, unspecified Active [facility] Medications Combined list of outpatient medications from Department of Defense and Veterans Affairs facilities.Medications provided include 1) outpatient medications from the last 15 months, and 2) patient-reported medications. Medication Details Route Status Patient Instructions Prescription Expires Prescription Number Last Dispense Date Ordering Provider Order Date Order Qty Source CLOTRIMAZOL E 1 % TOP SOLN [30 ML] APPLY THIN LAYER TOPICALL Y TWICE DAILY FOR FUNGAL INFECTIO N Active 08/16/2024 [id number] THEODORE VALDEZ 2023 30 [facility] CLOTRIMAZOL E 1% SOLN,TOP APPLY THIN LAYER TOPICALL Y TWICE DAILY FOR FUNGAL INFECTIO N TOPICA L ACTIVE 08/16/2024 [id number] THEODORE VALDEZ 2023 30 [facility] [place] famotidine (U/D) 20 MG ORAL TAB TAKE ONE TABLET BY MOUTH TWICE DAILY NEEDED FOR STOMACH ACID 01/05/2024 [id number] ABDELRAHMAN TOLBERT 2023 180 [facility] famotidine 20 mg oral tablet 2 Unknown, Unknown, 1 Refill(s ), 0 total refill(s ), Soft Stop Discont inued 02/07/20222021 0108A-A Abdelrahman sandoval-Ashley famotidine 20 mg oral tablet 1 tab(s), Oral, BID, # 180 tab(s), 0 total refill(s ), Maintena nce Oral (given by mouth) Discont inued 12/27/20222022 180.0 0108A-A Abdelrahman Schultz [place] famotidine 20 mg oral tablet TAKE ONE TABLET BY MOUTH TWICE A DAY, # 180 EA, 3 total refill(s ), Acute Complet ed 03/30/2023 3 2023 180.0 Ambulat ory Pharmac y famotidine 20 mg tablet 20 mg, Oral, BID, # 180 EA, 0 total refill(s ), Hard Stop Oral (given by mouth) Discont inued 12/27/2022 2 2022 180.0 Ambulat ory Pharmac y FAMOTIDINE 20MG TAB TAKE ONE TABLET BY MOUTH TWICE DAILY NEEDED FOR STOMACH ACID ORAL 01/05/2024 [id number] SEANABDELRAHMAN HENLEY 2022 180 [facility] [place] FISH OIL 1000MG (500MG DHA/EPA) CAP,ORAL TAKE 1 CAPSULE BY MOUTH ONCE DAILY ORAL ACTIVE DIDIABDELRAHMAN Ramila 2023 [facility] [place] [facility] FLOMAX (BRAND) 0.4 MG ORAL CAP TAKE ONE CAPSULE BY MOUTH AT BEDTIME 08/13/2023 [id number] [facility] 2023 90 [facility] MULTIVITAMI N W/MINERAL TAB TAKE BY MOUTH ORAL ACTIVE DIDIABDELRAHMAN Ramila 2023 [facility] [place] OMEPRAZOLE 20MG CAP,EC TAKE 1 CAPSULE BY MOUTH DAILY 30 MINUTES PRIOR TO BREAKFAS T ORAL ACTIVE SAMANTHA MORA MD 2018 [place] omeprazole 40 mg oral delayed release capsule omeprazo le 40 mg oral delayed release capsule Start Date: 03/23/20 Stop Date: 02/07/22 Status: Complete d Repeat number: 1 Complet ed 02/07/20222021 No Facilit y Access PYRIDOXINE 100 MG ORAL TAB TAKE ONE TABLET BY MOUTH ONCE DAILYFOR VITAMIN B6 SUPPLEME NTATION Active 07/03/2024 [id number] [place] TOSCANO 2023 100 [facility] PYRIDOXINE HCL 100MG TAB TAKE ONE TABLET BY MOUTH ONCE DAILY FOR VITAMIN B6 SUPPLEME NTATION ORAL DISCONT INUED BY REBEKA R 07/03/2024 [id number] GRIFFIN-REID TOSCANO 2023 100 [facility] TAMSULOSIN HCL 0.4MG CAP TAKE ONE CAPSULE BY MOUTH AT BEDTIME ORAL ACTIVE 09/25/2024 [id number] FELIBERTO SIERRACORLI S 2023 90 [facility] TAMSULOSIN HCL 0.4MG CAP TAKE ONE CAPSULE BY MOUTH AT BEDTIME ORAL DISCONT INUED 09/25/2024 [id number] GRIFFIN-REID TOSCANO S 2023 90 [facility] TAMSULOSIN HCL 0.4MG CAP TAKE ONE CAPSULE BY MOUTH AT BEDTIME ORAL 08/13/2023 [id number] GRIFFIN-GO REID SIERRA S 2023 90 [facility] TERBINAFINE HCL 1% CREAM,TOP APPLY A THIN LAYER TOPICALL Y TWICE DAILY FOR RINGWORM OF GROIN AREA APPLY UP TO 1-4 WEEKS UNTIL RASH RESOLVES TOPICA L ACTIVE 08/16/2024 [id number] THEODORE VALDEZ 2023 90 [facility] Terbinafine Hydrochlori de (Lamisil Eq.) Cream 1% Topical APPLY A THIN LAYER TOPICALL Y TWICE DAILY FOR RINGWORM OF GROIN AREA APPLY UP TO 1-4 WEEKS UNTIL RASH RESOLVES Active 08/16/2024 [id number] THEODORE VALDEZ 2023 90 [facility] VITAMIN D3 (CHOLECALCI FEROL) TAB TAKE BY MOUTH ONCE DAILY ORAL ACTIVE ABDELRAHMAN TOLBERT 2023 [facility] Allergies, Adverse Reactions, Alerts Combined list of allergies from Department of Defense and Veterans Affairs facilities. It does not include entries that were removed or entered in error. Substance Category Reaction Severity Reaction type Status Date Reported Comments Source PENICILLIN Propensity to adverse reactions to drug (finding) active 8 [facility] PENICILLIN Propensity to adverse reactions to drug (finding) Eruption active 1 [facility] PENICILLINS Drug allergy (disorder) Unknown active 6 [facility] [place] penicillins Propensity to adverse reactions to substance Unknown Active 6 RESULTS IN HIVES, NO FOOD ALLERGIES , ENTERED [id number], ALEXANDER Unknown Organizati on Immunizations Combined list of available immunizations from the Department of Defense and Veterans Affairs facilities. Immunization Series Date Given Administered By Site Reaction Lot Number CVX Code Drug Brand Planner Status Comments Source INFLUENZA, SPLIT VIRUS, TRIVALENT, PF 2023 KRUNAL TANG LEFT DELTO ID [id number] 140 complet ed [facility] INFLUENZA, INJECTABLE, QUADRIVALENT, PRESERVATIVE FREE 2022 DESMOND SMITH Poly LEFT DELTO ID [id number] 150 complet ed [facility] Influenza, injectable, quadrivalent, preservative free 1 2021 [id number] 150 Transcribed (TRS) complet ed Influenza , injectabl e, quadrival ent, preservat janet free DoD INFLUENZA, UNSPECIFIED FORMULATION 2021 88 complet ed [facility] COVID-19 (MODERNA), MRNA, LNP-S, PF, 100 MCG/0.5ML DOSE OR 50 MCG/0.25ML DOSE 2 2021 207 complet ed [facility] ZOSTER RECOMBINANT 1 2021 187 complet ed [facility] COVID-19 (MODERNA), MRNA, LNP-S, PF, 100 MCG/0.5ML DOSE OR 50 MCG/0.25ML DOSE 1 2021 207 complet ed [facility] COVID-19 (PFIZER), MRNA, LNP-S, PF, 30 MCG/0.3 ML DOSE 3 2020 208 complet ed [facility] SARS-COV-2 (COVID-19) vaccine, mRNA, spike protein, LNP, preservative free, 30 mcg/0.3mL dose 1 2020 BJORN HERNANDEZ I [id number] 208 Pfizer, Inc (PFR) complet ed SARS-COV- 2 (COVID-19 ) vaccine, mRNA, spike protein, LNP, preservat janet free, 30 mcg/0.3mL dose DoD Influenza, injectable, quadrivalent, preservative free 1 2020 [id number] 150 Transcribed (TRS) complet ed Influenza , injectabl e, quadrival ent, preservat janet free [facility] INFLUENZA, UNSPECIFIED FORMULATION 2020 88 complet ed [facility] INFLUENZA, UNSPECIFIED FORMULATION 2020 88 complet [facility] zoster vaccine recombinant 2 2020 VANESA HENSLEY [id number] 187 [facility] ([facility]) complet zoster vaccine recombina nt DoD ZOSTER RECOMBINANT 2 2020 187 complet [facility] SARS-COV-2 (COVID-19) vaccine, mRNA, spike protein, LNP, preservative free, 100 mcg or 50 mcg dose 2 2020 ZHANE FLOR [id number] 207 Moderna [employer], Inc. (MOD) complet ed SARS-COV- 2 (COVID-19 ) vaccine, mRNA, spike protein, LNP, preservat janet free, 100 mcg or 50 mcg dose DoD COVID-19 (MODERNA), MRNA, LNP-S, PF, 100 MCG OR 50 MCG DOSE 2 2020 207 complet [facility] zoster vaccine recombinant 1 2020 CARLOS EDUARDO CHAPPELL V [id number] 187 [facility] ([facility]) complet ed zoster vaccine recombina nt DoD ZOSTER RECOMBINANT 1 2020 187 complet ed per [facility] COVID Vaccine Moderna 2020 [id number] 207 complet ed COVID Vaccine Moderna 02/24/20 Given Ambulat ory Pharmac y COVID Vaccine Moderna 2020 zzLef t Arm [id number] 207 complet ed COVID Vaccine Moderna 02/24/20 Given Ambulat ory Pharmac y SARS-COV-2 (COVID-19) vaccine, mRNA, spike protein, LNP, preservative free, 100 mcg or 50 mcg dose 1 2020 [id number] 207 Moderna [employer], Inc. (MOD) complet ed SARS-COV- 2 (COVID-19 ) vaccine, mRNA, spike protein, LNP, preservat janet free, 100 mcg or 50 mcg dose DoD COVID-19 (MODERNA), MRNA, LNP-S, PF, 100 MCG OR 50 MCG DOSE 1 2020 207 complet ed [facility] TDAP 2019 115 complet ed [facility] tetanus and diphtheria toxoids, adsorbed, preservative free, for adult use (2 Lf of tetanus toxoid and 2 Lf of diphtheria toxoid) 1 2019 [id number] 09 [facility] [employer] (MBL) complet ed tetanus and diphtheri a toxoids, adsorbed, preservat janet free, for adult use (2 Lf of tetanus toxoid and 2 Lf of diphtheri a toxoid) [facility] HEP B, ADULT 2019 43 complet ed Booster for Series, [facility] influenza virus vaccine, unspecified 2018 [id number] 88 Gl[employer]oSmithK[employer] ne complet ed influenza virus vaccine, unspecifi ed 11/16/18 Given Ambulat ory Pharmac y influenza virus vaccine, unspecified 2018 [id number] 88 GlaxoSmithK[employer] ne complet ed influenza virus vaccine, unspecifi ed 11/16/18 Given Ambulat ory Pharmac y influenza virus vaccine, unspecified formulation 1 2018 [id number] 88 SmithT[employer]ie[employer] (SKB) complet ed influenza virus vaccine, unspecifi ed formulati on [facility] INFLUENZA, SEASONAL, INJECTABLE 2017 141 complet ed [facility] influenza, seasonal, injectable 2017 [id number] 141 Unknown complet ed influenza , seasonal, injectabl e 11/14/17 Given Ambulat ory Pharmac y influenza, seasonal, injectable 2017 [id number] 141 Unknown complet ed influenza , seasonal, injectabl e 11/14/17 Given Ambulat ory Pharmac y Influenza, seasonal, injectable 1 2017 [id number] 141 Unknown (UNK) comple t ed Influenza , seasonal, injectabl e DoD influenza, injectable, quadrivalent- pf 2016 [id number] 150 GlaxoSmithK[employer] ne complet ed influenza , injectabl e, quadrival ent-pf 11/18/16 Given Ambulat ory Pharmac y influenza, injectable, quadrivalent- pf 2016 [id number] 150 GlaxoSmithKli ne complet ed influenza , injectabl e, quadrival ent-pf 11/18/16 Given Ambulat ory Pharmac y Influenza, injectable, quadrivalent, preservative free 1 2016 [id number] 150 SmithKline (SKB) complet ed Influenza , injectabl e, quadrival ent, preservat janet free DoD influenza, injectable, quadrivalent- pf 2015 [id number] 150 GlaxoSmithKli ne complet ed influenza , injectabl e, quadrival ent-pf 11/23/15 Given Ambulat ory Pharmac y influenza, injectable, quadrivalent- pf 2015 [id number] 150 GlaxoSmithKli ne complet ed influenza , injectabl e, quadrival ent-pf 11/23/15 Given Ambulat ory Pharmac y Influenza, injectable, quadrivalent, preservative free 1 2015 [id number] 150 [employer] (SKB) complet ed Influenza , injectabl e, quadrival ent, preservat janet free [facility] FLU,3 YRS (HISTORICAL) 2015 88 complet ed [facility] FLU,3 YRS (HISTORICAL) 2015 88 complet ed [facility] influenza, injectable, quadrivalent- pf 2014 [id number] 150 GlaxoSmithKli ne complet ed influenza , injectabl e, quadrival ent-pf 11/03/14 Given Ambulat ory Pharmac y influenza, injectable, quadrivalent- pf 2014 [id number] 150 GlaxoSmithKli ne complet ed influenza , injectabl e, quadrival ent-pf 11/03/14 Given Ambulat ory Pharmac y Influenza, injectable, quadrivalent, preservative free 1 2014 [id number] 150 SmithKline (SKB) complet ed Influenza , injectabl e, quadrival ent, preservat janet free DoD varicella virus vaccine 2 2014 UNK 21 Unknown (UNK) Not Given varicella virus vaccine DoD measles, mumps and rubella virus vaccine 2 2014 UNK 03 Unknown (UNK) Not Given measles, mumps and rubella virus vaccine DoD Bangl[place]hi Encephalitis IM 2014 UNK 134 Unknown complet ed Bangl[place] Encephali tis IM 06/19/14 Given Ambulat ory Pharmac y poliovirus vaccine, inactivated 2014 UNK 10 Unknown complet ed polioviru s vaccine, inactivat ed 06/19/14 Given Ambulat ory Pharmac y [place] Encephalitis IM 2014 UNK 134 Unknown complet ed [place] Encephali tis IM 06/19/14 Given Ambulat ory Pharmac y poliovirus vaccine, inactivated 2014 UNK 10 Unknown complet ed polioviru s vaccine, inactivat ed 06/19/14 Given Ambulat ory Pharmac y poliovirus vaccine, inactivated 1 2014 UNK 10 Unknown (UNK) comple t ed polioviru s vaccine, inactivat ed DoD [place] Encephalitis vaccine for intramuscular administratio n 1 2014 UNK 134 Unknown (UNK) comple t ed [place] Encephali tis vaccine for intramusc ular administr ation DoD MMR 2014 NONE 03 complet ed Completed Series, [facility] measles/mumps /rubella virus vaccine 2014 UNK 03 Unknown complet ed measles/m umps/rube lla virus vaccine 06/04/14 Given Ambulat ory Pharmac y measles/mumps /rubella virus vaccine 2014 UNK 03 Unknown complet ed measles/m umps/rube lla virus vaccine 06/04/14 Given Ambulat ory Pharmac y measles, mumps and rubella virus vaccine 2 2014 UNK 03 Unknown (UNK) comple t ed measles, mumps and rubella virus vaccine DoD influenza, seasonal, injectable 2013 [id number] 141 sanofi pasteur complet ed influenza , seasonal, injectabl e 12/02/13 Given Ambulat ory Pharmac y influenza, seasonal, injectable 2013 [id number] 141 sanofi pasteur complet ed influenza , seasonal, injectabl e 12/02/13 Given Ambulat ory Pharmac y Influenza, seasonal, injectable 1 2013 [id number] 141 Sanofi Pasteur (PMC) complet ed Influenza , seasonal, injectabl e DoD FLU,3 YRS (HISTORICAL) 2013 88 complet ed [facility] varicella virus vaccine 2012 [id number] 21 [employer] complet ed varicella virus vaccine 01/05/13 Given Ambulat ory Pharmac y typhoid Vi capsular polysaccharid e vac 2012 [id number] 101 sanofi pasteur complet ed typhoid Vi capsular polysacch aride vac 01/05/13 Given Ambulat ory Pharmac y tuberculin purified protein derivative 2012 [id number] 96 sanofi pasteur complet ed tuberculi n purified protein derivativ e 01/05/13 Given Ambulat ory Pharmac y typhoid Vi capsular polysaccharid e vac 2012 [id number] 101 sanofi pasteur complet ed typhoid Vi capsular polysacch aride vac 01/05/13 Given Ambulat ory Pharmac y varicella virus vaccine 2012 [id number] 21 Merck & Company Inc complet ed varicella virus vaccine 01/05/13 Given Ambulat ory Pharmac y varicella virus vaccine 1 2012 [id number] 21 Merck (MSD) complet ed varicella virus vaccine DoD typhoid Vi capsular polysaccharid e vaccine 1 2012 [id number] 101 Sanofi Pasteur (PMC) complet ed typhoid Vi capsular polysacch aride vaccine DoD FLU,3 YRS (HISTORICAL) 2012 88 complet ed [facility] influenza, seasonal, injectable-pf 2012 [id number] 140 Unknown complet ed influenza , seasonal, injectabl e-pf 11/18/12 Given Ambulat ory Pharmac y influenza, seasonal, injectable-pf 2012 [id number] 140 Unknown complet ed influenza , seasonal, injectabl e-pf 11/18/12 Given Ambulat ory Pharmac y Influenza, seasonal, injectable, preservative free 1 2012 [id number] 140 Other (OTH) complet ed Influenza , seasonal, injectabl e, preservat janet free DoD influenza virus vaccine, unspecified 2011 UNK 88 Unknown complet ed influenza virus vaccine, unspecifi ed 12/10/11 Given Ambulat ory Pharmac y influenza virus vaccine, unspecified 2011 UNK 88 Unknown complet ed influenza virus vaccine, unspecifi ed 12/10/11 Given Ambulat ory Pharmac y influenza virus vaccine, unspecified formulation 1 2011 UNK 88 Unknown (UNK) comple t ed influenza virus vaccine, unspecifi ed formulati on DoD FLU,3 YRS (HISTORICAL) 2011 88 complet ed [facility] DTAP, UNSPECIFIED FORMULATION 2011 107 complet ed [facility] influenza, seasonal, injectable-pf 2010 UNK 140 Unknown complet ed influenza , seasonal, injectabl e-pf 12/15/10 Given Ambulat ory Pharmac y influenza, seasonal, injectable-pf 2010 UNK 140 Unknown complet ed influenza , seasonal, injectabl e-pf 12/15/10 Given Ambulat ory Pharmac y Influenza, seasonal, injectable, preservative free 1 2010 UNK 140 Unknown (UNK) comple t ed Influenza , seasonal, injectabl e, preservat janet free DoD yellow fever vaccine 2009 [id number] 37 sanofi pasteur complet ed yellow fever vaccine 01/09/10 Given Ambulat ory Pharmac y yellow fever vaccine 2009 [id number] 37 sanofi pasteur complet ed yellow fever vaccine 01/09/10 Given Ambulat ory Pharmac y yellow fever vaccine 1 2009 [id number] 37 Sanofi Pasteur ([facility]) complet ed yellow fever vaccine DoD tuberculin purified protein derivative 2009 [id number] 96 sanofi pasteur complet ed tuberculi n purified protein derivativ e 12/22/09 Given Ambulat ory Pharmac y influenza virus vaccine,split 2009 UNK 15 Unknown complet ed influenza virus vaccine,s plit 11/05/09 Given Ambulat ory Pharmac y influenza virus vaccine,split 2009 UNK 15 Unknown complet ed influenza virus vaccine,s plit 11/05/09 Given Ambulat ory Pharmac y influenza virus vaccine, split virus (incl. purified surface antigen)-reti red CODE 1 2009 UNK 15 Unknown (UNK) comple t ed influenza virus vaccine, split virus (incl. purified surface antigen)- retired CODE DoD tetanus, diphtheria, acellular pertu is 2009 [id number] 115 sanofi pasteur complet ed tetanus, diphtheri a, acellular pertussis 04/25/09 Given Ambulat ory Pharmac y tetanus, diphtheria, acellular pertu is 2009 [id number] 115 sanofi pasteur complet ed tetanus, diphtheri a, acellular pertussis 04/25/09 Given Ambulat ory Pharmac y tetanus toxoid, reduced diphtheria toxoid, and acellular pertu is vaccine, adsorbed 1 2009 [id number] 115 Sanofi Pasteur ([facility]) complet ed tetanus toxoid, reduced diphtheri a toxoid, and acellular pertussis vaccine, adsorbed DoD influenza virus vaccine,split 2007 UNK 15 Unknown complet ed influenza virus vaccine,s plit 12/06/07 Given Ambulat ory Pharmac y influenza virus vaccine,split 2007 UNK 15 Unknown complet ed influenza virus vaccine,s plit 12/06/07 Given Ambulat ory Pharmac y influenza virus vaccine, split virus (incl. purified surface antigen)-reti red CODE 1 2007 UNK 15 Unknown (UNK) comple t ed influenza virus vaccine, split virus (incl. purified surface antigen)- retired CODE DoD FLU,3 YRS (HISTORICAL) 2006 88 complet ed [place] [facility] [place] [facility] anthrax vaccine 3 2006 UNK 24 Unknown (UNK) Not Given anthrax vaccine DoD anthrax vaccine 2006 UNK 24 [employer] complet ed anthrax vaccine 07/20/06 Given Ambulat ory Pharmac y anthrax vaccine 2006 UNK 24 [employer] complet ed anthrax vaccine 07/20/06 Given Ambulat ory Pharmac y anthrax vaccine 2 2006 UNK 24 [employer] [place] (MIP) complet ed anthrax vaccine DoD anthrax vaccine 2006 [id number] [employer] complet ed anthrax vaccine 07/06/06 Given Ambulat ory Pharmac y anthrax vaccine 2006 [id number] 24 [employer] complet ed anthrax vaccine 07/06/06 Given Ambulat ory Pharmac y anthrax vaccine 1 2006 [id number] 24 [employer] Fredy (MIP) complet ed anthrax vaccine [facility] DTAP, UNSPECIFIED FORMULATION 2006 107 complet ed [facility] TD(ADULT) UNSPECIFIED FORMULATION 2006 139 complet ed [facility] influenza virus vaccine,split 2005 [id number] 15 [employer] complet ed influenza virus vaccine,s plit 12/16/05 Given Ambulat ory Pharmac y influenza virus vaccine,split 2005 [id number] 15 [employer] complet ed influenza virus vaccine,s plit 12/16/05 Given Ambulat ory Pharmac y influenza virus vaccine, split virus (incl. purified surface antigen)-reti red CODE 1 2005 [id number] 15 [employer] (AVB) complet ed influenza virus vaccine, split virus (incl. purified surface antigen)- retired CODE DoD vaccinia (smallpox) vaccine 2005 [id number] 75 [employer] complet ed vaccinia (smallpox ) vaccine 09/28/05 Given Ambulat ory Pharmac y vaccinia (smallpox) vaccine 2005 [id number] 75 [facility] complet ed vaccinia (smallpox ) vaccine 09/28/05 Given Ambulat ory Pharmac y vaccinia (smallpox) vaccine 1 2005 [id number] 75 [facility] ([facility]) complet ed vaccinia (smallpox ) vaccine DoD meningococcal polysaccharid e (MPSV4) 2005 [id number] 32 [facility] complet ed meningoco ccal polysacch aride (MPSV4) 08/03/05 Given Ambulat ory Pharmac y meningococcal polysaccharid e (MPSV4) 2005 [id number] 32 [facility] complet ed meningoco ccal polysacch aride (MPSV4) 08/03/05 Given Ambulat ory Pharmac y meningococcal polysaccharid e vaccine (MPSV4) 1 2005 [id number] 32 [employer] [facility] [employer] ([facility]) complet ed meningoco ccal polysacch aride vaccine (MPSV4) DoD tuberculin purified protein derivative 2005 UNK 96 Unknown complet ed tuberculi n purified protein derivativ e 07/28/05 Given Ambulat ory Pharmac y TD(ADULT) UNSPECIFIED FORMULATION 2005 139 complet ed [facility] TDAP 2005 115 complet ed [facility] typhoid vaccine, live, oral 2004 UNK 25 Unknown complet ed typhoid vaccine, live, oral 01/03/05 Given Ambulat ory Pharmac y typhoid vaccine, live, oral 2004 UNK 25 Unknown complet ed typhoid vaccine, live, oral 01/03/05 Given Ambulat ory Pharmac y typhoid vaccine, live, oral 1 2004 UNK 25 Unknown (UNK) comple t ed typhoid vaccine, live, oral DoD tuberculin purified protein derivative 2001 UNK 96 Unknown complet ed tuberculi n purified protein derivativ e 06/01/01 Given Ambulat ory Pharmac y hepatitis B adult vaccine 1999 UNK 43 Unknown complet ed hepatitis B adult vaccine 08/29/99 Given Ambulat ory Pharmac y hepatitis B adult vaccine 1999 UNK 43 Unknown complet ed hepatitis B adult vaccine 08/29/99 Given Ambulat ory Pharmac y hepatitis B vaccine, adult dosage 4 1999 UNK 43 Unknown (UNK) comple t ed hepatitis B vaccine, adult dosage DoD tetanus-dipht h toxoids (Td) adult/adol 1999 UNK 09 Unknown complet ed tetanus-d iphth toxoids (Td) adult/ado l 03/27/99 Given Ambulat ory Pharmac y tetanus-dipht h toxoids (Td) adult/adol 1999 UNK 09 Unknown complet ed tetanus-d iphth toxoids (Td) adult/ado l 03/27/99 Given Ambulat ory Pharmac y tetanus and diphtheria toxoids, adsorbed, preservative free, for adult use (2 Lf of tetanus toxoid and 2 Lf of diphtheria toxoid) 0 1999 UNK 09 Unknown (UNK) comple t ed tetanus and diphtheri a toxoids, adsorbed, preservat janet free, for adult use (2 Lf of tetanus toxoid and 2 Lf of diphtheri a toxoid) DoD hepatitis A adult vaccine 1998 UNK 52 Unknown complet ed hepatitis A adult vaccine 06/05/98 Given Ambulat ory Pharmac y hepatitis A adult vaccine 1998 UNK 52 Unknown complet ed hepatitis A adult vaccine 06/05/98 Given Ambulat ory Pharmac y hepatitis A vaccine, adult dosage 3 1998 UNK 52 Unknown (UNK) comple t ed hepatitis A vaccine, adult dosage DoD HEP B, ADULT 3 1993 43 complet ed [facility] HEP B, ADULT 2 1992 43 complet ed [facility] HEP B, ADULT 1 1992 43 complet ed [facility] Results Combined list of recent chemistry, hematology and other laboratory results from Department of Defense and [facility], ranging from 15 months to all on record, depending upon the facility. 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 This patient is negative for the H63D pathogenic variant. Individuals with this genotype may have elevated serum transferrin iron saturation levels. This result reduces the likelihood of hereditary hemochromat osis (HH). However, it does not rule out the presence of other pathogenic variants within the HFE gene or a diagnosis of HH. The risk of this individual to carry an HFE pathogenic variant other than those tested in this assay depends greatly on family and clinical history as well as ethnicity. This assay does not test for other primary or secondary iron overload disorders. Consider genetic counseling and DNA testing for at-risk family members. Laboratory results and submitted clinical information reviewed by Baljinder Nolan, Ph.D., FACMG, [facility], CGMB. DETAILED ASSAY INFORMATION : Hereditary hemochromat osis (HH) is an autosomal recessive disorder of iron metabolism that can result in iron overload and potential organ failure. It is one of the most common genetic disorders in individuals of -Ca ucasian ancestry, with an estimated carrier frequency of 10%. HH is caused by pathogenic variants in the HFE gene. Most individuals with HH (60-90%) are homozygous for the C282Y pathogenic variant. A smaller percentage of affected individuals are either compound heterozygou s for the C282Y and H63D pathogenic variants (3%-8%), or homozygous for the H63D pathogenic variant (approximat mariah 1%). METHODOLOGY : This assay detects two pathogenic variants in the HFE gene, C282Y (NM 125942.2: c.845G>A, p.Gek039Jwb ) and H63D (NM 748173.2: c.187C>G, p.Eeu12Ryf) , that are commonly associated with HH. These variants are detected by multiplex-p olymerase chain reaction (PCR) amplificati on, followed by restriction enzyme digestion and capillary electrophor esis. LIMITATIONS : This assay does not detect other pathogenic variants in the HFE gene that may be associated with HH. Although rare, false positive or false negative results may occur. All results should be interpreted in the context of clinical findings, relevant history, and other laboratory data. Health care providers, please contact your local [place] ' genetic counselor or call [phone] [facility] ([phone]) for assistance with the interpretat ion of these results. This test was developed and its analytical performance characteris tics have been determined by [facility]. It has not been cleared or approved by FDA. This assay has been validated pursuant to the CLIA regulations and is used for clinical purposes. For more information , please refer to http://educ ation.[employer] .com/faq/talia davila. (This link is being provided for information al/educatio nal purposes only.) A portion of the testing was performed at [facility]. Reviewed and signed by Laboratory results and submitted clinical information reviewed by Baljinder Nolan, Ph.D., FACMG, [facility], MB, Signed on 05/02/2024 at 15:26 Test performed by [facility] [address] [place] [address] Phone: Oval Or Circular Glass Cutter: Jenn Gaitan MD,PHD,BOB Test Reported by [facility], [facility], [address] [place] [address] Crispin Painter M.D., Ph.D., Director of Laboratorie s , CLIA [id number] TEST PERFORMED AT: , Ordering Provider: BETZAIDA MONAHAN Report Released Date/Time: Apr 23, 2024 01:09 PM Reporting Lab: [facility] [address] [address] Performing Lab: [facility] [place] [facility] [address] [address] [facility] [place] [facility] PT & INR (PROTIME ) INR IN PLATELET POOR PLASMA BY COAGULATIO N ASSAY 0.9 03/04 /2025 Specimen Type: PLASMA No comment entered. Ordering Provider: BETZAIDA MONAHAN Report Released Date/Time: Apr 23, 2024 01:09 PM Reporting Lab: [facility] [place] [facility] [address] [address] Performing Lab: [facility] [place] [facility] [address] [address] [facility] [facility] PT & INR (PROTIME ) PROTHROMBI N TIME (PT) 10.5 s 10.0 - 13.1 04/23 Specimen Type: PLASMA No comment entered. Ordering Provider: BETZAIDA MONAHAN Report Released Date/Time: Apr 23, 2024 01:09 PM Reporting Lab: [facility] [place] [facility] [address] [address] Performing Lab: [facility] [place] [address] [address] [facility] [place] [facility] CBC AND DIFF (AUTO) LEUKOCYTES [#/VOLUME] IN BLOOD BY AUTOMATED COUNT 6.75 10*3/uL 4.50 - 11.00 04/23 Specimen Type: BLOOD No comment entered. Ordering Provider: BETZAIDA MONAHAN Report Released Date/Time: Apr 23, 2024 01:09 PM Reporting Lab: [facility] [place] [place] [address] [address] Performing Lab: [facility] [place] [facility] [address] [address] [facility] [place] [facility] CBC AND DIFF (AUTO) ERYTHROCYT ES [#/VOLUME] IN BLOOD BY AUTOMATED COUNT 4.75 10*6/uL 4.23 - 5.66 04/23 Specimen Type: BLOOD No comment entered. Ordering Provider: BETZAIDA MONAHAN Report Released Date/Time: Apr 23, 2024 01:09 PM Reporting Lab: [facility] [place] [facility] [address] [address] Performing Lab: [facility] [place] [address] [address] [facility] CBC AND DIFF (AUTO) HEMOGLOBIN [MASS/VOLU ME] IN BLOOD 15.0 g/dL 12.8 - 17 04/23 Specimen Type: BLOOD No comment entered. Ordering Provider: BETZAIDA MONAHAN Report Released Date/Time: Apr 23, 2024 01:09 PM Reporting Lab: [facility] [address] [address] Performing Lab: [facility] [address] [address] [facility] [place] CBC AND DIFF (AUTO) HEMATOCRIT [VOLUME FRACTION] OF BLOOD BY AUTOMATED COUNT 44.5 39.2 - 50.4 04/23 Specimen Type: BLOOD No comment entered. Ordering Provider: BETZAIDA MONAHAN Report Released Date/Time: Apr 23, 2024 01:09 PM Reporting Lab: [facility] [address] [address] Performing Lab: [facility] [place] [facility] [address] [address] [facility] CBC AND DIFF (AUTO) MCV [ENTITIC VOLUME] BY AUTOMATED COUNT 93.7 fL 82 - 99 04/23 Specimen Type: BLOOD No comment entered. Ordering Provider: BETZAIDA MONAHAN Report Released Date/Time: Apr 23, 2024 01:09 PM Reporting Lab: [facility] [place] [facility] [address] [address] Performing Lab: [facility] [address] [address] [facility] [place] CBC AND DIFF (AUTO) MCHC [MASS/VOLU ME] BY AUTOMATED COUNT 33.7 g/dL 30.8 - 35.1 04/23 Specimen Type: BLOOD No comment entered. Ordering Provider: BETZAIDA MONAHAN Report Released Date/Time: Apr 23, 2024 01:09 PM Reporting Lab: [facility] [place] [facility] [address] [address] Performing Lab: [facility] [place] [facility] [address] [address] [facility] [place] [place] [facility] CBC AND DIFF (AUTO) PLATELETS [#/VOLUME] IN BLOOD BY AUTOMATED COUNT 235 10*3/uL 140 - 360 04/23 Specimen Type: BLOOD No comment entered. Ordering Provider: BETZAIDA MONAHAN Report Released Date/Time: Apr 23, 2024 01:09 PM Reporting Lab: [facility] [place] [facility] [address] [address] Performing Lab: [facility] [place] [facility] [address] [address] [facility] [place] [facility] CBC AND DIFF (AUTO) ERYTHROCYT E DISTRIBUTI ON WIDTH [RATIO] BY AUTOMATED COUNT 13.4 12.0 - 16.0 04/23 Specimen Type: BLOOD No comment entered. Ordering Provider: BETZAIDA MONAHAN Report Released Date/Time: Apr 23, 2024 01:09 PM Reporting Lab: [facility] [place] [facility] [address] [address] Performing Lab: [facility] [place] [facility] [address] [address] [facility] [place] [facility] CBC AND DIFF (AUTO) MONOCYTES [#/VOLUME] IN BLOOD BY AUTOMATED COUNT 0.61 10*3/uL 0.30 - 1.10 04/23 Specimen Type: BLOOD No comment entered. Ordering Provider: BETZAIDA MONAHAN Report Released Date/Time: Apr 23, 2024 01:09 PM Reporting Lab: [facility] [place] [facility] [address] [address] Performing Lab: [facility] [place] [address] [address] [facility] [place] [place] [facility] CBC AND DIFF (AUTO) MCH [ENTITIC MASS] BY AUTOMATED COUNT 31.6 pg 26.2 - 32.6 04/23 Specimen Type: BLOOD No comment entered. Ordering Provider: HERO,NEER DEMTERIA Report Released Date/Time: Apr 23, 2024 01:09 PM Reporting Lab: [facility] [address] [address] Performing Lab: [facility] [address] [address] [facility] [place] CBC AND DIFF (AUTO) NEUTROPHIL S/100 LEUKOCYTES IN BLOOD BY AUTOMATED COUNT 60.1 43.7 - 75.8 04/23 Specimen Type: BLOOD No comment entered. Ordering Provider: BETZAIDA MONAHAN Report Released Date/Time: Apr 23, 2024 01:09 PM Reporting Lab: [facility] [place] [facility] [address] [address] Performing Lab: [facility] [place] [facility] [address] [address] [facility] CBC AND DIFF (AUTO) LYMPHOCYTE S/100 LEUKOCYTES IN BLOOD BY AUTOMATED COUNT 27.7 14.0 - 42.3 04/23 Specimen Type: BLOOD No comment entered. Ordering Provider: BETZAIDA MONAHAN Report Released Date/Time: Apr 23, 2024 01:09 PM Reporting Lab: [facility] [address] [address] Performing Lab: [facility] [place] [facility] [address] [address] [facility] CBC AND DIFF (AUTO) MONOCYTES/ 100 LEUKOCYTES IN BLOOD BY AUTOMATED COUNT 9.0 5.1 - 13.7 04/23 Specimen Type: BLOOD No comment entered. Ordering Provider: BETZAIDA MONAHAN Report Released Date/Time: Apr 23, 2024 01:09 PM Reporting Lab: [facility] [address] [address] Performing Lab: [facility] [address] [address] [facility] CBC AND DIFF (AUTO) EOSINOPHIL S/100 LEUKOCYTES IN BLOOD BY AUTOMATED COUNT 1.9 0.4 - 6.8 04/23 Specimen Type: BLOOD No comment entered. Ordering Provider: BETZAIDA MONAHAN Report Released Date/Time: Apr 23, 2024 01:09 PM Reporting Lab: [facility] [address] [address] Performing Lab: [facility] [address] [address] [facility] CBC AND DIFF (AUTO) BASOPHILS/ 100 LEUKOCYTES IN BLOOD BY AUTOMATED COUNT 1.0 0.1 - 2.0 04/23 Specimen Type: BLOOD No comment entered. Ordering Provider: BETZAIDA MONAHAN Report Released Date/Time: Apr 23, 2024 01:09 PM Reporting Lab: [facility] [place] [address] [address] Performing Lab: [facility] [place] [address] [address] [facility] [place] [facility] CBC AND DIFF (AUTO) NEUTROPHIL S [#/VOLUME] IN BLOOD BY AUTOMATED COUNT 4.05 10*3/uL 2.20 - 7.60 04/23 Specimen Type: BLOOD No comment entered. Ordering Provider: BETZAIDA MONAHAN Report Released Date/Time: Apr 23, 2024 01:09 PM Reporting Lab: [facility] [place] [facility] [address] [address] Performing Lab: [facility] [place] [facility] [address] [address] [facility] [place] [facility] CBC AND DIFF (AUTO) LYMPHOCYTE S [#/VOLUME] IN BLOOD BY AUTOMATED COUNT 1.87 10*3/uL 1.00 - 3.20 04/23 Specimen Type: BLOOD No comment entered. Ordering Provider: BETZAIDA MONAHAN Report Released Date/Time: Apr 23, 2024 01:09 PM Reporting Lab: [facility] [address] [address] Performing Lab: [facility] [place] [facility] [address] [place] [address] [facility] [place] [facility] CBC AND DIFF (AUTO) EOSINOPHIL S [#/VOLUME] IN BLOOD BY AUTOMATED COUNT 0.13 10*3/uL 0.03 - 0.44 04/23 Specimen Type: BLOOD No comment entered. Ordering Provider: BETZAIDA MONAHAN Report Released Date/Time: Apr 23, 2024 01:09 PM Reporting Lab: [facility] [place] [address] [address] Performing Lab: [facility] [place] [facility] [address] [address] [facility] [place] [facility] CBC AND DIFF (AUTO) BASOPHILS [#/VOLUME] IN BLOOD BY AUTOMATED COUNT 0.07 10*3/uL 0.01 - 0.13 04/23 Specimen Type: BLOOD No comment entered. Ordering Provider: BETZAIDA MONAHAN Report Released Date/Time: Apr 23, 2024 01:09 PM Reporting Lab: [facility] [place] [address] [address] Performing Lab: [facility] [place] [address] [address] [place], [place] [address] [facility] CBC AND DIFF (AUTO) IMMATURE GRANULOCYT ES/100 LEUKOCYTES IN BLOOD BY AUTOMATED COUNT 0.3 0.0 - 0.7 04/23 Specimen Type: BLOOD No comment entered. Ordering Provider: BETZAIDA MONAHAN Report Released Date/Time: Apr 23, 2024 01:09 PM Reporting Lab: [facility] [place] [address] [address] Performing Lab: [facility] [place] [address] [address] [facility] [place] [facility] CBC AND DIFF (AUTO) IMMATURE GRANULOCYT ES [#/VOLUME] IN BLOOD BY AUTOMATED COUNT 0.02 10*3/uL 0.00 - 0.06 04/23 Specimen Type: BLOOD No comment entered. Ordering Provider: BETZAIDA MONAHAN Report Released Date/Time: Apr 23, 2024 01:09 PM Reporting Lab: [facility] [address] [address] Performing Lab: [address] [address] [facility] CBC AND DIFF (AUTO) NUCLEATED ERYTHROCYT ES/100 LEUKOCYTES [RATIO] IN BLOOD BY AUTOMATED COUNT 0.0 0.0 - 0.0 04/23 Specimen Type: BLOOD No comment entered. Ordering Provider: BETZAIDA MONAHAN Report Released Date/Time: Apr 23, 2024 01:09 PM Reporting Lab: [address] [address] Performing Lab: [address] [phone] [place] [address] CBC AND DIFF (AUTO) NUCLEATED ERYTHROCYT ES [#/VOLUME] IN BLOOD BY AUTOMATED COUNT 0.00 10*3/uL 0.00 - 0.00 04/23 Specimen Type: BLOOD No comment entered. Ordering Provider: BETZAIDA MONAHAN Report Released Date/Time: Apr 23, 2024 01:09 PM Reporting Lab: [address] [address] Performing Lab: [address] [address] [facility] HEPATITI S B SURFACE ANTIGEN (HBsAg)- WH HEPATITIS B VIRUS SURFACE AG [PRESENCE] IN SERUM OR PLASMA BY IMMUNOASSA Y Non Reactive 04/12 Specimen Type: SERUM Comment: Hep B Core, Total: This test detects both IgG and IgM antibodies. A nonreactive final interpretat ion indicates that anti-HBc antibodies were not detected in the sample. Hep B Surf Ag: Negative for HBsAg. Other markers of Hepatitis B virus are needed to ascertain Hepatitis B infection status. This test detects both IgG and IgM antibodies. A Reactive result ( Positive prior to 12/03/12) may indicate either current or previous hepatitis B infection. Antibodies to Hepatitis B Core may be the only marker of recent hepatitis B infection during the window period when Hepatitis B surface antigen has disappeared and Hepatitis B surface antibodies are not yet detectable. A Reactive result ( Positive prior to 12/03/12) is diagnostic of acute or chronic hepatitis B infection. The presence of Hepatitis B surface antigen is frequently associated with infectivity . Ordering Provider: Que TOLBERT Report Released Date/Time: Mar 06, 2024 06:10 PM Reporting Lab: [address] [address] Performing Lab: [facility] [address] [facility] [address] [facility] HEPATITI S B CORE (Total) Ab HEPATITIS B VIRUS CORE AB [PRESENCE] IN SERUM OR PLASMA BY IMMUNOASSA Y Non Reactive 04/12 Specimen Type: SERUM Comment: Hep B Core, Total: This test detects both IgG and IgM antibodies. A nonreactive final interpretat ion indicates that anti-HBc antibodies were not detected in the sample. Hep B Surf Ag: Negative for HBsAg. Other markers of Hepatitis B virus are needed to ascertain Hepatitis B infection status. This test detects both IgG and IgM antibodies. A Reactive result ( Positive prior to 12/03/12) may indicate either current or previous hepatitis B infection. Antibodies to Hepatitis B Core may be the only marker of recent hepatitis B infection during the window period when Hepatitis B surface antigen has disappeared and Hepatitis B surface antibodies are not yet detectable. A Reactive result ( Positive prior to 12/03/12) is diagnostic of acute or chronic hepatitis B infection. The presence of Hepatitis B surface antigen is frequently associated with infectivity . Ordering Provider: Que TOLBERT Report Released Date/Time: Mar 06, 2024 06:10 PM Reporting Lab: [address] [address] Performing Lab: [address] [address] [facility] ADIS SCREEN/T ITER NUCLEAR AB [PRESENCE] IN SERUM NEG NEG <1:40 - 140 04/12 Specimen Type: SERUM No comment entered. Ordering Provider: Que TOLBERT Report Released Date/Time: Mar 06, 2024 06:10 PM Reporting Lab: [address] [place] [address] Performing Lab: [facility] [place] [facility] [address] [facility] [address] [facility] [place] [facility] HEPATITI S C ANTIBODY (HCV)-AR C HEPATITIS C VIRUS AB [PRESENCE] IN SERUM NON-REAC TIVE 04/12 Specimen Type: SERUM Comment: Hep C Ab: No HCV antibody detected. If recent infection is suspected or other evidence suggests HCV infection, consider HCV nucleic acid testing Ordering Provider: Que TOLBERT Report Released Date/Time: Mar 06, 2024 06:10 PM Reporting Lab: [facility] [place] [facility] [address] [address] Performing Lab: [facility] [place] [facility] [address] [address] [facility] [place] [facility] FERRITIN FERRITIN [MASS/VOLU ME] IN SERUM OR PLASMA 115 ng/mL 20 - 300 04/12 Specimen Type: SERUM No comment entered. Ordering Provider: Que TOLBERT Report Released Date/Time: Mar 06, 2024 06:10 PM Reporting Lab: [facility] [place] [facility] [address] [address] Performing Lab: [facility] [place] [facility] [address] [address] [facility] [place] [facility] GAMMA-GT P GAMMA GLUTAMYL TRANSFERAS E [ENZYMATIC ACTIVITY/V OLUME] IN SERUM OR PLASMA 35 U/L 10 - 65 04/12 Specimen Type: SERUM No comment entered. Ordering Provider: Que TOLBERT Report Released Date/Time: Mar 06, 2024 06:10 PM Reporting Lab: [facility] [place] [facility] [address] [address] Performing Lab: [facility] [place] [facility] [address] [address] [facility] [place] [facility] IRON & TIBC PANEL IRON BINDING CAPACITY [MASS/VOLU ME] IN SERUM OR PLASMA 272 ug/dL 204 - 475 02/21 /2025 Specimen Type: SERUM No comment entered. Ordering Provider: Que TOLBERT Report Released Date/Time: Mar 06, 2024 06:10 PM Reporting Lab: [facility] [place] [facility] [address] [address] Performing Lab: [facility] [place] [facility] [address] [address] [facility] [place] [facility] IRON & TIBC PANEL IRON [MASS/VOLU ME] IN SERUM OR PLASMA 203 ug/dL 40 - 160 04/12 H Specimen Type: SERUM No comment entered. Ordering Provider: Que TOLBERT Report Released Date/Time: Mar 06, 2024 06:10 PM Reporting Lab: [facility] [place] [address] [address] Performing Lab: [facility] [place] [facility] [address] [address] [facility] [place] [facility] IRON & TIBC PANEL IRON/IRON BINDING CAPACITY.T OTAL [MASS RATIO] IN SERUM OR PLASMA 74.7 20.0 - 50.0 04/12 H Specimen Type: SERUM No comment entered. Ordering Provider: Que TOLBERT Report Released Date/Time: Mar 06, 2024 06:10 PM Reporting Lab: [facility] [address] [address] Performing Lab: [facility] [address] [address] [facility] IRON & TIBC PANEL TRANSFERRI N [MASS/VOLU ME] IN SERUM OR PLASMA 206 mg/dL 200 - 360 04/12 Specimen Type: SERUM No comment entered. Ordering Provider: Que TOLBERT Report Released Date/Time: Mar 06, 2024 06:10 PM Reporting Lab: [facility] [address] [address] Performing Lab: [facility] [address] [address] [facility] Infectio us Disease Source of Test.LC PostDepS torage (12/27/22 8:02 AM) 12/27 N Claire-MYNOR Murdock [place] Infectio us Disease HIV-1/2 AG/AB 4G CDD LC NEGATIVE 12/27 Result Comment: Performed At: 1 [facility] [address] [place] [address] [address] [place] [address] TRIXIE EPPS PHD Ph:[phone] [address] [place] [address] Abdelrahman Murdock [place] Vital Signs Combined list of inpatient and outpatient Vital Signs from Department of Defense and Veterans Affairs, ranging from 12 months to all on record, depending upon the facility. Vital Sign Value Date Comments Source Temperature Oral 36.8 Mela 12/28/2022 19:38:00 [facility] [place] Mean Arterial Pressure, Calc 86 mm[Hg] 12/28/2022 19:38:[address] [place] [address] [place]delrahman [place] Systolic Blood Pressure 115 mm[Hg] 12/29/19 19:38:00 [facility] [place]rahman [place] Diastolic Blood Pressure 72 mm[Hg] 023 19:38:[address] [place] [address] [place]rahman [place] Peripheral Pulse Rate 61 bpm 12/28/2022 19:38:[address] [place] [address] Abdelrahman [place]and[place] Temperature Temporal Artery 35.6 Mela 02/07/2022 13:13:00 [facility] [place]rahman [place] Peripheral Pulse Rate 80 bpm 02/07/2022 13:13:[address] [place] [address] [place]rahman [place] Systolic Blood Pressure 133 mm[Hg] 02/08/20 22 13:13:00 010-[facility] [place]man [place] Diastolic Blood Pressure 82 mm[Hg] 022 13:13:00 [facility] Abdelrahman Smith-[place] Systolic Blood Pressure 128 mm[Hg] 12/28/19 23 13:38:00 [facility] Abdelrahman Smith[place] Diastolic Blood Pressure 76 mm[Hg] 023 13:38:[address] [place] [address] Abdelrahman Mayo Peripheral Pulse Rate 61 bpm 12/27/2022 13:38:00 [facility] Abdelrahman Mayo Temperature Temporal Artery 36.4 Mela 12/27/2022 13:38:[address] [place] [address] Abdelrahman Mayo SYSTOLIC BLOOD PRESSURE 125 04/24/19 25 12:42:02 [facility] DIASTOLIC BLOOD PRESSURE 72 025 12:42:02 [facility] PULSE OXIMETRY 97 04/23/2024 12:42:02 [facility] WEIGHT 202.6 04/23/2024 12:42:02 [facility] BMI 26 kg/m2 04/23/2024 12:42:02 [facility] PAIN 0 04/23/2024 12:42:02 [facility] TEMPERATURE 98 04/23/2024 12:42:02 [facility] PULSE 64 04/23/2024 12:42:02 [facility] RESPIRATION 14 04/23/2024 12:42:02 [facility] SYSTOLIC BLOOD PRESSURE 128 02/19/20 24 08:07:41 [facility] DIASTOLIC BLOOD PRESSURE 64 024 08:07:41 [facility] PULSE OXIMETRY 95 02/19/2024 08:07:41 [facility] WEIGHT 197.6 02/19/2024 08:07:41 [facility] BMI 25 kg/m2 02/19/2024 08:07:41 [facility] PAIN 0 02/19/2024 08:07:41 [facility] HEIGHT 74 02/19/2024 08:07:41 [facility] TEMPERATURE 98 02/19/2024 08:07:41 [facility] PULSE 55 02/19/2024 08:07:41 [facility] RESPIRATION 16 02/19/2024 08:07:41 [facility] SYSTOLIC BLOOD PRESSURE 130 08/29/19 24 09:02:05 [facility] DIASTOLIC BLOOD PRESSURE 77 024 09:02:05 [facility] PULSE OXIMETRY 96 08/29/2023 09:02:05 [facility] WEIGHT 219.1 08/29/2023 09:02:05 [facility] BMI 28 kg/m2 08/29/2023 09:02:05 [facility] PAIN 0 08/29/2023 09:02:05 [facility] HEIGHT 74 08/29/2023 09:02:05 [facility] TEMPERATURE 98.4 08/29/2023 09:02:05 [facility] PULSE 62 08/29/2023 09:02:05 [facility] RESPIRATION 16 08/29/2023 09:02:05 [facility] Encounters Combined list of: 1) Encounters from Department of Veterans Affairs facilities going backup to the last 18 months, not all VA inpatient encounters are included; 2) Encounters from the Department of Defense facilities going backup to 280 months. Location Location Details Encounter Type Encounter Number Reason For Visit Attending Provider ADM Date DC Date Status Disposition Source [facility] Facility OUTPATIENT [id number] 12/22 Released w/o Limitations [facility] OUT[facility] [id number] 03/04 Released w/o Limitations Theater Facilit y [facility] OUTPATIENT [id number] Notes Entered by: Derick GENAO 23 Mar 2020 1148 ------- ------- ------- ------- -- MOB- MILAN COBOS 03/23 Released w/o Limitations [facility] [place]( [facility] OUTPATIENT [id number] 0 Notes Entered by: Jimmie THORPE 30 Mar 2020 1049 ------- ------- ------- ------- -- FAVIO WASHINGTON 03/30 Released w/o Limitations [facility] OUTPATIENT [id number] 2 Notes Entered by: Jimmie THORPE 03 Apr 2020 0956 ------- ------- ------- ------- -- FAVIO WASHINGTON 04/03 Released w/o Limitations [facility]) [facility]) OUTPATIENT [id number] CHECK UP [id number] LISBET POLLOCK 05/15 Released w/o Limitations [facility]) OUTPATIENT [id number] 1 Notes Entered by: WILLARD AUSTIN 19 May 2020 0857 ------- ------- ------- ------- -- IMMS WILLARD AUSTIN 05/19 Released w/o Limitations [facility]) [facility]) TELE CONSULT [id number] 4 Notes Entered by: JOSE G GARCIA 26 May 2020 0724 ------- ------- ------- ------- -- lab results LISBET POLLOCK 05/26 [facility]) [facility] Pandemic Virus) OUTPATIENT [id number] 0 Notes Entered by: ELIJAH HASSAN 16 Jun 2020 1156 ------- ------- ------- ------- -- COVID2 MARIELLE DAVIS 06/16 Released w/o Limitations [facility] Pandemi c Virus) [facility] M[facility] Green) OUTPATIENT [id number] 9 Notes Entered by: VANESA HENSLEY 18 Sep 2020 0810 ------- ------- ------- ------- -- VANESA Irizarry 09/18 Released w/o Limitations [facility]) [facility]) TELE CONSULT [id number] 5 Notes Entered by: MCKENZIE JAUREGUI 11 Nov 2020 1341 ------- ------- ------- ------- -- CE Gomez 11/11 [facility]) [facility]) OUTPATIENT [id number] F2F Skin issue; poss. derm amelia nino [id number] GRACE LOUIE 11/19 Released w/o Limitations [facility]) [facility]) OUTPATIENT [id number] 5 Notes Entered by: TOMER RAHMAN V 03 Dec 2020 1459 ------- ------- ------- ------- -- Flu TOMER RAHMAN V 12/03 Released w/o Limitations [facility] ) [facility]) OUTPATIENT [id number] 6 Notes Entered by: GABY WANG 11 Dec 2020 1108 ------- ------- ------- ------- -- SHPE Phase 1 GABY WANG 12/11 Released w/o Limitations [facility]) [facility] Hearing Conservat ion) OUTPATIENT [id number] Notes Entered by: RICARDO POSADA 11 Dec 2020 1114 ------- ------- ------- ------- -- hearing conserv ation SAMANTHA JAVED 12/11 Released w/o Limitations [facility] Hearing Conserv at[facility]) [facility] Optometry ) OUTPATIENT [id number] 9 Notes Entered by: WOLFGANG MEADE 11 Dec 2020 1145 ------- ------- ------- ------- -- separat ion wyatta JEREMY Rendon 12/11 Released w/o Limitations [facility] Optomet [facility]) [facility]) TELE CONSULT [id number] 9 Notes Entered by: LENIN LOUIE 11 Dec 2020 1548 ------- ------- ------- ------- -- rad GRACE LOUIE 12/11 [facility]) [facility]) OUTPATIENT [id number] 9 Notes Entered by: GABY WANG 14 Dec 2020 0813 ------- ------- ------- ------- -- SHPE Phase 1 GABY WANG 12/14 Released w/o Limitations [facility]) [facility]) TELE CONSULT [id number] Notes Entered by: PAULA PRESTON 18 Dec 2020 0745 ------- ------- ------- ------- -- NETWORK RESULTS DERM DEC 10 GRACE LOUIE 12/18 [facility]) OUTPATIENT [id number] 7 [facility] [id number] GRACE LOUIE 12/29 Released w/o Limitations [facility]) [facility]) TELE CONSULT [id number] 2 Notes Entered by: LENIN LOUIE 02 Jan 2021 0906 ------- ------- ------- ------- -- FRANCIA Ramsey 01/02 [facility]) [facility]) OUTPATIENT [id number] 0 Notes Entered by: UMM YOST 21 Jan 2021 0818 ------- ------- ------- ------- -- FRANCIA Prasad 01/21 Released w/o Limitations [facility]) [facility]) OUTPATIENT [id number] 0 Notes Entered by: ANJALI HERNANDEZ 03 Feb 2021 1633 ------- ------- ------- ------- -- BJORN Nicholson 02/03 Released w/o Limitations [facility] ) [facility] [place] OUTPATIENT [id number] 5 Notes Entered by: Fish TURNER May 0951 ------- ------- ------- ------- -- CORDELIA- YESENIA MONTOYA BRANNON POWELL 03/02 Released w/o Limitations [facility] [place]([facility]) [facility]) OUTPATIENT [id number] 3 Notes Entered by: KELLY HURLEY 02 Mar 2021 1207 ------- ------- ------- ------- -- TU BLANCHARD 03/02 Released w/o Limitations [facility] [place]([facility] ) [facility]) OUTPATIENT [id number] ROMA COBURN 03/11 Released w/o Limitations [facility] [place]([facility]) [facility]) TELE CONSULT [id number] Notes Entered by: JOSUE NICE 12 Mar 2021 1436 ------- ------- ------- ------- -- NETWORK RESULTS URO 04 FEB 2021 GRACE LOUIE 03/12 [facility]) [facility]) OUTPATIENT [id number] 1 Notes Entered by: ANABELLA DE LA O 20 Nov 2021 1422 ------- ------- ------- ------- -- ANABELLA Davidson 11/20 Released w/o Limitations [facility] ) [facility] Opt[facility] ) OUTPATIENT [id number] 3 ree wears [id number] JEREMY RAYMOND 02/28 Released w/o Limitations [facility] Opt[facility]) [facility]) OUTPATIENT [id number] [phone] [facility], dermato logy referra FRANCIA Florian 03/09 Released w/o Limitations [facility]) OUTPATIENT [id number] [phone] [facility] KATHYA Willard 03/30 Released w/o Limitations [facility]) [facility]) OUTPATIENT [id number] VIRTUAL : Lab Results ( 2022 ) KATHYA BLOCK 04/04 Released w/o Limitations [facility]) [facility]) TELE CONSULT [id number] 4 Notes Entered by: Lucio DEGROOT 28 Apr 2022 1334 ------- ------- ------- ------- -- HEDIS: Colon Cancer Screeni CE Garduno 04/28 [facility]) [facility]) TELE CONSULT [id number] Notes Entered by: PAULA PRESTON 31 May 2022 1406 ------- ------- ------- ------- -- NETWORK RESULTS DERM JUN 12 KATHYA BLOCK 05/31 [facility]) [facility]) TELE CONSULT [id number] Notes Entered by: PAULA PRESTON 13 Jun 2022 1158 ------- ------- ------- ------- -- NETWORK RESULTS DERM JUN 12 KATHYA BLOCK 06/13 [facility]) [facility]) TELE CONSULT [id number] 3 Notes Entered by: JOSUE NICE 20 Oct 2022 0809 ------- ------- ------- ------- -- NETWORK RESULTS DERM SEP 11 KATHYA BLOCK 10/20 [facility] Out[facility] Encounter [id number] Lucio SMITH 01/04 [facility] OFF/OP EST MAY X REQ PHY/QHP [id number] Diagnos is: ICD-10- CM Z23 Encount er for immuniz ation Lucio SMITH 01/31 [facility] OFFICE O/P EST LOW 20 MIN [id number] Diagnos is: ICD-10- CM R97.20 Elevate d prostat e specifi c antigen [PSA] ABDELRAHMAN TOLBERT 02/28 [facility] En[facility] [id number] 03/01 [facility] Encounter [id number] 05/14 [facility] EXTENSV ORAL EVAL PROB FOCUS [id number] Diagnos is: ICD-10- CM K08.9 Disorde r of teeth and support ing structu res, unspeci ELA Martinez 05/15 [facility] Encounter [id number] 06/18 [facility] Out[facility] Encounter [id number] Diagnos is: ICD-10- CM Z77.118 Contact w and (suspec kerri) exposur e to oth environ polluti on CINDI PEREZ 08/06 [facility] OFFICE O/P NEW HI 60 MIN [id number] Diagnos is: ICD-10- CM Z85.828 Persona l history of other maligna nt neoplas m of skin THEODORE VALDEZ 08/14 [facility] OFFICE O/P EST LOW 20 MIN [id number] Diagnos is: ICD-10- CM R97.20 Elevate d prostat e specifi c antigen [PSA] ABDELRAHMAN TOLBERT 08/28 [facility] PSYTX W PT 45 MINUTES [id number] Diagnos is: ICD-10- CM F43.9 Reactio n to severe stress, unspeci JUANCARLOS Pinzon 09/05 [facility] OFFICE O/P EST HI 40 MIN [id number] Diagnos is: ICD-10- CM Z85.828 Persona l history of other maligna nt neoplas m of skin THEODORE VALDEZ 09/12 [facility] Outpatient Encounter [id number] DANNY HI MD 09/17 [facility] Outpatient Encounter [id number] DANNY HI MD 09/17 [facility] Outpatient Encounter [id number] 09/24 [facility] ([facility]GE) WELLNESS ASSESSMENT BY ON LICENSE OF [facility] [id number] Diagnos is: ICD-10- CM Z73.3 Stress, not elsewhe re classif ied BILLY FISHER 09/26 [facility] (631GE) [facility] Out[facility] Encounter [id number] 1.09/28 [facility] Out[facility] Encounter [id number] 1.10/08 [facility]counter [id number] 1. Lucio SMITH 10/18 [facility] Out[facility] Encounter [id number] [facility] Encounter [id number] 1. Lucio SMITH 10/25 [facility] Encounter [id number] [facility] Out[facility] Encounter [id number] [facility] Out[facility] Encounter [id number] 1.11/06 [facility] Out[facility]counter [id number] 11/09 [facility] Out[facility] Encounter [id number] 11/13 [facility] Out[facility] Encounter [id number] 11/15 [facility] Out[facility] Encounter [id number] 11/16 [facility] OFF/OP EST JUNE X REQ PHY/QHP [id number] Diagnos is: ICD-10- CM Z23 Encount er for immuniz ation WILBUR TANG 11/20 [facility] Encounter [id number] 11/22 [facility] Out[facility] Encounter [id number] 12/04 [facility] Out[facility] Encounter [id number] 12/05 [facility] Out[facility] Encounter [id number] Lucio SMITH 12/05 [facility] Out[facility] Encounter [id number] Lucio SMITH 01/03 [facility] Out[facility] Encounter [id number] 01/04 [facility] Encounter [id number] 1. Lucio SMITH 01/08 [facility] Encounter [id number] 01/10 [facility] Out[facility] Encounter [id number] 01/18 [facility] Encounter [id number] [facility] Out[facility] Encounter [id number] [facility] Out[facility] Encounter [id number] 01/29 [facility] Encounter [id number] 02/05 [facility] Out[facility] Encounter [id number] Lucio SMITH 02/06 [facility] Out[facility] Encounter [id number] 02/11 [facility] Out[facility] Encounter [id number] 02/12 [facility] OFFICE O/P EST LOW 20 MIN [id number] Diagnos is: ICD-10- CM K21.9 Gastro- esophag eal reflux disease without esophag itABDELRAHMAN Goodman 02/18 [facility] OFFICE O/P EST HI 40 MIN [id number] Diagnos is: ICD-10- CM C44.91 Basal cell carcino ma of skin, unspeci fied THEODORE VALDEZ 03/06 [facility] Outpatient Encounter [id number] THEODORE VALDEZ 03/06 [facility] Outpatient Encounter [id number] Lucio SMITH 04/23 [facility] OFFICE O/P NEW LOW 30 MIN [id number] Diagnos is: ICD-10- CM R94.5 Abnorma l results of liver functio n studies HERO,NEAndrew CECELIA 04/23 [facility] FAC[facility] FEE [id number] Diagnos is: ICD-10- CM R94.5 Abnorma l results of liver functio n studies SALOMÓN MONAHAN 04/23 [facility] Outpatient Encounter [id number] Diagnos is: ICD-10- CM E83.110 [employer] [facility] MARK Reaves 05/08 [place] [facility] En[facility] [id number] 05/09 [facility] En[facility] [id number] 05/20 [facility] Encounter [id number] 05/21 [facility] Encounter [id number] 05/27 [facility]counter [id number] 05/27 [facility]counter [id number] 06/07 [facility] Out[facility] Encounter [id number] 06/13 [facility] Procedures Combined list of: 1) Procedures from [facility] facilities going back up to thelast 18 months, not all VA non-surgical procedures are included; 2) All procedures from the Department of Defense facilities. Procedure Procedure Type Code Date Perfomer Comments Sourc e PASSED KIDNEY STONE IN HOSPITAL [facility] 1995 NO COMPLICAIONS 0108A-[facility] [place] Abdelrahman Ramirez Colonoscopy, November 2016, normal, next to 2026 8987A-[facility] Excision, basal cell carcinoma, left forehead, left cheek, left jackson, November 2022 8987A[facility] Threshold Audiogram (Pure Tone) Automated Threshold Audiogram (Pure Tone) Automated 0208T TU DIAZ DoD Immunization Administration One Vaccine Immunization Administration One Vaccine 89989 WILLARD AUSTIN [facility] Visual Function Screening Visual Function Screening 43269 JEREMY RAYMOND [facility] Patient education, not otherwise cla ified, non-physician provider, individual, per se SAMANTHA Sanchez [facility] Determination Of Refractive State Determination Of Refractive State 60473 JEREMY RAYMOND [facility] Ophthalmological New Patient Start Comprehensive Care Ophthalmological New Patient Start Comprehensive Care 12825 JEREMY RAYMOND [facility] ADMINISTRATION OF PATIENT-FOCUSED HEALTH RISK ASSESSMENT INSTRUMENT (EG, HEALTH HAZARD APPRAISAL) WITH SCORING AND DOCUMENTATION, PER STANDARDIZED INSTRUMENT 2021 [facility] PURE TONE AUDIOMETRY (THRESHOLD), AUTOMATED; AIR ONLY 2021 [facility] BRIEF EMOTIONAL/BEHAVIORA L ASSESSMENT (EG, DEPRESSION INVENTORY, ATTENTION-DEFICIT/H YPERACTIVITY DISORDER [ADHD] SCALE), WITH SCORING AND DOCUMENTATION, PER STANDARDIZED INSTRUMENT 2021 [facility] SCREENING TEST OF VISUAL ACUITY, QUANTITATIVE, BILATERAL 2020 [facility] CULTURE, FUNGI (MOLD OR YEAST) ISOLATION, WITH PRESUMPTIVE IDENTIFICATION OF ISOLATES; SKIN, HAIR, OR NAIL 2005 [facility] PURE TONE AUDIOMETRY (THRESHOLD); AIR ONLY 2005 [facility] SCREENING TEST OF VISUAL ACUITY, QUANTITATIVE, BILATERAL 2005 [facility] OPHTHALMOLOGICAL SERVICES: MEDICAL EXAMINATION AND EVALUATION WITH INITIATION OF DIAGNOSTIC AND TREATMENT PROGRAM; COMPREHENSIVE, NEW PATIENT, 1 OR MORE VISITS 2022 [facility] IMMUNIZATION ADMINISTRATION (INCLUDES PERCUTANEOUS, INTRADERMAL, SUBCUTANEOUS, OR INTRAMUSCULAR INJECTIONS); 1 VACCINE (SINGLE OR COMBINATION VACCINE/TOXOID) 2021 [facility] IMMUNIZATION ADM,INTRAMUSCULAR INJ,SEVERE AC RESPIRATORY SYNDROME CORONAVIR 2 (SARSCOV-2) (CORONAVIR DIS [COVID-19]) VACC,MRNALNP,SPIKE PROT,PRESRV FREE,30 MCG/0.3ML DOS,DILUENT RECONSTITUT;1ST DOSE 2020 [facility] SCREENING TEST OF VISUAL ACUITY, QUANTITATIVE, BILATERAL 2020 [facility] PATIENT EDUCATION, NOT OTHERWISE CLASSIFIED, NON-PHYSICIAN PROVIDER, INDIVIDUAL, PER SESSION 2020 [facility] IMMUNIZATION ADMINISTRATION (INCLUDES PERCUTANEOUS, INTRADERMAL, SUBCUTANEOUS, OR INTRAMUSCULAR INJECTIONS); 1 VACCINE (SINGLE OR COMBINATION VACCINE/TOXOID) 2020 [facility] ZOSTER (SHINGLES) VACCINE (HZV), RECOMBINANT, SUBUNIT, ADJUVANTED, FOR INTRAMUSCULAR USE 2020 [facility] SEVERE ACUTE RESPIRATORY SYNDROME CORONAVIRUS 2 (SARSCOV-2) (CORONAVIRUS DISEASE [COVID-19]) VACCINE, MRNALNP, SPIKE PROTEIN, PRESERVATIVE FREE, 100 MCG/0.5ML DOSAGE, FOR INTRAMUSCULAR USE 2020 [facility] ZOSTER (SHINGLES) VACCINE (HZV), RECOMBINANT, SUBUNIT, ADJUVANTED, FOR INTRAMUSCULAR USE 2020 [facility] Social History Combined list of available smoking, tobacco, and other social history from [facility] Defense and [facility] facilities. Social History Type Response Date Comment Sour e Tobacco smoking status NHIS VA-TOBACCO NEVER USED [facility]IGARETTES [facility] of tobacco use VA-TOBACCO NEVER USED OTHER TYPE 02/19/2024 [facility] [place] [facility] History of tobacco use VA-TOBACCO NEVER USED 10/13/2022 [facility] [place] [facility] History of tobacco use VA-TOBACCO NEVER USED 09/[facility] of tobacco use VA-TOBACCO NEVER USED 04/06/2021 [facility] Sex Representation Male (finding) 05/15/2020 Un known Organization History of tobacco use [place]-TOBACCO NEVER USED 08/15/2018 [facility] History of tobacco use LIFETIME NON-TOBA [employer] USER 09/06/2017 [facility] History of tobacco use 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 Never-other tobacco user (not cigarettes) Other Tobacco use:. [facility] Sexual Orientation Ambula tory Pharmacy Gender identity Ambulator y Pharmacy This section is an empty social history section. DoD Assessment and Plan Combined list of future care activities from Department of Defense and Veterans Affairs facilities (e.g., assessment and plan notes, appointments, orders, and referrals). Additional future care activities may be listed in the Plan of Care section. Result Assessment and Plan Date Source Assessment and Plan No data available for this section 07/01/2024 [facility] Plan of Care List of future care activities from Department of Veterans Affairs facilities. Additional future care activities may be listed in the Assessment and Plan section. Date/Time Care Activity Care Activity Detail Facili ty 08/13/2024 AMBULATORY - MEDICINE AMBULATORY - MEDICI [facility] Advance Directives List of completed, amended, or rescinded Advance Directives on record at Department of Veterans Affairs facilities. An actual copy of the Directive is not included. Date Advance Directive Provider Source 08/29/2023 ADVANCE DIRECTIVE KRUNAL [facility]ANG [facility] Functional Status Combined list of recent functional and cognitive assessments recorded at [facility] Functional [place]born Measurement (FIM) Scale: 1 = Total Assistance (Subject = 0% +), 2 = Maximal Assistance (Subject = 25% +), 3 = Moderate Assistance (Subject = 50% +), 4 = Minimal Assistance (Subject = 75% +), 5 = Supervision, 6 = Modified Alborn (Device), 7 = Complete Alborn (Timely, Safely). Assessment Date/Time Source Assessment Type Assessment Skill Assessment Score Assessment Details No data available for this section
--- OUTSIDE RECORDS SUMMARY | 2024-07-01 13:39 | XMS_ITS ---
Author Name [facility] [place] Organization [facility] [place] Address [address] [place] [address] Care Team Providers Care Crystal Report Developer Name Role Phone MIRIAM VASQUEZ Primary Care [...] Patient's Relationship to Policy Sapp BCBS OF [facility] PREFERRED PROVIDER ORGANIZAT ION (PPO) [facility] E Feb 20, 2017 [id number] EFFIE FOOTE PATIENT [facility] PRESCRIPT ION Feb 20, 2017 [id number] [phone] EFFIE FOOTE PATIENT [facility] TRICA RE DODA* Mar 05, 2020 DODA [id number] EFFIE FOOTE PATIENT [facility] CE ORGANIZ HMO Jan 22, 2007 (WNR) [id number] EFFIE FOOTE PATIENT MEDIMPA[employer] RX PRESCRIPT ION [address] [facility] July [facility], 2008 [id number] [phone] EFFIE FOOTE PATIENT [facility] Oct 09, 2008 [id number] EFFIE FOOTE PATIENT [facility] SELEC T TAMP Mar 14, 2021 [id number] EFFIE FOOTE PATIENT [facility] Dec 18, 2018 SELECT [id number] EFFIE FOOTE PATIENT Selected Encounter This section includes the information on record at [place] for the Encounter. Date/Time Encounter Type Encounter Description Reason Provider Source Apr 23, 2024 01:00 PM [facility] ICD-10-CM R94.5 Abnormal results of liver function studies CADEN WASHINGTON [facility] Encounter Template Text not used by [place] Assessments - Encounter Diagnoses This section includes the primary and secondary diagnoses documented for the Encounter. Date/Time Primary/Secondary Diagnosis Diagnosis Name Provider Source Apr 23, 2024 01:22 PM PRIMARY Abnormal results of liver function studies [facility]EN W[facility] Plan of Treatment: Future Appointments (+ 6 months) and Future Tests (+/- 45 days) The Plan of Treatment section includes future care activities for the patient from all [place] [facility]. This section includes future appointments and future orders which are active, pending or scheduled. Future Appointments This section includes appointments that were scheduled to occur 6 months from the date of the Encounter, up to a maximum of 20 appointments. The data comes from all [place] treatment facilities. Appointment Date/Time Appointment Type Appointme nt Facility Name May 09, 2024 02:00 PM AMBULATORY - MEDICINE [facility] [place] [facility] Aug 13, 2024 11:00 AM AMBULATORY MEDICINE [place] [facility] Sep 18, 2024 10:00 AM AMBULATORY MEDICINE [facility] Lab Results: +/- 30 days of the encounter This section includes the Chemistry and Hematology Lab Results on record with [place] for the patient. Radiology Reports and Pathology Reports are provided separately, in subsequent sections. Lab Results This section contains the Chemistry/Hematology Results that were resulted 30 days before or 30 daysafter the date of the Encounter. 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 This patient is negative for the H63D pathogenic variant. Individuals with this genotype may have elevated serum transferrin iron saturation levels. This result reduces the likelihood of hereditary hemochromatosis (HH). However, it does not rule out [...] information reviewed by Baljinder Nolan, Ph.D., [employer], [facility], [place]. DETAILED ASSAY INFORMATION: Hereditary hemochromatosis (HH) is an autosomal recessive disorder of iron metabolism that can result in iron overload and potential organ failure. It is one of the most common genetic disorders in individuals of -[place] an ancestry, with an estimated carrier frequency of 10%. HH is caused by pathogenic variants in the HFE gene. Most individuals with HH (60-90%) are homozygous for the C282Y pathogenic variant. A smaller percentage of affected individuals are either compound heterozygous for the C282Y and H63D pathogenic variants (3%-8%), or homozygous for the H63D pathogenic variant (approximately 1%). METHODOLOGY: This assay detects two pathogenic variants in the HFE gene, C282Y (NM 947847.2: c.845G>A, p.Exd423Gas) and H63D (NM 734929.2: c.187C>G, p.Roy03Rey), that are commonly associated with HH. These variants are detected by multiplex-polyme rase chain reaction (PCR) amplification, followed by restriction enzyme digestion and capillary electrophoresis. LIMITATIONS: This assay does not detect other pathogenic variants in the HFE gene that may be associated with HH. Although rare, false positive or false negative results may occur. All results should be interpreted in the context of clinical findings, relevant history, and other laboratory data. Health care providers, please contact your local [employer]' genetic counselor or call [phone] ( [phone] for assistance with the interpretation of these results. This test was developed and its analytical performance characteristics have been [facility]. It has not been cleared or approved by FDA. This assay has been validated pursuant to the CLIA regulations and is used for clinical purposes. For more information, please refer to http://education .GetApp/faq/hemoch ro matosis. (This link is being provided for informational/ed ucational purposes only.) A portion of the testing was performed at [facility]. Reviewed and signed by Laboratory results and submitted clinical information reviewed by Baljinder Nolan, Ph.D., [employer], [facility], [facility], Signed on 05/02/2024 at 15:26 Test performed by [employer] [address] [address] Stem Processing Machine Operator: Jenn Gaitan MD,PHD,BOB Test Reported by [facility], [employer] [facility], [address] [place] [address] Crispin Painter M.D., Ph.D., Director of Laboratories , CLIA [id number] TEST PERFORMED AT: , Ordering Provider: CADEN WASHINGTON Report Released Date/Time: Apr 23, 2024 01:09 PM Reporting Lab: [place] [facility] RADLIVE [facility] [address] [facility] [address] Performing Lab: [place] [facility] [address] [address] HEREDITARY HEMOCHROMATOSIS DNA MUTATION SEE NOTE Apr 23, 2024 01:26 PM [place] [facility] PT & INR (PROTIME) PLASMA Specimen Type: PLASM A No comment entered. Ordering Provider: CADEN WASHINGTON Report Released Date/Time: Apr 23, 2024 01:09 PM Reporting Lab: [place] [facility] [address] [facility] [address] Performing Lab: [facility] [address] [facility] [address] INR 0.9 PROTIME 10.5 s 10.0-13.1 Apr 23, 2024 01:26 PM [facility] CBC AND DIFF (AUTO) BLOOD Specimen Type: BLOO D No comment entered. Ordering Provider: CADEN WASHINGTON Report Released Date/Time: Apr 23, 2024 01:09 PM Reporting Lab: [facility] [address] [facility] [address] Performing Lab: [facility] [address] [facility] [address] WBC 6.75 10*3/uL 4.50-11.00 RBC 4.75 10*6/uL 4.23-5.66 HGB 15.0 g/dL 12.8-17 HCT 44.5 39.2-50.4 MCV 93.7 fL 82-99 MCHC 33.7 g/dL 30.8-35.1 PLT 235 10*3/uL 140-360 RDW-CV 13.4 12.0-16.0 MONO, ABS 0.61 10*3/uL 0.30-1.10 MCH 31.6 pg 26.2-32.6 NEUT % 60.1 43.7-75.8 LYMPH % 27.7 14.0-42.3 MONO % 9.0 5.1-13.7 EOS % 1.9 0.4-6.8 BASO % 1.0 0.1-2.0 NEUT, ABS 4.05 10*3/uL 2.20-7.60 LYMPH, ABS 1.87 10*3/uL 1.00-3.20 EOS, ABS 0.13 10*3/uL 0.03-0.44 BASO, ABS 0.07 10*3/uL 0.01-0.13 IMMATURE GRAN % 0.3 0.0-0.7 IMMATURE GRAN, ABS 0.02 10*3/uL 0.00-0.0 6 NRBC % 0.0 0.0-0.0 NRBC, ABS 0.00 10*3/uL 0.00-0.00 Apr 12, 2024 01:42 PM [facility] HEPATITIS B SURFACE ANTIGEN (HBsAg)-WH SERUM Specimen Type: SERUM Comment: Hep B Core, Total: This test detects both IgG and IgM antibodies. A nonreactive final interpretation indicates that anti-HBc antibodies were not detected [...] B surface antigen is frequently associated with infectivity. Ordering Provider: JANIE SNYDER Report Released Date/Time: Mar 06, 2024 06:10 PM Reporting Lab: [facility] [address] [facility] [address] Performing Lab: [facility] [address] [facility] [address] HBsAg Non Reactive Non Reactive Apr 12, 2024 01:42 PM [facility] HEPATITIS B CORE (Total) Ab SERUM Specimen Ty pe: SERUM Comment: Hep B Core, Total: This test detects both IgG and IgM antibodies. A nonreactive final interpretation indicates that anti-HBc antibodies were not detected [...] B surface antigen is frequently associated with infectivity. Ordering Provider: JANIE SNYDER Report Released Date/Time: Mar 06, 2024 06:10 PM Reporting Lab: [facility] [address] [facility] [address] Performing Lab: [facility] [place] [facility] [address] [facility] [address] HEPATITIS B CORE (Total) Ab Non Reactive Non Reactive Apr 12, 2024 01:42 PM [facility] [place] [facility] ADIS SCREEN/TITER SERUM Specimen Type: SERUM No comment entered. Ordering Provider: JANIE SNYDER Report Released Date/Time: Mar 06, 2024 06:10 PM Reporting Lab: [facility] [place] [facility] [address] [facility] [address] Performing Lab: [facility]ENTERTRN [facility]ITALUSETS [facility] [address] [facility] [address] ADIS SCREEN NEG NEG <1:40 Apr 12, 2024 01:42 PM [facility] [place] [facility] ALT SERUM Specimen Type: SERUM No comment entered. Ordering Provider: JANIE SNYDER Report Released Date/Time: Mar 06, 2024 06:10 PM Reporting Lab: [facility] CENTERTRN [facility]ITALUSETS [facility] [address] [facility] [address] Performing Lab: [facility]ENTERTRN [facility]ITALUSETS [facility] [address] [facility] [address] ALT 64 U/L H Apr 12, 2024 01:42 PM [facility] [place] [facility] BILIRUBIN, TOTAL SERUM Specimen Type: SERUM No comment entered. Ordering Provider: JANIE SNYDER Report Released Date/Time: Mar 06, 2024 06:10 PM Reporting Lab: [facility] HOSPITALRL TRN [facility]ITALUSETS [facility] [address] [facility] [address] Performing Lab: [facility] HOSPITALRLAUREL [facility]ERN [facility]OSPITALUSETS [facility] [address] [facility] [address] BILIRUBIN, TOTAL 0.6 mg/dL 0.2-1.2 Apr 12, 2024 01:42 PM [facility] [place] [facility] HEPATITIS C ANTIBODY (HCV)-ARC SERUM Specimen Type: SERUM Comment: Hep C Ab: No HCV antibody detected. If recent infection is suspected or other evidence suggests HCV infection, consider HCV nucleic acid testing Ordering Provider: JANIE SNYDER Report Released Date/Time: Mar 06, 2024 06:10 PM Reporting Lab: [facility]ITALRL [place] [place] [facility] [address] [facility] [address] Performing Lab: [facility] HOSPITALRL TRN [facility]ITALUSETS [facility] [address] [facility] [address] HEPATITIS C ANTIBODY NON-REACTIVE NON-RE ACTIVE Apr 12, 2024 01:42 PM [facility] [place] [facility] FERRITIN SERUM Specimen Type: SERUM No comment entered. Ordering Provider: JANIE SNYDER Report Released Date/Time: Mar 06, 2024 06:10 PM Reporting Lab: [facility] HOSPITALRL TRN [facility]ITALUSETS [facility] [address] [facility] [address] Performing Lab: [facility] HOSPITALRLAUREL [facility]ERN [facility]PITALUSETS [address] [address] FERRITIN 115 ng/mL 20-300 Apr 12, 2024 01:42 PM [facility] GAMMA-GTP SERUM Specimen Type: SERUM No comment entered. Ordering Provider: JANIE SNYDER Report Released Date/Time: Mar 06, 2024 06:10 PM Reporting Lab: [facility]OS[facility]ITALRL TRN [facility]ITALUSETS [address] [address] Performing Lab: [facility]ITALRL TRN [facility]ITALUSETS [address] [address] GAMMA-GTP 35 U/L 10-65 Apr 12, 2024 01:42 PM [facility] [place] [facility] IRON & TIBC PANEL SERUM Specimen Type: SERUM No comment entered. Ordering Provider: JANIE SNYDER Report Released Date/Time: Mar 06, 2024 06:10 PM Reporting Lab: [facility]ITALRL TRN [facility]ITALUSETS [facility] [address] [facility] [address] Performing Lab: [place] CNTRL TRN [facility]ITALUSETS [address] [address] TIBC 272 ug/dL 204-475 IRON 203 ug/dL H 40-160 Transferrin Saturation 74.7 H 20.0-50.0 Transferrin (TRF) 206 mg/dL 200-360 Apr 12, 2024 01:42 PM [facility] ALBUMIN SERUM Specimen Type: SERUM No comment entered. Ordering Provider: JANIE SNYDER Report Released Date/Time: Mar 06, 2024 06:10 PM Reporting Lab: [facility]ITALRDALE [facility] CENTERTRN [facility]PITALUSETS [facility] [address] [facility] [address] Performing Lab: [facility]OS[facility]ITALRL TRN [facility]ITALUSETS [facility] [address] [facility] [address] ALBUMIN 3.9 g/dL 3.5-5.0 Apr 12, 2024 01:42 PM [facility] [place] [facility]ITAL[facility] ALKALINE PHOSPHATASE SERUM Specimen Type: SER UM No comment entered. Ordering Provider: JANIE SNYDER Report Released Date/Time: Mar 06, 2024 06:10 PM Reporting Lab: [facility] HOSPITALRL [facility]N [facility]PITALUSETS [address] [address] Performing Lab: [facility] [place] [facility]ITALUSE[address] [address] ALKALINE PHOSPHATASE 99 U/L 40-150 Apr 12, 2024 01:42 PM [facility] [place] [facility]USE[facility] PROTEIN,TOTAL SERUM Specimen Type: SERUM No comment entered. Ordering Provider: JANIE SNYDER Report Released Date/Time: Mar 06, 2024 06:10 PM Reporting Lab: [facility]OSPITALRL [facility]ITALN [facility]ITALUSETS [address] [address] Performing Lab: [facility] [facility]ITALUSE[address] [address] PROTEIN,TOTAL 7.1 g/dL 6.0-8.3 Apr 12, 2024 01:42 PM [facility] [place] [facility] AST SERUM Specimen Type: SERUM No comment entered. Ordering Provider: JANIE SNYDER Report Released Date/Time: Mar 06, 2024 06:10 PM Reporting Lab: [facility]OS[facility]ITALRL TRN [facility]ITALUSETS [address] [address] Performing Lab: [facility]ITALRDALE [facility]ICAL CENTERTRN [facility]ITALUSETS [address] [address] AST 31 U/L 5-34 Apr 12, 2024 01:42 PM [facility] [place] [facility]USE[facility] BASIC METABOLIC PANEL (non-fasting) SERUM Spe cimen Type: SERUM No comment entered. Ordering Provider: JANIE SNYDER Report Released Date/Time: Mar 08, 2024 09:15 AM Reporting Lab: [facility] [place] [facility] [address] [facility] [address] Performing Lab: [facility] [address] [facility] [address] UREA NITROGEN 18 mg/dL 7-25 GLUCOSE 89 mg/dL 65-100 SODIUM 140 mmol/L 135-145 POTASSIUM 4.1 mmol/L 3.5-5.0 CHLORIDE 105 mmol/L 100-110 CO2 26 meq/L 20-30 CALCIUM 9.6 mg/dL 8.5-10.2 CREATININE, Serum 0.73 mg/dL 0.50-1.40 eGFR(CKD-EPI 2020) >90 mL/min >60 Vital Signs: All taken on the encounter date This section contains inpatient and outpatient Vital Signs collected on the date of the Encounter. Date/Time Temperature Pulse Blood Pressure Respiratory Rate SP02 Pain Height Weight Body Mass Index Source Apr 23, 2024 12:42 PM 98 64 125/72 14 97 0 202.6 26 [facility] Social History: Smoking Status (Most current) [...] AM VA-TOBACCO NEVER U SED OTHER TYPE [facility] Tobacco Use History This section includes a history of the smoking, or tobacco-related health factors, that were collected on or before the date of the Encounter. The data comes from the [place] facility where the Encounter took place. Date/Time Smoking Status/Tobacco Use Comment F acsmith Feb 19, 2024 08:30 AM VA-TOBACCO NEVER U SED OTHER TYPE [facility] [place] [facility] Oct 13, 2022 11:45 AM VA-TOBACCO NEVER USED [facility] Sep 05, 2021 11:29 AM VA-TOBACCO NEVER USED [facility] May 28, 2007 09:10 AM LIFETIME NON-TOBACCO USER [facility] Advance Directives: All historical and current [...] 2023 ADVANCE DIRECTIVE KRUNAL TANG [facility] L [facility] Radiology Reports: +/- 30 days of [...] the Encounter. The data comes from all [place] treatment facilities. Date/Time Radiology Report Provider Source Apr 16, 2024 10:07 AM ULTRASOUND ELASTOGRAPHY PARENCHYMA: CLAIRE FOOTE [id number] -[id number] M Exm Date: APR 16, 2024@10:07 Req Phys: JANIE SNYDER Pat Loc: [facility] PACT 3 PA (Req'g Loc) Img Loc: ULTRASOUND Service: [place] [address] (Case 74 CANCELLE) ULTRASOUND ABDOMEN LIMITED (US Detailed) CPT:22921 Reason for Study: LFT elevation (Case 75 COMPLETE) ULTRASOUND ELASTOGRAPHY PARENCHYM(US Detailed) CPT:07167 Clinical History: [place] start[place] tomorrow. Please BOOK this apt for after April 11, mail to him and leave VM on his Phone: [phone]. He is available M-F. Go ahead and book CT, US and hepatology consult for him. He will visit lab when he has imaging. Report Status: Verified Date Reported: APR 17, 2024 Date Verified: APR 17, 2024 Movie Shot Cameraman E-Sig: Report: ULTRASOUND ELASTOGRAPHY PARENCHYMA [PRINTSET] HISTORY: LFT elevation COMPARISON: None TECHNIQUE: Acoustic/sonographic liver elastography was performed. This examination was protocoled and supervised at the local [place] facility. 13 images were received by the [place] National Teleradiology Program (NTP) for interpretation. Liver stiffness measurements were obtained following the Society of Radiology of Ultrasound (SRU) guidelines.* FINDINGS: 10 measurements were obtained using a p-SWE method. The median IQR/M is 9%, suggesting a good-quality data set. The median liver stiffness velocity is 1.28 m/s, suggesting a high probability of being normal.* Impression: 1. Good-quality data set. 2. Median liver stiffness velocity of 1.28 m/s, suggesting a high probability of being normal. Note: A) Factors that may increase liver stiffness include elevated liver function tests, non-fasting state, vascular congestion, acute hepatitis, infiltrative liver diseases, and intense physical exercise. In this setting, the stage of liver fibrosis may be overestimated. However, in all these conditions, stiffness values within the normal range exclude significant liver fibrosis. B) In some patients with NAFLD, the cutoff values for cACLD may be lower (7-9 kPa). C) In etiologies other than viral hepatitis and NAFLD, inclusive of but not limited to alcoholic hepatitis, primary biliary cirrhosis, autoimmune hepatitis, sclerosing cholangitis and drug-induced liver diseases, the cutoff values are not well established. D) In patients with chronic viral hepatitis B or hepatitis C that are successfully treated, the baseline liver stiffness should be that obtained after viral eradication or suppression. E) The percentage change in liver stiffness over time, and not absolute values, should be used. On follow-up studies to evaluate for efficacy of treatment or progression of disease, a 10% difference in liver stiffness should be considered clinically significant. * Update to the Society of Radiologists in Ultrasound Liver Elastography Consensus Statement. Radiology 2020; 296:263-274. https://doi.org/10.1148/ra diol.3154093927 SRU recommendations for interpretation of liver stiffness values obtained using ARFI techniques in patients with viral hepatitis and NAFLD Liver Stiffness Value Recommendation ? 5kPa (1.3 m/) High probability of being normal < 9kPa (1.7 m/s) In the absence of other known clinical signs, rules out cACLD. If there are known clinical signs may need further test for confirmation 9 kPa ? 13 kPa (1.7?2.1 m/s) Suggestive of cACLD but need further test for confirmation > 13 kPa (2.1 m/s) Likely confirming cACLD > 17 kPa (2.4 m/s) Suggestive of CSPH ARFI = acoustic radiation force impulse, cACLD = (compensated) advanced chronic liver disease, CSPH = clinically significant portal hypertension, NAFLD = non-alcoholic fatty liver disease READING PHYSICIAN: Darryl Chang MD -[id number] 04/17/2024 6:27 PST [facility] National Teleradiology Program [phone] (For Medical Practitioner Use Only) Attention Patients / Veterans: If you have questions or concerns about these test results, please contact your ordering provider or primary care team. Primary Diagnostic Code: NO ALERT REQUIRED Primary Interpreting Staff: RADIOLOGY,OUTSIDE SERVICE, Staff Physician / [facility] Apr 16, 2024 10:[address] LIVER W/WO IV CONTRAST 4 PHASE HCC: CLAIRE FOOTE [id number] -1965 M Exm Date: APR 16, 2024@10:03 Req Phys: JANIE SNYDER Loc: [facility] PACT 3 PA (Req'g Loc) Img Loc: [facility]/CT Service: [place] [address] (Case 73 COMPLETE) CT LIVER W/WO IV CONTRAST 4 PHASE(CT Detailed) CPT:33282 Contrast Media : Non-ionic Iodinated Reason for Study: liver Clinical History: Impression: Hepatic steatotic/fibrotic changes with vague area of increased echogenicity within the right lobe of the liver. Further evaluation with CT or MRI of the abdomen using contrast is recommended. On uS this week. Contrast or no? I called [place] startting tomorrow. Please BOOK this apt for after April 11, mail to him and leave VM on his Phone: [phone]. He is available M-F. Go ahead and book CT, US and hepatology consult for him. He will visit lab when he has imaging. Report Status: Verified Date Reported: APR 17, 2024 Date Verified: APR 17, 2024 Movie Shot Cameraman E-Sig: Report: CT LIVER W/WO IV CONTRAST 4 PHASE HCC History: liver Hepatic steatotic/fibrotic changes with vague area of increased echogenicity within the right lobe of the liver. Further evaluation with CT or MRI of the abdomen using contrast is recommended. Comparison: Ultrasound March 06, 2024 Technique: The study was protocoled and supervised at the local [place] facility. 1286 images were subsequently received by the [place] [facility] (NTP) for interpretation. Total DLP (mGy*cm): 1308.4 IV Contrast Type: Omnipaque 350 IV Contrast Dose: 100 mL Findings: LOWER CHEST: Partially imaged 7 mm pleural-based nodule at the posteromedial left lower lobe on image 1. LIVER: Smooth contour. No mass or enhancing lesion. GALLBLADDER/BILIARY: Unremarkable. SPLEEN: Unremarkable. PANCREAS: Unremarkable. ADRENALS: Unremarkable. KIDNEYS/URETERS: Unremarkable. PERITONEAL CAVITY: No ascites or pneumoperitoneum. GASTROINTESTINAL TRACT: Visualized portions are within normal limits. VESSELS: Normal caliber abdominal aorta. LYMPH NODES: No lymphadenopathy. BONES/ABDOMINAL WALL: No suspicious osseous lesion. Impression: 1. No liver mass or any suspicious enhancing liver lesion. 2. Partially imaged 7 mm pleural-based nodule at the posteromedial left lower lobe on image 1. Recommend CT chest. READING PHYSICIAN: Stone Peralta M.D. -[id number] 04/17/2024 7:58 [facility] National Teleradiology Program [phone] (For Medical Practitioner Use Only) Attention Patients / Veterans: If you have questions or concerns about these test results, please contact your ordering provider or primary care team. Primary Diagnostic Code: SIGNIFICANT ABNORMALITY, ATTN NEEDED Secondary Diagnostic Codes: ABDOMINAL AORTIC ANEURYSM NOT PRESENT INCIDENTAL LUNG NODULE(NONSCREENING) Primary Interpreting Staff: RADIOLOGY,OUTSIDE SERVICE, Staff Physician / RADIOLOGY,OUTSIDE SERVICE [place] [facility] [place] [facility] Encounter Notes: All associated encounter notes This section contains the clinical notes associated to the Encounter. Date/Time Encounter Note(s) Provider Source May 09, 2024 04:58 PM NONVA CONSULT: LOCAL TITLE: MD/OUTSIDE CONSULT REPORT SUMMARY STANDARD TITLE: NONVA CONSULT DATE OF NOTE: MAY 09, 2024@16:58 ENTRY DATE: MAY 09, 2024@16:58:06 AUTHOR: VANWAGNER,JANIE F EXP COSIGNER: URGENCY: STATUS: COMPLETED REMOTE RESULTS KATHERINE Document from: [facility] Associated on: May 08, 2024@13:49:11 LOCAL TITLE: HEMATOLOGY E-CONSULT NOTE (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 Hgb 15.0; Evaluated in liver clinic - very low risk for liver disease. Please advice if any specific follow up needed wrt Hem? ASSESSMENT AND RECOMMENDATIONS: Ferritin is only 115, and thus do not recommend therapeutic phlebotomy edwina considering his genotype is relatively low risk. Would recommend monitoring iron studies yearly and re-consulting if ferritin becomes above normal range. /kaleb/ PAT WEBER MD ATTENDING PHYSICIAN, HEMATOLOGY/ONCOLOGY Signed: 05/08/2024 13:49 * END OF REMOTE RESULTS * /kaleb/ Janie Snyder PA-C STAFF PHYSICIAN CHARACTER IMPERSONATOR Signed: 05/09/2024 16:59 JANIE SNYDER [facility] May 09, 2024 04:42 PM ADDENDUM: LOCAL TITLE: Addendum STANDARD TITLE: ADDENDUM DATE OF NOTE: MAY 09, 2024@16:42:43 ENTRY DATE: MAY 09, 2024@16:42:44 AUTHOR: CADEN WASHINGTON EXP COSIGNER: URGENCY: STATUS: COMPLETED Per Hem e-consult from [facility] RESULT: POSITIVE FOR ONE HFE GENE PATHOGENIC VARIANT: C282Y (HETEROZYGOTE) Ferritin is only 115, and thus do not recommend therapeutic phlebotomy edwina considering his genotype is relatively low risk. Would recommend monitoring iron studies yearly and re-consulting if ferritin becomes above normal range . will update on the above. Alerting PCP through this note /es/ Caden Washington Nurse Practitioner, Hepatology/GI Signed: 05/09/2024 16:45 Receipt Acknowledged By: 05/09/2024 17:15 /kaleb/ Janie Snyder PA-C STAFF PHYSICIAN CHARACTER IMPERSONATOR --- Original Document --- 04/23/24 TELE-HEPATOLOGY INITIAL NOTE: CC:elevated LFT Last seen Liver Clinic:New patient HPI 58 yo male with PMH Obesity, HLD, GERD, BCC who presents for f/u in Liver clinic for abnormal enzymes. Vandana molina, not as active in winter, is a social alcohol drinker, only takes wine on special occasions or when on vacation. Has been dealing with elder care (parents) since moving to [place] in 2022. More recently since 2023, has been working on diet and lifestyle changes and has lost considerable weight. Complaint with medications, takes a multivit and milk thistle for his liver. Denies any other concerning symptoms. 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[place] Exposures to burnpits, PM, sand, exhaust and fuels AHOBPR exam connect Snomed Code to ICD 10 Code refer to note dated 02/28/23 Hyperlipidemia (SCT [id number]) Basal Cell Carcinoma of Skin (SCT [id number]) Gastroesophageal reflux disease SOCIAL Hx: Lives with parents, brother 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 EtOH:denies Illicits:denies Diet:Keto Exercise:adl's ALLERGIES : PENICILLIN MEDICATION RECONCILIATION Active and Recently Outpatient Medications (excluding Supplies): [...] CAP 1000MG BY MOUTH ACTIVE ONCE DAILY 4 Total Medications Physical Exam VITALS VITALS TEMP 98 F [36.7 C] (04/23/2024 12:42) HR 64 (04/23/2024 12:42) BP 125/72 (04/23/2024 12:42) RR 14 (04/23/2024 12:42) O2sat:Pulse Oximetry VITAL SIGNS SELECTED Measurement DT POx (L/MIN)(%) 04/23/2024 12:42 97(L/MIN)(%) GEN: NAD, AxOx3, steady gait SKIN: W/D, no jaundice, bruising, palmar erythema or telangiectasias or spider angiomas HEENT: MMM, anicteric sclera/SL area ABD: +BS x 4 quads, NT/ND, no HSM, no CVAT, no Ascites Ext (all 4): WWP, no edema, no tremor or asterixis LABS: ===== CHEMISTRY: ADIS SCREEN: Neg HEPATITIS C ANTIBODY: Neg @ 04/12/2024 13:42 Ferritin: 115 HBsAg: Neg @ 04/12/2024 13:42 HEPATITIS B CORE (Total) AbNon Reactive: Ref: @ 04/12/2024 13:42 TIBC: 272 Iron: 203 H Transferrin Saturation: 74.7 H @ 04/12/2024 13:42 Transferrin (TRF): 206 Protein: 7.1 Albumin: 3.9 @ 04/12/2024 13:42 ALK: 99 AST: 31 TBil: 0.6 GAMMA-GTP: 35 ALT: 64 H @ 04/12/2024 13:42 Calcium: 9.6 @ 04/12/2024 13:42 Corrected Calcium: 9.7 (alb 3.9 on Apr 12, 2024) @ 04/12/2024 13:42 CREATININE, Serum: 0.73 eGFR(CKD-EPI 2020): >90 @ 04/12/2024 13:42 SODIUM: 140 POTASSIUM: 4.1 CHLORIDE: 105 CO2: 26 @ 04/12/2024 13:42 UREA NITROGEN: 18 Glucose: 89 @ 04/12/2024 13:42 HEPATITIS A ANTIBODY (IGG) REACTIVE: Ref: HBsAb: Pos @ 02/12/2024 09:22 CHOL: 225 H T LDL calculated: 165 H @ 02/12/2024 09:22 CHOL/HDL: 5.4 HDL: 42 @ 02/12/2024 09:22 TREND DATA: AST ALT AlkP TBil Alb Prtn === 31 64 99 0.6 3.9 7.1 @ 04/12/2024 13:42 36 75 110 0.9 4.3 7.2 @ 02/12/2024 09:22 DIAGNOSTICS: CT LIVER W/WO IV CONTRAST 4 PHASE [facility] Exm Date: APR 16, 2024@10:03 Findings: LOWER CHEST: Partially imaged 7 mm pleural-based nodule at the posteromedial left lower lobe on image 1. LIVER: Smooth contour. No mass or enhancing lesion. GALLBLADDER/BILIARY: Unremarkable. SPLEEN: Unremarkable. PANCREAS: Unremarkable. ADRENALS: Unremarkable. KIDNEYS/URETERS: Unremarkable. PERITONEAL CAVITY: No ascites or pneumoperitoneum. GASTROINTESTINAL TRACT: Visualized portions are within normal limits. VESSELS: Normal caliber abdominal aorta. LYMPH NODES: No lymphadenopathy. BONES/ABDOMINAL WALL: No suspicious osseous lesion. Impression: 1. No liver mass or any suspicious enhancing liver lesion. 2. Partially imaged 7 mm pleural-based nodule at the posteromedial left lower lobe on image 1. Recommend CT chest. Assessment/Plan: ==== 58 yo male with PMH Obesity, HLD, GERD, BCC who presents for f/u on abnormal enzymes. His AST and ALT have been conistently trending down since last year August corresponding to weight loss and lifestyle changes. TSAT appears elevated and warrants further w/u to r/o Hemochromatosis. PLAN - AST and ALT trending down since 2023. - TSAT elevated, check HFE gene for Hemachromatosis - Unknown INR, will need updated labs reflecting Plt and INR, order placed. - CT ABD w and w/o contrast is benign, no splenomegaly or nodular liver contour. - FIB 4 (using PLT from 2021) - 0.87 indicating very low risk for fibrosis - Based on pending lab work, will consider further w/u with FS. VERBALIZES AN UNDERSTANDING AND AGREEMENT WITH THE ABOVE POC. TELE-HEALTH VISIT CONDUCTED FROM [facility] provider OVER CVT to [facility] patient On the date of the encounter, I spent 35 minutes on some or all of the following: chart review, history, physical examination, treatment planning, education and counseling of the patient/family/caregiver, placing orders, communicating with other healthcare providers, and documentation in the electronic health record. /kaleb/ Caden Washington Nurse Practitioner, Hepatology/GI Signed: 04/23/2024 13:22 CADEN WASHINGTON [facility] [place] [facility] Apr 23, 2024 12:39 PM HEPATOLOGY INITIAL EVALUATION NOTE: LOCAL TITLE: TELE-HEPATOLOGY INITIAL NOTE STANDARD TITLE: HEPATOLOGY INITIAL EVALUATION NOTE DATE OF NOTE: APR 23, 2024@12:39 ENTRY DATE: APR 23, 2024@12:39:51 AUTHOR: CADEN WASHINGTON EXP COSIGNER: URGENCY: STATUS: COMPLETED TELE-HEPATOLOGY INITIAL NOTE Has ADDENDA CC:elevated LFT Last seen Liver Clinic:New patient HPI 58 yo male with PMH Obesity, HLD, GERD, BCC who presents for f/u in Liver clinic for abnormal enzymes. Keto diet, not as active in winter, is a social alcohol drinker, only takes wine on special occasions or when on vacation. Has been dealing with elder care (parents) since moving to [place] in 2022. More recently since 2023, has been working on diet and lifestyle changes and has lost considerable weight. Complaint with medications, takes a multivit and milk thistle for his liver. Denies any other concerning symptoms. 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[place] Exposures to burnpits, PM, sand, exhaust and fuels AHOBPR exam connect Snomed Code to ICD 10 Code refer to note dated 02/28/23 Hyperlipidemia (SCT [id number]) Basal Cell Carcinoma of Skin (SCT [id number]) Gastroesophageal reflux disease SOCIAL Hx: Lives with parents, brother 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 EtOH:denies Illicits:denies Diet:Keto Exercise:adl's ALLERGIES : PENICILLIN MEDICATION RECONCILIATION Active and Recently Outpatient Medications (excluding Supplies): [...] CAP 1000MG BY MOUTH ACTIVE ONCE DAILY 4 Total Medications Physical Exam VITALS VITALS TEMP 98 F [36.7 C] (04/23/2024 12:42) HR 64 (04/23/2024 12:42) BP 125/72 (04/23/2024 12:42) RR 14 (04/23/2024 12:42) O2sat:Pulse Oximetry VITAL SIGNS SELECTED Measurement DT POx (L/MIN)(%) 04/23/2024 12:42 97(L/MIN)(%) GEN: NAD, AxOx3, steady gait SKIN: W/D, no jaundice, bruising, palmar erythema or telangiectasias or spider angiomas HEENT: MMM, anicteric sclera/SL area ABD: +BS x 4 quads, NT/ND, no HSM, no CVAT, no Ascites Ext (all 4): WWP, no edema, no tremor or asterixis LABS: ===== CHEMISTRY: ADIS SCREEN: Neg HEPATITIS C ANTIBODY: Neg @ 04/12/2024 13:42 Ferritin: 115 HBsAg: Neg @ 04/12/2024 13:42 HEPATITIS B CORE (Total) AbNon Reactive: Ref: @ 04/12/2024 13:42 TIBC: 272 Iron: 203 H Transferrin Saturation: 74.7 H @ 04/12/2024 13:42 Transferrin (TRF): 206 Protein: 7.1 Albumin: 3.9 @ 04/12/2024 13:42 ALK: 99 AST: 31 TBil: 0.6 GAMMA-GTP: 35 ALT: 64 H @ 04/12/2024 13:42 Calcium: 9.6 @ 04/12/2024 13:42 Corrected Calcium: 9.7 (alb 3.9 on Apr 12, 2024) @ 04/12/2024 13:42 CREATININE, Serum: 0.73 eGFR(CKD-EPI 2020): >90 @ 04/12/2024 13:42 SODIUM: 140 POTASSIUM: 4.1 CHLORIDE: 105 CO2: 26 @ 04/12/2024 13:42 UREA NITROGEN: 18 Glucose: 89 @ 04/12/2024 13:42 HEPATITIS A ANTIBODY (IGG) REACTIVE: Ref: HBsAb: Pos @ 02/12/2024 09:22 CHOL: 225 H T LDL calculated: 165 H @ 02/12/2024 09:22 CHOL/HDL: 5.4 HDL: 42 @ 02/12/2024 09:22 TREND DATA: AST ALT AlkP TBil Alb Prtn === 31 64 99 0.6 3.9 7.1 @ 04/12/2024 13:42 36 75 110 0.9 4.3 7.2 @ 02/12/2024 09:22 DIAGNOSTICS: CT LIVER W/WO IV CONTRAST 4 PHASE [facility] Exm Date: APR 16, 2024@10:03 Findings: LOWER CHEST: Partially imaged 7 mm pleural-based nodule at the posteromedial left lower lobe on image 1. LIVER: Smooth contour. No mass or enhancing lesion. GALLBLADDER/BILIARY: Unremarkable. SPLEEN: Unremarkable. PANCREAS: Unremarkable. ADRENALS: Unremarkable. KIDNEYS/URETERS: Unremarkable. PERITONEAL CAVITY: No ascites or pneumoperitoneum. GASTROINTESTINAL TRACT: Visualized portions are within normal limits. VESSELS: Normal caliber abdominal aorta. LYMPH NODES: No lymphadenopathy. BONES/ABDOMINAL WALL: No suspicious osseous lesion. Impression: 1. No liver mass or any suspicious enhancing liver lesion. 2. Partially imaged 7 mm pleural-based nodule at the posteromedial left lower lobe on image 1. Recommend CT chest. Assessment/Plan: ==== 58 yo male with PMH Obesity, HLD, GERD, BCC who presents for f/u on abnormal enzymes. His AST and ALT have been conistently trending down since last year August corresponding to weight loss and lifestyle changes. TSAT appears elevated and warrants further w/u to r/o Hemochromatosis. PLAN - AST and ALT trending down since 2023. - TSAT elevated, check HFE gene for Hemachromatosis - Unknown INR, will need updated labs reflecting Plt and INR, order placed. - CT ABD w and w/o contrast is benign, no splenomegaly or nodular liver contour. - FIB 4 (using PLT from 2021) - 0.87 indicating very low risk for fibrosis - Based on pending lab work, will consider further w/u with FS. VERBALIZES AN UNDERSTANDING AND AGREEMENT WITH THE ABOVE POC. TELE-HEALTH VISIT CONDUCTED FROM [facility] provider OVER CVT to [facility] patient On the date of the encounter, I spent 35 minutes on some or all of the following: chart review, history, physical examination, treatment planning, education and counseling of the patient/family/caregiver, placing orders, communicating with other healthcare providers, and documentation in the electronic health record. 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 Would recommend monitoring iron studies yearly and re-consulting if ferritin becomes above normal range . will update on the above. Alerting PCP through this note /helen Washington Nurse Practitioner, Hepatology/GI Signed: 05/09/2024 16:45 Receipt Acknowledged By: 05/09/2024 17:15 /kaleb/ Janie Snyder PA-C STAFF PHYSICIAN CHARACTER IMPERSONATOR 05/10/2024 ADDENDUM STATUS: COMPLETED called and updated. Will not need further f/u in Liver clinic at this time /es/ Caden Felix Nurse Practitioner, Hepatology/GI Signed: 05/10/2024 10:21 CADEN WASHINGTON [facility]
--- NOTE | 2024-07-01 14:04 | MHC.OFFVIS ---
Intake Visit Reasons: follow up/US/labs Intake Note: Patient presents today for a follow-up/US/Labs Urology Meds:Tamsulosin,pyridoxine Allergies to Antibiotic:Penicillins Blood Thinner:None PVR:0ml Signals Analyst Required: No Accompanied by: Self / Same As Patient Allergies Penicillins Allergy (Unknown, Verified 07/01/24 14:04) Unknown HPI Comments Details: 07/01/24-- 59-year-old male presenting with a follow-up for Benign Prostatic Hyperplasia (BPH) and elevated Prostate-Specific Antigen (PSA). His PSA levels have fluctuated over recent tests, initially reading 4.15 in June of 2023 and dropping to 2.99 in January of 2024. The latest test, conducted on May 20, 2024, presented an increase to 5.5. The patient has a history of nephrolithiasis, though recent renal ultrasound results confirmed no recurrence of kidney stones. He is compliant with tamsulosin treatment for BPH with nighttime intake and experiences nocturnal urination once per night, which he expresses is manageable. He previously consulted nephrology and received dietary guidance that he is implementing successfully. I discussed the elevated PSA levels, emphasizing the need for a repeat PSA test, ensuring fasting and abstaining from sexual activity 48 hours as well as to avoid activities that will cause pressure to the pelvic floor such as biking as it may cause fluctuations. Urinary Symptoms Review - Nightly use of tamsulosin. - Nocturia reported, occurring once nightly. - No recurrent nephrolithiasis reported. Results - Labs: PSA reading on May 20, 2024, was 5.5. - Tests and Diagnostics: Renal ultrasound performed on May 20, 2024, was normal without kidney stone recurrence. 09/25/2023-Rich is here in follow-up for kidney stones and BPH. He states that he has been taking the tamsulosin which was working well he has been getting up 1 time at night. I have reviewed 24 hour urine collection. Good urine volume over 3 L, elevated urine calcium greater than 500 mg, oxalate 43 mg. Will refer to nephrology. Continue to monitor PSA, and kidney stone. Continue tamsulosin and vitamin B6 100 mg daily. 07/03/23--Rich is a 58-year-old male who was seen last on 05/15/2023 for elevated PSA. Denies family history of prostate cancer. He does admit to some obstructive bladder symptoms. He is on tamsulosin 0.4 mg daily. The patient states he is tolerating the tamsulosin and feels that he has a better flow and is getting up less at nighttime. He was sent for renal ultrasound and repeat PSA was discussed. PSA-06/27/2023 was 4.15. Renal ultrasound 06/19/2023-negative for lesions, viral kidney stones 8 mm in the right kidney 6 mm in the left kidney adequate emptying on postvoid check a bladder, estimated prostate volume 32 mL. The patient states that he does have a history of passing kidney stones he has not needed to have a procedure. The patient states that he eats a lot of nuts and berries in his diet. I have discussed diet modification to decrease risk of forming more kidney stones. I have discussed low oxalate diet and specific foods to avoid including certain green leafy vegetables, chocalate, nuts, tea, beets, rubarb; low sodium, decreased use of animal protein and the importance of hydration drinking up to 2-2.5 liters of fluids and use of adding lemon to water to increase citrate in the diet. A pamphlet is also provided today. Plan discussed 24 hour urine collection. Will monitor kidney stones. CT stone protocol in 6 months. 05/15/23--Rich is a 58 y/o male referred for evaluation elevated PSA - 4.87. He denies FH of prostate cancer. He complains of some hesitency, nocturia x 2, denies dysuria, gross hematuria. I have discussed that elevated PSA may indicate changes in the prostate including benign enlargement, cancer and an inflammatory condition. I have discussed doing a biopsy has risks and that management in early detection of prostate cancer may include active surveillance. Plan discussed repeat PSA, tamsulosin 0.4mg daily, renal/bladder US. [facility] Medical History Family history of malignant neoplasm of other organs or systems Hyperlipidemia, unspecified Gastro-esophageal reflux disease without esophagitis Elevated prostate specific antigen [PSA] Calculus of kidney Unspecified malignant neoplasm of skin, unspecified Surgical History No pertinent past surgical history Family History Father No family history of cancer Mother No family history of cancer Social History Alcohol intake: current Alcohol intake frequency: does not drink Patient Tobacco Use Status: Never used Tobacco Office Procedures Post Void Residual Post Residual Void Post Void Residual (PVR): 0 58289-Enad Void Residual by ultrasound Results AMB Urinalysis, Automated UA Leukoctes 0 Rodney/uL Last Edit by Crystal Carvalho on 07/01/24 16:34 UA Nitrite Negative Last Edit by Crystal Carvalho on 07/01/24 16:34 UA Urobilinogen 0.2 mg/dL Last Edit by Crystal Carvalho on 07/01/24 16:34 UA Protein 0 mg/dL Last Edit by Crystal Carvalho on 07/01/24 16:34 UA pH 6.0 Last Edit by Crystal Carvalho on 07/01/24 16:34 UA Blood 0 Saul/uL Last Edit by Crystal Carvalho on 07/01/24 16:34 UA Specific [place] 1.025 Last Edit by Crystal Carvalho on 07/01/24 16:34 UA Ketone Negative Last Edit by Crystal Carvalho on 07/01/24 16:34 UA Bilirubin 0 mg/dL Last Edit by Crystal Carvalho on 07/01/24 16:34 UA Glucose 0 mg/dL Last Edit by Crystal Carvalho on 07/01/24 16:34 Results Reviewed Results Reviewed: Date of Service: 05/20/24 Procedure(s): US renal BI Accession Number(s): [id number] cc: Vicki Gonzales MD; Abdelrahman Troncoso~ CLINICAL HISTORY: N20.0 - Calculus of kidney US Renal Comparison: US/AR/SR - US RETROPERITONEAL COMP - 06/19/23 09:48 EDT Findings: Right kidney normal size and echotexture, 12.9 cm length. Left kidney normal size and echotexture, 11.9 cm length. No collecting system dilatation of either kidney. Normal color Doppler. IMPRESSION: 1. Normal kidneys. Date of Service: 02/13/24 Procedure(s): CT abdomen pelvis wo IV con Accession Number(s): [id number] cc: Vicki Gonzales MD; Abdelrahman Troncoso Report Number: [id number]: Total DLP = 525.00 mGy-cm EXAMINATION: CT ABDOMEN PELVIS WITHOUT IV CONTRAST HISTORY: N20.0 - Calculus of kidney COMPARISON: Correlation is made with a retroperitoneal ultrasound dated 06/19/2023. TECHNIQUE: CT scan of the abdomen and pelvis was performed without contrast using standard departmental protocol. Coronal and sagittal reformatted images were generated and reviewed. Oral contrast material was not administered per department protocol. This CT exam was performed with one or more of the following dose reduction techniques: automated exposure control, adjustment of the mA and/or kV according to patient size, use of iterative reconstruction technique. DLP: 525 mGy-cm FINDINGS: LOWER CHEST: The visualized lung bases are clear. There is no pleural effusion. CARDIOVASCULATURE: The heart is normal in size. There is no pericardial effusion. LIVER: The liver is normal in size and contour. The liver has an unremarkable unenhanced appearance. GALLBLADDER / BILE DUCTS: The gallbladder is unremarkable. There is no intra or extrahepatic biliary ductal dilatation. SPLEEN: The spleen is normal in size and has an unremarkable unenhanced appearance. PANCREAS: The pancreas has an unremarkable unenhanced appearance. ADRENAL GLANDS: Unremarkable. KIDNEYS/RETROPERITONEUM: No renal or ureteral calculi are identified. There is no hydronephrosis or hydroureter. LYMPH NODES: No retroperitoneal lymphadenopathy is identified in the abdomen or pelvis. VASCULATURE: The abdominal aorta is normal in caliber. MESENTERY/PERITONEUM: No free fluid. No masses. There is no free intraperitoneal gas. STOMACH: There is a small hiatal hernia. The remainder of the stomach is unremarkable. SMALL BOWEL: The small bowel is normal in caliber. COLON: There is a large amount of stool throughout colon. APPENDIX: Normal. URINARY BLADDER/PELVIC ORGANS: The urinary bladder is unremarkable. The prostate is normal in size. BONES / SOFT TISSUES: No suspicious bony or soft tissue abnormalities. IMPRESSION: 1. No evidence of nephrolithiasis or ureteral obstruction. Date of Service: 06/19/23 US RETROPERITONEAL COMPLETE (RENAL) CLINICAL INFORMATION: Elevated prostate-specific antigen (PSA). COMPARISON: None available. TECHNIQUE: Real-time imaging of the kidneys and bladder. FINDINGS: RIGHT KIDNEY: 12.8 x 6.3 x 6.4 cm (SAG x AP x TRV). The kidney is normal in size, contour, and echogenicity. Renal cortical thickness is normal. No focal parenchymal lesions or hydronephrosis. 8 mm nonobstructing calculus in the mid kidney. LEFT KIDNEY: 12.6 x 6.0 x 5.8 cm (SAG x AP x TRV). The kidney is normal in size, contour, and echogenicity. Renal cortical thickness is normal. No focal parenchymal lesions or hydronephrosis. 6 mm nonobstructing calculus in the mid kidney. BLADDER: Well distended and normal. Bilateral ureteral jets are demonstrated. Prevoid bladder volume is 690 mL. Postvoid bladder volume is 80 mL. The prostate volume is 32 mL. IMPRESSION: Enlarged prostate with distended urinary bladder measuring 690 mL prevoid and 80 mL postvoid. No hydronephrosis. Nonobstructing bilateral renal calculi. 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 Orders: Orders AMB Urinalysis Automated Today Z13.9 - Encounter for screening, unspecified Scribe Plan - Not visible on output: Patient was informed and verbally consented to the use of an ambient scribe for clinic note documentation during this visit. Coding Level of Care Code Est Pt Level 4 (89167) Diagnoses Hypercalciuria R82.994 Elevated prostate specific antigen [PSA] R97.20 BPH loc w urin obs/LUTS N40.1 History of kidney stones Z87.442 CPT Codes Post Residual Void - PVR CPT Code: 47109-Ttey Void Residual by ultrasound ([id number])
== END 2024-07-01 14:48 | disposition home or self-care (01) ==
LOC: HO.HUSH 13:18
PROVIDERS: PCP Physician Assistant; Visit Provider Urology
DX: Z13.9 Encounter for screening, unspecified (principal)

== ENCOUNTER → 2024-07-01 13:17 | Outpatient (BNVA) | payer OTHER, SELFPAY | PROVIDERS: PCP Physician Assistant; Visit Provider Urology | DX: R97.20 Elevated prostate specific antigen [PSA] (principal); N40.1 Benign prostatic hyperplasia with lower urinary tract symptoms; N13.8 Other obstructive and reflux uropathy; R82.994 Hypercalciuria; Z87.442 Personal history of urinary calculi | CPT/HCPCS: 51798; 81003; 99212 ==

== ENCOUNTER 2024-09-16 11:02 | Outpatient (REF) | payer OTHER, SELFPAY ==
--- OUTSIDE RECORDS SUMMARY | 2024-08-13 07:00 | XMS_ITS | Encounter Summary ---
Author Name [facility] [place] Address [address] [place] [address] Care Team Providers Care Web Application Developer Name Role Phone MIRIAM VASQUEZ Primary [...] Patient's Relationship to Policy Sapp [facility] PREFERRED PROVIDER ORGANIZAT ION (PPO) MG WEEKL Y ACTIV E Feb 20, 2017 [id number] EFFIE FOOTE PATIENT [place] PRESCRIPT ION Feb 20, 2017 [id number] [phone] EFFIE FOOTE PATIENT [facility] RE DODA* Mar 05, 2020 DODA [id number] EFFIE FOOTE PATIENT [facility] CE ORGANIZ HMO Jan 22, 2007 (WNR) [id number] [phone] EFFIE FOOTE PATIENT [employer] RX PRESCRIPT ION [address] PILGR July 11, 2008 [id number] EFFIE FOOTE PATIENT [facility] MENTAL [facility] Oct 09, 2008 [id number] [phone] EFFIE FOOTE PATIENT [facility] SELEC T TAMP Mar 14, 2021 [id number] EFFIE FOOTE PATIENT [facility] Dec 18, 2018 [facility] [id number] EFFIE FOOTE PATIENT Selected Encounter This section includes the information on record at [place] for the Encounter. Date/Time Encounter Type Encounter Description Reason Provider Source Aug 13, 2024 11:00 AM OFFICE O/P EST LOW 20 MIN PRIMARY CARE/MEDICINE ICD-10-CM E78.5 Hyperlipidemia, unspecified VANWAGNER,WILL CHOLO F IHE Encounter Template Text not used by ME Assessments - Encounter Diagnoses This section includes the primary and secondary diagnoses documented for the Encounter. Date/Time Primary/Secondary Diagnosis Diagnosis Name Provider Source Aug 13, 2024 11:25 AM PRIMARY Hyperlipidemia, unspecified VANWAGNER,WILL CHOLO F [facility] [place] [facility] Aug 13, 2024 11:25 AM SECONDARY Elevated prostate specific antigen [PSA] VANWAGNER,WILL CHOLO F [facility] [place] [facility] Aug 13, 2024 11:25 AM SECONDARY Family history of malignant neoplasm of organs or systems VANWAGNER,WILL CHOLO F [facility] [place] [facility] Plan of Treatment: Future Appointments (+ 6 months) and Future Tests (+/- 45 days) The Plan of Treatment section includes future care activities for the patient from all [place] [facility]. This section includes future appointments and future orders which are active, pending or scheduled. Future Appointments This section includes appointments that were scheduled to occur 6 months from the date of the Encounter, up to a maximum of 20 appointments. The data comes from all [place] treatment facilities. Appointment Date/Time Appointment Type Appointme nt Facility Name Aug 27, 2024 01:15 PM AMBULATORY - MEDICINE [facility] [place] [facility] Sep 18, 2024 10:00 AM AMBULATORY - MEDICINE [facility] [place] [facility] Sep 23, 2024 04:15 PM AMBULATORY - MEDICINE [facility] Active, Pending, and Scheduled Orders This section includes a listing of several types of active, pending, and scheduled orders, including clinic medications orders, diagnostic test orders, procedure orders and consult orders; where the start date of the order is 45 days before the date of the Encounter or 45 days after the date of theEncounter. The data comes from all [place] treatment facilities. Test Date/Time Test Type Test Details Facility Name Jul 31, 2024 12:00 AM Laboratory - Chemi stry Order LIPID PANEL FASTING BLOOD (SST-SERUM) [facility] Jul 31, 2024 12:00 AM Laboratory - Chemi stry Order LIVER FUNCTION BLOOD (SST-SERUM) [facility] Jul 31, 2024 12:00 AM Laboratory - Chemi stry Order BASIC METABOLIC PANEL (fasting) BLOOD (SST-SERUM) [facility] Aug 13, 2024 11:24 AM Consult Order [facility]-UROLOGY Cons [employer] [facility] Lab Results: +/- 30 days of the encounter This section includes the Chemistry and Hematology Lab Results on record with [place] for the patient. Radiology Reports and Pathology Reports are provided separately, in subsequent sections. Lab Results This section contains the Chemistry/Hematology Results that were resulted 30 days before or 30 daysafter the date of the Encounter. Date/Time Source Result Type Result - Unit Interpretation Reference Range Specimen Type Comment Aug 06, 2024 09:55 AM [facility] VITAMIN D (25-OH) SERUM Specimen Type: SERUM No comment entered. Ordering Provider: HÉCTOR SNYDER Report Released Date/Time: Feb 19, 2024 08:52 AM Reporting Lab: [address] [address] Performing Lab: [address] [address] VITAMIN D (25-OH) 99.4 ng/mL H 20-50 Aug 06, 2024 09:55 AM [facility] TSH SERUM Specimen Type: SERUM No comment entered. Ordering Provider: ABDELRAHMAN SNYDER Report Released Date/Time: Feb 19, 2024 08:52 AM Reporting Lab: [facility] [place] [facility] [address] [address] Performing Lab: [facility] [place] [facility] [address] [address] TSH 2.13 u[IU]/mL 0.35-4.94 Aug 06, 2024 09:55 AM [facility] PSA SERUM Specimen Type: SERUM No comment entered. Ordering Provider: ABDELRAHMAN SNYDER Report Released Date/Time: Feb 19, 2024 08:52 AM Reporting Lab: [facility] [address] [address] Performing Lab: [facility] [address] [address] PSA 5.1 ng/mL H 0-4 Aug 06, 2024 09:55 AM [facility] LIVER FUNCTION SERUM Specimen Type: SERUM No comment entered. Ordering Provider: ABDELRAHMAN SNYDER Report Released Date/Time: Feb 19, 2024 08:52 AM Reporting Lab: [facility] [address] [address] Performing Lab: [facility] [address] [address] PROTEIN,TOTAL 7.3 g/dL 6.4-8.3 ALBUMIN 4.7 g/dL 3.5-5.2 ALKALINE PHOSPHATASE 83 U/L 40-150 AST 27 U/L 5-34 ALT 40 U/L 0-55 BILIRUBIN, TOTAL 0.7 mg/dL 0.2-1.2 Aug 06, 2024 09:55 AM [facility] BASIC METABOLIC PANEL (fasting) SERUM Specime n Type: SERUM No comment entered. Ordering Provider: ABDELRAHMAN SNYDER Report Released Date/Time: Feb 19, 2024 08:52 AM Reporting Lab: [facility] [address] Performing Lab: [facility] [address] UREA NITROGEN 19 mg/dL 8-26 GLUCOSE 92 mg/dL 65-100 SODIUM 141 mmol/L 136-145 POTASSIUM 4.4 mmol/L 3.5-5.1 CHLORIDE 104 mmol/L 98-107 CO2 28 meq/L 22-29 CALCIUM 9.2 mg/dL 8.4-10.2 CREATININE, Serum 0.85 mg/dL 0.72-1.25 eGFR(CKD-EPI 2020) >90 mL/min >60 Aug 06, 2024 09:55 AM [facility] LIPID PANEL FASTING SERUM Specimen Type: SERU M No comment entered. Ordering Provider: ABDELRAHMAN SNYDER Report Released Date/Time: Feb 19, 2024 08:52 AM Reporting Lab: [facility] [address] [address] Performing Lab: [address] [address] CHOLESTEROL 255 mg/dL H TRIGLYCERIDE 115 mg/dL 0-150 LDL calculated 178 mg/dL H 0-129 CHOL/HDL 4.7 HDL CHOLESTEROL 54 mg/dL >40 Vital Signs: All taken on the encounter date This section contains inpatient and outpatient Vital Signs collected on the date of the Encounter. Date/Time Temperature Pulse Blood Pressure Respiratory Rate SP02 Pain Height Weight Body Mass Index Source Aug 13, 2024 10:49 AM 98.1 F 62 /min 114/71 mm[Hg] 16 /min 95 % 0 208 lb 27 [facility] Social History: Smoking Status (Most current) and Tobacco Use (All prior to encounter date) This section includes the most current, and the historical, smoking and tobacco- related health factors from the [place] facility where the Encounter took place. Current Smoking Status This section includes the most current smoking, or tobacco-related health factor, from the [place] facility where the Encounter took place. Date/Time Current Smoking Status Comment Facil ity Feb 19, 2024 08:30 AM VA-TOBACCO NEVER U SED OTHER TYPE [facility] Tobacco Use History This section includes a history of the smoking, or tobacco-related health factors, that were collected on or before the date of the Encounter. The data comes from the ME facility where the Encounter took place. Date/Time Smoking Status/Tobacco Use Comment F acility Feb 19, 2024 08:30 AM VA-TOBACCO NEVER U SED OTHER TYPE [facility] [place] [facility] Oct 13, 2022 11:45 AM VA-TOBACCO NEVER USED [facility] [place] [facility] Sep 05, 2021 11:29 AM VA-TOBACCO NEVER USED [facility] [place] [facility] May 28, 2007 09:10 AM LIFETIME NON-TOBACCO USER [facility] [place] [facility] Advance Directives: All historical and current Section Date Range: From patient's date of to the date document was created. This section includes ALL of a patient's completed or amended [place] Advance and Rescinded Directives. The entries below indicate that a directive exists for the patient, but an actual copy is not included with this document. The data comes from all [place] facilities. Date Advance Directives Provider Source Aug 29, 2023 ADVANCE DIRECTIVE KRUNAL TANG [facility] Encounter Notes: All associated encounter notes This section contains the clinical notes associated to the Encounter. Date/Time Encounter Note(s) Provider Source Aug 13, 2024 11:19 AM PHYSICIAN CAREER COUNSELOR NOTE: LOCAL TITLE: PA NOTE STANDARD TITLE: PHYSICIAN CAREER COUNSELOR NOTE DATE OF NOTE: AUG 13, 2024@11:19 ENTRY DATE: AUG 13, 2024@11:19:18 AUTHOR: ABDELRAHMAN SNYDER EXP COSIGNER: URGENCY: STATUS: COMPLETED CC/HPI/A/P: 59 year old MALE here in follow-up for; HYPERvitamin D. He does not recall ever being found to be low, 'just took it I ask him to stop. Will check next spring. PTSD< asks to continue acuuncture. Brings an outside note. I will consult and forward note. Dyslipidemia, diet, recheck at next. psa elevation, urology. ? FH. never had biopsy, but follows urology for many years. Review of systems: Patient reports no changes [...] to note dated 02/28/23 2. Elevated PSA ([facility] [id number]) 3. Hyperlipidemia ([facility] [id number]) 4. Basal Cell Carcinoma of Skin ([facility] [id number]) 5. Family history of malignant melanoma Mom. 6. Gastroesophageal reflux disease 7. Kidney Stone SERVICE CONNECTED % - 80 VA and Non VA meds were reconciled [...] MOUTH ACTIVE ONCE DAILY 4 Total Medications 98.1 F [36.7 C] (08/13/2024 10:49) 62 (08/13/2024 10:49) 16 (08/13/2024 10:49) 114/71 (08/13/2024 10:49) 0 (08/13/2024 10:49) 74 in [188.0 cm] (02/19/2024 08:07) 208 lb [94.35 kg] (08/13/2024 10:49) BMI: 26.8 Neuro: Alert and oriented times three, grossly nonfocal, nasolabial folds intact. Recent labs reviewed with patient today:yes /kaleb/ Abdelrahman Snyder PA-C STAFF PHYSICIAN CAREER COUNSELOR Signed: 08/13/2024 11:25 ABDELRAHMAN SNYDER Ramila [facility] Aug 13, 2024 10:55 AM ADMINISTRATIVE NOTE: LOCAL TITLE: FAX/MAIL RECEIVED STANDARD TITLE: ADMINISTRATIVE NOTE DATE OF NOTE: AUG 13, 2024@10:55 ENTRY DATE: AUG 13, 2024@10:55:57 AUTHOR: LARON NEVILLE EXP COSIGNER: URGENCY: STATUS: COMPLETED Document Received On: Jul Document Type: Office Visit Note Date of Service: May Facility and or Provider: Dimitrios FARMER, counseling services Contact Information: PCP of Record: ABDELRAHMAN SNYDER Next visit with PCP: 08/13/2024 11:00 [facility] PACT 3 PA 09/18/2024 10:00 [facility] DERMATOLOGY PROC SUPERVISOR LEAD BURNING Primary Care May keep copies of this document for up to 14 days and send the original for scanning. The has brought in notes from his outside provider, DARIAN Monteiro. copies made and sent to [facility] for scanning. /kaleb/ LARON NEVILLE LPN License Practical Nurse Signed: 08/13/2024 10:58 LARON NEVILLE [facility] Aug 13, 2024 10:48 AM PREVENTIVE MEDICINE NURSING NOTE: LOCAL TITLE: CLINICAL REMINDERS/NURSING STANDARD TITLE: PREVENTIVE MEDICINE NURSING NOTE DATE OF NOTE: AUG 13, 2024@10:48 ENTRY DATE: AUG 13, 2024@10:48:42 AUTHOR: LARON NEVILLE EXP COSIGNER: URGENCY: STATUS: COMPLETED Advance Directive Screen MH AD: Patient has an Advance Directive on file at this [facility]. No updates are needed at this time. The patient received education about Advance Directives and written notification of his/her rights. Suicide Screen: C-SSRS Screening [place] Suicide Severity Rating Scale (C-SSRS) screener 1. Over the past month, have you [...] went to the roof but didn't jump)? Yes 8. If YES, was this within the past 3 months? Lola /kaleb/ LARON NEVILLE LPN License Practical Nurse Signed: 08/13/2024 10:49 LARON NEVILLE [facility]
[2024-09-16 12:39] LABS: Prostate Specific Antigen 3.94 ng/mL (<0.05-4.0)
== END 2024-09-16 11:03 | disposition home or self-care (01) ==
LOC: HO.LAB 11:02
PROVIDERS: PCP Physician Assistant; Visit Provider Urology
DX: N40.1 Benign prostatic hyperplasia with lower urinary tract symptoms (principal)
CPT/HCPCS: 36415; 84153

== ENCOUNTER 2024-09-23 16:28 | Outpatient (AMB) | payer OTHER, SELFPAY ==
--- NOTE | 2024-09-23 16:28 | A.OFFVIS_ITS ---
Intake Visit Reasons: 3m/PSA Intake Note: Patient presents today for a 3m follow-up/PSA * 09/16 PSA:3.94 Urology Meds:Tamsulosin Allergies to Antibiotic:Penicillins Blood Thinner:None Promotions Associate Required: No Accompanied by: Self / Same As Patient Allergies Penicillins Allergy (Unknown, Verified 09/23/24 16:29) Unknown HPI Comments Details: 09/23/24-- History of Present Illness - The patient is a 59-year-old male presenting with elevated Prostate-Specific Antigen (PSA). - The PSA level was recorded at 3.94 on 09/16/24, which has remained stable w ithout further elevation. - The patient has been under observation for this condition, and no new symptoms or changes have been reported since the last visit. Results - PSA level: 3.94 on 09/16/24 Plan - A repeat PSA test is planned for six months to monitor the stability of the PSA levels. - An MRI of the prostate is to be scheduled in six months, to check for any lesions. - If the MRI shows any abnormalities, a biopsy will be discussed. 07/01/24-- 59-year-old male presenting with a follow-up for Benign Prostatic Hyperplasia (BPH) and elevated Prostate-Specific Antigen (PSA). His PSA levels have fluctuated over recent tests, initially reading 4.15 in June of 2023 and dropping to 2.99 in January of 2024. The latest test, conducted on May 20, 2024, presented an increase to 5.5. The patient has a history of nephrolithiasis, though recent renal ultrasound results confirmed no recurrence of kidney stones. He is compliant with tamsulosin treatment for BPH with nighttime intake and experiences nocturnal urination once per night, which he expresses is manageable. He previously consulted nephrology and received dietary guidance that he is implementing successfully. I discussed the elevated PSA levels, emphasizing the need for a repeat PSA test, ensuring fasting and abstaining from sexual activity 48 hours as well as to avoid activities that will cause pressure to the pelvic floor such as biking as it may cause fluctuations. Urinary Symptoms Review - Nightly use of tamsulosin. - Nocturia reported, occurring once nightly. - No recurrent nephrolithiasis reported. Results - Labs: PSA reading on May 20, 2024, was 5.5. - Tests and Diagnostics: Renal ultrasound performed on May 20, 2024, was normal without kidney stone recurrence. 09/25/2023-Rich is here in follow-up for kidney stones and BPH. He states that he has been taking the tamsulosin which was working well he has been getting up 1 time at night. I have reviewed 24 hour urine collection. Good urine volume over 3 L, elevated urine calcium greater than 500 mg, oxalate 43 mg. Will refer to nephrology. Continue to monitor PSA, and kidney stone. Continue tamsulosin and vitamin B6 100 mg daily. 07/03/23--Rich is a 58-year-old male who was seen last on 05/15/2023 for elevated PSA. Denies family history of prostate cancer. He does admit to some obstructive bladder symptoms. He is on tamsulosin 0.4 mg daily. The patient states he is tolerating the tamsulosin and feels that he has a better flow and is getting up less at nighttime. He was sent for renal ultrasound and repeat PSA was discussed. PSA-06/27/2023 was 4.15. Renal ultrasound 06/19/2023-negative for lesions, viral kidney stones 8 mm in the right kidney 6 mm in the left kidney adequate emptying on postvoid check a bladder, estimated prostate volume 32 mL. The patient states that he does have a history of passing kidney stones he has not needed to have a procedure. The patient states that he eats a lot of nuts and berries in his diet. I have discussed diet modification to decrease risk of forming more kidney stones. I have discussed low oxalate diet and specific foods to avoid including certain green leafy vegetables, chocalate, nuts, tea, beets, rubarb; low sodium, decreased use of animal protein and the importance of hydration drinking up to 2-2.5 liters of fluids and use of adding lemon to water to increase citrate in the diet. A pamphlet is also provided today. Plan discussed 24 hour urine collection. Will monitor kidney stones. CT stone protocol in 6 months. 05/15/23--Rich is a 58 y/o male referred for evaluation elevated PSA - 4.87. He denies FH of prostate cancer. He complains of some hesitency, nocturia x 2, denies dysuria, gross hematuria. I have discussed that elevated PSA may indicate changes in the prostate including benign enlargement, cancer and an inflammatory condition. I have discussed doing a biopsy has risks and that management in early detection of prostate cancer may include active surveillance. Plan discussed repeat PSA, tamsulosin 0.4mg daily, renal/bladder US. [facility] Medical History Family history of malignant neoplasm of other organs or systems Hyperlipidemia, unspecified Gastro-esophageal reflux disease without esophagitis Elevated prostate specific antigen [PSA] Calculus of kidney Unspecified malignant neoplasm of skin, unspecified Surgical History No pertinent past surgical history Family History Father No family history of cancer Mother No family history of cancer Social History Alcohol intake: current Alcohol intake frequency: does not drink Patient Tobacco Use Status: Never used Tobacco Review of Systems Const All systems reviewed & are unremarkable except as noted in HPI and below Reports no additional complaints Eyes Reports no additional complaints ENT Reports no additional complaints Card Reports no additional complaints Resp Reports no additional complaints GI Reports no additional complaints Reports as per HPI Musc Reports no additional complaints Skin/Breast Reports system reviewed and no additional complaints, except as documented Neuro Reports no additional complaints Psych Reports no additional complaints Endo Reports no additional complaints Filippo/Lymph Reports no additional complaints Aller/Immun Reports no additional complaints Telehealth Telehealth Telehealth Platform: [facility] Location of provider rendering services: practice address Location of patient: address on file Patient Identification confirmed using: Name, : Yes Telehealth method: video Patient verbally consented to treatment: Yes Patient verbally consented to billing insurance company: Yes Patient informed of any privacy concerns related to visit: Yes Assessment & Plan Assessment & Plan (1) Elevated prostate specific antigen [PSA]: Code(s): R97.20 - Elevated prostate specific antigen [PSA] Category: Social Hx Plan MR Prostate wo/w con 6 Months R97.20 - Elevated prostate specific antigen [PSA] PSA,Total (Free>4and<10) 6 Months R97.20 - Elevated prostate specific antigen [PSA] Orders: Orders MR Prostate wo/w con 6 Months R97.20 - Elevated prostate specific antigen [PSA] PSA,Total (Free>4and<10) 6 Months R97.20 - Elevated prostate specific antigen [PSA] Patient Instructions: The patient had an opportunity to ask questions regarding treatment plan. The patient expressed understanding and agreement with the above treatment plan. The patient is aware they should contact our office by phone for worsening of their current condition or the appearance of new symptoms. Compliance is encouraged with any medications and followup testing that is ordered. It is a privilege to be allowed the opportunity to participate in the urologic care of your patient. If you have any questions or concerns regarding treatment for the above conditions please do not hesitate to contact me. The office tel ephone contact is [phone]. This note is constructed in part using voice recognition software. While every effort has been made to ensure accuracy steelworker errors may have been included. Yours sincerely, Vicki Gonzales MD Scribe Plan - Not visible on output: Patient was informed and verbally consented to the use of an ambient scribe for clinic note documentation during this visit. Coding Level of Care Code Tele Est Pt Level 3 (61508) Complex EM visit Add On G2211 Diagnoses Elevated prostate specific antigen [PSA] R97.20
== END 2024-09-23 16:45 | disposition home or self-care (01) ==
LOC: HO.HUSH 16:28
PROVIDERS: PCP Physician Assistant; Visit Provider Urology
DX: R97.20 Elevated prostate specific antigen [PSA] (principal)
CPT/HCPCS: 99213; G2211